=== PATIENT | male | born 1970 | race Caucasian/White ===

== ENCOUNTER → 2017-10-24 | Outpatient (CLI) | payer MEDICARE, OTHER, SELFPAY | PROVIDERS: Visit Provider Nurse Practitioner Family | DX: Z79.899 Other long term (current) drug therapy (principal) | CPT/HCPCS: 80305 ==

== ENCOUNTER 2017-11-16 09:16 | Emergency (ER) | payer MEDICARE, OTHER, SELFPAY ==
[2017-11-16 10:07] VITALS: BP 149/90; PULSE 114; RESP 18; TEMP 36.6; O2SAT 96; BMI 42.0
[2017-11-16 10:43] LABS: UTC Influenza A Antigen Negative (Negative); UTC Influenza B Antigen Positive (Negative)
--- NOTE | 2017-11-16 10:49 | HMH.EDUTC ---
[facility] [place] Impression: Influenza B Disposition: Home, Self-Care Condition on Discharge: Good Instructions: Influenza Additional Instructions: * Too late to start tamiflu. Most effective when started within 48 hours of symptoms onset. Sounds like you are already improving * Continue antibiotic due to right ear * Lots of rest * Increase fluids, water, gatorade, powerade, pedialyte if /toddler/child * Monitor Temp. Tylenol every 4 hours as needed no more then 5 times a day or 4000mg in 24 hours and/or ibuprofen every 6 hours as needed no more then 3200mg in 24 hours (as long as your primary care doctor has told you that it is ok to take both) for fever/aches/pain. ER if fever no less than 101 despite tylenol and Ibuprofen * You (or your child) are contagious until no fever, aches, chills x 24 hours without medication for symptoms. * * Per hospital policy, Your throat swab was sent for culture. Those results are typically sent to your primary care. Be sure to follow up in 2-3 days if no improvement so they can review those results and treat if necessary. If you don't have primary care, I recommend you get one but in the mean time, you will have to return to a walk in clinic. Referrals: Leatha Brownlee APRN [Primary Care Provider] - (IMMEDIATELY for new or worsening symptoms, improvement followed by suddenly feeling worse OR no noticeable improvement over the next 48-72 hours. 911 for difficulty breathing ) Time of Disposition: 11:03 Medical Decision Making Vital Signs: 11/16/17 10:07 Temperature 97.8 F Temperature Source Temporal Artery Scan Pulse Rate [Right] 114 H Respiratory Rate 18 Blood Pressure [Right Arm] 149/90 Blood Pressure Mean [Right Arm] 109 Blood Pressure Source [Right Arm] Automatic Cuff Blood Pressure Position [Right Arm] Sitting 02 Sat by Pulse Oximetry 96 Oxygen Delivery Method Room Air - Lab Data Lab Results 11/16/17 10:42: Influenza Type A Ag Negative, Influenza Type B Ag Positive A Orders (Tests/Meds): Flu A neg Flu B positive - Dante Inquiry Pt receiving controlled substance: No [facility] [place] - General Stated complaint: cough runny nose congested Time Seen by Provider: 11/16/17 10:30 Mode of Arrival: Ambulatory Source of Information: Patient Limitations: No Limitations Description of Symptoms (Recalled from Triage Doc. by RN): RECENT ZPACK, COUGH, CONGESTION HEENT Symptoms (Recalled from RN notes): Yes Resp Symptoms (Recalled from RN notes): No Skin Symptoms (Recalled from RN notes): No MS Symptoms (Recalled from RN notes): No Functional Status (Recalled from RN notes): N - History of Present Illness Provider Complaint: c/o continued nonprod cough. Started 3-4 days ago. Saw [facility]. Flu neg. Started on zpack. Fever, aches, chills improved but cough and runny nose lingering. Mom w/ same symptoms. Dx flu B. Girlfriend w/ same symptoms several days longer. Denies SOA, wheezing. Has not had flu vaccine due to PMHx he reports. - Related Data Home Medications Medication Instructions Recorded Confirmed albuterol sulfate HFA 90 2 puff INHALATION Q6H 11/13/17 mcg/actuation aerosol inhaler atorvastatin 10 mg tablet 10 mg PO QDAY 11/13/17 budesonide-formoterol HFA 160 2 puff INHALATION Q12H 11/13/17 mcg-4.5 mcg/actuation aerosol inhaler diazepam 10 mg tablet 10 mg PO TID 11/13/17 diltiazem CD 240 mg 240 mg PO QDAY 11/13/17 capsule,extended release 24 hr epinephrine 0.3 mg/0.3 mL 0.3 mg IM ONCE 11/13/17 injection, auto-injector escitalopram 20 mg tablet 20 mg PO QDAY 11/13/17 esomeprazole magnesium 20 mg 20 mg PO QDAY cap 11/13/17 capsule,delayed release metoclopramide 10 mg tablet 10 mg PO TID 11/13/17 olopatadine 0.1 % eye drops 1 drp OPHTHALMIC BID 11/13/17 quetiapine 50 mg tablet 50 mg PO QHS tab 11/13/17 selenium sulfide 2.25 % shampoo 5 ml TOPICAL QDAY 11/13/17 sumatriptan 100 mg tablet 100 mg PO ONCE 11/13/17 Prev
--- NOTE | 2017-11-16 10:52 | ED_ITS ---
[facility] Disposition Clinical Impression: Influenza B Disposition: Home, Self-Care Condition on Discharge: Good Instructions: Influenza Additional Instructions: * Too late to start tamiflu. Most effective when started within 48 hours of symptoms onset. Sounds like you are already improving * Continue antibiotic due to right ear * Lots of rest * Increase fluids, water, gatorade, powerade, pedialyte if /toddler/child * Monitor Temp. Tylenol every 4 hours as needed no more then 5 times a day or 4000mg in 24 hours and/or ibuprofen every 6 hours as needed no more then 3200mg in 24 hours (as long as your primary care doctor has told you that it is ok to take both) for fever/aches/pain. ER if fever no less than 101 despite tylenol and Ibuprofen * You (or your child) are contagious until no fever, aches, chills x 24 hours without medication for symptoms. * * Per hospital policy, Your throat swab was sent for culture. Those results are typically sent to your primary care. Be sure to follow up in 2-3 days if no improvement so they can review those results and treat if necessary. If you don' t have primary care, I recommend you get one but in the mean time, you will have to return to a walk in clinic. Referrals: Leatha Brownlee APRN [Primary Care Provider] - (IMMEDIATELY for new or worsening symptoms, improvement followed by suddenly feeling worse OR no noticeable improvement over the next 48-72 hours. 911 for difficulty breathing * ) Time of Disposition: 11:03 Medical Decision Making Vital Signs: 11/16/17 10:07 Temperature 97.8 F Temperature Source Temporal Artery Scan Pulse Rate [Right] 114 H Respiratory Rate 18 Blood Pressure [Right Arm] 149/90 Blood Pressure Mean [Right Arm] 109 Blood Pressure Source [Right Arm] Automatic Cuff Blood Pressure Position [Right Arm] Sitting 02 Sat by Pulse Oximetry 96 Oxygen Delivery Method Room Air - Lab Data Lab Results 11/16/17 10:42: Influenza Type A Ag Negative, Influenza Type B Ag Positive A Orders (Tests/Meds): Flu A neg Flu B positive - Dante Inquiry Pt receiving controlled substance: No [facility] HPI - General Stated complaint: cough runny nose congested Time Seen by Provider: 11/16/17 10:30 Mode of Arrival: Ambulatory Source of Information: Patient Limitations: No Limitations Description of Symptoms (Recalled from Triage Doc. by RN): RECENT ZPACK, COUGH, CONGESTION HEENT Symptoms (Recalled from RN notes): Yes Resp Symptoms (Recalled from RN notes): No Skin Symptoms (Recalled from RN notes): No MS Symptoms (Recalled from RN notes): No Functional Status (Recalled from RN notes): N - History of Present Illness Provider Complaint: c/o continued nonprod cough. Started 3-4 days ago. Saw [facility]. Flu neg. Started on zpack. Fever, aches, chills improved but cough and runny nose lingering. Mom w/ same symptoms. Dx flu B. Girlfriend w/ same symptoms several days longer. Denies SOA, wheezing. Has not had flu vaccine due to PMHx he reports. - Related Data Home Medications Medication Instructions Recorded Confirmed albuterol sulfate HFA 90 2 puff INHALATION Q6H 11/13/17 mcg/actuation aerosol inhaler atorvastatin 10 mg tablet 10 mg PO QDAY 11/13/17 budesonide-formoterol HFA 160 2 puff INHALATION Q12H 11/13/17 mcg-4.5 mcg/actuation aerosol inhaler diazepam 10 mg tablet 10 mg PO TID 11/13/17 diltiazem CD 240 mg 240 mg PO QDAY
== END 2017-11-16 11:13 | disposition home or self-care (01) ==
PROVIDERS: Emergency Provider Nurse Practitioner Family; PCP Nurse Practitioner Family
DX: J10.1 Influenza due to other identified influenza virus with other respiratory manifestations (principal); I10 Essential (primary) hypertension; Z85.6 Personal history of leukemia; Z79.51 Long term (current) use of inhaled steroids; Z79.899 Other long term (current) drug therapy
CPT/HCPCS: 87804; 99202

== ENCOUNTER → 2017-12-21 15:20 | Outpatient (CLI) | payer MEDICARE, OTHER, SELFPAY ==
[2017-12-21 19:27] LABS: Amphetamine/Metha Screen,Urine Negative ng/mL (<1000); Barbiturates Screen,Urine Negative ng/mL (<200); Benzodiazepines Screen,Urine Positive ng/mL (200); Cannabinoid Screen,Urine Negative ng/mL (<50); Cocaine Screen,Urine Negative ng/g (<300); Methadone Screen,Urine Negative ng/mL (<300); Opiate Screen,Urine Negative ng/mL (<300); Phencyclidine Screen,Urine Negative ng/mL (<25)
== END ==
PROVIDERS: Visit Provider Nurse Practitioner Family
DX: Z79.899 Other long term (current) drug therapy (principal)
CPT/HCPCS: 80305

== ENCOUNTER → 2017-12-24 09:37 | Outpatient (POV) | payer MEDICARE, OTHER, SELFPAY | PROVIDERS: PCP Nurse Practitioner Family; Visit Provider Physician Assistant | DX: Z00.00 Encounter for general adult medical examination without abnormal findings (principal) ==

== ENCOUNTER → 2018-01-17 11:02 | Outpatient (CLI) | payer MEDICARE, OTHER, SELFPAY | PROVIDERS: Visit Provider Nurse Practitioner Family | DX: E03.9 Hypothyroidism, unspecified (principal); J10.1 Influenza due to other identified influenza virus with other respiratory manifestations ==

== ENCOUNTER → 2018-01-29 10:19 | Outpatient (CLI) | payer MEDICARE, OTHER, SELFPAY ==
[2018-01-29 10:38] LABS: Basophils % 0.4 % (0.1-2.0); Eosinophils # 0.3 K/mm3 (0.0-0.4); Eosinophils % 3.4 % (0.1-12.0); Hematocrit 45.5 % (42.0-52.0); Hemoglobin 15.7 g/dL (14.1-18.0); Lymphocytes # 3.2 K/mm3 (0.7-4.5); Mean Corpuscular HGB Conc 34.4 g/dL (31.8-35.4); Mean Corpuscular Hemoglobin 29.9 pg (27.0-31.2); Mean Platelet Volume 8.2 fl (7.4-10.4); Monocytes # 0.5 K/mm3 (0.1-1.0); Monocytes % 5.7 % (1.7-9.3); Neutrophils # 4.2 K/mm3 (1.8-7.8); Neutrophils % 51.5 % (37.0-80.0); Platelet Count 203 K/mm3 (142-424); Red Blood Count 5.24 M/mm3 (4.60-6.20); Red Cell Distribution Width 13.5 % (11.5-17.5); White Blood Count 8.2 K/mm3 (4.8-10.8)
[2018-01-29 11:40] LABS: Alanine Aminotransferase 42 U/L (12-78); Albumin Level 3.4 gm/dL (3.4-5.0); Albumin/Globulin Ratio 1.2 (1.1-1.8); Alkaline Phosphatase 137 U/L (46-116); Anion Gap 11.8 mEq/L (5-15); Aspartate Amino Transferase 24 U/L (15-37); Bilirubin,Total 0.5 mg/dL (0.2-1.0); Blood Urea Nitrogen 7 mg/dL (7-18); Calcium 8.5 mg/dL (8.5-10.1); Carbon Dioxide 27 mmol/L (21.0-32.0); Chloride 104 mmol/L (98-107); Creatinine,Serum 0.94 mg/dL (0.70-1.30); Estimated Glomerular Filt Rate 87 ml/min (>60); GFR (African American) 105 ML/MIN (>60); Globulin 2.9 gm/dl (1.3-3.2); Glucose 113 mg/dL (74-106); Potassium 3.8 mmoL/L (3.5-5.1); Sodium 139 mmol/L (136-145); Total Protein,Serum 6.3 gm/dL (6.4-8.2)
[2018-01-29 11:40] LABS: Thyroid Stimulating Hormone 3.88 uIU/ml (0.358-3.740)
[2018-01-30 15:48] LABS: Vitamin D 25 Hydroxy 11.3 ng/mL (30.0-100.0)
== END ==
PROVIDERS: Nurse Practitioner Family; Visit Provider Nurse Practitioner
DX: E78.5 Hyperlipidemia, unspecified (principal); R53.83 Other fatigue
CPT/HCPCS: 36415; 80053; 82652; 84443; 85025

== ENCOUNTER → 2018-01-31 08:42 | Outpatient (CLI) | payer MEDICARE, OTHER, SELFPAY ==
--- NOTE | 2018-01-31 08:51 | XR_ITS ---
XR DEXA axial skeleton HISTORY: ITS.REASON: S/P CHEMOTHERAPY,RASIATION,PREDNISONE ORDERING PHYSICIAN: Elías Mccray MD PATIENT AGE: 47 years COMPARISON: None FINDINGS: The BMD measured at the AP Spine L1-L4 is 1.077 g/cm squared with a T score of -1.2. This is considered Osteopenic according to the World Health Organization criteria. Fracture risk is Moderate. Treatment is advised.. The mean density of the hips is 0.994 with a T score of -0.7 IMPRESSION: Osteopenia with moderate fracture risk. Treatment recommended. Recommend follow exam January 2020
== END ==
PROVIDERS: PCP Nurse Practitioner Family; Visit Provider Internal Medicine
DX: Z79.52 Long term (current) use of systemic steroids (principal); R53.83 Other fatigue
CPT/HCPCS: 77080

== ENCOUNTER → 2018-02-15 15:42 | Outpatient (CLI) | payer MEDICARE, OTHER, SELFPAY ==
[2018-02-15 18:44] LABS: Amphetamine/Metha Screen,Urine Negative ng/mL (<1000); Barbiturates Screen,Urine Negative ng/mL (<200); Benzodiazepines Screen,Urine Positive ng/mL (200); Cannabinoid Screen,Urine Negative ng/mL (<50); Cocaine Screen,Urine Negative ng/g (<300); Methadone Screen,Urine Negative ng/mL (<300); Opiate Screen,Urine Negative ng/mL (<300); Phencyclidine Screen,Urine Negative ng/mL (<25)
== END ==
PROVIDERS: Visit Provider Nurse Practitioner Family
DX: Z79.899 Other long term (current) drug therapy (principal)
CPT/HCPCS: 80305

== ENCOUNTER → 2018-03-15 16:23 | Outpatient (CLI) | payer MEDICARE, OTHER, SELFPAY ==
--- NOTE | 2018-03-15 16:25 | XR_ITS ---
XR shoulder LT min 2V HISTORY: ITS.REASON: pain ORDERING PHYSICIAN: Leatha Brownlee PATIENT AGE: 48 years COMPARISON: FINDINGS: No fracture or dislocation. No lytic or blastic change. There is normal mineralization. There is subacromial stenosis which may result in impingement symptomatology. Please correlate with clinical findings. No other significant anomalies evident. IMPRESSION: Subacromial stenosis otherwise negative
== END ==
PROVIDERS: PCP Nurse Practitioner Family; Visit Provider Nurse Practitioner Family
DX: M25.512 Pain in left shoulder (principal)
CPT/HCPCS: 73030

== ENCOUNTER → 2018-03-25 14:21 | Outpatient (CLI) | payer MEDICARE, OTHER, SELFPAY ==
--- NOTE | 2018-03-25 14:24 | US_ITS ---
US thyroid HISTORY: Difficulty swallowing with fatigue ITS.REASON: FATIGUE, MILD DYSPHAGIA, S/P WHOLE BODY RADIATION, HYPOTHYRO ORDERING PHYSICIAN: Jennifer Chirinos PATIENT AGE: 48 years Comparison: None FINDINGS: Right lobe: 4.4 x 1.5 x 2 cm. Homogeneous echogenicity. 5 mm cyst upper pole Left lobe: 4.5 x 1.4 x 1.9 cm. 4 mm cyst upper pole. Ill-defined area of decreased echogenicity posteriorly at 9 mm may be due to small nodule versus heterogeneous echogenicity. Isthmus: Unremarkable IMPRESSION: Mildly enlarged thyroid gland with small bilateral cysts and possible 1 cm nodule in the posterior aspect of the left lobe. Consider 6 month follow-up to confirm stability
== END ==
PROVIDERS: PCP Nurse Practitioner Family; Visit Provider Nurse Practitioner
DX: R13.10 Dysphagia, unspecified (principal); E03.9 Hypothyroidism, unspecified; R53.83 Other fatigue
CPT/HCPCS: 76536

== ENCOUNTER → 2018-04-12 15:17 | Outpatient (CLI) | payer MEDICARE, OTHER, SELFPAY ==
[2018-04-12 19:43] LABS: Amphetamine/Metha Screen,Urine Negative ng/mL (<1000); Barbiturates Screen,Urine Negative ng/mL (<200); Benzodiazepines Screen,Urine Positive ng/mL (200); Cannabinoid Screen,Urine Negative ng/mL (<50); Cocaine Screen,Urine Negative ng/g (<300); Methadone Screen,Urine Negative ng/mL (<300); Opiate Screen,Urine Negative ng/mL (<300); Phencyclidine Screen,Urine Negative ng/mL (<25)
== END ==
PROVIDERS: Visit Provider Nurse Practitioner Family
DX: Z79.899 Other long term (current) drug therapy (principal)
CPT/HCPCS: 80305

== ENCOUNTER 2018-04-30 21:27 | Emergency (ER) | payer MEDICARE, OTHER, SELFPAY ==
[2018-04-30 21:38] VITALS: BP 122/96; PULSE 111; RESP 20; TEMP 36.9; O2SAT 97; BMI 41.1
--- NOTE | 2018-04-30 21:42 | CT_ITS ---
CT abdomen pelvis wo con CLINICAL INDICATION: Epigastric pain with vomiting and diarrhea ITS.REASON: abd pain ORDERING PHYSICIAN: Rasta Cadet MD PATIENT AGE: 48 years COMPARISON: 03/17/2017 TECHNIQUE: Axial images obtained with sagittal and coronal reformats. All CT scans at the facility use one or more dose reduction, viz: automated exposure control; ma/kV adjustment per patient size (including targeted exams where dose is matched to indication; i.e. head); or iterative reconstruction technique. PROCEDURE: Oral Contrast: None IV Contrast: None . FINDINGS: Minimal atelectatic or fibrotic changes are present in the right lung base. Diffuse fatty liver infiltration with some sparing around the gallbladder fossa. There are 2 small hyperdensities along the neck of the gallbladder and could be related to small stones seen on image #35. Ultrasound may be of further value. The spleen, adrenal glands, pancreas, and kidneys have an unremarkable unenhanced CT appearance. No renal or ureteral calculi or hyper versus. Unremarkable appendix. No evidence of diverticulitis. There are a few air-fluid levels within the colon which is nondistended. Small soft tissue density is present deep to the umbilicus and could be related to an area of scarring. No pelvic mass or abnormal fluid collection or focal inflammatory change of the pelvis. No acute bony anomalies. Scattered small lymph nodes are present in the mesentery's IMPRESSION: 1. Scattered air-fluid levels within nondistended large bowel nonspecific and may be seen with diarrhea disease or interval colitis. 2. Possible cholelithiasis. 3. Fatty liver.
[2018-04-30 21:47] LABS: Microscopic, Urine URINE MICROSCOPIC (MICROSCOPIC)
[2018-04-30 21:51] LABS: Appearance,Urine CLEAR (Clear); Bilirubin,Urine Negative (Negative); Blood, Urine Negative (Negative); Color,Urine YELLOW (Yellow); Glucose,Urine (UA) Negative (Negative); Ketones,Urine Negative (Negative); Leukocyte Esterase,Urine Negative (Negative); Nitrate,Urine Negative (Negative); PH,Urine 5.5 (5.0-8.5); Protein,Urine Negative (Negative); Specific Gravity, Urine >= 1.030 (1.005-1.030); Urobilinogen,Urine 0.2 EU/dl (0.2)
[2018-04-30 21:57] LABS: Bacteria,Urine Trace /lpf; Hyaline Casts,Urine Occasional #/lpf (0); Mucus,Urine 4+ /lpf; Squamous Epithelial Cell,Urine Occasional #/hpf (0-5)
[2018-04-30 21:57] LABS: Basophils # 0.1 K/mm3 (0-0.2); Basophils % 0.3 % (0.1-2.0); Eosinophils # 0.2 K/mm3 (0.0-0.4); Eosinophils % 1.2 % (0.1-12.0); Hematocrit 51.6 % (42.0-52.0); Hemoglobin 17.3 g/dL (14.1-18.0); Lymphocytes # 3.4 K/mm3 (0.7-4.5); Lymphocytes % 20.9 K/mm3 (10-50); Mean Corpuscular HGB Conc 33.5 g/dL (31.8-35.4); Mean Corpuscular Hemoglobin 29.1 pg (27.0-31.2); Mean Corpuscular Volume 86.9 fl (80-94); Mean Platelet Volume 7.9 fl (7.4-10.4); Monocytes # 0.7 K/mm3 (0.1-1.0); Monocytes % 4.3 % (1.7-9.3); Neutrophils # 11.9 K/mm3 (1.8-7.8); Neutrophils % 73.2 % (37.0-80.0); Platelet Count 253 K/mm3 (142-424); Red Blood Count 5.94 M/mm3 (4.60-6.20); Red Cell Distribution Width 13.2 % (11.5-17.5); White Blood Count 16.3 K/mm3 (4.8-10.8)
[2018-04-30 22:01] LABS: MANUAL DIFFERENTIAL MANUAL DIFFERENTIAL (MANUAL DIFF)
[2018-04-30 22:10] LABS: Alanine Aminotransferase 52 U/L (12-78); Albumin Level 4.1 gm/dL (3.4-5.0); Albumin/Globulin Ratio 1.1 (1.1-1.8); Alkaline Phosphatase 161 U/L (46-116); Amylase 44 U/L (25-125); Anion Gap 11.2 mEq/L (5-15); Aspartate Amino Transferase 29 U/L (15-37); Bilirubin,Total 0.7 mg/dL (0.2-1.0); Blood Urea Nitrogen 17 mg/dL (7-18); Calcium 8.7 mg/dL (8.5-10.1); Carbon Dioxide 29 mmol/L (21.0-32.0); Chloride 101 mmol/L (98-107); Creatinine Clearance Estimated 78 mL/min (0-300); Creatinine,Serum 1.11 mg/dL (0.70-1.30); Estimated Glomerular Filt Rate 71 ml/min (>60); GFR (African American) 86 ML/MIN (>60); Globulin 3.8 gm/dl (1.3-3.2); Glucose 122 mg/dL (74-106); Lipase 122 u/L (73-393); Potassium 4.2 mmoL/L (3.5-5.1); Sodium 137 mmol/L (136-145); Total Protein,Serum 7.9 gm/dL (6.4-8.2)
--- NOTE | 2018-04-30 23:04 | HMH.EDNVD ---
ED Disposition Clinical Impression: Gastroenteritis Disposition: Home, Self-Care Condition on Discharge: Good Instructions: DI for Vomiting -- Adult Additional Instructions: fluids and see pcp for follow up Referrals: Leatha Brownlee APRN [Primary Care Provider] - - Critical Care Critical Care Time: No Attestation: On 04/30/18, the high probability of a clinically significant, sudden or life threatening deterioration of the following system(s) required my full and direct attention, intervention and personal management. The time I documented below is in addition to time spent performing reported procedures but includes the following listed in this critical care notation. Medical Decision Making - Medical Records Medical records reviewed: Yes: I reviewed the patient's medical records. - Dante Inquiry Pt receiving controlled substance: No Vital Signs: 04/30/18 21:38 Temperature 98.4 F Temperature Source Oral Pulse Rate [Right Radial] 111 H Respiratory Rate 20 Blood Pressure [Right Arm] 122/96 Blood Pressure Mean [Right Arm] 104 02 Sat by Pulse Oximetry 97 - Lab Data Lab results reviewed: Yes: I reviewed the patient's lab results. Lab Results 04/30/18 20:45: Urine Color Yellow, Urine Appearance Clear, Urine pH 5.5, Ur Specific [place] >= 1.030, Urine Protein Negative, Urine Glucose (UA) Negative, Urine Ketones Negative, Urine Blood Negative, Urine Nitrate Negative, Urine Bilirubin Negative, Urine Urobilinogen 0.2, Ur Leukocyte Esterase Negative, Urine RBC None, Urine WBC None, Ur Squamous Epith Cells Occasional, Urine Bacteria Trace, Hyaline Casts Occasional, Urine Mucus 4+ 04/30/18 21:50: WBC 16.3 H, RBC 5.94, Hgb 17.3, Hct 51.6, MCV 86.9, MCH 29.1, MCHC 33.5, RDW 13.2, Plt Count 253, MPV 7.9, Neut % (Auto) 73.2, Lymph % (Auto) 20.9, Rush % (Auto) 4.3, Eos % (Auto) 1.2, Baso % (Auto) 0.3, Neut # (Auto) 11.9 H, Lymph # (Auto) 3.4, Rush # (Auto) 0.7, Eos # (Auto) 0.2, Baso # (Auto) 0.1 04/30/18 21:50: Sodium 137, Potassium 4.2, Chloride 101, Carbon Dioxide 29, Anion Gap 11.2, BUN 17, Creatinine 1.11, Estimated Creat Clear 78, Estimated GFR 71, Est GFR ( Amer) 86, Glucose 122 H, Calcium 8.7, Total Bilirubin 0.7, AST 29, ALT 52, Alkaline Phosphatase 161 H, Total Protein 7.9, Albumin 4.1, Globulin 3.8 H, Albumin/Globulin Ratio 1.1, Amylase 44, Lipase 122 Result diagrams: 04/30/18 21:50 04/30/18 21:50 Orders (Tests/Meds): ED MEDICATIONS Discontinued Medications Generic Name Dose Route Start Last Admin Trade Name Freq PRN Reason Stop Dose Admin Sodium Chloride 1,000 mls @ 999 mls/hr 04/30/18 21:45 04/30/18 22:01 Sod Chlor 0.9% 1000ml Bag IV 04/30/18 22:45 999 mls/hr .Q1H1M JOCELYN Administration Ketorolac Tromethamine 30 mg 04/30/18 21:42 04/30/18 22:01 Toradol 30mg/Ml Vial IV 04/30/18 21:43 30 mg ONCE ONE Administration Ondansetron HCl 4 mg 04/30/18 21:42 04/30/18 22:01 Zofran 4mg/2ml Vial IV 04/30/18 21:43 4 mg ONCE ONE Administration ORDERS Category Date Time Status CT abdomen pelvis wo con Stat Cat Scan 04/30/18 21:42 Taken CBC w/Auto Diff [Complete Blood Count Auto Diff] Stat Lab 04/30/18 21:50 Results - CT Data CT Scan: Abdomen, Pelvis Time Received: 23:[address] Reviewed: Yes: I have viewed the radiologist's interpretation Preliminary Findings: Abnormal (entercolitis) Nausea/Vomiting/Diarrhea HPI - General Chief complaint: Abdominal Pain Stated complaint: Sick at stomach Time Seen by Provider: 04/30/18 21:50 Mode of Arrival: Family Vehicle Source of Information: Patient, Spouse, Medical Record Limitations: No Limitations Description of Symptoms (Recalled from ER Triage Doc. by RN): pt states he ate [employer] last pm and this morning he had abd pain, nausea, and diarrhea x 4-5 times. - History of Present Illness HPI Narrative: crampy abd pain
--- NOTE | 2018-04-30 23:10 | ED_ITS ---
ED Disposition Clinical Impression: Gastroenteritis Disposition: Home, Self-Care Condition on Discharge: Good Instructions: DI for Vomiting -- Adult Additional Instructions: fluids and see pcp for follow up Referrals: Leatha Brownlee APRN [Primary Care Provider] - - Critical Care Critical Care Time: No Attestation: On 04/30/18, the high probability of a clinically significant, sudden or life threatening deterioration of the following system(s) required my full and direct attention, intervention and personal management. The time I documented below is in addition to time spent performing reported procedures but includes the following listed in this critical care notation. Medical Decision Making - Medical Records Medical records reviewed: Yes: I reviewed the patient's medical records. - Dante Inquiry Pt receiving controlled substance: No Vital Signs: 04/30/18 21:38 Temperature 98.4 F Temperature Source Oral Pulse Rate [Right Radial] 111 H Respiratory Rate 20 Blood Pressure [Right Arm] 122/96 Blood Pressure Mean [Right Arm] 104 02 Sat by Pulse Oximetry 97 - Lab Data Lab results reviewed: Yes: I reviewed the patient's lab results. Lab Results 04/30/18 20:45: Urine Color Yellow, Urine Appearance Clear, Urine pH 5.5, Ur Specific [place] >= 1.030, Urine Protein Negative, Urine Glucose (UA) Negative, Urine Ketones Negative, Urine Blood Negative, Urine Nitrate Negative, Urine Bilirubin Negative, Urine Urobilinogen 0.2, Ur Leukocyte Esterase Negative, Urine RBC None, Urine WBC None, Ur Squamous Epith Cells Occasional, Urine Bacteria Trace, Hyaline Casts Occasional, Urine Mucus 4+ 04/30/18 21:50: WBC 16.3 H, RBC 5.94, Hgb 17.3, Hct 51.6, MCV 86.9, MCH 29.1, MCHC 33.5, RDW 13.2, Plt Count 253, MPV 7.9, Neut % (Auto) 73.2, Lymph % (Auto) 20.9, [place] % (Auto) 4.3, Eos % (Auto) 1.2, Baso % (Auto) 0.3, Neut # (Auto) 11.9 H, Lymph # (Auto) 3.4, Frio # (Auto) 0.7, Eos # (Auto) 0.2, Baso # (Auto) 0.1 04/30/18 21:50: Sodium 137, Potassium 4.2, Chloride 101, Carbon Dioxide 29, Anion Gap 11.2, BUN 17, Creatinine 1.11, Estimated Creat Clear 78, Estimated GFR 71, Est GFR ( Amer) 86, Glucose 122 H, Calcium 8.7, Total Bilirubin 0.7, AST 29, ALT 52, Alkaline Phosphatase 161 H, Total Protein 7.9, Albumin 4.1 , Globulin 3.8 H, Albumin/Globulin Ratio 1.1, Amylase 44, Lipase 122 Result diagrams: 04/30/18 21:50 04/30/18 21:50 Orders (Tests/Meds): ED MEDICATIONS Discontinued Medications Generic Name Dose Route Start Last Admin Trade Name Freq PRN Reason Stop Dose Admin Sodium Chloride 1,000 mls @ 999 mls/hr 04/30/18 21:45 04/30/18 22:01 Sod Chlor 0.9% 1000ml Bag IV 04/30/18 22:45 999 mls/hr .Q1H1M JOCELYN Administration Ketorolac Tromethamine 30 mg 04/30/18 21:42 04/30/18 22:01 Toradol 30mg/Ml Vial IV 04/30/18 21:43 30 mg ONCE ONE Administration Ondansetron HCl 4 mg 04/30/18 21:42 04/30/18 22:01 Zofran 4mg/2ml Vial IV 04/30/18 21:43 4 mg ONCE ONE Administration ORDERS Category Date Time Status CT abdomen pelvis wo con Stat Cat Scan 04/30/18 21:42 Taken CBC w/Auto Diff [Complete Blood Count Auto Diff] Stat Lab 06
[2018-04-30 23:12] LABS: Lymphocytes % 19 % (10-50); Monocytes % 1 % (2-9); Neutrophils % 80 % (42-76); Platelet Estimate Normal; Total Cells Counted 100
[2018-04-30 23:14] LABS: Stomatocytes 1+
[2018-04-30 23:15] VITALS: BP 133/74; PULSE 84; RESP 18; TEMP 36.6; O2SAT 96
== END 2018-04-30 23:16 | disposition home or self-care (01) ==
PROVIDERS: Emergency Provider Emergency Medicine; PCP Nurse Practitioner Family
DX: K52.9 Noninfective gastroenteritis and colitis, unspecified (principal); K21.9 Gastro-esophageal reflux disease without esophagitis; E78.5 Hyperlipidemia, unspecified; I10 Essential (primary) hypertension; F41.8 Other specified anxiety disorders; Z95.0 Presence of cardiac pacemaker; E03.9 Hypothyroidism, unspecified; Z88.2 Allergy status to sulfonamides; Z88.6 Allergy status to analgesic agent
CPT/HCPCS: 74176; 80053; 81001; 82150; 83690; 85007; 85025; 96365; 96375; 99283; J2405

== ENCOUNTER → 2018-05-27 15:26 | Outpatient (CLI) | payer MEDICARE, OTHER, SELFPAY ==
[2018-05-27 17:49] LABS: Anion Gap 12.8 mEq/L (5-15); Blood Urea Nitrogen 14 mg/dL (7-18); Calcium 9.3 mg/dL (8.5-10.1); Carbon Dioxide 32 mmol/L (21.0-32.0); Chloride 103 mmol/L (98-107); Creatinine,Serum 1.25 mg/dL (0.70-1.30); Estimated Glomerular Filt Rate 62 ml/min (>60); GFR (African American) 75 ML/MIN (>60); Glucose 105 mg/dL (74-106); Potassium 4.8 mmoL/L (3.5-5.1); Sodium 143 mmol/L (136-145)
== END ==
PROVIDERS: PCP Nurse Practitioner Family; Visit Provider Internal Medicine
DX: I51.9 Heart disease, unspecified (principal); R06.00 Dyspnea, unspecified; I10 Essential (primary) hypertension
CPT/HCPCS: 36415; 80048

== ENCOUNTER → 2018-06-06 14:02 | Outpatient (REF) | payer MEDICARE, OTHER, SELFPAY ==
[2018-06-06 19:27] LABS: Amphetamine/Metha Screen,Urine Negative ng/mL (<1000); Barbiturates Screen,Urine Negative ng/mL (<200); Benzodiazepines Screen,Urine Positive ng/mL (<200); Cannabinoid Screen,Urine Negative ng/mL (<50); Cocaine Screen,Urine Negative ng/mL (<300); Methadone Screen,Urine Negative ng/mL (<300); Opiate Screen,Urine Negative ng/mL (<300); Phencyclidine Screen,Urine Negative ng/mL (<25)
== END ==
LOC: LAB 14:02
PROVIDERS: Visit Provider Nurse Practitioner Family
DX: Z79.899 Other long term (current) drug therapy (principal)
CPT/HCPCS: 80305

== ENCOUNTER 2018-06-27 13:00 | Outpatient (RCR) | payer MEDICARE, OTHER, SELFPAY | END 2018-06-27 13:01 | disposition home or self-care (01) | LOC: PT 13:00 | PROVIDERS: PCP Nurse Practitioner Family; Visit Provider Orthopaedic Surgery | DX: M25.562 Pain in left knee (principal) | CPT/HCPCS: 97010; 97014; 97033; 97035; 97110; 97140; 97163; G0283 ==

== ENCOUNTER → 2018-07-11 14:12 | Outpatient (CLI) | payer MEDICARE, OTHER, SELFPAY ==
--- NOTE | 2018-07-11 14:15 | CT_ITS ---
CT sinus wo con CLINICAL INDICATION: ITS.REASON: sinus congestion ORDERING PHYSICIAN: Bert Garcia MD PATIENT AGE: 48 years COMPARISON: None TECHNIQUE:Axial images obtained with sagittal and coronal reformats. All CT scans at the facility use one or more dose reduction, viz: automated exposure control, ma/kV adjustment per patient size (including targeted exams where dose is matched to indication, i.e. head), or iterative reconstruction technique. FINDINGS: No sinus air-fluid levels. No sinus or nasopharyngeal mass. Mild mucosal thickening involving the floor the left maxillary sinus have a somewhat lobular appearance measuring up to 4 mm in width. Sphenoid, ethmoid, and frontal sinuses are unremarkable. There is mild rightward nasal septal deviation superiorly. There is mild narrowing of the left nasal canal from a small septal spur on the left and mild edema of the left inferior nasal turbinate. No mastoid effusion. The orbits have an unremarkable appearance. The middle ears are well aerated. IMPRESSION: 1. Minimal inflammatory changes of the left maxillary sinus 2. Mild rightward nasal septal deviation superiorly with mild narrowing of the nasal canal and the left from small septal spur and turbinate edema
== END ==
PROVIDERS: PCP Nurse Practitioner Family; Visit Provider Otolaryngology
DX: J32.0 Chronic maxillary sinusitis (principal); J32.9 Chronic sinusitis, unspecified; J34.2 Deviated nasal septum
CPT/HCPCS: 70486

== ENCOUNTER → 2018-08-01 13:49 | Outpatient (CLI) | payer MEDICARE, OTHER, SELFPAY ==
[2018-08-01 14:17] LABS: Amphetamine/Metha Screen,Urine Negative ng/mL (<1000); Barbiturates Screen,Urine Negative ng/mL (<200); Benzodiazepines Screen,Urine Positive ng/mL (<200); Cannabinoid Screen,Urine Negative ng/mL (<50); Cocaine Screen,Urine Negative ng/mL (<300); Methadone Screen,Urine Negative ng/mL (<300); Opiate Screen,Urine Negative ng/mL (<300); Phencyclidine Screen,Urine Negative ng/mL (<25)
[2018-08-01 14:18] LABS: Basophils # 0.1 K/mm3 (0-0.2); Basophils % 0.5 % (0.1-2.0); Eosinophils # 0.3 K/mm3 (0.0-0.4); Eosinophils % 2.7 % (0.1-12.0); Hematocrit 47.5 % (42.0-52.0); Hemoglobin 16.4 g/dL (14.1-18.0); Lymphocytes # 2.9 K/mm3 (0.7-4.5); Mean Corpuscular HGB Conc 34.6 g/dL (31.8-35.4); Mean Corpuscular Hemoglobin 31.7 pg (27.0-31.2); Mean Corpuscular Volume 91.7 fl (80-94); Mean Platelet Volume 8.3 fl (7.4-10.4); Monocytes # 0.6 K/mm3 (0.1-1.0); Monocytes % 5.1 % (1.7-9.3); Neutrophils # 7.3 K/mm3 (1.8-7.8); Neutrophils % 65.7 % (37.0-80.0); Platelet Count 239 K/mm3 (142-424); Red Blood Count 5.18 M/mm3 (4.60-6.20); Red Cell Distribution Width 14.5 % (11.5-17.5)
[2018-08-01 15:17] LABS: Alanine Aminotransferase 43 U/L (12-78); Albumin Level 3.9 gm/dL (3.4-5.0); Albumin/Globulin Ratio 1.1 (1.1-1.8); Alkaline Phosphatase 148 U/L (46-116); Anion Gap 12.6 mEq/L (5-15); Aspartate Amino Transferase 24 U/L (15-37); Bilirubin,Total 0.5 mg/dL (0.2-1.0); Blood Urea Nitrogen 13 mg/dL (7-18); Calcium 9.2 mg/dL (8.5-10.1); Carbon Dioxide 31 mmol/L (21.0-32.0); Chloride 100 mmol/L (98-107); Creatinine,Serum 1.03 mg/dL (0.70-1.30); Estimated Glomerular Filt Rate 78 ml/min (>60); GFR (African American) 94 ML/MIN (>60); Globulin 3.5 gm/dl (1.3-3.2); Glucose 105 mg/dL (74-106); Potassium 4.6 mmoL/L (3.5-5.1); Sodium 139 mmol/L (136-145); Total Protein,Serum 7.4 gm/dL (6.4-8.2)
== END ==
PROVIDERS: PCP Nurse Practitioner Family; Visit Provider Otolaryngology
DX: Z01.818 Encounter for other preprocedural examination (principal); J32.0 Chronic maxillary sinusitis; J34.2 Deviated nasal septum; H90.5 Unspecified sensorineural hearing loss; Z79.899 Other long term (current) drug therapy
CPT/HCPCS: 36415; 80053; 80305; 85025

== ENCOUNTER → 2018-08-29 13:13 | Outpatient (REF) | payer MEDICARE, OTHER, SELFPAY ==
[2018-08-29 15:33] LABS: Amphetamine/Metha Screen,Urine Negative ng/mL (<1000); Barbiturates Screen,Urine Negative ng/mL (<200); Benzodiazepines Screen,Urine Positive ng/mL (<200); Cannabinoid Screen,Urine Negative ng/mL (<50); Cocaine Screen,Urine Negative ng/mL (<300); Methadone Screen,Urine Negative ng/mL (<300); Opiate Screen,Urine Negative ng/mL (<300); Phencyclidine Screen,Urine Negative ng/mL (<25)
== END ==
LOC: LAB 13:13
PROVIDERS: PCP Nurse Practitioner Family; Visit Provider Nurse Practitioner Family
DX: Z79.899 Other long term (current) drug therapy (principal)
CPT/HCPCS: 80305

== ENCOUNTER → 2018-09-17 12:17 | Outpatient (CLI) | payer MEDICARE, OTHER, SELFPAY ==
--- NOTE | 2018-09-17 12:20 | US_ITS ---
US thyroid HISTORY: ITS.REASON: thyroid nodule ORDERING PHYSICIAN: Bert Garcia MD PATIENT AGE: 48 years Comparison: 03/25/2018 FINDINGS: The right lobe is 4.8 x 1.4 x 2.2 cm. 5 mm cyst upper pole unchanged The left lobe is 4.5 x 1.4 x 1.5 cm 4 mm cyst upper pole unchanged. Ill-defined isoechoic area lower pole posteriorly at 10 mm unchanged. This is not well defined and [place] due to area of heterogeneous echogenicity as opposed to the nodule. No new nodules evident. IMPRESSION: Enlarged thyroid gland with small bilateral cyst and persistent hypoechoic area posterior left lobe inferiorly unchanged
== END ==
PROVIDERS: PCP Emergency Medicine; Visit Provider Otolaryngology
DX: E04.1 Nontoxic single thyroid nodule (principal); E04.9 Nontoxic goiter, unspecified
CPT/HCPCS: 76536

== ENCOUNTER → 2018-09-19 15:16 | Outpatient (CLI) | payer MEDICARE, OTHER, SELFPAY ==
[2018-09-19 18:16] LABS: Amphetamine/Metha Screen,Urine Negative ng/mL (<1000); Barbiturates Screen,Urine Negative ng/mL (<200); Benzodiazepines Screen,Urine Positive ng/mL (<200); Cannabinoid Screen,Urine Negative ng/mL (<50); Cocaine Screen,Urine Negative ng/mL (<300); Methadone Screen,Urine Negative ng/mL (<300); Opiate Screen,Urine Negative ng/mL (<300); Phencyclidine Screen,Urine Negative ng/mL (<25)
== END ==
PROVIDERS: Visit Provider Nurse Practitioner Family
DX: Z79.899 Other long term (current) drug therapy (principal)
CPT/HCPCS: 80305

== ENCOUNTER → 2018-09-23 13:12 | Outpatient (CLI) | payer MEDICARE, OTHER, SELFPAY ==
[2018-09-23 14:05] LABS: Free T4 (Free Thyroxine) 0.97 ng/dl (0.76-1.46); Thyroid Stimulating Hormone 1.16 uIU/ml (0.358-3.740)
== END ==
PROVIDERS: Visit Provider Otolaryngology
DX: E03.9 Hypothyroidism, unspecified (principal)
CPT/HCPCS: 36415; 84439; 84443

== ENCOUNTER → 2018-10-02 09:37 | Outpatient (CLI) | payer MEDICARE, OTHER, SELFPAY ==
[2018-10-02 10:05] LABS: Basophils % 0.3 % (0.1-2.0); Eosinophils # 0.4 K/mm3 (0.0-0.4); Eosinophils % 4.1 % (0.1-12.0); Hematocrit 46.3 % (42.0-52.0); Hemoglobin 15.5 g/dL (14.1-18.0); Lymphocytes % 32.4 % (10-50); Mean Corpuscular HGB Conc 33.6 g/dL (31.8-35.4); Mean Corpuscular Hemoglobin 31.5 pg (27.0-31.2); Mean Corpuscular Volume 93.8 fl (80-94); Mean Platelet Volume 7.8 fl (7.4-10.4); Monocytes # 0.5 K/mm3 (0.1-1.0); Monocytes % 5.6 % (1.7-9.3); Neutrophils # 5.4 K/mm3 (1.8-7.8); Neutrophils % 57.6 % (37.0-80.0); Platelet Count 252 K/mm3 (142-424); Red Blood Count 4.93 M/mm3 (4.60-6.20); Red Cell Distribution Width 13.8 % (11.5-17.5); White Blood Count 9.3 K/mm3 (4.8-10.8)
[2018-10-02 10:38] LABS: Alanine Aminotransferase 41 U/L (12-78); Albumin Level 3.8 gm/dL (3.4-5.0); Albumin/Globulin Ratio 1.1 (1.1-1.8); Alkaline Phosphatase 151 U/L (46-116); Anion Gap 14.1 mEq/L (5-15); Aspartate Amino Transferase 19 U/L (15-37); Bilirubin,Total 0.4 mg/dL (0.2-1.0); Blood Urea Nitrogen 14 mg/dL (7-18); Calcium 9.1 mg/dL (8.5-10.1); Carbon Dioxide 28 mmol/L (21.0-32.0); Chloride 100 mmol/L (98-107); Estimated Glomerular Filt Rate 72 ml/min (>60); GFR (African American) 87 ML/MIN (>60); Globulin 3.4 gm/dl (1.3-3.2); Glucose 109 mg/dL (74-106); Potassium 4.1 mmoL/L (3.5-5.1); Sodium 138 mmol/L (136-145); Total Protein,Serum 7.2 gm/dL (6.4-8.2)
[2018-10-02 10:47] LABS: Free T4 (Free Thyroxine) 1.15 ng/dl (0.76-1.46); Thyroid Stimulating Hormone 1.98 uIU/ml (0.358-3.740)
== END ==
PROVIDERS: Otolaryngology; Visit Provider Nurse Practitioner
DX: Z85.6 Personal history of leukemia (principal); E01.0 Iodine-deficiency related diffuse (endemic) goiter; E03.9 Hypothyroidism, unspecified
CPT/HCPCS: 36415; 80053; 84439; 84443; 85025

== ENCOUNTER 2018-10-03 13:53 | Outpatient (RCR) | payer MEDICARE, OTHER, SELFPAY ==
--- NOTE | 2018-10-03 14:50 | HMH.OTOPEV ---
OT Inpatient Evaluation Rehab OT Outpatient Eval Start: 10/03/18 14:28 Freq: Status: Active Protocol: Document 10/03/18 14:29 TFRY (Rec: 10/03/18 14:50 TFRY [id number]) Electronically Signed By Liseth Arredondo OT 10/03/18 14:29 Outpatient Therapy Subjective History Subjective History This is a 48 year old right handed male referred to occupational therapy for left arm shoulder/elbow contusion. Patient states that he slipped and fell on 09/28 on mud when going to his car. He was then seen in ER and went to see the ortho. and sent him to therapy. Chief Complaint Pain Stiff Symptom Type Ache Symptoms Relieved By Rest/Positioning Symptoms Aggravated By Physical Activity Prior Functional Limitations None Current Functional Limitations Reaching Lifting Driving Symptom Description Activity Dependent Level of pain today (0-10) 0 Pain scale - at its best (0-10) 0 Pain scale - at its worst (0-10) 3 Shoulder/Elbow Eval Shoulder Objective Measurements Shoulder ROM Left Shoulder ROM Limitations Pain Shoulder Abduction Active Range of 100 Motion (degrees) Shoulder Abduction Passive Range of 115 Motion (degrees) Shoulder Flexion Active Range of Motion 130 (degrees) Query Text: Shoulder Flexion Passive Range of Motion 135 (degrees) Shoulder External Rotation Active Range 40 of Motion (degrees) Shoulder External Rotation Passive Range 45 of Motion (degrees) Shoulder Internal Rotation Active Range 25 of Motion (degrees) Shoulder Internal Rotation Passive Range 40 of Motion (degrees) Shoulder Extension Active Range of 35 Motion (degrees) pain with active ROM shoulder exam left standard pain with passive ROM shoulder exam left standard decreased ROM shoulder exam standard left Shoulder MMT Shoulder Abduction Strength Grade 4- Good- Shoulder Extension Strength Grade 4- Good- Shoulder Flexion Strength Grade 3+ Fair+ Shoulder Horizontal Abduction Strength 3+ Fair+ Grade Shoulder Horizontal Adduction Strength 3+ Fair+ Grade Shoulder External Rotation Strength 3+ Fair+ Grade Shoulder Internal Rotation Strength 3+ Fair+
== END 2018-10-03 14:00 | disposition home or self-care (01) ==
LOC: OT 13:53
PROVIDERS: Visit Provider Orthopaedic Surgery
DX: M79.622 Pain in left upper arm (principal); M25.512 Pain in left shoulder; S50.02XD Contusion of left elbow, subsequent encounter
CPT/HCPCS: 97014; 97110; 97165; G0283

== ENCOUNTER → 2018-10-16 13:37 | Outpatient (CLI) | payer MEDICARE, OTHER, SELFPAY ==
[2018-10-16 17:22] LABS: Amphetamine/Metha Screen,Urine Negative ng/mL (<1000); Barbiturates Screen,Urine Negative ng/mL (<200); Benzodiazepines Screen,Urine Positive ng/mL (<200); Cannabinoid Screen,Urine Negative ng/mL (<50); Cocaine Screen,Urine Negative ng/mL (<300); Methadone Screen,Urine Negative ng/mL (<300); Opiate Screen,Urine Negative ng/mL (<300); Phencyclidine Screen,Urine Negative ng/mL (<25)
== END ==
PROVIDERS: Visit Provider Nurse Practitioner Family
DX: Z79.899 Other long term (current) drug therapy (principal)
CPT/HCPCS: 80305

== ENCOUNTER → 2018-12-12 15:01 | Outpatient (CLI) | payer MEDICARE, OTHER, SELFPAY ==
[2018-12-12 19:26] LABS: Amphetamine/Metha Screen,Urine Negative ng/mL (<1000); Barbiturates Screen,Urine Negative ng/mL (<200); Benzodiazepines Screen,Urine Positive ng/mL (<200); Cannabinoid Screen,Urine Negative ng/mL (<50); Cocaine Screen,Urine Negative ng/mL (<300); Methadone Screen,Urine Negative ng/mL (<300); Opiate Screen,Urine Negative ng/mL (<300); Phencyclidine Screen,Urine Negative ng/mL (<25)
== END ==
PROVIDERS: Visit Provider Nurse Practitioner Family
DX: Z79.899 Other long term (current) drug therapy (principal)
CPT/HCPCS: 80305

== ENCOUNTER → 2019-01-07 15:23 | Outpatient (CLI) | payer MEDICARE, OTHER, SELFPAY ==
[2019-01-07 15:40] LABS: Basophils # 0.1 K/mm3 (0-0.2); Basophils % 0.5 % (0.1-2.0); Eosinophils # 0.3 K/mm3 (0.0-0.4); Eosinophils % 2.5 % (0.1-12.0); Hemoglobin 15.7 g/dL (14.1-18.0); Lymphocytes # 4.9 K/mm3 (0.7-4.5); Lymphocytes % 40.5 % (10-50); Mean Corpuscular HGB Conc 35.6 g/dL (31.8-35.4); Mean Corpuscular Hemoglobin 31.9 pg (27.0-31.2); Mean Corpuscular Volume 89.6 fl (80-94); Monocytes # 0.7 K/mm3 (0.1-1.0); Monocytes % 5.5 % (1.7-9.3); Neutrophils # 6.1 K/mm3 (1.8-7.8); Neutrophils % 50.9 % (37.0-80.0); Platelet Count 252 K/mm3 (142-424); Red Blood Count 4.92 M/mm3 (4.60-6.20)
[2019-01-07 17:13] LABS: Alanine Aminotransferase 32 U/L (12-78); Albumin Level 3.7 gm/dL (3.4-5.0); Albumin/Globulin Ratio 1.1 (1.1-1.8); Alkaline Phosphatase 159 U/L (46-116); Anion Gap 12.1 mEq/L (5-15); Aspartate Amino Transferase 16 U/L (15-37); Bilirubin,Total 0.5 mg/dL (0.2-1.0); Blood Urea Nitrogen 18 mg/dL (7-18); Calcium 9.3 mg/dL (8.5-10.1); Carbon Dioxide 33 mmol/L (21.0-32.0); Chloride 102 mmol/L (98-107); Creatinine,Serum 1.16 mg/dL (0.70-1.30); Estimated Glomerular Filt Rate 68 ml/min (>60); GFR (African American) 82 ML/MIN (>60); Globulin 3.5 gm/dl (1.3-3.2); Glucose 99 mg/dL (74-106); Potassium 4.1 mmoL/L (3.5-5.1); Sodium 143 mmol/L (136-145); Thyroid Stimulating Hormone 1.94 uIU/ml (0.358-3.740); Total Protein,Serum 7.2 gm/dL (6.4-8.2)
[2019-01-11 10:06] LABS: Vitamin D 25 Hydroxy 18.8 ng/mL (30.0-100.0)
== END ==
PROVIDERS: Visit Provider Nurse Practitioner
DX: Z85.6 Personal history of leukemia (principal); E03.9 Hypothyroidism, unspecified
CPT/HCPCS: 36415; 80053; 82652; 84443; 85025

== ENCOUNTER → 2019-02-06 13:44 | Outpatient (CLI) | payer MEDICARE, OTHER, SELFPAY ==
[2019-02-06 18:02] LABS: Amphetamine/Metha Screen,Urine Negative ng/mL (<1000); Barbiturates Screen,Urine Negative ng/mL (<200); Benzodiazepines Screen,Urine Positive ng/mL (<200); Cannabinoid Screen,Urine Negative ng/mL (<50); Cocaine Screen,Urine Negative ng/mL (<300); Methadone Screen,Urine Negative ng/mL (<300); Opiate Screen,Urine Negative ng/mL (<300); Phencyclidine Screen,Urine Negative ng/mL (<25)
== END ==
PROVIDERS: Visit Provider Nurse Practitioner Family
DX: Z79.899 Other long term (current) drug therapy (principal)
CPT/HCPCS: 80305

== ENCOUNTER → 2019-03-13 13:50 | Outpatient (CLI) | payer MEDICARE, OTHER, SELFPAY ==
[2019-03-13 17:37] LABS: Amphetamine/Metha Screen,Urine Negative ng/mL (<1000); Barbiturates Screen,Urine Negative ng/mL (<200); Benzodiazepines Screen,Urine Positive ng/mL (<200); Cannabinoid Screen,Urine Negative ng/mL (<50); Cocaine Screen,Urine Negative ng/mL (<300); Methadone Screen,Urine Negative ng/mL (<300); Opiate Screen,Urine Negative ng/mL (<300); Phencyclidine Screen,Urine Negative ng/mL (<25)
== END ==
PROVIDERS: Visit Provider Nurse Practitioner Family
DX: Z79.899 Other long term (current) drug therapy (principal)
CPT/HCPCS: 80305

== ENCOUNTER → 2019-03-18 08:09 | Outpatient (CLI) | payer MEDICARE, OTHER, SELFPAY ==
--- NOTE | 2019-03-18 08:12 | FL_ITS ---
EXAM: Barium swallow/esophagram. INDICATION: ITS.REASON: difficulty swallowing/choking ORDERING PHYSICIAN: Bert Garcia MD PATIENT AGE: 49 years COMPARISON: None TECHNIQUE: In the upright position the patient was observed to swallow barium in both the AP and lateral view. The cervical esophagus was examined under fluoroscopy with images obtained. The patient was then placed prone in the right anterior oblique position and was observed to swallow barium with Valsalva technique . FLUOROSCOPY TIME: 45 seconds FINDINGS: There was no evidence of aspiration. There was normal peristalsis. No filling defects or mucosal abnormalities. No masses or strictures. No hiatal hernia.. The esophagus is midline without evidence of deviation or external compression IMPRESSION: Negative barium swallow.
== END ==
PROVIDERS: PCP Nurse Practitioner Family; Visit Provider Otolaryngology
DX: R13.10 Dysphagia, unspecified (principal)
CPT/HCPCS: 74220

== ENCOUNTER → 2019-03-26 15:21 | Outpatient (CLI) | payer MEDICARE, OTHER, SELFPAY ==
[2019-03-26 15:48] LABS: Basophils # 0.1 K/mm3 (0-0.2); Basophils % 0.7 % (0.1-2.0); Eosinophils # 0.2 K/mm3 (0.0-0.4); Eosinophils % 2.3 % (0.1-12.0); Hematocrit 45.9 % (42.0-52.0); Lymphocytes # 3.9 K/mm3 (0.7-4.5); Lymphocytes % 36.9 % (10-50); Mean Corpuscular HGB Conc 34.9 g/dL (31.8-35.4); Mean Corpuscular Hemoglobin 31.4 pg (27.0-31.2); Mean Corpuscular Volume 89.9 fl (80-94); Monocytes # 0.6 K/mm3 (0.1-1.0); Monocytes % 6.1 % (1.7-9.3); Neutrophils # 5.7 K/mm3 (1.8-7.8); Neutrophils % 54.1 % (37.0-80.0); Platelet Count 256 K/mm3 (142-424); Red Cell Distribution Width 13.8 % (11.5-17.5); White Blood Count 10.6 K/mm3 (4.8-10.8)
[2019-03-26 17:03] LABS: Alanine Aminotransferase 39 U/L (12-78); Albumin Level 3.6 gm/dL (3.4-5.0); Albumin/Globulin Ratio 1.1 (1.1-1.8); Alkaline Phosphatase 155 U/L (46-116); Anion Gap 13.3 mEq/L (5-15); Aspartate Amino Transferase 20 U/L (15-37); Bilirubin,Total 0.5 mg/dL (0.2-1.0); Blood Urea Nitrogen 10 mg/dL (7-18); Calcium 8.8 mg/dL (8.5-10.1); Carbon Dioxide 29 mmol/L (21.0-32.0); Chloride 100 mmol/L (98-107); Estimated Glomerular Filt Rate 72 ml/min (>60); GFR (African American) 87 ML/MIN (>60); Globulin 3.2 gm/dl (1.3-3.2); Glucose 117 mg/dL (74-106); Potassium 4.3 mmoL/L (3.5-5.1); Sodium 138 mmol/L (136-145); Total Protein,Serum 6.8 gm/dL (6.4-8.2)
== END ==
PROVIDERS: Visit Provider Nurse Practitioner
DX: Z85.6 Personal history of leukemia (principal)
CPT/HCPCS: 36415; 80053; 85025

== ENCOUNTER → 2019-04-01 10:08 | Outpatient (POV) | payer MEDICARE, OTHER, SELFPAY ==
[2019-04-01 14:50] LABS: Prostate Specific Ag Screen 0.6 ng/mL (0.0-4.0)
== END ==
PROVIDERS: Urology; Visit Provider Dermatology
DX: N40.0 Benign prostatic hyperplasia without lower urinary tract symptoms; Z12.5 Encounter for screening for malignant neoplasm of prostate
CPT/HCPCS: 36415; G0103

== ENCOUNTER 2019-04-06 12:17 | Emergency (ER) | payer MEDICARE, OTHER, SELFPAY ==
[2019-04-06 12:23] VITALS: BP 135/88; PULSE 97; RESP 18; TEMP 36.4; O2SAT 95; BMI 42.0
[2019-04-06 12:46] VITALS: BP 135/88; PULSE 97; RESP 18; TEMP 36.4; O2SAT 95; BMI 42.0
--- NOTE | 2019-04-06 12:57 | HMH.EDUTC ---
[facility] [place] Impression: Nausea Diarrhea Qualifiers: Diarrhea type: unspecified type Qualified Code(s): R19.7 - Diarrhea, unspecified Disposition: Home, Self-Care Condition on Discharge: Good Instructions: Diarrhea (Alternative Therapy), Diarrhea (Alternative Therapy), Diarrhea, DI for Vomiting -- Adult, Nausea and Vomiting-Adult Additional Instructions: ? Drink extra fluids with and between meals. If you have difficulty drinking, try very small amounts of water or suck on ice chips. ? Avoid fruit juices, as these do not replace minerals and can actually increase diarrhea. ? Children and adults can use sports drinks to replenish electrolytes. Younger children and infants should use products formulated for children, like oral rehydration solutions. ? Eat food in small amounts and let your stomach recover. ? Get lots of rest. You may feel tired or weak. ? No greasy or fried foods for the next 24-48 hours BRAT diet Bananas Rice Apples and [place] ? Make sure to drink plenty of liquids ? Return if needed ? Straight to ER if any life threatening symptoms ? Zofran as prescribed Either call back to the [facility] later this evening or follow up with family doctor or call [facility] in the morning for test results and further treatment if needed Straight to ER if any life threatening symptoms or signs of dehydration Follow up with family doctor if no improvement or any worsening of symptoms Prescriptions: Ondansetron [Zofran 4mg ODT] 4 mg PO Q8HP PRN #12 tab.rapdis PRN Reason: Nausea Referrals: Leatha Brownlee APRN [Primary Care Provider] - As needed Time of Disposition: 13:03 Medical Decision Making - Dante Inquiry Pt receiving controlled substance: No Dante was queried for this patient: No Vital Signs: 04/06/19 12:23 04/06/19 12:46 Temperature 97.6 F 97.6 F Temperature Source Oral Oral Pulse Rate [Right Apical] 97 H 97 H Respiratory Rate 18 18 Blood Pressure [Right Arm] 135/88 135/88 Blood Pressure Mean [Right Arm] 103 103 Blood Pressure Source [Right Arm] Automatic Cuff Blood Pressure Position [Right Arm] Sitting 02 Sat by Pulse Oximetry 95 95 Oxygen Delivery Method Room Air Room Air Orders (Tests/Meds): ED MEDICATIONS Discontinued Medications Generic Name Dose Route Start Last Admin Trade Name Freq PRN Reason Stop Dose Admin Ondansetron HCl 4 mg 04/06/19 12:57 Zofran 4mg Odt SL 04/06/19 12:58 ONCE ONE ORDERS Category Date Time Status Diarrhea 23 Panel, PCR Stat Lab 04/06/19 13:01 [place] [facility] [place] - General Stated complaint: v/d Time Seen by Provider: 04/06/19 12:57 Mode of Arrival: Family Vehicle Source of Information: Patient Limitations: No Limitations Description of Symptoms (Recalled from Triage Doc. by RN): PT c/o nausea and diarrhea HEENT Symptoms (Recalled from RN notes): No Resp Symptoms (Recalled from RN notes): No Skin Symptoms (Recalled from RN notes): No MS Symptoms (Recalled from RN notes): No Functional Status (Recalled from RN notes): N/A - History of Present Illness Provider Complaint: Patient states that last night around 1am he started having diarrhea and nausea State that he hasn't had any vomiting yet but feels sick at his stomach State that he thought it would get better but today it has continued so he came in to get checked - Related Data Home Medications Medication Instructions Recorded Confirmed epinephrine 0.3 mg/0.3 mL 0.3 mg IM ONCE 11/13/17 04/03/19 injection, auto-injector cholecalciferol (vitamin D3) 2,000 2,000 unit PO DAILY 02/15/18 04/03/19 unit capsule Ergocalciferol (Vitamin D2) 50,000 unit PO QWEEK 04/30/18 04/03/19 [Vitamin D2] Olopatadine HCl [Patanol] 1 drp OPHTHALMIC (EYE) BID 04/30/18 04/03/19 hydrocortisone 2.5 % rectal cream 1 % TOPICAL DAILY PRN 07/15/18 04/03/19 with applicator Polyethylene Glycol 3350 17 g PO DAILY 11/22/18 04/03/19 [Smoothlax] sumatriptan 100 mg tablet 100 mg PO DAILY PRN ta
--- NOTE | 2019-04-06 13:00 | ED_ITS ---
[facility] [place]ression: Nausea Diarrhea Qualifiers: Diarrhea type: unspecified type Qualified Code(s): R19.7 - Diarrhea, unspecified Disposition: Home, Self-Care Condition on Discharge: Good Instructions: Diarrhea (Alternative Therapy), Diarrhea (Alternative Therapy), Diarrhea, DI for Vomiting -- Adult, Nausea and Vomiting-Adult Additional Instructions: ? Drink extra fluids with and between meals. If you have difficulty drinking, try very small amounts of water or suck on ice chips. ? Avoid fruit juices, as these do not replace minerals and can actually increase diarrhea. ? Children and adults can use sports drinks to replenish electrolytes. Younger children and infants should use products formulated for children, like oral rehydration solutions. ? Eat food in small amounts and let your stomach recover. ? Get lots of rest. You may feel tired or weak. ? No greasy or fried foods for the next 24-48 hours BRAT diet Bananas Rice Apples and [place] ? Make sure to drink plenty of liquids ? Return if needed ? Straight to ER if any life threatening symptoms ? Zofran as prescribed Either call back to the [facility] later this evening or follow up with family doctor or call [facility] in the morning for test results and further treatment if needed Straight to ER if any life threatening symptoms or signs of dehydration Follow up with family doctor if no improvement or any worsening of symptoms Prescriptions: Ondansetron [Zofran 4mg ODT] 4 mg PO Q8HP PRN #12 tab.rapdis PRN Reason: Nausea Referrals: Leatha Brownlee APRN [Primary Care Provider] - As needed Time of Disposition: 13:03 Medical Decision Making - Dante Inquiry Pt receiving controlled substance: No Dante was queried for this patient: No Vital Signs: 04/06/19 12:23 04/06/19 12:46 Temperature 97.6 F 97.6 F Temperature Source Oral Oral Pulse Rate [Right Apical] 97 H 97 H Respiratory Rate 18 18 Blood Pressure [Right Arm] 135/88 135/88 Blood Pressure Mean [Right Arm] 103 103 Blood Pressure Source [Right Arm] Automatic Cuff Blood Pressure Position [Right Arm] Sitting 02 Sat by Pulse Oximetry 95 95 Oxygen Delivery Method Room Air Room Air Orders (Tests/Meds): ED MEDICATIONS Discontinued Medications Generic Name Dose Route Start Last Admin Trade Name Freq PRN Reason Stop Dose Admin Ondansetron HCl 4 mg 04/06/19 12:57 Zofran 4mg Odt SL 04/06/19 12:58 ONCE ONE ORDERS Category Date Time Status Diarrhea 23 Panel, PCR Stat Lab 04/06/19 13:01 [place] [facility] [place] - General Stated complaint: v/d Time Seen by Provider: 04/06/19 12:57 Mode of Arrival: Family Vehicle Source of Information: Patient Limitations: No Limitations Description of Symptoms (Recalled from Triage Doc. by RN): PT c/o nausea and diarrhea HEENT Symptoms (Recalled from RN notes): No Resp Symptoms (Recalled from RN notes): No Skin Symptoms (Recalled from RN notes): No MS Symptoms (Recalled from RN notes): No Functional Status (Recalled from RN notes): N/A - History of Present Illness Provider Complaint: Patient states that last night around 1am he started having diarrhea and nausea State that he hasn't had any vomiting yet but feels sick at his stomach State that he thought it wo
[2019-04-06 13:04] VITALS: BP 135/88; PULSE 97; RESP 18; TEMP 36.4; O2SAT 95
[2019-04-06 13:04] LABS: Adenovirus F 40/41, stool Not Detected (NotDetected); Astrovirus Not Detected (NotDetected); Campylobacter Not Detected (NotDetected); Clostridium Difficile A/B, PCR Not Detected (NotDetected); Cryptosporidium Not Detected (NotDetected); Cyclospora Cayetanesis Not Detected (NotDetected); Entamoeba histolytica Not Detected (NotDetected); Enteroaggregative E coli Not Detected (NotDetected); Enteropathogenic E coli Not Detected (NotDetected); Enterotoxigenic E coli Not Detected (NotDetected); Giardia lamblia Not Detected (NotDetected); Norovirus Not Detected (NotDetected); Plesimonas Shigalloides, PCR Not Detected (NotDetected); Rotavirus A Not Detected (NotDetected); Salmonella, PCR Not Detected (NotDetected); Sapovirus Not Detected (NotDetected); Shiga-like toxin E coli Not Detected (NotDetected); Shigella Enterovasive E coli Not Detected (NotDetected); Vibrio Cholerae Not Detected (NotDetected); Vibrio, PCR Not Detected (NotDetected); Yersinia Entercolitica, PCR Not Detected (NotDetected)
== END 2019-04-06 13:06 | disposition home or self-care (01) ==
PROVIDERS: Emergency Provider Nurse Practitioner; PCP Nurse Practitioner Family
DX: R11.0 Nausea (principal); R19.7 Diarrhea, unspecified; E03.9 Hypothyroidism, unspecified; E78.5 Hyperlipidemia, unspecified; I10 Essential (primary) hypertension; F41.9 Anxiety disorder, unspecified; K21.9 Gastro-esophageal reflux disease without esophagitis; Z88.2 Allergy status to sulfonamides; Z88.1 Allergy status to other antibiotic agents; Z88.5 Allergy status to narcotic agent
CPT/HCPCS: G0463; 87507; 99201

== ENCOUNTER 2019-04-07 20:43 | Emergency (ER) | payer MEDICARE, OTHER, SELFPAY ==
[2019-04-07 20:47] VITALS: BP 129/83; PULSE 98; RESP 17; TEMP 36.4; O2SAT 95; BMI 37.5; BMI 44.6
--- NOTE | 2019-04-07 20:50 | CT_ITS ---
CT abdomen pelvis wo con CLINICAL INDICATION: Epigastric pain with nausea ITS.REASON: abd pain ORDERING PHYSICIAN: Rasta Cadet MD PATIENT AGE: 49 years COMPARISON: None TECHNIQUE: Axial images obtained with sagittal and coronal reformats. All CT scans at the facility use one or more dose reduction, viz: automated exposure control, ma/kV adjustment per patient size (including targeted exams where dose is matched to indication, i.e. head), or iterative reconstruction technique. PROCEDURE: Oral Contrast: None IV Contrast: None . FINDINGS: Lower thorax: No acute finding . Bilateral gynecomastia Diffuse fatty liver with some sparing around the gallbladder fossa. The spleen, gallbladder, adrenal glands, pancreas, and kidneys have an unremarkable appearance. No evidence of appendicitis, intestinal obstruction, free air, or diverticulitis. There is mild distention of the stomach with ingested material. Status post umbilical hernia repair with soft tissue density deep to the umbilicus unchanged in the previous exam and may be due to postsurgical change/scarring. No acute bony findings. IMPRESSION: 1. No acute finding. 2. Mild distention of the stomach with ingested material nonspecific somewhat similar on 04/30/2018. 3. Prior umbilical hernia repair
[2019-04-07 21:02] LABS: Basophils % 0.2 % (0.1-2.0); Eosinophils # 0.2 K/mm3 (0.0-0.4); Eosinophils % 1.4 % (0.1-12.0); Hemoglobin 16.1 g/dL (14.1-18.0); Lymphocytes % 28.5 % (10-50); Mean Corpuscular HGB Conc 35.7 g/dL (31.8-35.4); Mean Corpuscular Hemoglobin 31.2 pg (27.0-31.2); Mean Corpuscular Volume 87.3 fl (80-94); Mean Platelet Volume 7.8 fl (7.4-10.4); Monocytes # 0.8 K/mm3 (0.1-1.0); Monocytes % 5.6 % (1.7-9.3); Neutrophils % 64.2 % (37.0-80.0); Platelet Count 260 K/mm3 (142-424); Red Blood Count 5.15 M/mm3 (4.60-6.20); Red Cell Distribution Width 13.5 % (11.5-17.5)
[2019-04-07 21:05] LABS: Microscopic, Urine URINE MICROSCOPIC (MICROSCOPIC)
[2019-04-07 21:06] LABS: Appearance,Urine CLEAR (Clear); Bilirubin,Urine Negative (Negative); Blood, Urine Negative (Negative); Color,Urine YELLOW (Yellow); Glucose,Urine (UA) Negative (Negative); Ketones,Urine TRACE (Negative); Leukocyte Esterase,Urine Negative (Negative); Nitrate,Urine Negative (Negative); Protein,Urine Negative (Negative); Specific Gravity, Urine >= 1.030 (1.005-1.030)
[2019-04-07 21:09] LABS: Lipase 86 u/L (73-393)
[2019-04-07 21:15] LABS: Alanine Aminotransferase 36 U/L (12-78); Albumin Level 3.6 gm/dL (3.4-5.0); Alkaline Phosphatase 163 U/L (46-116); Amylase 34 U/L (25-115); Aspartate Amino Transferase 25 U/L (15-37); Bilirubin,Total 0.5 mg/dL (0.2-1.0); Blood Urea Nitrogen 15 mg/dL (7-18); Calcium 8.4 mg/dL (8.5-10.1); Carbon Dioxide 27 mmol/L (21.0-32.0); Chloride 102 mmol/L (98-107); Creatinine Clearance Estimated 68 mL/min (50-200); Creatinine,Serum 1.25 mg/dL (0.70-1.30); Estimated Glomerular Filt Rate 62 ml/min (>60); GFR (African American) 75 ML/MIN (>60); Globulin 3.7 gm/dl (1.3-3.2); Glucose 129 mg/dL (74-106); Sodium 138 mmol/L (136-145); Total Protein,Serum 7.3 gm/dL (6.4-8.2)
--- NOTE | 2019-04-07 21:21 | HMH.EDNVD ---
ED Disposition Clinical Impression: Abdominal pain in male Disposition: Home, Self-Care Condition on Discharge: Good Instructions: DI for Acute Abdomen Additional Instructions: see pcp for follow up Referrals: Leatha Brownlee APRN [Primary Care Provider] - - Critical Care Critical Care Time: No Attestation: On 04/07/19, the high probability of a clinically significant, sudden or life threatening deterioration of the following system(s) required my full and direct attention, intervention and personal management. The time I documented below is in addition to time spent performing reported procedures but includes the following listed in this critical care notation. Medical Decision Making - Medical Records Medical records reviewed: Yes: I reviewed the patient's medical records. - Dante Inquiry Pt receiving controlled substance: No Vital Signs: 04/07/19 20:47 Temperature 97.6 F Temperature Source Oral Pulse Rate [Right Brachial] 98 H Respiratory Rate 17 Blood Pressure [Right Arm] 129/83 Blood Pressure Mean [Right Arm] 98 Blood Pressure Source [Right Arm] Automatic Cuff Blood Pressure Position [Right Arm] Sitting 02 Sat by Pulse Oximetry 95 Oxygen Delivery Method Room Air - Lab Data Lab results reviewed: Yes: I reviewed the patient's lab results. Lab Results 04/07/19 20:48: Urine Color Yellow, Urine Appearance Clear, Urine pH 6.0, Ur Specific [place] >= 1.030, Urine Protein Negative, Urine Glucose (UA) Negative, Urine Ketones Trace, Urine Blood Negative, Urine Nitrate Negative, Urine Bilirubin Negative, Urine Urobilinogen 1.0, Ur Leukocyte Esterase Negative, Urine WBC Occasional, Ur Squamous Epith Cells Occasional, Urine Bacteria Trace, Urine Mucus Trace 04/07/19 20:50: WBC 14.0 H, RBC 5.15, Hgb 16.1, Hct 45.0, MCV 87.3, MCH 31.2, MCHC 35.7 H, RDW 13.5, Plt Count 260, MPV 7.8, Neut % (Auto) 64.2, Lymph % (Auto) 28.5, [place] % (Auto) 5.6, Eos % (Auto) 1.4, Baso % (Auto) 0.2, Neut # (Auto) 9.0 H, Lymph # (Auto) 4.0, [place] # (Auto) 0.8, Eos # (Auto) 0.2, Baso # (Auto) 0.0 04/07/19 20:50: Sodium 138, Potassium 4.0, Chloride 102, Carbon Dioxide 27, Anion Gap 13.0, BUN 15, Creatinine 1.25, Estimated Creat Clear 68, Estimated GFR 62, Est GFR ( Amer) 75, Glucose 129 H, Calcium 8.4 L, Total Bilirubin 0.5, AST 25, ALT 36, Alkaline Phosphatase 163 H, Total Protein 7.3, Albumin 3.6, Globulin 3.7 H, Albumin/Globulin Ratio 1.0 L, Amylase 34 04/07/19 20:50: Lipase 86 Result diagrams: 04/07/19 20:50 04/07/19 20:50 Orders (Tests/Meds): ED MEDICATIONS Generic Name Dose Route Start Last Admin Trade Name Freq PRN Reason Stop Dose Admin Sodium Chloride 1,000 mls @ 999 mls/hr 04/07/19 21:00 04/07/19 20:56 Sod Chlor 0.9% 1000ml Bag IV 04/07/19 22:00 999 mls/hr .Q1H1M JOCELYN Administration Discontinued Medications Generic Name Dose Route Start Last Admin Trade Name Freq PRN Reason Stop Dose Admin Famotidine 20 mg 04/07/19 20:50 04/07/19 20:55 Pepcid 20mg/2ml Vial IV 04/07/19 20:51 20 mg ONCE ONE Administration Ketorolac Tromethamine 30 mg 04/07/19 20:50 04/07/19 20:55 Toradol 30mg/Ml Vial IV 04/07/19 20:51 30 mg ONCE ONE Administration Metoclopramide HCl 10 mg 04/07/19 20:50 04/07/19 20:56 Reglan 10mg/2ml Vial IVP 04/07/19 20:51 10 mg ONCE ONE Administration Ondansetron HCl 4 mg 04/07/19 21:02 04/07/19 21:03 Zofran 4mg/2ml Vial IV 04/07/19 21:03 4 mg ONCE ONE Administration ORDERS Category Date Time Status CT abdomen pelvis wo con Stat Cat Scan 04/07/19 20:50 Taken - CT Data CT Scan: Abdomen, Pelvis Time Received: 22:[address] Reviewed: Yes: I have viewed the radiologist's interpretation Preliminary Findings: Normal/NAD Nausea/Vomiting/Diarrhea HPI - General Chief complaint: Abdominal Pain Stated complaint: V/D Time Seen by Provider: 04/07/19 21:00 Mode of Arrival: Ambulatory Limitations: No Limitations Description of Symptoms (Rec
[2019-04-07 21:23] LABS: Bacteria,Urine Trace /lpf; Mucus,Urine Trace /lpf; Squamous Epithelial Cell,Urine Occasional #/hpf (0-5); WBC,Urine Occasional #/hpf (0-3)
[2019-04-07 22:00] VITALS: BP 122/83; PULSE 94; RESP 18; O2SAT 95
[2019-04-07 22:13] VITALS: BP 118/72; PULSE 91; RESP 18; TEMP 36.8; O2SAT 95
== END 2019-04-07 22:16 | disposition home or self-care (01) ==
PROVIDERS: Emergency Provider Emergency Medicine; PCP Nurse Practitioner Family
DX: R10.84 Generalized abdominal pain (principal); E03.9 Hypothyroidism, unspecified; K21.9 Gastro-esophageal reflux disease without esophagitis; E78.5 Hyperlipidemia, unspecified; I10 Essential (primary) hypertension; F41.9 Anxiety disorder, unspecified; Z88.1 Allergy status to other antibiotic agents; Z88.2 Allergy status to sulfonamides; Z88.5 Allergy status to narcotic agent
CPT/HCPCS: 74176; 80053; 81001; 82150; 83690; 85025; 96365; 96374; 96375; 99284; J2405

== ENCOUNTER → 2019-04-09 13:00 | Outpatient (CLI) | payer MEDICARE, OTHER, SELFPAY ==
--- NOTE | 2019-04-09 13:02 | US_ITS ---
US thyroid HISTORY: Follow-up thyroid nodule ITS.REASON: thyroid nodule ORDERING PHYSICIAN: eBrt Garcia MD PATIENT AGE: 49 years Comparison: 09/17/2018 FINDINGS: Right lobe: 4.2 x 1.3 x 1.4 cm. 4 mm cyst is present in the mid polar region unchanged Left lobe: 4 x 1.3 x 1.5 cm. 3 mm hypoechoic nodule is present in the mid aspect. A 7 mm isoechoic nodule is present in the lower pole. These are unchanged. Isthmus: Unremarkable IMPRESSION: Stable small bilateral thyroid nodules with low level of suspicion for malignancy.
== END ==
PROVIDERS: PCP Nurse Practitioner Family; Visit Provider Otolaryngology
DX: E01.0 Iodine-deficiency related diffuse (endemic) goiter (principal)
CPT/HCPCS: 76536

== ENCOUNTER → 2019-05-07 17:09 | Outpatient (CLI) | payer MEDICARE, OTHER, SELFPAY ==
[2019-05-07 18:21] LABS: Amphetamine/Metha Screen,Urine Negative ng/mL (<1000); Barbiturates Screen,Urine Negative ng/mL (<200); Benzodiazepines Screen,Urine Positive ng/mL (<200); Cannabinoid Screen,Urine Negative ng/mL (<50); Cocaine Screen,Urine Negative ng/mL (<300); Methadone Screen,Urine Negative ng/mL (<300); Opiate Screen,Urine Negative ng/mL (<300); Phencyclidine Screen,Urine Negative ng/mL (<25)
== END ==
PROVIDERS: Visit Provider Nurse Practitioner Family
DX: Z79.899 Other long term (current) drug therapy (principal)
CPT/HCPCS: 80305

== ENCOUNTER → 2019-06-05 14:33 | Outpatient (CLI) | payer MEDICARE, OTHER, SELFPAY ==
[2019-06-05 15:04] LABS: Amphetamine/Metha Screen,Urine Negative ng/mL (<1000); Barbiturates Screen,Urine Negative ng/mL (<200); Benzodiazepines Screen,Urine Positive ng/mL (<200); Cannabinoid Screen,Urine Negative ng/mL (<50); Cocaine Screen,Urine Negative ng/mL (<300); Methadone Screen,Urine Negative ng/mL (<300); Opiate Screen,Urine Negative ng/mL (<300); Phencyclidine Screen,Urine Negative ng/mL (<25)
== END ==
PROVIDERS: Visit Provider Nurse Practitioner Family
DX: Z79.899 Other long term (current) drug therapy (principal)
CPT/HCPCS: 80305

== ENCOUNTER → 2019-08-25 14:43 | Outpatient (CLI) | payer MEDICARE, OTHER, SELFPAY ==
[2019-08-25 15:55] LABS: Anion Gap 10.4 mEq/L (5-15); Blood Urea Nitrogen 10 mg/dL (7-18); Calcium 8.8 mg/dL (8.5-10.1); Carbon Dioxide 31 mmol/L (21.0-32.0); Chloride 103 mmol/L (98-107); Creatinine,Serum 1.06 mg/dL (0.70-1.30); Estimated Glomerular Filt Rate 75 ml/min (>60); GFR (African American) 91 ML/MIN (>60); Glucose 99 mg/dL (74-106); Potassium 4.4 mmoL/L (3.5-5.1); Sodium 140 mmol/L (136-145)
== END ==
PROVIDERS: Visit Provider Nurse Practitioner Family
DX: R06.00 Dyspnea, unspecified; E78.5 Hyperlipidemia, unspecified; I10 Essential (primary) hypertension; E66.9 Obesity, unspecified
CPT/HCPCS: 36415; 80048; 83880

== ENCOUNTER → 2019-08-29 12:32 | Outpatient (CLI) | payer MEDICARE, OTHER, SELFPAY ==
--- NOTE | 2019-08-29 12:34 | CA_ITS ---
[facility] RADIOLOGICAL CONSULTATION Patient Name : Romeo Gonzalez X-RAY # : [id number] Physician: RADHA WYMAN AGE: 49Y : 1970 00:00:00 ( M ) Exam : CA ECHO DOPPLER COMPLETE ACC # : [id number] Study Date : 08/29/2019 12:40:42 Patient Class : O FINAL REPORT CLINICAL DATA: FINDINGS: TRANSCRIBED REPORT EXAM: Comprehensive 2D, Doppler, and color-flow Echocardiogram Customer Experience Consultant: Kinjal Cardona RVT Ht: 5 ft 6 in Wt: 274lbs BSA: 2.29 BP: 128/76 mmHg Indications: Shortness of Breath, Obesity, Hyperlipidemia, Hypertension,GERD, Asthma 2D Dimensions LVOT 1.78 cm (M/F) 1.5-2.5 M-Mode Dimensions RVDd 2.02 cm (0.9-2.6) LVDd 4.38 cm (3.5-5.7) LVDs 2.97 cm (3.5-5.7) IVSd 0.91 cm (0.6-1.1) PWd 0.95 cm (0.6-1.1) EF (Teich) 60.60% FS 32.20% EDV (Teich) 86.80 mL ESV (Teich) 34.20 mL LV Diastology E/A Ratio 0.81 Mitral Valve MV A Velocity 68.00 (40-130 cm/s) Electronically signed by : IMPRESSION: Dictated by at Transcribed by at
== END ==
PROVIDERS: PCP Nurse Practitioner Family; Visit Provider Physician Assistant
DX: R06.00 Dyspnea, unspecified; R07.89 Other chest pain; E66.9 Obesity, unspecified; E78.5 Hyperlipidemia, unspecified; I10 Essential (primary) hypertension
CPT/HCPCS: 93306; 94060; 94640; 94727; 94729

== ENCOUNTER → 2019-09-26 14:54 | Outpatient (CLI) | payer MEDICARE, OTHER, SELFPAY ==
--- NOTE | 2019-09-26 14:59 | XR_ITS ---
PROCEDURE: XR FOOT LT MIN 3V CLINICAL INDICATION: foot pain Lateral COMPARISON: FTL3 FOOT-LT-3 VIEWS from 10/27/2013 FTL3 FOOT-LT-3 VIEWS from 06/16/2015 FINDINGS: No fracture or dislocation. No lytic or blastic change. There is normal mineralization. The joint spaces are well-preserved. No significant degenerative/arthritic changes. No erosive changes evident. Other findings:None. IMPRESSION: No acute findings. Dictated by: Corey Lombardi MD 09/26/2019 15:10 Electronically signed by Corey Lombardi MD in [place] 09/26/2019 15:10
[2019-09-26 18:24] LABS: Amphetamine/Metha Screen,Urine Negative ng/mL (<1000); Barbiturates Screen,Urine Negative ng/mL (<200); Benzodiazepines Screen,Urine Positive ng/mL (<200); Cannabinoid Screen,Urine Negative ng/mL (<50); Cocaine Screen,Urine Negative ng/mL (<300); Methadone Screen,Urine Negative ng/mL (<300); Opiate Screen,Urine Negative ng/mL (<300); Phencyclidine Screen,Urine Negative ng/mL (<25)
== END ==
PROVIDERS: PCP Nurse Practitioner Family; Visit Provider Nurse Practitioner Family
DX: M79.672 Pain in left foot (principal); Z79.899 Other long term (current) drug therapy
CPT/HCPCS: 73630; 80305

== ENCOUNTER → 2019-10-07 14:45 | Outpatient (CLI) | payer MEDICARE, OTHER, SELFPAY ==
[2019-10-07 19:40] LABS: Amphetamine/Metha Screen,Urine Negative ng/mL (<1000); Barbiturates Screen,Urine Negative ng/mL (<200); Benzodiazepines Screen,Urine Positive ng/mL (<200); Cannabinoid Screen,Urine Negative ng/mL (<50); Cocaine Screen,Urine Negative ng/mL (<300); Methadone Screen,Urine Negative ng/mL (<300); Opiate Screen,Urine Negative ng/mL (<300); Phencyclidine Screen,Urine Negative ng/mL (<25)
== END ==
PROVIDERS: Visit Provider Nurse Practitioner Family
DX: Z79.899 Other long term (current) drug therapy (principal)
CPT/HCPCS: 80305

== ENCOUNTER → 2019-10-10 13:24 | Outpatient (CLI) | payer MEDICARE, OTHER, SELFPAY ==
[2019-10-10 13:36] LABS: Basophils % 0.4 % (0.1-2.0); Eosinophils # 0.5 K/mm3 (0.0-0.4); Eosinophils % 5.7 % (0.1-12.0); Hematocrit 49.2 % (42.0-52.0); Hemoglobin 16.1 g/dL (14.1-18.0); Lymphocytes # 2.9 K/mm3 (0.7-4.5); Lymphocytes % 33.5 % (10-50); Mean Corpuscular HGB Conc 32.7 g/dL (31.8-35.4); Mean Corpuscular Volume 94.8 fl (80-94); Mean Platelet Volume 10.7 fl (7.4-10.4); Monocytes # 0.6 K/mm3 (0.1-1.0); Monocytes % 7.1 % (1.7-9.3); Neutrophils # 4.6 K/mm3 (1.8-7.8); Neutrophils % 53.4 % (37.0-80.0); Platelet Count 308 K/mm3 (142-424); Red Blood Count 5.19 M/mm3 (4.60-6.20); Red Cell Distribution Width 13.7 % (11.5-17.5); White Blood Count 8.6 K/mm3 (4.8-10.8)
== END ==
PROVIDERS: Visit Provider Nurse Practitioner Family
DX: K52.9 Noninfective gastroenteritis and colitis, unspecified (principal)
CPT/HCPCS: 85025

== ENCOUNTER → 2019-10-13 12:39 | Outpatient (CLI) | payer MEDICARE, OTHER, SELFPAY ==
--- NOTE | 2019-10-13 12:40 | US_ITS ---
PROCEDURE: US THYROID CLINICAL INDICATION: goiter Follow-up thyroid nodules COMPARISON: THY US thyroid from 04/09/2019 FINDINGS: Right lobe: 4.2 x 1.5 x 1.5 cm. No change in the small cystic nodule in the upper pole at 3 mm. Left lobe: 4.4 x 1.4 x 1.5 cm. 8 x 4 mm hypoechoic nodule lower pole on the left unchanged. Small cystic nodule superior to this region at 4 mm. No new nodules evident Isthmus: Unremarkable Additional findings: IMPRESSION: No change small bilateral thyroid nodules. Dictated by: Corey Lombardi MD 10/14/2019 10:51 Electronically signed by Corey Lombardi MD in [place] 10/14/2019 10:51
[2019-10-13 22:07] LABS: Free T4 (Free Thyroxine) 1.11 ng/dl (0.76-1.46); Thyroid Stimulating Hormone 2.52 uIU/ml (0.358-3.740)
== END ==
PROVIDERS: PCP Nurse Practitioner Family; Visit Provider Otolaryngology
DX: E01.0 Iodine-deficiency related diffuse (endemic) goiter (principal)
CPT/HCPCS: 36415; 76536; 84439; 84443

== ENCOUNTER → 2019-11-19 17:47 | Outpatient (CLI) | payer MEDICARE, OTHER, SELFPAY ==
[2019-11-19 19:07] LABS: Amphetamine/Metha Screen,Urine Negative ng/mL (<1000); Barbiturates Screen,Urine Negative ng/mL (<200); Benzodiazepines Screen,Urine Positive ng/mL (<200); Cannabinoid Screen,Urine Negative ng/mL (<50); Cocaine Screen,Urine Negative ng/mL (<300); Methadone Screen,Urine Negative ng/mL (<300); Opiate Screen,Urine Negative ng/mL (<300); Phencyclidine Screen,Urine Negative ng/mL (<25)
== END ==
PROVIDERS: Visit Provider Nurse Practitioner Family
DX: Z79.899 Other long term (current) drug therapy (principal)
CPT/HCPCS: 80305

== ENCOUNTER → 2020-01-07 12:43 | Outpatient (CLI) | payer MEDICARE, OTHER, SELFPAY ==
[2020-01-07 12:47] LABS: Adenovirus F 40/41, stool Not Detected (NotDetected); Astrovirus Not Detected (NotDetected); Campylobacter Not Detected (NotDetected); Clostridium Difficile A/B, PCR Not Detected (NotDetected); Cryptosporidium Not Detected (NotDetected); Cyclospora Cayetanesis Not Detected (NotDetected); Entamoeba histolytica Not Detected (NotDetected); Enteroaggregative E coli Not Detected (NotDetected); Enteropathogenic E coli Not Detected (NotDetected); Enterotoxigenic E coli Not Detected (NotDetected); Giardia lamblia Not Detected (NotDetected); Norovirus Not Detected (NotDetected); Plesimonas Shigalloides, PCR Not Detected (NotDetected); Rotavirus A Not Detected (NotDetected); Salmonella, PCR Not Detected (NotDetected); Sapovirus Not Detected (NotDetected); Shiga-like toxin E coli Not Detected (NotDetected); Shigella Enterovasive E coli Not Detected (NotDetected); Vibrio Cholerae Not Detected (NotDetected); Vibrio, PCR Not Detected (NotDetected); Yersinia Entercolitica, PCR Not Detected (NotDetected)
== END ==
PROVIDERS: Visit Provider Nurse Practitioner Family
DX: R19.7 Diarrhea, unspecified (principal)
CPT/HCPCS: 87506

== ENCOUNTER → 2020-03-12 13:29 | Outpatient (CLI) | payer MEDICARE, OTHER, SELFPAY ==
[2020-03-12 14:53] LABS: Basophils # 0.1 K/mm3 (0-0.2); Basophils % 1.1 % (0.1-2.0); Eosinophils # 0.2 K/mm3 (0.0-0.4); Eosinophils % 2.4 % (0.1-12.0); Hematocrit 46.5 % (42.0-52.0); Hemoglobin 15.6 g/dL (14.1-18.0); Lymphocytes # 2.9 K/mm3 (0.7-4.5); Lymphocytes % 32.2 % (10-50); Mean Corpuscular HGB Conc 33.6 g/dL (31.8-35.4); Mean Corpuscular Hemoglobin 31.5 pg (27.0-31.2); Mean Corpuscular Volume 93.9 fl (80-94); Mean Platelet Volume 9.5 fl (7.4-10.4); Monocytes # 0.6 K/mm3 (0.1-1.0); Monocytes % 6.8 % (1.7-9.3); Neutrophils # 5.3 K/mm3 (1.8-7.8); Neutrophils % 57.5 % (37.0-80.0); Platelet Count 262 K/mm3 (142-424); Red Blood Count 4.96 M/mm3 (4.60-6.20); Red Cell Distribution Width 15.3 % (11.5-17.5); White Blood Count 9.1 K/mm3 (4.8-10.8)
[2020-03-12 15:02] LABS: Anion Gap 9.1 mEq/L (5-15); Bilirubin,Total 0.8 mg/dl (0.2-1.3); Blood Urea Nitrogen 20 mg/dl (9-20); Calcium 9.1 mg/dl (8.4-10.2); Carbon Dioxide 30 mmol/L (22.0-30.0); Chloride 100 mmol/L (98-107); Estimated Glomerular Filt Rate 90 ml/min (>60); GFR (African American) 109 ML/MIN (>60); Glucose 93 mg/dl (74-100); Potassium 4.1 mmoL/L (3.5-5.1); Sodium 135 mmol/L (136-145)
[2020-03-12 15:03] LABS: Alanine Aminotransferase 32 U/L (12-78); Albumin Level 4.5 g/dl (3.5-5.0); Albumin/Globulin Ratio 1.6 (1.1-1.8); Alkaline Phosphatase 159 U/L (38-126); Aspartate Amino Transferase 38 U/L (17-59); Chol/HDL Ratio 3.7 (1-3.5); Cholesterol 146 mg/dl (140-200); Globulin 2.8 g/dL (1.3-3.2); HDL Cholesterol 39 mg/dl (40-60); Total Protein,Serum 7.3 g/dl (6.3-8.2); Triglycerides 144 mg/dl (30-150); VLDL Cholesterol 29 mg/dL (0-40)
[2020-03-12 15:13] LABS: Direct LDL Cholesterol 99.76 mg/dL (100-129)
[2020-03-12 15:19] LABS: T4 (Thyroxine) 11.8 ug/dl (5.53-11.0)
[2020-03-12 15:33] LABS: Thyroid Stimulating Hormone 2.93 uIU/mL (0.465-4.68)
[2020-03-13 08:15] LABS: Vitamin D 25 Hydroxy 20.6 ng/mL (30.0-100.0)
== END ==
PROVIDERS: Visit Provider Nurse Practitioner Family
DX: E11.9 Type 2 diabetes mellitus without complications (principal); K52.9 Noninfective gastroenteritis and colitis, unspecified; F41.9 Anxiety disorder, unspecified; R07.89 Other chest pain; E55.9 Vitamin D deficiency, unspecified
CPT/HCPCS: 80053; 80061; 82652; 84436; 84443; 85025

== ENCOUNTER → 2020-06-21 10:32 | Outpatient (CLI) | payer MEDICARE, OTHER, SELFPAY ==
[2020-06-21 13:46] LABS: Coronavirus 19 IgG Antibody Positive (Negative); Coronavirus 19 IgM Antibody Negative (Negative)
== END ==
PROVIDERS: Visit Provider Surgery
DX: Z20.828 Contact with and (suspected) exposure to other viral communicable diseases (principal); U07.1 COVID-19
CPT/HCPCS: 36415; 86328

== ENCOUNTER 2020-06-22 08:57 | Day surgery (SDC) | payer MEDICARE, OTHER, SELFPAY ==
[2020-06-18 16:08] VITALS: BMI 42.4
[2020-06-22] VITALS (7 sets, daily range): BP systolic 94–122; BP diastolic 65–83; PULSE 59–82; RESP 18; TEMP 36.7–37.1; O2SAT 93–98
--- NOTE | 2020-06-22 10:03 | P.PN_ITS ---
[facility] [place] Anesthesia Checklist - Patient Identification Patient Identification: Arm Band - Structural Data Admitted From: Home Planned Operative Procedure/s: colonoscopy Consent for Planned Operative Procedure(s) Verified: Yes Verified Documents: Surgical Consent, History and Physical - NPO Status Verified Time NPO: 00:00 - Additional verifications Anesthesia Reactions: No Hx Blood Transfusions: No Blood Transfusion Reaction: Yes - Airway Assessment C-Spine Mobility Assessed: Yes (mp2) TMJ Mobility Assessed: Yes Dentition: Edentulous - Neurological Assessment Level of Consciousness: Awake, Alert - Anesthesia Plan Anesthesia Risk discussed: Yes Anesthesia Plan: Verified ASA Class: III Anesthesia Type: MAC [facility] History I have reviewed the patient's past medical history: Yes Medical History: Reports:: Anxiety, Asthma, Cancer (leukemia (ALL)), Gastroesophageal Reflux Disease(GERD), Hyperlipidemia, Hypertension, Migraine Denies:: Diabetes Mellitus Type 1, Diabetes Mellitus Type 2, Internal Pacemaker, MRSA, Seizures *Have you ever received a pneumonia vaccine?: No *Have you received a flu vaccine this season?: No Other Medical History: Reports: Blood Transfusion Reaction, Hypothyroidism Anesthesia experience/problems:: nac Laterality Cases: Bilateral: Other Other Surgeries: Yes: Cardiac Catheterization, Colonoscopy, Hernia Repair, Other. No: Pacemaker Amputation: No Fractures: No - *Social History Last grade of school completed: High school graduate Smoking Status: Never smoker Alcohol Intake: never Alcohol Intake Frequency:: other Substance Use Type: denies use *Occupational Status:: unemployed Housing: house Household Members: family *Travel in the last 8 weeks: None - Psychiatric History Pschychiatric History:: Reports:: Anxiety Family Hx:: Unable to obtain
--- NOTE | 2020-06-22 11:04 | HMH.SCOPE ---
- Procedure: Date: 06/22/20 Procedure Performed:: Colonoscopy to terminal ileum with multiple polypectomy Indications:: He is a 50-year-old white male whom I have seen for a plethora of reasons over the years. He has had problems with recurrent hematochezia secondary to hemorrhoids and anal fissure. He has had numerous frequent colonoscopies by a variety of physicians over the years. He had colonoscopy by Dr. Feldman in 2002 for rectal bleeding which was reportedly normal; colonoscopy in May [address] Alba for rectal bleeding which was normal, colonoscopy in June [address] Alba for rectal bleeding which revealed a descending colon polyp, colonoscopy in December [address] Alba which revealed 3 polyps, I had performed colonoscopy February 2016 at which time he was found to have internal hemorrhoids and polyps (hyperplastic and single descending colon tubular adenoma). He underwent flexible sigmoidoscopy and anoscopy by me in May 2017 for rectal bleeding at which time he had some minor internal hemorrhoids. He had presented with rectal bleeding and was found to have an anal fissure which did improve initially with nonoperative management. However he had recurrence and had been referred to [facility] colorectal surgery where he was seen by Dr. Betito Kamara. He did undergo sphincterotomy. He had been seen back in their office and had some complaints of hematochezia. Given his prior history of adenomatous polyps it was felt that colonoscopy was indicated. Patient requested this being done at this institution due to transportation issues. He presents to the office stating I have been bleeding in my bowels again . This sounds like he had a single episode of some hematochezia with some blood in the toilet and on the toilet tissue. He does have a family history of colon cancer. Performing Provider:: Kd Briones MD Referring Provider:: None Sedation:: MAC sedation Procedure:: Patient was taken to endoscopy procedure room. He was positioned in lateral decubitus position. Adequate intravenous sedation was achieved with anesthesia titration of propofol. Variable stiffness Olympus colonoscope was inserted via the anus and advanced to the cecum. Ileocecal valve and appendiceal orifice were identified. Colonoscope was advanced a short distance into the terminal ileum which appeared grossly normal. Colonoscope was withdrawn through the colon with careful surveillance. There were several small diminutive polyps encountered which were removed mostly with biopsy forceps. These appeared hyperplastic. Please see findings for details. Retroflexion was performed within the rectum which revealed no evidence of any pathologic internal hemorrhoids. Colonoscope was withdrawn. Findings:: Small diminutive periappendiceal polyp removed with cold biopsy forceps Diminutive distal transverse polyp removed with cold biopsy forceps Diminutive sigmoid polyp x5 removed with cold biopsy forceps Small diminutive distal sigmoid polyp removed with cold cutting snare. Multiple hyperplastic appearing polyps, 5, removed with biopsy forceps Recommendations:: Likely repeat colonoscopy 5 years pending pathology Complications:: None immediately apparent Estimated blood obtained (mL): 2
== END 2020-06-22 11:50 | disposition home or self-care (01) ==
LOC: OUTP 08:58
PROVIDERS: PCP Nurse Practitioner Family; Visit Provider Surgery
PROC: 0DJD8ZZ Inspection of Lower Intestinal Tract, Via Natural or Artificial Opening Endoscopic (ICD-10-PCS; CPT 45380; principal; 2020-06-22 10:30)
DX: Z86.010 Personal history of colon polyps (principal); K63.5 Polyp of colon; Z87.19 Personal history of other diseases of the digestive system; Z80.0 Family history of malignant neoplasm of digestive organs; E78.5 Hyperlipidemia, unspecified; I10 Essential (primary) hypertension; J45.909 Unspecified asthma, uncomplicated; G43.909 Migraine, unspecified, not intractable, without status migrainosus; F41.9 Anxiety disorder, unspecified; Z85.6 Personal history of leukemia; K21.9 Gastro-esophageal reflux disease without esophagitis; Z88.6 Allergy status to analgesic agent
CPT/HCPCS: 45380; 88305

== ENCOUNTER → 2020-08-13 13:57 | Outpatient (CLI) | payer MEDICARE, OTHER, SELFPAY ==
--- NOTE | 2020-08-13 14:08 | XR_ITS ---
PROCEDURE: XR SHOULDER RT MIN 2V CLINICAL INDICATION: SHoulder pain COMPARISON: DX SHOULDCMLT XR shoulder LT min 2V from 03/15/2018 CR SHOULDCMLT XR shoulder LT min 2V from 09/28/2018 FINDINGS: No fracture or dislocation. No lytic or blastic change. There is normal mineralization. There are mild osteoarthritic changes at the acromioclavicular joint with mild subacromial stenosis. Other findings:Mild osteoarthritis AC joint with mild subacromial stenosis otherwise negative IMPRESSION: No acute findings. Dictated by: Corey Lombardi MD 08/13/2020 16:59 Corey Lombardi MD in [place] 08/13/2020 16:59
== END ==
PROVIDERS: PCP Nurse Practitioner Family; Visit Provider Orthopaedic Surgery
DX: M25.511 Pain in right shoulder (principal)
CPT/HCPCS: 73030

== ENCOUNTER → 2020-09-08 17:50 | Outpatient (CLI) | payer MEDICARE, OTHER, SELFPAY ==
[2020-09-08 18:00] LABS: Basophils # 0.1 K/mm3 (0-0.2); Basophils % 0.6 % (0.1-2.0); Eosinophils # 0.2 K/mm3 (0.0-0.4); Eosinophils % 2.6 % (0.1-12.0); Hematocrit 48.2 % (42.0-52.0); Hemoglobin 15.9 g/dL (14.1-18.0); Lymphocytes # 3.2 K/mm3 (0.7-4.5); Mean Corpuscular HGB Conc 32.9 g/dL (31.8-35.4); Mean Corpuscular Hemoglobin 31.4 pg (27.0-31.2); Mean Corpuscular Volume 95.3 fl (80-94); Mean Platelet Volume 9.8 fl (7.4-10.4); Monocytes # 0.5 K/mm3 (0.1-1.0); Monocytes % 5.8 % (1.7-9.3); Neutrophils # 5.2 K/mm3 (1.8-7.8); Platelet Count 264 K/mm3 (142-424); Red Blood Count 5.06 M/mm3 (4.60-6.20); Red Cell Distribution Width 13.9 % (11.5-17.5); White Blood Count 9.3 K/mm3 (4.8-10.8)
[2020-09-08 18:01] LABS: Chloride 101 mmol/L (98-107)
[2020-09-08 18:02] LABS: Potassium 4.1 mmoL/L (3.5-5.1); Sodium 140 mmol/L (136-145)
[2020-09-08 18:04] LABS: Alanine Aminotransferase 30 U/L (12-78); Albumin Level 4.1 g/dl (3.5-5.0); Albumin/Globulin Ratio 1.4 (1.1-1.8); Alkaline Phosphatase 139 U/L (38-126); Aspartate Amino Transferase 35 U/L (17-59); Bilirubin,Total 0.6 mg/dl (0.2-1.3); Blood Urea Nitrogen 15 mg/dl (9-20); Estimated Glomerular Filt Rate 90 ml/min (>60); GFR (African American) 109 ML/MIN (>60); Total Protein,Serum 7.1 g/dl (6.3-8.2)
[2020-09-08 18:05] LABS: Anion Gap 13.1 mEq/L (5-15); Calcium 9.4 mg/dl (8.4-10.2); Carbon Dioxide 30 mmol/L (22.0-30.0); Chol/HDL Ratio 4.7 (1-3.5); Cholesterol 154 mg/dl (140-200); Glucose 115 mg/dl (74-100); HDL Cholesterol 33 mg/dl (40-60); Triglycerides 174 mg/dl (30-150); VLDL Cholesterol 35 mg/dL (0-40)
[2020-09-08 18:16] LABS: Direct LDL Cholesterol 90.16 mg/dL (100-129)
[2020-09-08 18:36] LABS: Thyroid Stimulating Hormone 2.13 uIU/mL (0.465-4.68)
== END ==
PROVIDERS: Visit Provider Nurse Practitioner Family
DX: E55.9 Vitamin D deficiency, unspecified (principal); E66.9 Obesity, unspecified; E78.5 Hyperlipidemia, unspecified; F41.9 Anxiety disorder, unspecified; I10 Essential (primary) hypertension; K52.9 Noninfective gastroenteritis and colitis, unspecified; Z79.899 Other long term (current) drug therapy
CPT/HCPCS: 80053; 80061; 84436; 84443; 85025

== ENCOUNTER 2020-09-09 22:20 | Emergency (ER) | payer MEDICARE, OTHER, SELFPAY ==
[2020-09-09 22:21] VITALS: BP 118/88; PULSE 96; RESP 16; TEMP 36.7; O2SAT 94; BMI 39.1
[2020-09-09 23:00] VITALS: BP 122/89; PULSE 89; RESP 17; O2SAT 99
[2020-09-09 23:02] LABS: Basophils # 0.1 K/mm3 (0-0.2); Basophils % 0.5 % (0.1-2.0); Eosinophils # 0.3 K/mm3 (0.0-0.4); Eosinophils % 2.6 % (0.1-12.0); Hematocrit 48.1 % (42.0-52.0); Hemoglobin 16.7 g/dL (14.1-18.0); Lymphocytes # 4.2 K/mm3 (0.7-4.5); Lymphocytes % 34.3 % (10-50); Mean Corpuscular HGB Conc 34.8 g/dL (31.8-35.4); Mean Corpuscular Hemoglobin 32.5 pg (27.0-31.2); Mean Corpuscular Volume 93.4 fl (80-94); Monocytes # 0.8 K/mm3 (0.1-1.0); Monocytes % 6.4 % (1.7-9.3); Neutrophils # 6.8 K/mm3 (1.8-7.8); Neutrophils % 56.3 % (37.0-80.0); Platelet Count 264 K/mm3 (142-424); Red Blood Count 5.15 M/mm3 (4.60-6.20); Red Cell Distribution Width 14.1 % (11.5-17.5); White Blood Count 12.1 K/mm3 (4.8-10.8)
[2020-09-09 23:04] LABS: Chloride 99 mmol/L (98-107); Potassium 3.7 mmoL/L (3.5-5.1); Sodium 138 mmol/L (136-145)
[2020-09-09 23:07] LABS: Alanine Aminotransferase 34 U/L (12-78); Albumin Level 4.5 g/dl (3.5-5.0); Albumin/Globulin Ratio 1.4 (1.1-1.8); Alkaline Phosphatase 142 U/L (38-126); Amylase 46 U/L (30-110); Anion Gap 11.7 mEq/L (5-15); Aspartate Amino Transferase 39 U/L (17-59); Bilirubin,Total 0.7 mg/dl (0.2-1.3); Blood Urea Nitrogen 17 mg/dl (9-20); Calcium 9.4 mg/dl (8.4-10.2); Carbon Dioxide 31 mmol/L (22.0-30.0); Creatinine Clearance Estimated 132 mL/min (50-200); Estimated Glomerular Filt Rate 71 ml/min (>60); GFR (African American) 86 ML/MIN (>60); Globulin 3.3 g/dL (1.3-3.2); Glucose 118 mg/dl (74-100); Total Protein,Serum 7.8 g/dl (6.3-8.2)
[2020-09-09 23:08] LABS: Lipase 47 U/L (23-300)
[2020-09-09 23:13] LABS: C-Reactive Protein 4.5 mg/L (0-4)
--- NOTE | 2020-09-09 23:26 | HMH.EDGIBL ---
ED Disposition Clinical Impression: Hematochezia Disposition: Home, Self-Care Condition on Discharge: Good Instructions: DI for Gastrointestinal Bleeding Additional Instructions: call pcp for follow up Referrals: Leatha Brownlee APRN [Primary Care Provider] - Forms: Work/School Release - Critical Care Critical Care Time: No Attestation: On 09/09/20, the high probability of a clinically significant, sudden or life threatening deterioration of the following system(s) required my full and direct attention, intervention and personal management. The time I documented below is in addition to time spent performing reported procedures but includes the following listed in this critical care notation. Medical Decision Making - Medical Records Medical records reviewed: Yes: I reviewed the patient's medical records. - Dante Inquiry Pt receiving controlled substance: No Vital Signs: 09/09/20 22:21 09/09/20 23:00 Temperature 98.1 F Temperature Source Oral Pulse Rate [Left Radial] 96 H 89 Respiratory Rate 16 17 Blood Pressure [Right Arm] 118/88 122/89 Blood Pressure Mean [Right Arm] 98 100 Blood Pressure Source [Right Arm] Automatic Cuff Automatic Cuff Blood Pressure Position [Right Arm] Sitting Supine 02 Sat by Pulse Oximetry 94 L 99 Oxygen Delivery Method Room Air Room Air - Lab Data Lab results reviewed: Yes: I reviewed the patient's lab results. Lab Results 09/09/20 22:50: WBC 12.1 H D, RBC 5.15, Hgb 16.7, Hct 48.1, MCV 93.4, MCH 32.5 H, MCHC 34.8, RDW 14.1, Plt Count 264, MPV 8.0, Neut % (Auto) 56.3, Lymph % (Auto) 34.3, [place] % (Auto) 6.4, Eos % (Auto) 2.6, Baso % (Auto) 0.5, Neut # (Auto) 6.8, Lymph # (Auto) 4.2, [place] # (Auto) 0.8, Eos # (Auto) 0.3, Baso # (Auto) 0.1 09/09/20 22:50: Sodium 138, Potassium 3.7, Chloride 99, Carbon Dioxide 31 H, Anion Gap 11.7, BUN 17, Creatinine 1.10 D, Estimated Creat Clear 132, Estimated GFR 71, Est GFR ( Amer) 86 D, Glucose 118 H, Calcium 9.4, Total Bilirubin 0.7, AST 39, ALT 34, Alkaline Phosphatase 142 H, C-Reactive Protein 4.5 H, Total Protein 7.8, Albumin 4.5, Globulin 3.3 H, Albumin/Globulin Ratio 1.4, Amylase 46 09/09/20 22:50: ESR 19 H 09/09/20 22:50: Lipase 47 09/09/20 23:01: Stool Occult Blood Positive A Result diagrams: 09/09/20 22:50 09/09/20 22:50 Orders (Tests/Meds): ED MEDICATIONS Generic Name Dose Route Start Last Admin Trade Name Freq PRN Reason Stop Dose Admin Sodium Chloride 1,000 mls @ 999 mls/hr 09/09/20 23:00 09/09/20 23:10 Sod Chlor 0.9% 1000ml Bag IV 09/10/20 00:00 999 mls/hr .Q1H1M JOCELYN Administration ORDERS Category Date Time Status CT abdomen pelvis w con Stat Cat Scan 09/09/20 22:49 Ordered Urinalysis and Microscopic Stat Lab 09/09/20 23:06 Ordered - CT Data CT Scan: Abdomen, Pelvis Time Received: 01:[address] Reviewed: Yes: I have viewed the radiologist's interpretation Preliminary Findings: Normal/NAD GI Bleed HPI - General Chief complaint: GI Bleed Stated complaint: Bleeding from rectum with bowel movement Time Seen by Provider: 09/09/20 23:05 Mode of Arrival: Ambulatory Source of Information: Patient, Medical Record Limitations: No Limitations Description of Symptoms (Recalled from ER Triage Doc. by RN): pt stated when he had a bowel movement tonight he saw blood in the toilet. pt reports a history of bleeding with bowel movements and saw a doctor at [facility] in [place] for a rectal tear. pt denies any abdominal pain and any blood in his underwear. - History of Present Illness HPI Narrative: episode of brrb MD complaint: blood on toilet paper Onset (ago): hour(s) Consistency: now resolved Severity: moderate Associated symptoms: denies other symptoms Treatments Prior to Arrival: none - Related Data Home Medications Medication Instructions Recorded Confirmed epinephrine 0.3 mg/0.3 mL 0.3 mg IM ONCE 11/13/17 09/08/20 injection, auto-injector cholecalciferol (vitamin D3) 50
[2020-09-09 23:33] LABS: Occult Blood,Stool Positive (Negative)
[2020-09-09 23:58] LABS: Erythrocyte Sedimentation Rate 19 mm/hr (0-15)
[2020-09-10 01:11] VITALS: BP 142/79; PULSE 73; RESP 16; TEMP 36.8; O2SAT 98
== END 2020-09-10 01:16 | disposition home or self-care (01) ==
PROVIDERS: Emergency Provider Emergency Medicine; PCP Nurse Practitioner Family
DX: K92.2 Gastrointestinal hemorrhage, unspecified (principal); I10 Essential (primary) hypertension; E78.5 Hyperlipidemia, unspecified; K21.9 Gastro-esophageal reflux disease without esophagitis; E03.9 Hypothyroidism, unspecified; Z79.899 Other long term (current) drug therapy; Z88.8 Allergy status to other drugs, medicaments and biological substances
CPT/HCPCS: 80053; 82150; 82272; 83690; 85025; 85651; 86140; 96365; 99283; G0328

== ENCOUNTER → 2020-09-13 18:59 | Outpatient (CLI) | payer MEDICARE, OTHER, SELFPAY ==
[2020-09-13 20:05] LABS: Hemoglobin A1C 5.3 % (4.0-6.0)
== END ==
PROVIDERS: Visit Provider Nurse Practitioner Family
DX: R73.09 Other abnormal glucose (principal)
CPT/HCPCS: 83036

== ENCOUNTER → 2020-10-07 08:46 | Outpatient (CLI) | payer MEDICARE, OTHER, SELFPAY ==
[2020-10-07 12:14] LABS: Free T4 (Free Thyroxine) 1.13 ng/dl (0.78-2.19)
[2020-10-07 12:29] LABS: Thyroid Stimulating Hormone 3.37 uIU/mL (0.465-4.68)
--- NOTE | 2020-10-07 13:10 | US_ITS ---
PROCEDURE: US THYROID CLINICAL INDICATION: nodules Follow-up thyroid nodules COMPARISON: US THY US thyroid from 04/09/2019 US US THYROID from 10/13/2019 FINDINGS: Right lobe: 4.1 x 1.3 x 1.8 cm. 5 mm cyst in the mid polar region benign-appearing Left lobe: 3.7 x 1.3 x 1.9 cm. 5 mm hypoechoic nodule in the mid polar region well-circumscribed benign-appearing. Ill-defined hypoechoic area in the lower pole 1.4 x 0.7 cm. This is ill-defined and may only represent an area of heterogeneous echogenicity probably not significantly changed when compared to the previous exam Isthmus: Unremarkable Additional findings: IMPRESSION: Overall no significant change benign-appearing nodules bilaterally with ill-defined hypoechoic area in the lower pole on the left which may only be due to heterogeneous echogenicity versus a nodule. Continued follow-up suggested Dictated by: Corey Lombardi MD 10/07/2020 18:10 Corey Lombardi MD in [place] 10/07/2020 18:10
== END ==
PROVIDERS: PCP Nurse Practitioner Family; Visit Provider Otolaryngology
DX: E03.9 Hypothyroidism, unspecified (principal); E04.1 Nontoxic single thyroid nodule
CPT/HCPCS: 36415; 76536; 84439; 84443

== ENCOUNTER → 2020-10-11 09:34 | Outpatient (CLI) | payer MEDICARE, OTHER, SELFPAY ==
[2020-10-12 12:59] LABS: Covid-19 Nasal PCR Sendout Lex Not Detected
== END ==
PROVIDERS: PCP Nurse Practitioner Family; Visit Provider Nurse Practitioner Family
DX: Z03.818 Encounter for observation for suspected exposure to other biological agents ruled out (principal)
CPT/HCPCS: U0004

== ENCOUNTER → 2020-11-11 13:47 | Outpatient (CLI) | payer MEDICARE, OTHER, SELFPAY ==
[2020-11-11 15:51] LABS: Thyroid Stimulating Hormone 1.64 uIU/mL (0.465-4.68)
[2020-11-11 15:52] LABS: Prostate Specific Ag Screen 0.4 ng/ml (0.0-4.0)
== END ==
PROVIDERS: Otolaryngology; Visit Provider Urology
DX: E03.9 Hypothyroidism, unspecified (principal); Z12.5 Encounter for screening for malignant neoplasm of prostate; N40.1 Benign prostatic hyperplasia with lower urinary tract symptoms; Z80.42 Family history of malignant neoplasm of prostate
CPT/HCPCS: 36415; 84439; 84443; G0103

== ENCOUNTER 2021-02-09 12:08 | Emergency (ER) | payer OTHER, SELFPAY ==
[2021-02-09 12:09] VITALS: BP 126/81; PULSE 88; RESP 18; TEMP 36.8; O2SAT 96; BMI 36.0
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
--- NOTE | 2021-02-09 12:23 | PC.NURSE ---
notified rad of CT orders
--- NOTE | 2021-02-09 12:34 | PC.NURSE ---
pt to CT via stretcher
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
--- NOTE | 2021-02-09 12:52 | PC.NURSE ---
pt return from CT
[2021-02-09 13:17] VITALS: BP 114/76; PULSE 81; RESP 16; O2SAT 91
[2021-02-09 13:33] VITALS: BP 93/65; PULSE 86; RESP 19; TEMP 37; O2SAT 98
== END 2021-02-09 13:34 | disposition home or self-care (01) ==
PROVIDERS: Emergency Provider Emergency Medicine; PCP Nurse Practitioner Family
DX: M54.2 Cervicalgia (principal); M54.5 Low back pain; V43.52XA Car driver injured in collision with other type car in traffic accident, initial encounter; Y92.481 Parking lot as the place of occurrence of the external cause
CPT/HCPCS: 72125; 72128; 99282

== ENCOUNTER → 2021-03-10 14:03 | Outpatient (CLI) | payer MEDICARE, OTHER, SELFPAY ==
[2021-03-10 16:02] LABS: Benzodiazepines Screen,Urine Positive ng/ml (<200)
[2021-03-10 16:03] LABS: Amphetamine/Metha Screen,Urine Negative ng/ml (<1000); Barbiturates Screen,Urine Negative ng/ml (<200)
[2021-03-10 16:04] LABS: Cannabinoid Screen,Urine Negative ng/ml (<50); Cocaine Screen,Urine Negative ng/ml (<300)
[2021-03-10 16:05] LABS: Methadone Screen,Urine Negative ng/ml (<300)
[2021-03-10 16:06] LABS: Opiate Screen,Urine Negative ng/ml (<300); Phencyclidine Screen,Urine Negative ng/ml (<25)
== END ==
PROVIDERS: Visit Provider Nurse Practitioner Family
DX: F41.9 Anxiety disorder, unspecified (principal); M54.2 Cervicalgia; Z79.899 Other long term (current) drug therapy
CPT/HCPCS: 80305

== ENCOUNTER → 2021-03-28 10:48 | Outpatient (CLI) | payer MEDICARE, OTHER, SELFPAY ==
[2021-03-28 12:18] LABS: Anion Gap 12.2 mEq/L (5-15); Blood Urea Nitrogen 10 mg/dl (9-20); Calcium 9.3 mg/dl (8.4-10.2); Carbon Dioxide 30 mmol/L (22.0-30.0); Chloride 101 mmol/L (98-107); Estimated Glomerular Filt Rate 90 ml/min (>60); GFR (African American) 109 ML/MIN (>60); Glucose 101 mg/dl (74-100); Magnesium 1.9 mg/dl (1.6-2.3); Potassium 4.2 mmoL/L (3.5-5.1); Sodium 139 mmol/L (136-145)
== END ==
PROVIDERS: Visit Provider Physician Assistant
DX: R06.00 Dyspnea, unspecified (principal)
CPT/HCPCS: 36415; 80048; 83735

== ENCOUNTER → 2021-04-04 11:33 | Outpatient (CLI) | payer MEDICARE, OTHER, SELFPAY ==
[2021-04-04 12:17] LABS: Basophils # 0.1 K/mm3 (0-0.2); Basophils % 0.5 % (0.1-2.0); Eosinophils # 0.2 K/mm3 (0.0-0.4); Hematocrit 45.1 % (42.0-52.0); Hemoglobin 15.6 g/dL (14.1-18.0); Lymphocytes # 3.4 K/mm3 (0.7-4.5); Lymphocytes % 32.8 % (10-50); Mean Corpuscular HGB Conc 34.5 g/dL (31.8-35.4); Mean Corpuscular Hemoglobin 31.3 pg (27.0-31.2); Mean Corpuscular Volume 90.6 fl (80-94); Mean Platelet Volume 8.1 fl (7.4-10.4); Monocytes # 0.5 K/mm3 (0.1-1.0); Monocytes % 4.5 % (1.7-9.3); Neutrophils # 6.3 K/mm3 (1.8-7.8); Neutrophils % 60.3 % (37.0-80.0); Platelet Count 257 K/mm3 (142-424); Red Blood Count 4.98 M/mm3 (4.60-6.20); Red Cell Distribution Width 14.7 % (11.5-17.5); White Blood Count 10.4 K/mm3 (4.8-10.8)
[2021-04-04 13:07] LABS: Alanine Aminotransferase 27 U/L (12-78); Albumin Level 4.1 g/dl (3.5-5.0); Albumin/Globulin Ratio 1.5 (1.1-1.8); Alkaline Phosphatase 136 U/L (38-126); Anion Gap 9.8 mEq/L (5-15); Aspartate Amino Transferase 32 U/L (17-59); Bilirubin,Total 0.8 mg/dl (0.2-1.3); Blood Urea Nitrogen 14 mg/dl (9-20); Calcium 9.1 mg/dl (8.4-10.2); Carbon Dioxide 33 mmol/L (22.0-30.0); Chloride 99 mmol/L (98-107); Chol/HDL Ratio 4.6 (1-3.5); Cholesterol 167 mg/dl (140-200); Estimated Glomerular Filt Rate 90 ml/min (>60); GFR (African American) 109 ML/MIN (>60); Globulin 2.7 g/dL (1.3-3.2); Glucose 148 mg/dl (74-100); HDL Cholesterol 36 mg/dl (40-60); Potassium 3.8 mmoL/L (3.5-5.1); Sodium 138 mmol/L (136-145); Total Protein,Serum 6.8 g/dl (6.3-8.2); Triglycerides 155 mg/dl (30-150); VLDL Cholesterol 31 mg/dL (0-40)
[2021-04-04 13:18] LABS: Direct LDL Cholesterol 103.27 mg/dL (100-129)
[2021-04-04 13:24] LABS: 25-OH Vitamin D, Total 29.9 ng/mL (30-100)
[2021-04-04 13:26] LABS: T4 (Thyroxine) 10.1 ug/dl (5.53-11.0)
[2021-04-04 13:39] LABS: Thyroid Stimulating Hormone 1.88 uIU/mL (0.465-4.68)
[2021-04-04 13:44] LABS: Hemoglobin A1C 5.2 % (4.0-6.0)
== END ==
PROVIDERS: Visit Provider Nurse Practitioner Family
DX: E55.9 Vitamin D deficiency, unspecified (principal); E66.9 Obesity, unspecified; E78.5 Hyperlipidemia, unspecified; I10 Essential (primary) hypertension; K52.9 Noninfective gastroenteritis and colitis, unspecified; R73.09 Other abnormal glucose; F41.9 Anxiety disorder, unspecified; R07.89 Other chest pain; Z68.41 Body mass index [BMI] 40.0-44.9, adult
CPT/HCPCS: 36415; 80053; 80061; 82306; 83036; 84436; 84443; 85025

== ENCOUNTER → 2021-04-11 12:50 | Outpatient (CLI) | payer MEDICARE, OTHER, SELFPAY | PROVIDERS: PCP Nurse Practitioner Family; Visit Provider Physician Assistant | DX: R06.00 Dyspnea, unspecified (principal) | CPT/HCPCS: 93306 ==

== ENCOUNTER 2021-04-20 21:30 | Emergency (ER) | payer MEDICARE, OTHER, SELFPAY ==
[2021-04-20 22:05] VITALS: BP 113/80; PULSE 89; RESP 18; TEMP 36.9; O2SAT 95; BMI 39.2
--- NOTE | 2021-04-20 23:18 | HMH.EDSKAF ---
ED Disposition Clinical Impression: Contact dermatitis Qualifiers: Contact dermatitis type: unspecified Contact dermatitis trigger: unspecified trigger Qualified Code(s): L25.9 - Unspecified contact dermatitis, unspecified cause Disposition: Home, Self-Care Condition on Discharge: Good Instructions: DI for Itching Additional Instructions: call pcp for follow up Prescriptions: predniSONE [Prednisone 20mg Tab] 20 mg PO BID #10 tab Transmission Status: Pending to [facility] Referrals: Leatha Brownlee APRN [Primary Care Provider] - - Critical Care Critical Care Time: No Attestation: On 04/20/21, the high probability of a clinically significant, sudden or life threatening deterioration of the following system(s) required my full and direct attention, intervention and personal management. The time I documented below is in addition to time spent performing reported procedures but includes the following listed in this critical care notation. Medical Decision Making - Medical Records Medical records reviewed: Yes: I reviewed the patient's medical records. - Dante Inquiry Pt receiving controlled substance: No Vital Signs: 04/20/21 22:05 Temperature 98.5 F Temperature Source Oral Pulse Rate [Right] 89 Respiratory Rate 18 Blood Pressure [Right Arm] 113/80 Blood Pressure Mean [Right Arm] 91 Blood Pressure Source [Right Arm] Manual Cuff/ Auscultation Blood Pressure Position [Right Arm] Sitting 02 Sat by Pulse Oximetry 95 Oxygen Delivery Method Room Air - Lab Data Lab results reviewed: Yes: I reviewed the patient's lab results. Orders (Tests/Meds): ED MEDICATIONS Discontinued Medications Generic Name Dose Route Start Last Admin Trade Name Joseq PRN Reason Stop Dose Admin Diphenhydramine HCl 50 mg 04/20/21 22:16 04/20/21 22:19 Diphenhydramine 50mg/Ml Vial IM 04/20/21 22:17 50 mg ONCE ONE Administration Methylprednisolone Sodium Succinate 125 mg 04/20/21 22:16 04/20/21 22:18 Methylprednisolone Sod Succ 125mg Vial IM 04/20/21 22:17 125 mg ONCE ONE Administration Medical Decision Narrative: reactive rash - will treat and ask pt to see pcp for follow up Skin/Abscess/FB HPI - General Chief complaint: Skin/Abscess/Foreign Body Stated complaint: poison mar all over Time Seen by Provider: 04/20/21 23:18 Mode of Arrival: Ambulatory Source of Information: Patient, Spouse, Medical Record Limitations: No Limitations Description of Symptoms (Recalled from ER Triage Doc. by RN): c/o poision amr to arms, back, belly and feet. red rash present. c/o burning and itching - History of Present Illness HPI narrative: possible poison mar rash to trunk with itching - no resp distress MD complaint: rash Onset (ago): day(s) Tetanus up to date: unsure Location: generalized Severity: moderate Quality: pruritic Associated symptoms: denies other symptoms Treatments prior to arrival: OTC topical medication, Benadryl - Related Data Home Medications Medication Instructions Recorded Confirmed epinephrine 0.3 mg/0.3 mL 0.3 mg IM ONCE 11/13/17 04/13/21 injection, auto-injector cholecalciferol (vitamin D3) 50 2,000 unit PO DAILY 02/15/18 04/13/21 mcg (2,000 unit) capsule tamsulosin 0.4 mg capsule 0.4 mg PO DAILY 04/03/19 04/13/21 Fexofenadine HCl [Aller-Ease] 180 mg PO DAILY 06/18/20 04/13/21 azelastine 137 mcg (0.1 %) nasal INTRANASAL 06/30/20 04/13/21 spray aerosol Previous Rx's Medication Instructions Recorded Ondansetron [Zofran 4mg ODT] 4 mg PO Q8HP PRN #20 tab.rapdis 01/04/20 budesonide-formoterol HFA 160 2 puff INHALATION Q12H #6 g 06/28/20 mcg-4.5 mcg/actuation aerosol inhaler cetirizine 10 mg tablet 10 mg PO DAILY #90 tab 07/01/20 fluticasone propionate 50 1 spray INTRANASAL QDAY #47.4 ml 07/01/20 mcg/actuation nasal spray,suspension montelukast 10 mg tablet 10 mg PO DAILY #90 tab 07/01/20 ergocalciferol (vitamin D2) 1,250 1,2
[2021-04-20 23:32] VITALS: BP 124/71; PULSE 89; RESP 18; TEMP 36.9; O2SAT 96
== END 2021-04-20 23:34 | disposition home or self-care (01) ==
PROVIDERS: Emergency Provider Emergency Medicine; PCP Nurse Practitioner Family
DX: L25.9 Unspecified contact dermatitis, unspecified cause (principal); K21.9 Gastro-esophageal reflux disease without esophagitis; E78.5 Hyperlipidemia, unspecified; I10 Essential (primary) hypertension; F41.9 Anxiety disorder, unspecified; Z79.899 Other long term (current) drug therapy
CPT/HCPCS: 96372; 99281

== ENCOUNTER → 2021-04-25 13:46 | Outpatient (CLI) | payer MEDICARE, OTHER, SELFPAY ==
--- NOTE | 2021-04-25 13:51 | US_ITS ---
PROCEDURE: US THYROID CLINICAL INDICATION: hx hypothyroid Follow-up thyroid nodules COMPARISON: US US THYROID from 10/13/2019 US US THYROID from 10/07/2020 FINDINGS: Right lobe: 4.5 x 1.4 x 2.3 cm. 5 mm cyst is present in the upper pole. This is not significantly changed. A 5 x 3 mm area of mixed echogenicity is present in the lower pole anteriorly probably not significantly changed compared to an older study of 10/13/2019. This has central increased echogenicity and peripheral slight decreased echogenicity. Left lobe: 4.1 x 1.5 x 1.6 cm. Stable 5 mm hypoechoic nodules present in the upper pole. Ill-defined area of slight decreased echogenicity is present posteriorly not significantly changed. Isthmus: Unremarkable Additional findings: IMPRESSION: Stable appearance of the thyroid gland with bilateral nodules as described above. Dictated by: Corey Lombardi MD 04/25/2021 15:55 Corey Lombardi MD in [place] 04/25/2021 15:55
== END ==
PROVIDERS: PCP Nurse Practitioner Family; Visit Provider Otolaryngology
DX: E03.9 Hypothyroidism, unspecified (principal)
CPT/HCPCS: 76536

== ENCOUNTER → 2021-05-03 14:14 | Outpatient (CLI) | payer MEDICARE, OTHER, SELFPAY ==
[2021-05-03 15:15] LABS: Anion Gap 10.5 mEq/L (5-15); Blood Urea Nitrogen 14 mg/dl (9-20); Calcium 8.6 mg/dl (8.4-10.2); Carbon Dioxide 29 mmol/L (22.0-30.0); Chloride 101 mmol/L (98-107); Estimated Glomerular Filt Rate 90 ml/min (>60); GFR (African American) 109 ML/MIN (>60); Glucose 128 mg/dl (74-100); Potassium 4.5 mmoL/L (3.5-5.1); Sodium 136 mmol/L (136-145)
[2021-05-03 15:24] LABS: NT Pro Brain Natriuretic Pep. 127 pg/mL (0-125)
== END ==
PROVIDERS: Visit Provider Physician Assistant
DX: R06.00 Dyspnea, unspecified (principal); Z51.81 Encounter for therapeutic drug level monitoring; Z79.899 Other long term (current) drug therapy
CPT/HCPCS: 80048; 83880

== ENCOUNTER → 2021-06-24 16:52 | Outpatient (CLI) | payer MEDICARE, OTHER, SELFPAY ==
[2021-06-24 18:39] LABS: Amphetamine/Metha Screen,Urine Negative ng/ml (<1000); Barbiturates Screen,Urine Negative ng/ml (<200)
[2021-06-24 18:40] LABS: Benzodiazepines Screen,Urine Positive ng/ml (<200)
[2021-06-24 18:41] LABS: Cannabinoid Screen,Urine Negative ng/ml (<50); Cocaine Screen,Urine Negative ng/ml (<300)
[2021-06-24 18:42] LABS: Methadone Screen,Urine Negative ng/ml (<300)
[2021-06-24 18:43] LABS: Opiate Screen,Urine Negative ng/ml (<300); Phencyclidine Screen,Urine Negative ng/ml (<25)
== END ==
PROVIDERS: Visit Provider Nurse Practitioner Family
DX: F41.9 Anxiety disorder, unspecified (principal); M54.2 Cervicalgia
CPT/HCPCS: 80305

== ENCOUNTER → 2021-07-06 11:31 | Outpatient (CLI) | payer MEDICARE, OTHER, SELFPAY | PROVIDERS: Visit Provider Nurse Practitioner Family | DX: Z20.822 Contact with and (suspected) exposure to COVID-19 (principal) | CPT/HCPCS: U0003 ==

== ENCOUNTER → 2021-07-22 17:53 | Outpatient (CLI) | payer MEDICARE, OTHER, SELFPAY ==
[2021-07-22 18:55] LABS: Amphetamine/Metha Screen,Urine Negative ng/ml (<1000)
[2021-07-22 18:56] LABS: Barbiturates Screen,Urine Negative ng/ml (<200)
[2021-07-22 18:57] LABS: Benzodiazepines Screen,Urine Positive ng/ml (<200); Cannabinoid Screen,Urine Negative ng/ml (<50)
[2021-07-22 18:58] LABS: Cocaine Screen,Urine Negative ng/ml (<300)
[2021-07-22 18:59] LABS: Methadone Screen,Urine Negative ng/ml (<300); Opiate Screen,Urine Negative ng/ml (<300)
[2021-07-22 19:01] LABS: Phencyclidine Screen,Urine Negative ng/ml (<25)
== END ==
PROVIDERS: Visit Provider Nurse Practitioner Family
DX: M54.2 Cervicalgia (principal); Z79.899 Other long term (current) drug therapy
CPT/HCPCS: 80305

== ENCOUNTER → 2021-08-10 08:44 | Outpatient (CLI) | payer MEDICARE, OTHER, SELFPAY ==
--- NOTE | 2021-08-10 08:45 | CT_ITS ---
PROCEDURE INFORMATION: Exam: CT Abdomen And Pelvis With Contrast Exam date and time: 08/10/2021 8:45 AM Age: 51 years old Clinical indication: Abdominal pain; Generalized; Prior surgery; Surgery date: 6+ months; Surgery type: Hernia repair; Additional info: Possible hernia TECHNIQUE: Imaging protocol: Computed tomography of the abdomen and pelvis with contrast. Radiation optimization: All CT scans at this facility use at least one of these dose optimization techniques: automated exposure control; mA and/or kV adjustment per patient size (includes targeted exams where dose is matched to clinical indication); or iterative reconstruction. Contrast material: ISOVUE; Contrast volume: 75 ml; Contrast route: IV; COMPARISON: CT ABDOMEN PELVIS W CON 09/09/2020 11:27 PM FINDINGS: Lungs: Chronic mild ground-glass opacity in the posterior right lower lobe is unchanged, likely atelectasis or scarring. No focal consolidation. Liver: No hepatomegaly. Calcified granuloma. No mass. Likely underlying patchy fatty change. Gallbladder and bile ducts: The gallbladder is unremarkable. No calcified stones or biliary dilatation. Pancreas: Fatty infiltrative changes of the pancreas. No mass or ductal dilatation. Spleen: Multiple calcified splenic granulomas. No splenomegaly. Adrenal glands: The adrenal glands are normal. Kidneys and ureters: The kidneys are normal. The ureters are normal. Stomach and bowel: There is no evidence of intestinal perforation or obstruction. The stomach is normal. Appendix: No findings of appendicitis. Intraperitoneal space: There is no free intraperitoneal air. There is no significant free intraperitoneal fluid. Vasculature: There is no aortic aneurysm. No portal venous gas. 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 Lymph nodes: No significantly enlarged lymph nodes by short axis criteria. Urinary bladder: The bladder is normal. Reproductive: Small prostate. Prostate calcifications. Seminal vesicles are unremarkable. Some vas deferens calcifications. Bones/joints: Mild spinal degenerative changes. No acute fracture or high-grade listhesis, as visualized. Soft tissues: 2.8 x 1.6 x 2.3 cm soft tissue density or chronic pocket of fluid deep to the umbilicus, presumed postop scarring from a prior hernia repair, sagittal series 602, image 61 and axial series 3, image 85, unchanged compared with the previous CT from 09/09/2020. Immediately superior to this is a chronic tiny supraumbilical fatty hernia of approximately 2.4 cm, with a narrow neck of approximately 6 mm, sagittal images 59-61. No herniated bowel loops. IMPRESSION: 1. No acute findings or significant change compared with 09/09/2020. 2. Presumed chronic postsurgical scarring or residual postop pocket of fluid deep to the umbilicus, with a tiny fatty supraumbilical hernia, unchanged. No herniated bowel loops. 3. Additional nonemergency and chronic findings as above.
== END ==
PROVIDERS: PCP Nurse Practitioner Family; Visit Provider Surgery
DX: R10.9 Unspecified abdominal pain (principal)
CPT/HCPCS: 74177; Q9967

== ENCOUNTER → 2021-08-24 18:12 | Outpatient (CLI) | payer MEDICARE, OTHER, SELFPAY | PROVIDERS: Visit Provider Nurse Practitioner Family | DX: Z20.822 Contact with and (suspected) exposure to COVID-19 (principal) | CPT/HCPCS: C9803; U0003; U0005 ==

== ENCOUNTER → 2021-09-27 19:16 | Outpatient (CLI) | payer MEDICARE, OTHER, SELFPAY | PROVIDERS: Visit Provider Nurse Practitioner Family | DX: Z20.822 Contact with and (suspected) exposure to COVID-19 (principal) | CPT/HCPCS: C9803; U0003; U0005 ==

== ENCOUNTER → 2021-11-04 12:51 | Outpatient (CLI) | payer MEDICARE, OTHER, SELFPAY ==
[2021-11-04 13:20] VITALS: PULSE 82; PULSE 83
== END ==
PROVIDERS: PCP Nurse Practitioner Family; Visit Provider Nurse Practitioner Family
DX: R06.2 Wheezing (principal)
CPT/HCPCS: 94060; 94640; 94727; 94729

== ENCOUNTER → 2021-11-18 16:10 | Outpatient (CLI) | payer MEDICARE, OTHER, SELFPAY ==
[2021-11-18 17:19] LABS: Barbiturates Screen,Urine Negative ng/ml (<200)
[2021-11-18 17:20] LABS: Benzodiazepines Screen,Urine Positive ng/ml (<200)
[2021-11-18 17:21] LABS: Amphetamine/Metha Screen,Urine Negative ng/ml (<1000)
[2021-11-18 17:22] LABS: Opiate Screen,Urine Negative ng/ml (<300); Phencyclidine Screen,Urine Negative ng/ml (<25)
[2021-11-18 17:24] LABS: Cannabinoid Screen,Urine Negative ng/ml (<50); Cocaine Screen,Urine Negative ng/ml (<300)
[2021-11-18 17:25] LABS: Methadone Screen,Urine Negative ng/ml (<300)
== END ==
PROVIDERS: Visit Provider Nurse Practitioner Family
DX: Z79.899 Other long term (current) drug therapy (principal)
CPT/HCPCS: 80305

== ENCOUNTER → 2021-12-12 11:00 | Outpatient (CLI) | payer MEDICARE, OTHER, SELFPAY ==
[2021-12-12 12:56] LABS: Anion Gap 10.8 mEq/L (5-15); Blood Urea Nitrogen 18 mg/dl (9-20); Calcium 9.5 mg/dl (8.4-10.2); Carbon Dioxide 32 mmol/L (22.0-30.0); Chloride 97 mmol/L (98-107); Estimated Glomerular Filt Rate 79 ml/min (>60); GFR (African American) 96 ML/MIN (>60); Glucose 123 mg/dl (74-100); Potassium 4.8 mmoL/L (3.5-5.1); Sodium 135 mmol/L (136-145)
== END ==
PROVIDERS: PCP Nurse Practitioner Family; Visit Provider Nurse Practitioner Family
DX: E66.01 Morbid (severe) obesity due to excess calories (principal); E78.2 Mixed hyperlipidemia; I10 Essential (primary) hypertension; R06.02 Shortness of breath; R07.9 Chest pain, unspecified; R60.9 Edema, unspecified; R94.31 Abnormal electrocardiogram [ECG] [EKG]; Z68.41 Body mass index [BMI] 40.0-44.9, adult
CPT/HCPCS: 36415; 80048

== ENCOUNTER → 2021-12-16 16:00 | Outpatient (CLI) | payer MEDICARE, OTHER, SELFPAY ==
[2021-12-16 19:11] LABS: Amphetamine/Metha Screen,Urine Negative ng/ml (<1000)
[2021-12-16 19:12] LABS: Barbiturates Screen,Urine Negative ng/ml (<200); Benzodiazepines Screen,Urine Positive ng/ml (<200)
[2021-12-16 19:13] LABS: Cannabinoid Screen,Urine Negative ng/ml (<50)
[2021-12-16 19:14] LABS: Cocaine Screen,Urine Negative ng/ml (<300); Methadone Screen,Urine Negative ng/ml (<300)
[2021-12-16 19:15] LABS: Opiate Screen,Urine Negative ng/ml (<300)
[2021-12-16 19:16] LABS: Phencyclidine Screen,Urine Negative ng/ml (<25)
== END ==
PROVIDERS: Visit Provider Nurse Practitioner Family
DX: F41.9 Anxiety disorder, unspecified (principal); M54.2 Cervicalgia
CPT/HCPCS: 80305

== ENCOUNTER → 2021-12-19 10:26 | Outpatient (CLI) | payer MEDICARE, OTHER, SELFPAY ==
[2021-12-19 11:02] LABS: Basophils # 0.1 K/mm3 (0-0.2); Basophils % 1.4 % (0.1-2.0); Eosinophils # 0.2 K/mm3 (0.0-0.4); Eosinophils % 1.5 % (0.1-12.0); Hematocrit 47.2 % (42.0-52.0); Hemoglobin 15.9 g/dL (14.1-18.0); Lymphocytes # 2.3 K/mm3 (0.7-4.5); Lymphocytes % 23.9 % (10-50); Mean Corpuscular HGB Conc 33.7 g/dL (31.8-35.4); Mean Corpuscular Hemoglobin 32.4 pg (27.0-31.2); Mean Corpuscular Volume 96.3 fl (80-94); Monocytes # 0.6 K/mm3 (0.1-1.0); Monocytes % 6.2 % (1.7-9.3); Neutrophils # 6.5 K/mm3 (1.8-7.8); Neutrophils % 66.9 % (37.0-80.0); Platelet Count 270 K/mm3 (142-424); Red Cell Distribution Width 14.3 % (11.5-17.5); White Blood Count 9.7 K/mm3 (4.8-10.8)
[2021-12-19 12:25] LABS: Chloride 96 mmol/L (98-107); Potassium 4.5 mmoL/L (3.5-5.1); Sodium 133 mmol/L (136-145)
[2021-12-19 12:28] LABS: Anion Gap 8.5 mEq/L (5-15); Blood Urea Nitrogen 15 mg/dl (9-20); Calcium 8.3 mg/dl (8.4-10.2); Carbon Dioxide 33 mmol/L (22.0-30.0); Estimated Glomerular Filt Rate 79 ml/min (>60); GFR (African American) 96 ML/MIN (>60); Glucose 114 mg/dl (74-100)
[2021-12-19 12:29] LABS: Magnesium 2.1 mg/dl (1.6-2.3)
[2021-12-23 23:07] LABS: D001-IgE D pteronyssinus 2.78 kU/L (Class III); D002-IgE D farinae 5.05 kU/L (Class IV); E005-IgE Dog Dander 0.31 kU/L (Class 0/I); E072-IgE Mouse Urine <0.10 kU/L (Class 0); G002-IgE Bermuda Grass 0.14 kU/L (Class 0/I); G006-IgE Timothy Grass 1.47 kU/L (Class III); Immunoglobulin E, Total 813 IU/mL (6-495); M001-IgE Penicillium chrysogen <0.10 kU/L (Class 0); M002-IgE Cladosporium herbarum <0.10 kU/L (Class 0); M003-IgE Aspergillus fumigatus <0.10 kU/L (Class 0); M006-IgE Alternaria alternata <0.10 kU/L (Class 0); T001-IgE Maple/Box Elder <0.10 kU/L (Class 0); T003-IgE Common Silver Birch <0.10 kU/L (Class 0); T006-IgE Cedar, Mountain 0.12 kU/L (Class 0/I); T007-IgE Oak, White 0.14 kU/L (Class 0/I); T008-IgE Elm, American 0.17 kU/L (Class 0/I); T010-IgE Walnut <0.10 kU/L (Class 0); T011-IgE Maple Leaf Sycamore 0.14 kU/L (Class 0/I); T014-IgE Cottonwood <0.10 kU/L (Class 0); T015-IgE Ash, White <0.10 kU/L (Class 0); T022-IgE Pecan, Hickory 0.15 kU/L (Class 0/I); T070-IgE White Mulberry <0.10 kU/L (Class 0); W001-IgE Ragweed, Short 1.89 kU/L (Class III); W011-IgE Thistle, Russian 0.14 kU/L (Class 0/I); W014-IgE Pigweed, Common 0.26 kU/L (Class 0/I); W018-IgE Sheep Sorrel 0.14 kU/L (Class 0/I)
== END ==
PROVIDERS: Internal Medicine Pulmonary Disease; PCP Nurse Practitioner Family; Visit Provider Physician Assistant
DX: F41.9 Anxiety disorder, unspecified (principal); I10 Essential (primary) hypertension; J45.909 Unspecified asthma, uncomplicated
CPT/HCPCS: 36415; 80048; 82785; 83735; 85025; 86003

== ENCOUNTER → 2021-12-21 15:04 | Outpatient (CLI) | payer MEDICARE, OTHER, SELFPAY ==
[2021-12-21 15:55] LABS: Free T4 (Free Thyroxine) 1.38 ng/dl (0.78-2.19)
[2021-12-21 17:45] LABS: Thyroid Stimulating Hormone 2.34 uIU/mL (0.465-4.68)
== END ==
PROVIDERS: PCP Nurse Practitioner Family; Visit Provider Student in an Organized Health Care Education/Training Program
DX: E04.1 Nontoxic single thyroid nodule (principal)
CPT/HCPCS: 84439; 84443

== ENCOUNTER 2022-01-03 15:18 | Emergency (ER) | payer MEDICARE, OTHER, SELFPAY ==
[2022-01-03 15:20] VITALS: BP 129/83; PULSE 99; RESP 16; TEMP 36.8; O2SAT 98; BMI 43.2
--- NOTE | 2022-01-03 16:18 | XR_ITS ---
PROCEDURE INFORMATION: Exam: XR Left Shoulder Exam date and time: 01/03/2022 4:18 PM Age: 51 years old Clinical indication: Injury or trauma; Fall; Blunt trauma (contusions or hematomas); Shoulder; Left; Patient HX: Pain TECHNIQUE: Imaging protocol: XR Left shoulder. Views: 2 or more views. COMPARISON: No relevant prior studies available. FINDINGS: Bones/joints: Osseous anatomic alignment is well preserved. No acutely displaced fracture or dislocation. Joint spaces are well preserved. Soft tissues: There is no significant soft tissue swelling. Visualized chest is unremarkable. IMPRESSION: No acute skeletal pathology.
--- NOTE | 2022-01-03 16:18 | XR_ITS ---
PROCEDURE INFORMATION: Exam: XR Left Ribs with PA Chest Exam date and time: 01/03/2022 4:18 PM Age: 51 years old Clinical indication: Injury or trauma; Fall; Rib area, left side; Blunt trauma; Patient HX: Left anterior rib pain TECHNIQUE: Imaging protocol: XR Left ribs with PA chest. Views: 3 views COMPARISON: CR XR SHOULDER LT MIN 2V 01/03/2022 4:21 PM FINDINGS: Lungs: Unremarkable. No consolidation. Pleural spaces: Unremarkable. No pleural effusion. No pneumothorax. Heart/Mediastinum: Unremarkable. No cardiomegaly. Bones/joints: Unremarkable. IMPRESSION: No acute findings.
--- NOTE | 2022-01-03 16:28 | HMH.EDUTC ---
[facility] – [place] Disposition Clinical Impression: Rib contusion Qualifiers: Encounter type: initial encounter Laterality: left Qualified Code(s): S20.212A - Contusion of left front wall of thorax, initial encounter Shoulder contusion Qualifiers: Encounter type: initial encounter Laterality: left Qualified Code(s): S40.012A - Contusion of left shoulder, initial encounter Disposition: Home, Self-Care Condition on Discharge: Good Instructions: DI for Rib Contusion, DI for Shoulder Pain, Acetaminophen (Alternative Therapy) Additional Instructions: *You can take Tylenol every 4 hours as needed as directed on package *Ice 20 minutes every 2 hours for the first 48 hours after the initial injury followed by moist heat every 20 minutes 3-4 times a day to affected area Soaks in warm water and epson salt may help with pain Over the counter lidocaine pain patches on area if you can use them may help with pain *Keep this area active, no movement leads to more stiffness, However take it easy and avoid heavy lifting pushing or pulling *Follow up with you family doctor if no improvement for further treatment Return if needed Straight to ER if any changes in behavior worse headache of your life or if you have any changes in vision or nausea and vomiting Referrals: Leatha Brownlee APRN [Primary Care Provider] - As needed Time of Disposition: 17:04 Medical Decision Making - Dante Inquiry Pt receiving controlled substance: No Dante was queried for this patient: No Vital Signs: 01/03/22 15:20 Temperature 98.3 F Temperature Source Oral Pulse Rate [Right] 99 H Respiratory Rate 16 Blood Pressure [Right Arm] 129/83 Blood Pressure Mean [Right Arm] 98 Blood Pressure Source [Right Arm] Automatic Cuff Blood Pressure Position [Right Arm] Sitting 02 Sat by Pulse Oximetry 98 Oxygen Delivery Method Room Air Orders (Tests/Meds): ORDERS Category Date Time Status XR ribs LT min 3V w CXR1V Stat Exams 01/03/22 16:18 Taken XR shoulder LT min 2V Stat Exams 01/03/22 16:18 Taken - Radiology Data #1 Image(s): Shoulder Image Reviewed: Yes I have reviewed radiologist's interpretation IMPRESSION: No acute skeletal pathology. #2 Image(s): Chest (with left ribs) Image Reviewed: Yes I have reviewed radiologist's interpretation IMPRESSION: No acute findings. [facility] [place] HPI - General Stated complaint: Fell @ 3 p.m. hit head Time Seen by Provider: 01/03/22 16:29 Mode of Arrival: Ambulatory Source of Information: Patient Limitations: No Limitations Description of Symptoms (Recalled from Triage Doc. by RN): pt fell off of a tree branch and is c/o shoulder and rib pain HEENT Symptoms (Recalled from RN notes): No Resp Symptoms (Recalled from RN notes): No Skin Symptoms (Recalled from RN notes): No MS Symptoms (Recalled from RN notes): Yes (left shoulder and rib pain) Functional Status (Recalled from RN notes): na - History of Present Illness Provider Complaint: Patient states that he was trying to move a tree branch when he slipped and fell and landed on his left shoulder and left side States that since he has been having pain in his left shoulder and ribs so he came in to get checked out Denies LOC States that he thinks he may have hit his head but denies headache or any pain - Related Data Home Medications Medication Instructions Recorded Confirmed tamsulosin 0.4 mg capsule 0.4 mg PO DAILY 04/03/19 12/21/21 Previous Rx's Medication Instructions Recorded budesonide-formoterol HFA 160 2 puff INHALATION Q12H #6 g 06/28/20 mcg-4.5 mcg/actuation aerosol inhaler fluticasone propionate 50 1 spray INTRANASAL QDAY #47.4 ml 07/01/20 mcg/actuation nasal spray,suspension ergocalciferol (vitamin D2) 1,250 1,250 mcg PO QWEEK #14 cap 07/24/20 mcg (50,000 unit) capsule docusate sodium 100 mg capsule 100 mg PO DAILY #90 cap 08/24/20 levothyroxine 25 mcg tablet 25 mcg PO DAILY #90 tab 11/08/20 spironolactone 50 mg tablet 50 mg
[2022-01-03 17:16] VITALS: BP 129/83; PULSE 99; RESP 16; TEMP 36.8; O2SAT 99
== END 2022-01-03 17:16 | disposition home or self-care (01) ==
PROVIDERS: Emergency Provider Nurse Practitioner; PCP Nurse Practitioner Family
DX: S20.212A Contusion of left front wall of thorax, initial encounter (principal); S40.012A Contusion of left shoulder, initial encounter; W17.89XA Other fall from one level to another, initial encounter; Y92.89 Other specified places as the place of occurrence of the external cause; I10 Essential (primary) hypertension; E11.9 Type 2 diabetes mellitus without complications; Z79.899 Other long term (current) drug therapy; Z88.1 Allergy status to other antibiotic agents; Z88.5 Allergy status to narcotic agent
CPT/HCPCS: G0463; 71101; 73030; 99212

== ENCOUNTER 2022-01-10 11:09 | Emergency (ER) | payer MEDICARE, OTHER, SELFPAY ==
[2022-01-10 12:44] VITALS: BP 145/86; PULSE 90; RESP 16; TEMP 36.5; O2SAT 95; BMI 42.4
--- NOTE | 2022-01-10 12:47 | HMH.EDUTC ---
[facility] [place] Clinical Impression: Bronchitis Sinusitis Qualifiers: Sinusitis location: unspecified location Chronicity: acute Recurrence: non-recurrent Qualified Code(s): J01.90 - Acute sinusitis, unspecified Disposition: Home, Self-Care Condition on Discharge: Good Instructions: DI for Sinusitis, DI for Acute Bronchitis Additional Instructions: Drink plenty of fluids. Take tylenol or ibuprofen for pain or fever. Take the medications as directed. Follow up with your regular doctor. GO TO THE ER FOR ANY WORSENING SYMPTOMS Quarantine until you know the results of your covid-19 test. Notify your school or workplace of your results and follow their instructions regarding return to work/school. Prescriptions: Amoxicillin/Potassium Clav [Amox-Clav 875-125 mg Tablet] 1 tab PO BID #20 tab Transmission Status: Received by [facility] Benzonatate [Benzonatate 100mg cap] 100 mg PO TIDP PRN #30 cap PRN Reason: Cough Transmission Status: Received by [facility] methylPREDNISolone [Medrol] 4 mg PO DIRECTED 6 Days #21 packet Transmission Status: Received by [facility] Referrals: Leatha Brownlee APRN [Primary Care Provider] - Time of Disposition: 13:20 Medical Decision Making - Medical Records Medical records reviewed: No: I reviewed the patient's medical records. - Dante Inquiry Pt receiving controlled substance: No Vital Signs: 01/10/22 12:44 01/10/22 13:22 Temperature 97.7 F 97.7 F Temperature Source Oral Pulse Rate 90 Pulse Rate [Left] 90 Respiratory Rate 16 16 Blood Pressure 145/86 H Blood Pressure [Right Arm] 145/86 H Blood Pressure Mean [Right Arm] 105 02 Sat by Pulse Oximetry 95 - Lab Data Lab results reviewed: Yes: I reviewed the patient's lab results. Lab Results 01/10/22 13:01: Chlamy pneumoniae PCR Not detected, Adenovirus (PCR) Not detected, B. pertussis DNA (PCR) Not detected, Coronavirus OC43 (PCR) Not detected, Coronavirus HKU1 (PCR) Not detected, Coronavirus 229E (PCR) Not detected, SARS-CoV-2 (PCR) Not detected, Coronavirus NL63 (PCR) Not detected, Human Metapneumovir PCR Not detected, Influenza A (H1) PCR Not detected, Influ A (H1N1/09) PCR Not detected, Influenza A (H3) PCR Not detected, Influenza Type A (PCR) Not detected, Influenza Type B (PCR) Not detected, M. pneumoniae (PCR) Not detected, Parainfluenza 1 (PCR) Not detected, Parainfluenza 2 (PCR) Not detected, Parainfluenza 3 (PCR) Not detected, Parainfluenza 4 (PCR) Not detected, RSV (PCR) Not detected, Entero/Rhino (PCR) Not detected [facility] [place] - General Stated complaint: congestion, tightness in throat Time Seen by Provider: 01/10/22 12:48 Mode of Arrival: Ambulatory Source of Information: Patient Limitations: No Limitations Description of Symptoms (Recalled from Triage Doc. by RN): pt c/o chest congestion and nasal congestion x3 days. HEENT Symptoms (Recalled from RN notes): Yes Resp Symptoms (Recalled from RN notes): Yes Skin Symptoms (Recalled from RN notes): No MS Symptoms (Recalled from RN notes): No Functional Status (Recalled from RN notes): wnl - History of Present Illness Provider Complaint: He c/o sinus congestion for the past 3 days. - Related Data Home Medications Medication Instructions Recorded Confirmed tamsulosin 0.4 mg capsule 0.4 mg PO DAILY 04/03/19 12/21/21 Previous Rx's Medication Instructions Recorded budesonide-formoterol HFA 160 2 puff INHALATION Q12H #6 g 06/28/20 mcg-4.5 mcg/actuation aerosol inhaler fluticasone propionate 50 1 spray INTRANASAL QDAY #47.4 ml 07/01/20 mcg/actuation nasal spray,suspension ergocalciferol (vitamin D2) 1,250 1,250 mcg PO QWEEK #14 cap 07/24/20 mcg (50,000 unit) capsule docusate sodium 100 mg capsule 100 mg PO DAILY #90 cap 08/24/20 spironolactone 50 mg tablet 50 mg PO BID #180 tab 04/13/21 fexofenadine 180 mg tablet 180 mg PO DAILY #90 tab 07/22/21 epinephrine 0.3 mg/0.3
[2022-01-10 13:06] LABS: Adenovirus,PCR Not Detected (NotDetected); Bordetella Pertussis Not Detected (NotDetected); Chlamydophila Pneumoniae, PCR Not Detected (NotDetected); Coronavirus 19, PCR Not Detected (NotDetected); Coronavirus 229E Not Detected (NotDetected); Coronavirus NL63 Not Detected (NotDetected); Coronavirus OC43 Not Detected (NotDetected); Coronovirus HKU1,PCR Not Detected (NotDetected); Human Metapneumovirus Not Detected (NotDetected); Influenza A, PCR Not Detected (NotDetected); Influenza AH1, 2009 Not Detected (NotDetected); Influenza AH1, PCR Not Detected (NotDetected); Influenza AH3,PCR Not Detected (NotDetected); Influenza B, PCR Not Detected (NotDetected); Mycoplasma Pneumoniae, PCR Not Detected (NotDetected); Parainfluenza 1, PCR Not Detected (NotDetected); Parainfluenza 2, PCR Not Detected (NotDetected); Parainfluenza 3, PCR Not Detected (NotDetected); Parainfluenza 4, PCR Not Detected (NotDetected); Respiratory Syncytial Virus Not Detected (NotDetected); Rhinovirus/Enterovirus Not Detected (NotDetected)
[2022-01-10 13:22] VITALS: BP 145/86; PULSE 90; RESP 16; TEMP 36.5
== END 2022-01-10 13:22 | disposition home or self-care (01) ==
PROVIDERS: Emergency Provider Nurse Practitioner Family; PCP Nurse Practitioner Family
DX: J01.90 Acute sinusitis, unspecified (principal); K21.9 Gastro-esophageal reflux disease without esophagitis; E78.5 Hyperlipidemia, unspecified; I10 Essential (primary) hypertension; F41.9 Anxiety disorder, unspecified; Z79.899 Other long term (current) drug therapy
CPT/HCPCS: G0463; 87581; 87632; 87798; 99212; C9803; U0003; U0005

== ENCOUNTER → 2022-01-13 12:44 | Outpatient (CLI) | payer MEDICARE, OTHER, SELFPAY | PROVIDERS: PCP Nurse Practitioner Family; Visit Provider Internal Medicine Pulmonary Disease | DX: R06.02 Shortness of breath (principal) | CPT/HCPCS: 94762 ==

== ENCOUNTER → 2022-01-16 16:39 | Outpatient (CLI) | payer MEDICARE, OTHER, SELFPAY ==
[2022-01-16 18:41] LABS: Benzodiazepines Screen,Urine Positive ng/ml (<200)
[2022-01-16 18:42] LABS: Amphetamine/Metha Screen,Urine Negative ng/ml (<1000); Barbiturates Screen,Urine Negative ng/ml (<200)
[2022-01-16 18:43] LABS: Cannabinoid Screen,Urine Negative ng/ml (<50)
[2022-01-16 18:44] LABS: Cocaine Screen,Urine Negative ng/ml (<300); Methadone Screen,Urine Negative ng/ml (<300)
[2022-01-16 18:45] LABS: Phencyclidine Screen,Urine Negative ng/ml (<25)
[2022-01-16 20:52] LABS: Opiate Screen,Urine Negative ng/ml (<300)
== END ==
PROVIDERS: Visit Provider Nurse Practitioner Family
DX: Z79.899 Other long term (current) drug therapy (principal)
CPT/HCPCS: 80305

== ENCOUNTER 2022-01-23 11:43 | Emergency (ER) | payer MEDICARE, OTHER, SELFPAY ==
[2022-01-23 14:35] VITALS: BP 150/88; PULSE 101; RESP 16; TEMP 36.8; O2SAT 99; BMI 31.3
--- NOTE | 2022-01-23 14:44 | HMH.EDUTC ---
[facility] [place] Impression: Bronchitis Sinusitis Qualifiers: Sinusitis location: unspecified location Chronicity: acute Recurrence: non-recurrent Qualified Code(s): J01.90 - Acute sinusitis, unspecified Disposition: Home, Self-Care Condition on Discharge: Good Instructions: DI for Sinusitis, DI for Acute Bronchitis Additional Instructions: Drink plenty of fluids. Take tylenol or ibuprofen for pain or fever. Take the medications as directed. Follow up with your regular doctor. GO TO THE ER FOR ANY WORSENING SYMPTOMS Prescriptions: Benzonatate [Benzonatate 100mg cap] 100 mg PO TIDP PRN #30 cap PRN Reason: Cough Transmission Status: Received by [facility] methylPREDNISolone [Medrol] 4 mg PO DIRECTED 6 Days #21 packet Transmission Status: Received by [facility] Azithromycin [Z-Abisai 250mg Tab*] 250 mg PO UD DOSE PK #6 tab Transmission Status: Received by [facility] Referrals: Leatha Brownlee APRN [Primary Care Provider] - Time of Disposition: 14:52 Medical Decision Making - Medical Records Medical records reviewed: No: I reviewed the patient's medical records. - Dante Inquiry Pt receiving controlled substance: No Vital Signs: 01/23/22 14:35 01/23/22 15:07 Temperature 98.2 F 98.2 F Temperature Source Oral Pulse Rate 94 H Pulse Rate [Left Radial] 101 H Respiratory Rate 16 17 Blood Pressure 145/79 H Blood Pressure [Right Arm] 150/88 H Blood Pressure Mean [Right Arm] 108 02 Sat by Pulse Oximetry 99 Oxygen Delivery Method Room Air Room Air - Lab Data Lab results reviewed: Yes: I reviewed the patient's lab results. [facility] [place] - General Stated complaint: congested ,sore throat Time Seen by Provider: 01/23/22 14:40 Mode of Arrival: Ambulatory Source of Information: Patient Limitations: No Limitations Description of Symptoms (Recalled from Triage Doc. by RN): [facility]/o sinus congestion and cough x1 week. HEENT Symptoms (Recalled from RN notes): Yes Resp Symptoms (Recalled from RN notes): Yes Skin Symptoms (Recalled from RN notes): No MS Symptoms (Recalled from RN notes): No Functional Status (Recalled from RN notes): na - History of Present Illness Provider Complaint: He c/o sinus congestion, productive cough and scratchy sore throat for the past 5 days. - Related Data Home Medications Medication Instructions Recorded Confirmed tamsulosin 0.4 mg capsule 0.4 mg PO DAILY 04/03/19 01/16/22 Previous Rx's Medication Instructions Recorded budesonide-formoterol HFA 160 2 puff INHALATION Q12H #6 g 06/28/20 mcg-4.5 mcg/actuation aerosol inhaler fluticasone propionate 50 1 spray INTRANASAL QDAY #47.4 ml 07/01/20 mcg/actuation nasal spray,suspension ergocalciferol (vitamin D2) 1,250 1,250 mcg PO QWEEK #14 cap 07/24/20 mcg (50,000 unit) capsule docusate sodium 100 mg capsule 100 mg PO DAILY #90 cap 08/24/20 spironolactone 50 mg tablet 50 mg PO BID #180 tab 04/13/21 fexofenadine 180 mg tablet 180 mg PO DAILY #90 tab 07/22/21 epinephrine 0.3 mg/0.3 mL See Rx Instructions .ROUTE 08/16/21 injection, auto-injector .COMPLEX #2 each albuterol sulfate 90 mcg/actuation See Rx Instructions .ROUTE 10/21/21 aerosol inhaler .COMPLEX #8.5 g quetiapine 50 mg tablet See Rx Instructions .ROUTE 11/02/21 .COMPLEX #90 tab esomeprazole magnesium 20 mg See Rx Instructions .ROUTE 11/03/21 capsule,delayed release .COMPLEX #90 cap budesonide-formoterol HFA 160 2 puff INHALATION BID 90 Days 11/28/21 mcg-4.5 mcg/actuation aerosol #10.2 g inhaler furosemide 40 mg tablet 40 mg PO DIRECTED #180 tab 12/05/21 atorvastatin 10 mg tablet See Rx Instructions .ROUTE 12/28/21 .COMPLEX #90 tab bisoprolol fumarate 10 mg tablet See Rx Instructions .ROUTE 12/28/21 .COMPLEX #90 tab diltiazem HCl 240 mg See Rx Instructions .ROUTE 12/28/21 capsule,extended release 24 hr .COMPLEX #90 cap montelukast 10 mg tablet See Rx Instructions .ROUT
[2022-01-23 15:07] VITALS: BP 145/79; PULSE 94; RESP 17; TEMP 36.8; O2SAT 99
== END 2022-01-23 15:07 | disposition home or self-care (01) ==
PROVIDERS: Emergency Provider Nurse Practitioner Family; PCP Nurse Practitioner Family
DX: J20.9 Acute bronchitis, unspecified (principal); J01.90 Acute sinusitis, unspecified
CPT/HCPCS: G0463; 99213

== ENCOUNTER → 2022-03-17 13:58 | Outpatient (CLI) | payer MEDICARE, OTHER, SELFPAY ==
--- NOTE | 2022-03-17 14:21 | XR_ITS ---
FINAL REPORT CLINICAL HISTORY: FOOT PAIN COMPARISON: September 26, 2019 FINDINGS: LEFT FOOT Three views of the left foot demonstrate no acute fracture or dislocation. The visualized joint spaces are normally aligned. There is a plantar calcaneal spur. The soft tissues are unremarkable. IMPRESSION: No acute bony abnormality. Reviewed, Interpreted and Dictated by Kd Diana III, MD Transcribed by Cyn Ferrell Authenticated by Kd Diana III, MD on 03/17/2022 03:13:27 PM [facility]
== END ==
PROVIDERS: Visit Provider Nurse Practitioner Family
DX: M79.672 Pain in left foot (principal)
CPT/HCPCS: 73630

== ENCOUNTER → 2022-04-12 14:21 | Outpatient (CLI) | payer MEDICARE, SELFPAY ==
[2022-04-12 14:07] LABS: Amphetamine/Metha Screen,Urine Negative ng/ml (<1000)
[2022-04-12 14:08] LABS: Barbiturates Screen,Urine Negative ng/ml (<200)
[2022-04-12 14:09] LABS: Benzodiazepines Screen,Urine Positive ng/ml (<200); Cannabinoid Screen,Urine Negative ng/ml (<50)
[2022-04-12 14:10] LABS: Cocaine Screen,Urine Negative ng/ml (<300)
[2022-04-12 14:11] LABS: Methadone Screen,Urine Negative ng/ml (<300)
[2022-04-12 14:12] LABS: Opiate Screen,Urine Negative ng/ml (<300)
[2022-04-12 14:13] LABS: Phencyclidine Screen,Urine Negative ng/ml (<25)
== END ==
PROVIDERS: PCP Nurse Practitioner Family; Visit Provider Nurse Practitioner Family
DX: F41.9 Anxiety disorder, unspecified (principal); M54.2 Cervicalgia
CPT/HCPCS: 80305

== ENCOUNTER 2022-05-29 15:12 | Emergency (ER) | payer MEDICARE, OTHER, SELFPAY ==
[2022-05-29 16:00] VITALS: BP 128/87; PULSE 97; RESP 18; TEMP 36.5; O2SAT 95; BMI 41.0
--- NOTE | 2022-05-29 16:19 | HMH.EDUTC ---
[facility] [place] Disposition Clinical Impression: Diarrhea Qualifiers: Diarrhea type: unspecified type Qualified Code(s): R19.7 - Diarrhea, unspecified Disposition: Home, Self-Care Condition on Discharge: Good Instructions: Diarrhea (Alternative Therapy), Diarrhea Additional Instructions: Drink extra fluids with and between meals. If you have difficulty drinking, try very small amounts of water or suck on ice chips. ? Avoid fruit juices, as these do not replace minerals and can actually increase diarrhea. ? Children and adults can use sports drinks to replenish electrolytes. Younger children and infants should use products formulated for children, like oral rehydration solutions. ? Eat food in small amounts and let your stomach recover. ? Get lots of rest. You may feel tired or weak. ? No greasy or fried foods for the next 24-48 hours BRAT diet Bananas Rice Apples and [place] ? Make sure to drink plenty of liquids ? Return if needed ? Straight to ER if any life threatening symptoms ? You was given an outpatient order for diarrhea panel, please collect specimen and bring back to outpatient lab then call back to the [facility] or follow up with family doctor for results ? Follow up with family doctor in the next 48-72 hours if no improvement or any worsening of symptoms Referrals: Leatha Brownlee APRN [Primary Care Provider] - As needed Time of Disposition: 16:40 Medical Decision Making - Dante Inquiry Pt receiving controlled substance: No Dante was queried for this patient: No Vital Signs: 05/29/22 16:00 05/29/22 16:38 Temperature 97.7 F 97.7 F Temperature Source Oral Pulse Rate 97 H Pulse Rate [Left Brachial] 97 H Respiratory Rate 18 18 Blood Pressure 128/87 Blood Pressure [Left Arm] 128/87 Blood Pressure Mean [Left Arm] 100 Blood Pressure Source [Left Arm] Automatic Cuff Blood Pressure Position [Left Arm] Sitting 02 Sat by Pulse Oximetry 95 Oxygen Delivery Method Room Air Orders (Tests/Meds): ORDERS Category Date Time Status Covid-19 Nasal PCR ([facility]) Routine Lab 05/29/22 15:58 Received [facility] [place] HPI - General Stated complaint: diarrhea, stomach ache Time Seen by Provider: 05/29/22 16:19 Mode of Arrival: Ambulatory Source of Information: Patient Limitations: No Limitations Description of Symptoms (Recalled from Triage Doc. by RN): PATIENT C/O NAUSEA AND DIARRHEA SINCE YESTERDAY HEENT Symptoms (Recalled from RN notes): No Resp Symptoms (Recalled from RN notes): No Skin Symptoms (Recalled from RN notes): No MS Symptoms (Recalled from RN notes): No Functional Status (Recalled from RN notes): WNL - History of Present Illness Provider Complaint: Patient states that yesterday he had some diarrhea and nausea States that he hasnt had any vomiting but has had diarrhea several times with the last being this morning States that started after he went to [facility] and not sure if he was exposed to anyone with COVID or not but was worried about it - Related Data Home Medications Medication Instructions Recorded Confirmed tamsulosin 0.4 mg capsule 0.4 mg PO DAILY 04/03/19 04/12/22 Previous Rx's Medication Instructions Recorded fluticasone propionate 50 1 spray INTRANASAL QDAY #47.4 ml 07/01/20 mcg/actuation nasal spray,suspension ergocalciferol (vitamin D2) 1,250 1,250 mcg PO QWEEK #14 cap 07/24/20 mcg (50,000 unit) capsule docusate sodium 100 mg capsule 100 mg PO DAILY #90 cap 08/24/20 fexofenadine 180 mg tablet 180 mg PO DAILY #90 tab 07/22/21 epinephrine 0.3 mg/0.3 mL See Rx Instructions .ROUTE 08/16/21 injection, auto-injector .COMPLEX #2 each albuterol sulfate 90 mcg/actuation See Rx Instructions .ROUTE 10/21/21 aerosol inhaler .COMPLEX #8.5 g furosemide 40 mg tablet 40 mg PO DIRECTED #180 tab 12/05/21 montelukast 10 mg tablet See Rx Instructions .ROUTE 12/28/21 .COMPLEX #30 tab levothyroxine 25 mcg tablet 25 mcg PO DAILY #90 tab 01/10/22 tamsulosin 0.4 mg capsule 0.4 mg PO DAILY #90 cap
[2022-05-29 16:38] VITALS: BP 128/87; PULSE 97; RESP 18; TEMP 36.5; O2SAT 95
== END 2022-05-29 16:47 | disposition home or self-care (01) ==
PROVIDERS: Emergency Provider Nurse Practitioner; PCP Nurse Practitioner Family
DX: R19.7 Diarrhea, unspecified (principal)
CPT/HCPCS: 99212; C9803; G0463; U0003; U0005

== ENCOUNTER → 2022-07-14 10:37 | Outpatient (CLI) | payer MEDICARE, OTHER, SELFPAY ==
--- NOTE | 2022-07-14 10:37 | FL_ITS ---
FINAL REPORT CLINICAL HISTORY: epigasttric pain going down to belly button x few months hx of hernia repair 1.36 time FINDINGS: AIR CONTRAST UPPER GI HISTORY: Epigastric abdominal pain, previous hernia repair. TECHNIQUE: Patient ingested thick and thin barium contrast. Spot and overhead films were performed. A total of 45 images were saved. FINDINGS: The esophagus demonstrates no morphologic abnormalities. No mucosal defects are seen and motility appears normal. The stomach is of normal size, shape and position. No gastric filling defects are seen. The duodenal bulb and sweep appear unremarkable. No episodes of gastroesophageal reflux observed.13 mm barium tablet passes easily through the esophagus and into the stomach. Fluoroscopy time: 1 minute 36 seconds. IMPRESSION: Unremarkable upper GI series. Reviewed, Interpreted and Dictated by Kd Diana III, MD Transcribed by Marilu Escoto PA-C Authenticated and [facility]
== END ==
PROVIDERS: PCP Nurse Practitioner Family; Visit Provider Surgery
DX: R11.0 Nausea (principal); R10.13 Epigastric pain
CPT/HCPCS: 74246

== ENCOUNTER → 2022-07-18 09:25 | Outpatient (CLI) | payer MEDICARE, OTHER, SELFPAY ==
--- NOTE | 2022-07-18 09:25 | US_ITS ---
FINAL REPORT CLINICAL HISTORY: nausea FINDINGS: ULTRASOUND RIGHT UPPER QUADRANT Sonographic imaging of the right upper quadrant was obtained. The pancreas is obscured. The liver has increased echogenicity consistent with fatty infiltration. There is no evidence of gallstones. There is no gallbladder wall thickening. There is no biliary ductal dilatation. The common duct is normal at 2 mm. Limited images of the right kidney are unremarkable. IMPRESSION: Fatty liver. Otherwise unremarkable right upper quadrant ultrasound. Reviewed, Interpreted and Dictated by Kd Diana III, MD Transcribed by Cyn Ferrell Authenticated and [facility]
== END ==
PROVIDERS: PCP Nurse Practitioner Family; Visit Provider Surgery
DX: R11.0 Nausea (principal)
CPT/HCPCS: 76705

== ENCOUNTER → 2022-07-28 09:59 | Outpatient (CLI) | payer MEDICARE, OTHER, SELFPAY ==
--- NOTE | 2022-07-28 09:59 | NM_ITS ---
FINAL REPORT CLINICAL HISTORY: RUQ pain, 10:20am 8.43mci Tc Choletec inj into rt ant pt did not complain of pain after ensure FINDINGS: HEPATOBILIARY SCAN WITH CCK INJECTION Following intravenous administration of approximately 8.43 of technetium Choletec, multiple scintigraphic images were obtained. The hepatic parenchymal phase shows homogeneous distribution of the tracer throughout the liver. Prompt appearance of tracer is noted in the intrahepatic and extrahepatic biliary systems. The gallbladder visualizes normal. Biliary to bowel transit is within normal limits. Following ingestion of Ensure, gallbladder ejection fraction is estimated to be 99 %. IMPRESSION: Normal gallbladder ejection fraction of 99 %. Reviewed, Interpreted and Dictated by Clemente Angeles MD Transcribed by Mason Ross Authenticated and [facility]
== END ==
PROVIDERS: PCP Nurse Practitioner Family; Visit Provider Surgery
DX: R10.13 Epigastric pain (principal)
CPT/HCPCS: 78226; A9537

== ENCOUNTER 2022-08-09 11:52 | Emergency (ER) | payer MEDICARE, OTHER, SELFPAY ==
[2022-08-09 11:53] VITALS: BP 110/81; PULSE 84; RESP 18; TEMP 36.4; O2SAT 100; BMI 41.5
--- NOTE | 2022-08-09 11:59 | HMH.EDSKAF ---
Discharge Plan Disposition Patient Disposition: Home, Self-Care Condition: Good Chief Complaint: Recheck/Abnormal Lab/Rx Prescriptions Prescriptions: No Action fluticasone propion-salmeterol [Advair Diskus] 250-50 mcg/dose blister with device 1 inh IH BID Qty: 60 2RF diazepam 10 mg tablet 10 mg PO DAILY Qty: 45 0RF Rx Instructions: can take 2 x day prn docusate sodium 100 mg capsule 100 mg PO DAILY Qty: 90 0RF albuterol sulfate 90 mcg/actuation HFA aerosol inhaler See Rx Instructions .ROUTE .COMPLEX Qty: 8.5 3RF Dose Instruction: INHALE TWO PUFFS BY MOUTH EVERY 4 TO 6 HOURS NEEDED SHORTNESS OF BREATH --SHAKE WELL BEFORE USE-- Rx Instructions: INHALE TWO PUFFS BY MOUTH EVERY 4 TO 6 HOURS NEEDED SHORTNESS OF BREATH --SHAKE WELL BEFORE USE-- furosemide 40 mg tablet 40 mg PO DIRECTED Qty: 180 3RF Rx Instructions: take 80 mg in AM, take 40 mg in afternoon quetiapine 50 mg tablet 50 mg PO HS Label Comments: TAKE ONE TABLET BY MOUTH EVERY DAY AT BEDTIME FOR ANXIETY cetirizine [All Day Allergy (cetirizine)] 10 mg tablet 10 mg PO DAILY Qty: 90 4RF fluticasone propionate [Flonase Allergy Relief] 50 mcg/actuation spray,suspension 2 spray NS DAILY Qty: 16 3RF Rx Instructions: administer into each nostril fluticasone propionate 50 mcg/actuation spray,suspension 1 spray intranasal QDAY Qty: 47.4 3RF Rx Instructions: administer into each nostril ergocalciferol (vitamin D2) 1,250 mcg (50,000 unit) capsule 1,250 mcg PO QWEEK Qty: 14 3RF epinephrine 0.3 mg/0.3 mL auto-injector See Rx Instructions .ROUTE .COMPLEX Qty: 2 1RF Dose Instruction: INJECT THE CONTENTS OF 1 AUTO-INJECTOR INTRAMUSCULARLY ONCE NEEDED FOR ANAPHYLAXIS REACTION Rx Instructions: INJECT THE CONTENTS OF 1 AUTO-INJECTOR INTRAMUSCULARLY ONCE NEEDED FOR ANAPHYLAXIS REACTION montelukast 10 mg tablet See Rx Instructions .ROUTE .COMPLEX Qty: 30 4RF Dose Instruction: TAKE ONE TABLET BY MOUTH EVERY DAY IN THE EVENING Rx Instructions: TAKE ONE TABLET BY MOUTH EVERY DAY IN THE EVENING levothyroxine 25 mcg tablet 25 mcg PO DAILY Qty: 90 4RF tamsulosin 0.4 mg capsule 0.4 mg PO DAILY Qty: 90 3RF spironolactone 50 mg tablet 50 mg PO BID Qty: 180 3RF bisoprolol fumarate 10 mg tablet See Rx Instructions .ROUTE .COMPLEX Qty: 90 0RF Dose Instruction: TAKE ONE TABLET BY MOUTH EVERY DAY FOR HIGH BLOOD PRESSURE Rx Instructions: TAKE ONE TABLET BY MOUTH EVERY DAY FOR HIGH BLOOD PRESSURE atorvastatin 10 mg tablet See Rx Instructions .ROUTE .COMPLEX Qty: 90 0RF Dose Instruction: TAKE ONE TABLET BY MOUTH EVERY DAY AT BEDTIME Rx Instructions: TAKE ONE TABLET BY MOUTH EVERY DAY AT BEDTIME diltiazem HCl 240 mg capsule,extended release 24hr See Rx Instructions .ROUTE .COMPLEX Qty: 90 0RF Dose Instruction: TAKE ONE CAPSULE BY MOUTH EVERY DAY Rx Instructions: TAKE ONE CAPSULE BY MOUTH EVERY DAY esomeprazole magnesium 20 mg capsule,delayed release(DR/EC) See Rx Instructions .ROUTE .COMPLEX Qty: 90 0RF Dose Instruction: TAKE ONE CAPSULE BY MOUTH EVERY DAY Rx Instructions: TAKE ONE CAPSULE BY MOUTH EVERY DAY Referrals Follow up/Referrals: Leatha Brownlee APRN [Primary Care Provider] - See instructions Activity Restrictions/Add. Instructions Additional Instructions/Restrictions: Your test today did not show any evidence of leukemia. I think that your swollen lymph node is from the influenza and COVID immunizations you got 2 days ago. Please return to the emergency department if you feel worse in any way. Follow-up with your primary care doctor in about 1 week if that lymph node is still swollen by then. Clinical Impressions Clinical Impression: Lymphadenopathy Instructions Patient Instructions: DI for Lymphadenopathy Discharge ED Provider: Dian
[2022-08-09 12:18] LABS: Basophils # 0.1 K/mm3 (0-0.2); Basophils % 1.4 % (0.1-2.0); Eosinophils # 0.3 K/mm3 (0.0-0.4); Eosinophils % 3.4 % (0.1-12.0); Hematocrit 47.1 % (42.0-52.0); Hemoglobin 15.8 g/dL (14.1-18.0); Lymphocytes # 2.9 K/mm3 (0.7-4.5); Lymphocytes % 29.9 % (10-50); Mean Corpuscular HGB Conc 33.5 g/dL (31.8-35.4); Mean Corpuscular Hemoglobin 33.2 pg (27.0-31.2); Mean Corpuscular Volume 98.9 fl (80-94); Mean Platelet Volume 8.9 fl (7.4-10.4); Monocytes # 0.7 K/mm3 (0.1-1.0); Monocytes % 6.7 % (1.7-9.3); Neutrophils # 5.7 K/mm3 (1.8-7.8); Neutrophils % 58.7 % (37.0-80.0); Platelet Count 236 K/mm3 (142-424); Red Blood Count 4.76 M/mm3 (4.60-6.20); Red Cell Distribution Width 14.6 % (11.5-17.5); White Blood Count 9.8 K/mm3 (4.8-10.8)
[2022-08-09 12:36] VITALS: BP 110/75; PULSE 80; RESP 18; TEMP 36.6; O2SAT 97
[2022-08-09 12:37] VITALS: BP 110/75; PULSE 80; RESP 18; TEMP 36.6
== END 2022-08-09 12:40 | disposition home or self-care (01) ==
PROVIDERS: Emergency Provider Emergency Medicine; PCP Nurse Practitioner Family
DX: R59.1 Generalized enlarged lymph nodes (principal); M54.6 Pain in thoracic spine; R60.0 Localized edema; F41.9 Anxiety disorder, unspecified; Z79.51 Long term (current) use of inhaled steroids; Z79.899 Other long term (current) drug therapy; Z88.2 Allergy status to sulfonamides; Z88.5 Allergy status to narcotic agent; Z88.6 Allergy status to analgesic agent; Z88.8 Allergy status to other drugs, medicaments and biological substances; Z85.6 Personal history of leukemia; Z91.030 Bee allergy status; Z91.012 Allergy to eggs; Z91.018 Allergy to other foods; Z91.010 Allergy to peanuts; Z91.013 Allergy to seafood
CPT/HCPCS: 85025; 99283

== ENCOUNTER 2022-08-25 07:36 | Day surgery (SDC) | payer MEDICARE, OTHER, SELFPAY ==
[2022-08-25 07:50] VITALS: BP 131/82; PULSE 95; RESP 20; TEMP 36.1; O2SAT 97; BMI 40.4
--- NOTE | 2022-08-25 07:56 | EXP.ANES.CKL ---
PFSH PFSH Medical History Allergies Anxiety Asthma Bronchitis Depression Edema Hemorrhoid History of acute lymphoblastic leukemia (ALL) History of back pain History of gastroesophageal reflux (GERD) Hypertension Migraine Surgical History History of colonoscopy Hx of cardiac cath Hx of hernia repair Family History Father Family history of heart disease Heart attack Grandmother CHF (congestive heart failure) Mother Heart murmur Social History Smoking Status: Never smoker second hand exposure: Yes alcohol intake: never substance use type: denies use current occupational status: disabled Travel in the last 8 weeks: None household members: family housing: house current occupational exposures/hazards: No caffeine: Yes [facility] Anesthesia Checklist Patient Identification Patient Identification: Arm Band and Verbal (Name & ) Structural Data Admitted From: Home Planned Operative Procedure/s: EGD Consent for Planned Operative Procedure(s) Verified: Yes NPO Status Verified Time NPO: 00:00 Additional verifications Anesthesia Reactions: No Hx Blood Transfusions: No Blood Transfusion Reaction: Yes Airway Assessment C-Spine Mobility Assessed: Yes TMJ Mobility Assessed: Yes Dentition: Edentulous Neurological Assessment Level of Consciousness: Awake Hx Seizures: No Numbness or tingling in extremities: No Anesthesia Plan Anesthesia Risk discussed: Yes Anesthesia Plan: Verified ASA Class: III Anesthesia Type: MAC
[2022-08-25 08:32] VITALS: O2SAT 97
[2022-08-25 08:44] VITALS: BP 105/61; PULSE 82; RESP 17; TEMP 36.3; O2SAT 93
--- NOTE | 2022-08-25 08:44 | P.PCN_ITS ---
Procedure: Date: 08/25/22 Patient Date of :: 1970 Procedure Performed:: Esophagogastroduodenoscopy with biopsy Indications:: Patient is a 52-year-old male who is well-known to me. Patient had previously undergone open repair of umbilical hernia by Dr. Anaya in 2014 with Marlex prefix mesh plug. There was concern for possible hernia recurrence and I had seen him a year ago for this. CT scan at that time revealed findings consistent with postoperative changes unchanged for a couple of years. There was a tiny chronic supraumbilical hernia measuring 6 mm. Patient recently has had some epigastric pain. He had undergone CT scan at [facility] on 06/16/2022 which was done without any contrast whatsoever which revealed fat- containing umbilical hernia with approximately 1.5 cm rectus sheath defect. I felt it highly unlikely that given the patient's clinical findings that his symptoms are secondary to this tiny recurrent hernia. Patient underwent upper GI series which was unremarkable. He had a gallbladder ultrasound which was negative for gallstones but shows steatosis of the liver. He underwent HIDA scan which reveals an ejection fraction of 99%. His pain does not seem to be related to eating. Plan was made for EGD. Performing Provider:: Kd Briones MD Referring Provider:: Oswaldo Brownlee Sedation:: MAC sedation Procedure:: Patient was taken to endoscopy procedure room. He was positioned in lateral decubitus position. Adequate intravenous sedation was achieved with anesthesia titration of propofol. Olympus endoscope was inserted via the oropharynx. Es ophagus was cannulated. Overall esophagus appeared unremarkable. Gastroesophageal junction was encountered at approximately 37 cm from the incisors. Stomach was cannulated and insufflated. There is a large amount of food in the gastric lumen which obscured some visualization. Retroflexion revealed no evidence of any definite hiatal hernia. There were findings of linear antral gastritis. CLOtest was performed for H. pylori testing. Pylorus was traversed. Duodenum appeared unremarkable. Endoscope was withdrawn into the gastric lumen. There was a small nodule in the antrum which was biopsied and sent as biopsy of gastric polyp. Additional gastric biopsy was obtained. There was a fundic gland appearing polyp in the mid body and this was biopsied and sent as gastric polyp #2. Stomach was desufflated and the endoscope was withdrawn. Findings:: Large amount of undigested retained food matter in the gastric lumen Linear antral gastritis Gastric nodule, likely benign, biopsied Gastric fundic gland polyp Gastroesophageal junction approximately 37 cm Recommendations:: Plan to follow-up on histopathology. Highly likely the patient has gastroparesis. Previous imaging reveals findings of hepatic steatosis. Could require gastroenterology referral to outside facility as there is no gastroenterology availability at this facility. If his symptoms persist consideration may be given for potential cholecystectomy with repair of umbilical hernia and potential removal of previously placed mesh for potential biliary hyperkinesia . Complications:: None immediately apparent Estimated blood obtained (mL): 3
[2022-08-25 08:54] VITALS: BP 119/75; PULSE 78; RESP 18; O2SAT 97
[2022-08-25 09:04] VITALS: BP 113/72; PULSE 76; RESP 18; O2SAT 97
[2022-08-25 09:14] VITALS: BP 119/76; PULSE 80; RESP 18; O2SAT 93
== END 2022-08-25 09:16 | disposition home or self-care (01) ==
PROVIDERS: PCP Nurse Practitioner Family; Visit Provider Surgery
PROC: 0DJ08ZZ Inspection of Upper Intestinal Tract, Via Natural or Artificial Opening Endoscopic (ICD-10-PCS; CPT 43235; principal; 2022-08-25 09:00)
DX: R10.13 Epigastric pain (principal); K29.50 Unspecified chronic gastritis without bleeding; Z79.899 Other long term (current) drug therapy
CPT/HCPCS: 43239; 87339; 88305

== ENCOUNTER → 2022-09-18 09:00 | Outpatient (CLI) | payer MEDICARE, OTHER, SELFPAY ==
--- NOTE | 2022-09-18 09:01 | NM_ITS ---
FINAL REPORT TECHNIQUE: 0.52 Millicuries of technetium 99m sulfur colloid was ingested with oatmeal, toast and water. CLINICAL HISTORY: abdominal pain 9:35AM 0.52 MCI TC SULFUR COLLOID INJ INTO OATMEAL, TOAST AND WATER PT IS ALLERGIC TO EGGS FINDINGS: GASTRIC EMPTYING SCAN Static images show normal emptying of the stomach into the small bowel. Based on the time activity curve, the estimated half-emptying time is 27 minutes. IMPRESSION: Normal gastric emptying study. Reviewed, Interpreted and Dictated by Clemente Angeles MD Transcribed by Mason Ross Authenticated and . [facility]
== END ==
PROVIDERS: PCP Nurse Practitioner Family; Visit Provider Surgery
DX: R10.9 Unspecified abdominal pain; K52.89 Other specified noninfective gastroenteritis and colitis
CPT/HCPCS: 78264; A9541

== ENCOUNTER 2022-10-05 10:49 | Emergency (ER) | payer MEDICARE, OTHER, SELFPAY ==
[2022-10-05 11:30] VITALS: BP 139/86; PULSE 90; RESP 16; TEMP 36.6; O2SAT 99; BMI 41.1
--- NOTE | 2022-10-05 12:00 | EXP.UTC ---
Discharge Plan Disposition Patient Disposition: Home, Self-Care Condition: Good Prescriptions Prescriptions: No Action diazepam 10 mg tablet 10 mg PO DAILY Qty: 45 0RF Rx Instructions: can take 2 x day prn docusate sodium 100 mg capsule 100 mg PO DAILY Qty: 90 0RF quetiapine 50 mg tablet 50 mg PO HS Label Comments: TAKE ONE TABLET BY MOUTH EVERY DAY AT BEDTIME FOR ANXIETY cetirizine [All Day Allergy (cetirizine)] 10 mg tablet 10 mg PO DAILY Qty: 90 4RF budesonide-formoterol 160-4.5 mcg/actuation HFA aerosol inhaler inhalation fluticasone propionate 50 mcg/actuation spray,suspension 1 spray intranasal QDAY Qty: 47.4 3RF Rx Instructions: administer into each nostril ergocalciferol (vitamin D2) 1,250 mcg (50,000 unit) capsule 1,250 mcg PO QWEEK Qty: 14 3RF levothyroxine 25 mcg tablet 25 mcg PO DAILY Qty: 90 4RF furosemide 40 mg tablet 40 mg PO DIRECTED Rx Instructions: take 80 mg in AM, take 40 mg in afternoon atorvastatin 10 mg tablet See Rx Instructions .ROUTE .COMPLEX Rx Instructions: TAKE ONE TABLET BY MOUTH EVERY DAY AT BEDTIME bisoprolol fumarate 10 mg tablet See Rx Instructions .ROUTE .COMPLEX Rx Instructions: TAKE ONE TABLET BY MOUTH EVERY DAY FOR HIGH BLOOD PRESSURE tamsulosin 0.4 mg capsule 0.4 mg PO DAILY epinephrine 0.3 mg/0.3 mL auto-injector 0.3 mg IM NEEDED PRN (Reason: allergic shellfish) Rx Instructions: INJECT THE CONTENTS OF 1 AUTO-INJECTOR INTRAMUSCULARLY ONCE NEEDED FOR ANAPHYLAXIS REACTION albuterol sulfate 90 mcg/actuation HFA aerosol inhaler See Rx Instructions .ROUTE .COMPLEX Rx Instructions: INHALE TWO PUFFS BY MOUTH EVERY 4 TO 6 HOURS NEEDED SHORTNESS OF BREATH --SHAKE WELL BEFORE USE-- spironolactone 50 mg tablet 50 mg PO BID esomeprazole magnesium 20 mg capsule,delayed release(DR/EC) 20 mg PO DAILY Rx Instructions: TAKE ONE CAPSULE BY MOUTH EVERY DAY Referrals Follow up/Referrals: Leatha Brownlee APRN [Primary Care Provider] - See instructions Activity Restrictions/Add. Instructions Additional Instructions/Restrictions: Folow up with your Family Doctor if needed Over the counter ear drops called Debrox may help with ear wax impaction Return if needed Straight to ER if any life threatening symptoms Clinical Impressions Clinical Impression: Impacted ear wax Instructions Patient Instructions: DI for Cerumen Impaction Discharge ED Provider: Jennifer Mendoza [facility] [place] HPI General Stated complaint: LT ear pain Mode of Arrival: Ambulatory Source of Information: Patient Limitations: No Limitations Time Seen by Provider: 10/05/22 12:00 Description of Symptoms (Recalled from Triage Doc. by RN): PATIENT STATES IT FEEL LIKE SOMETHING IS IN HIS LEFT EAR X 3 DAYS HEENT Symptoms (Recalled from RN notes): Yes Resp Symptoms (Recalled from RN notes): No Skin Symptoms (Recalled from RN notes): No MS Symptoms (Recalled from RN notes): No Functional Status (Recalled from RN notes): WNL History of Present Illness Provider Complaint: Patient states feels like something is in his left ear States that feels like something is in there and has his ear stopped up so today he was here for another appointment and wanted to come in and get it looked at Related Data Home Medications Medication Instructions Recorded Confirmed quetiapine 50 mg tablet 50 mg PO HS Anxiety 06/27/22 10/05/22 albuterol sulfate 90 mcg/actuation See Rx Instructions .Route 08/25/22 10/05/22 aerosol inhaler .COMPLEX allergies atorvastatin 10 mg tablet See Rx Instructions .Route 08/25/22 10/05/22 .COMPLEX Cholesterol bisoprolol fumarate 10 mg tablet See Rx Instructions .Route 08/25/22 10/05/22 .COMPLEX HTN epinephrine 0.3 mg/0.3 mL 0.3 mg IM NEEDED PRN allergic 08/25/22 10/05/22 injection, auto-injector shellfish esomeprazole magnesium 20 mg 20 mg PO D
[2022-10-05 12:07] VITALS: BP 139/86; PULSE 90; RESP 16; TEMP 36.6; O2SAT 99
== END 2022-10-05 12:10 | disposition home or self-care (01) ==
PROVIDERS: Emergency Provider Nurse Practitioner; PCP Nurse Practitioner Family
DX: H61.20 Impacted cerumen, unspecified ear (principal)
CPT/HCPCS: 99212; G0463

== ENCOUNTER 2023-02-09 17:42 | Emergency (ER) | payer MEDICARE, OTHER, SELFPAY ==
[2023-02-09 18:20] VITALS: BP 104/79; PULSE 80; RESP 20; TEMP 36.7; O2SAT 97; BMI 39.8
[2023-02-09 19:10] VITALS: BP 104/79; PULSE 80; RESP 20; TEMP 36.7; O2SAT 97
--- NOTE | 2023-02-09 19:11 | EXP.UTC ---
Discharge Plan Disposition Patient Disposition: Home, Self-Care Condition: Good Prescriptions Prescriptions: New fluticasone propionate [24 Hour Allergy Relief] 50 mcg/actuation spray,suspension 1 spray intranasal DAILY Qty: 16 0RF Rx Instructions: administer into each nostril No Action diazepam 10 mg tablet 10 mg PO DAILY Qty: 45 0RF Rx Instructions: can take 2 x day prn docusate sodium 100 mg capsule 100 mg PO DAILY Qty: 90 0RF quetiapine 50 mg tablet 50 mg PO HS Label Comments: TAKE ONE TABLET BY MOUTH EVERY DAY AT BEDTIME FOR ANXIETY cetirizine [All Day Allergy (cetirizine)] 10 mg tablet 10 mg PO DAILY Qty: 90 4RF budesonide-formoterol 160-4.5 mcg/actuation HFA aerosol inhaler inhalation fluticasone propionate 50 mcg/actuation spray,suspension 1 spray intranasal QDAY Qty: 47.4 3RF Rx Instructions: administer into each nostril ergocalciferol (vitamin D2) 1,250 mcg (50,000 unit) capsule 1,250 mcg PO QWEEK Qty: 14 3RF levothyroxine 25 mcg tablet 25 mcg PO DAILY Qty: 90 4RF furosemide 40 mg tablet 40 mg PO DIRECTED Rx Instructions: take 80 mg in AM, take 40 mg in afternoon atorvastatin 10 mg tablet See Rx Instructions .ROUTE .COMPLEX Rx Instructions: TAKE ONE TABLET BY MOUTH EVERY DAY AT BEDTIME bisoprolol fumarate 10 mg tablet See Rx Instructions .ROUTE .COMPLEX Rx Instructions: TAKE ONE TABLET BY MOUTH EVERY DAY FOR HIGH BLOOD PRESSURE tamsulosin 0.4 mg capsule 0.4 mg PO DAILY epinephrine 0.3 mg/0.3 mL auto-injector 0.3 mg IM NEEDED PRN (Reason: allergic shellfish) Rx Instructions: INJECT THE CONTENTS OF 1 AUTO-INJECTOR INTRAMUSCULARLY ONCE NEEDED FOR ANAPHYLAXIS REACTION albuterol sulfate 90 mcg/actuation HFA aerosol inhaler See Rx Instructions .ROUTE .COMPLEX Rx Instructions: INHALE TWO PUFFS BY MOUTH EVERY 4 TO 6 HOURS NEEDED SHORTNESS OF BREATH --SHAKE WELL BEFORE USE-- spironolactone 50 mg tablet 50 mg PO BID esomeprazole magnesium 20 mg capsule,delayed release(DR/EC) 20 mg PO DAILY Rx Instructions: TAKE ONE CAPSULE BY MOUTH EVERY DAY Referrals Follow up/Referrals: Leatha Brownlee APRN [Primary Care Provider] - See instructions Clinical Impressions Clinical Impression: Eustachian tube dysfunction Instructions Patient Instructions: DI for Eustachian Tube Dysfunction-Adult Discharge ED Provider: Mahi Arenas [facility] General Stated complaint: lEFT EAR PAIN Mode of Arrival: Ambulatory Source of Information: Patient Limitations: No Limitations Time Seen by Provider: 02/09/23 19:10 Description of Symptoms (Recalled from Triage Doc. by RN): PATIENT C/O LEFT EAR PAIN HEENT Symptoms (Recalled from RN notes): Yes Resp Symptoms (Recalled from RN notes): No Skin Symptoms (Recalled from RN notes): No MS Symptoms (Recalled from RN notes): No Functional Status (Recalled from RN notes): WNL Related Data Home Medications Medication Instructions Recorded Confirmed quetiapine 50 mg tablet 50 mg PO HS Anxiety 06/27/22 10/05/22 albuterol sulfate 90 mcg/actuation See Rx Instructions .Route 08/25/22 10/05/22 aerosol inhaler .COMPLEX allergies atorvastatin 10 mg tablet See Rx Instructions .Route 08/25/22 10/05/22 .COMPLEX Cholesterol bisoprolol fumarate 10 mg tablet See Rx Instructions .Route 08/25/22 10/05/22 .COMPLEX HTN epinephrine 0.3 mg/0.3 mL 0.3 mg IM NEEDED PRN allergic 08/25/22 10/05/22 injection, auto-injector shellfish esomeprazole magnesium 20 mg 20 mg PO DAILY Reflux/Acid reflux 08/25/22 10/05/22 capsule,delayed release furosemide 40 mg tablet 40 mg PO DIRECTED Fluid 08/25/22 10/05/22 spironolactone 50 mg tablet 50 mg PO BID Fluid 08/25/22 10/05/22 tamsulosin 0.4 mg capsule 0.4 mg PO DAILY prostate 08/25/22 10/05/22 budesonide-formoterol HFA 160 g inhalation 09/05/22 10/05/22 mcg-4.5 mcg/ac
== END 2023-02-09 19:12 | disposition home or self-care (01) ==
PROVIDERS: Emergency Provider Nurse Practitioner Family; PCP Nurse Practitioner Family
DX: H69.92 Unspecified Eustachian tube disorder, left ear (principal); I10 Essential (primary) hypertension; J45.909 Unspecified asthma, uncomplicated; E78.5 Hyperlipidemia, unspecified; H92.02 Otalgia, left ear
CPT/HCPCS: 99212; 99214; G0463

== ENCOUNTER 2023-02-14 11:12 | Emergency (ER) | payer MEDICARE, OTHER, SELFPAY ==
[2023-02-14 11:32] VITALS: BP 137/77; PULSE 95; RESP 16; TEMP 36.9; O2SAT 98; BMI 39.1
[2023-02-14 12:00] VITALS: BP 121/83; PULSE 89; O2SAT 96
--- NOTE | 2023-02-14 12:03 | HMH.EDGENADL ---
Discharge Plan Disposition Patient Disposition: Home, Self-Care Condition: Good Chief Complaint: Ear Prescriptions Prescriptions: No Action diazepam 10 mg tablet 10 mg PO DAILY Qty: 45 0RF Rx Instructions: can take 2 x day prn docusate sodium 100 mg capsule 100 mg PO DAILY Qty: 90 0RF quetiapine 50 mg tablet 50 mg PO HS Label Comments: TAKE ONE TABLET BY MOUTH EVERY DAY AT BEDTIME FOR ANXIETY cetirizine [All Day Allergy (cetirizine)] 10 mg tablet 10 mg PO DAILY Qty: 90 4RF budesonide-formoterol 160-4.5 mcg/actuation HFA aerosol inhaler inhalation fluticasone propionate 50 mcg/actuation spray,suspension 1 spray intranasal QDAY Qty: 47.4 3RF Rx Instructions: administer into each nostril ergocalciferol (vitamin D2) 1,250 mcg (50,000 unit) capsule 1,250 mcg PO QWEEK Qty: 14 3RF levothyroxine 25 mcg tablet 25 mcg PO DAILY Qty: 90 4RF furosemide 40 mg tablet 40 mg PO DIRECTED Rx Instructions: take 80 mg in AM, take 40 mg in afternoon atorvastatin 10 mg tablet See Rx Instructions .ROUTE .COMPLEX Rx Instructions: TAKE ONE TABLET BY MOUTH EVERY DAY AT BEDTIME bisoprolol fumarate 10 mg tablet See Rx Instructions .ROUTE .COMPLEX Rx Instructions: TAKE ONE TABLET BY MOUTH EVERY DAY FOR HIGH BLOOD PRESSURE tamsulosin 0.4 mg capsule 0.4 mg PO DAILY epinephrine 0.3 mg/0.3 mL auto-injector 0.3 mg IM NEEDED PRN (Reason: allergic shellfish) Rx Instructions: INJECT THE CONTENTS OF 1 AUTO-INJECTOR INTRAMUSCULARLY ONCE NEEDED FOR ANAPHYLAXIS REACTION albuterol sulfate 90 mcg/actuation HFA aerosol inhaler See Rx Instructions .ROUTE .COMPLEX Rx Instructions: INHALE TWO PUFFS BY MOUTH EVERY 4 TO 6 HOURS NEEDED SHORTNESS OF BREATH --SHAKE WELL BEFORE USE-- spironolactone 50 mg tablet 50 mg PO BID esomeprazole magnesium 20 mg capsule,delayed release(DR/EC) 20 mg PO DAILY Rx Instructions: TAKE ONE CAPSULE BY MOUTH EVERY DAY fluticasone propionate [24 Hour Allergy Relief] 50 mcg/actuation spray,suspension 1 spray intranasal DAILY Qty: 16 0RF Rx Instructions: administer into each nostril Referrals Follow up/Referrals: Leatha Brownlee APRN [Primary Care Provider] - See instructions Activity Restrictions/Add. Instructions Additional Instructions/Restrictions: At this time was felt you are safe to be discharged from the emergency department. Please do not hesitate to return if new or worsening symptoms. Please take Tylenol every 6 hours as you are able for pain. If current symptoms persist beyond 7 days please follow-up with your family doctor. Clinical Impressions Clinical Impression: Pharyngitis, Acute ear pain Discharge ED Provider: Mike Goncalves General Adult HPI General Chief complaint: Ear Stated complaint: Right ear pain and sore throat Time Seen by Provider: 02/14/23 12:00 Mode of Arrival: Ambulatory Source of Information: Patient and Relative Limitations: No Limitations Description of Symptoms (Recalled from ER Triage Doc. by RN): pt comes in with right ear pain that began last night. also reports sore throat on right side that began last night. pt called pcp but she was not in office. pt took a dose of a z pack that he had left at home last night. History of Present Illness HPI narrative: Patient is a 53-year-old male with no pertinent past medical history presents emergency department for evaluation of sore throat and ear pain. Onset was acute, over the last 48 hours. Patient has had sore throat, bilateral ear pain which has been refractory to Q-tip applicators. Denies cough, chest pain, acute rashes or arthralgias. No other acute complaints at this time. Related Data Home Medications Medication Instructions Recorded Confirmed quetiapine 50 mg tablet 50 mg PO HS Anxiety 06/27/22 10/05/22 albuterol sulfate 90 mcg/actuation See Rx I
--- NOTE | 2023-02-14 12:16 | PC.NURSE ---
CALLED PHARMACY FOR MAGIC MOUTHWASH
[2023-02-14 12:23] LABS: Strep Scrn Group A (Rapid) Negative (Negative)
[2023-02-14 12:39] VITALS: BP 118/76; PULSE 86; RESP 16; TEMP 36.6
[2023-02-14 12:42] VITALS: BP 118/76; PULSE 87; O2SAT 96
== END 2023-02-14 12:47 | disposition home or self-care (01) ==
PROVIDERS: Emergency Provider Emergency Medicine; PCP Nurse Practitioner Family
DX: J02.9 Acute pharyngitis, unspecified (principal); H92.01 Otalgia, right ear
CPT/HCPCS: 87430; 99283; 99284

== ENCOUNTER 2023-02-16 11:36 | Emergency (ER) | payer MEDICARE, OTHER, SELFPAY ==
[2023-02-16] VITALS (7 sets, daily range): BP systolic 105–125; BP diastolic 67–87; PULSE 88–104; RESP 17–20; TEMP 36.8–36.9; O2SAT 93–95; BMI 39.1
--- NOTE | 2023-02-16 12:01 | PC.NURSE ---
DR DHALIWAL AT BEDSIDE
--- NOTE | 2023-02-16 12:09 | HMH.EDGENADL ---
Discharge Plan Disposition Patient Disposition: Home, Self-Care Condition: Fair Prescriptions Prescriptions: New nystatin 100,000 unit/mL suspension 5 ml PO QID 7 Days Qty: 140 0RF Rx Instructions: swish and swallow No Action diazepam 10 mg tablet 10 mg PO DAILY Qty: 45 0RF Rx Instructions: can take 2 x day prn docusate sodium 100 mg capsule 100 mg PO DAILY Qty: 90 0RF quetiapine 50 mg tablet 50 mg PO HS Label Comments: TAKE ONE TABLET BY MOUTH EVERY DAY AT BEDTIME FOR ANXIETY cetirizine [All Day Allergy (cetirizine)] 10 mg tablet 10 mg PO DAILY Qty: 90 4RF budesonide-formoterol 160-4.5 mcg/actuation HFA aerosol inhaler inhalation fluticasone propionate 50 mcg/actuation spray,suspension 1 spray intranasal QDAY Qty: 47.4 3RF Rx Instructions: administer into each nostril ergocalciferol (vitamin D2) 1,250 mcg (50,000 unit) capsule 1,250 mcg PO QWEEK Qty: 14 3RF levothyroxine 25 mcg tablet 25 mcg PO DAILY Qty: 90 4RF furosemide 40 mg tablet 40 mg PO DIRECTED Rx Instructions: take 80 mg in AM, take 40 mg in afternoon atorvastatin 10 mg tablet See Rx Instructions .ROUTE .COMPLEX Rx Instructions: TAKE ONE TABLET BY MOUTH EVERY DAY AT BEDTIME bisoprolol fumarate 10 mg tablet See Rx Instructions .ROUTE .COMPLEX Rx Instructions: TAKE ONE TABLET BY MOUTH EVERY DAY FOR HIGH BLOOD PRESSURE tamsulosin 0.4 mg capsule 0.4 mg PO DAILY epinephrine 0.3 mg/0.3 mL auto-injector 0.3 mg IM NEEDED PRN (Reason: allergic shellfish) Rx Instructions: INJECT THE CONTENTS OF 1 AUTO-INJECTOR INTRAMUSCULARLY ONCE NEEDED FOR ANAPHYLAXIS REACTION albuterol sulfate 90 mcg/actuation HFA aerosol inhaler See Rx Instructions .ROUTE .COMPLEX Rx Instructions: INHALE TWO PUFFS BY MOUTH EVERY 4 TO 6 HOURS NEEDED SHORTNESS OF BREATH --SHAKE WELL BEFORE USE-- spironolactone 50 mg tablet 50 mg PO BID esomeprazole magnesium 20 mg capsule,delayed release(DR/EC) 20 mg PO DAILY Rx Instructions: TAKE ONE CAPSULE BY MOUTH EVERY DAY fluticasone propionate [24 Hour Allergy Relief] 50 mcg/actuation spray,suspension 1 spray intranasal DAILY Qty: 16 0RF Rx Instructions: administer into each nostril Referrals Follow up/Referrals: Leatha Brownlee APRN [Primary Care Provider] - See instructions Activity Restrictions/Add. Instructions Additional Instructions/Restrictions: At this time was felt you are safe to be discharged from the emergency department. If new or worsening symptoms please do not hesitate to return for continued evaluation. Clinical Impressions Clinical Impression: Oral thrush Discharge ED Provider: Mike Goncalves General Adult HPI General Chief complaint: Upper Respiratory Infection Stated complaint: Feels like throat is swelling up Time Seen by Provider: 02/16/23 12:09 Mode of Arrival: Ambulatory Limitations: No Limitations Description of Symptoms (Recalled from ER Triage Doc. by RN): PT WITH C/O SORE THROAT THAT FEELS LIKE IT'S CLOSING PT C/O BILATERAL EAR PAIN, SHORT WINDED RECENTLY TREATED WITH MAGIC MOUTH WASH AND Z-PAC History of Present Illness HPI narrative: Patient is a 53-year-old male with past medical history of hypertension, asthma who presents to the emergency department for evaluation of sore throat. Onset was acute, over the last 48 hours. Patient had PCP called him and azithromycin for tightness of the chest . Patient has had decreased p.o. intake since then due to moderate to severe throat pain. He has felt fullness in his ears, intermittent cough, no other acute complaints at this time. Patient denies true shortness of breath however just feels as if it is difficult to move liquids and air due to his throat pain. Related Data Home Medications Medication Instructions Recorded Confirmed quetiapine 50 mg tablet 50 mg PO H
[2023-02-16 12:28] LABS: Basophils # 0.1 K/mm3 (0-0.2); Basophils % 0.4 % (0.1-2.0); Eosinophils # 0.2 K/mm3 (0.0-0.4); Eosinophils % 1.3 % (0.1-12.0); Hematocrit 42.9 % (42.0-52.0); Hemoglobin 14.9 g/dL (14.1-18.0); Lymphocytes # 2.7 K/mm3 (0.7-4.5); Lymphocytes % 15.6 % (10-50); Mean Corpuscular HGB Conc 34.8 g/dL (31.8-35.4); Mean Corpuscular Hemoglobin 31.5 pg (27.0-31.2); Mean Corpuscular Volume 90.6 fl (80-94); Mean Platelet Volume 8.3 fl (7.4-10.4); Monocytes # 0.9 K/mm3 (0.1-1.0); Monocytes % 5.2 % (1.7-9.3); Neutrophils # 13.2 K/mm3 (1.8-7.8); Neutrophils % 77.6 % (37.0-80.0); Platelet Count 216 K/mm3 (142-424); Red Blood Count 4.73 M/mm3 (4.60-6.20); Red Cell Distribution Width 14.3 % (11.5-17.5); White Blood Count 17.1 K/mm3 (4.8-10.8)
[2023-02-16 12:29] LABS: Chloride 97 mmol/L (98-107); Potassium 4.2 mmoL/L (3.5-5.1); Sodium 135 mmol/L (136-145)
[2023-02-16 12:31] LABS: Blood Urea Nitrogen 13 mg/dl (9-20); Creatinine Clearance Estimated 156 mL/min (50-200); Estimated Glomerular Filt Rate 89 ml/min (>60); GFR (African American) 108 ML/MIN (>60)
[2023-02-16 12:32] LABS: Alanine Aminotransferase 25 U/L (12-78); Albumin Level 4.1 g/dl (3.5-5.0); Albumin/Globulin Ratio 1.2 (1.1-1.8); Alkaline Phosphatase 115 U/L (38-126); Anion Gap 12.2 mEq/L (5-15); Aspartate Amino Transferase 31 U/L (17-59); Bilirubin,Total 1.2 mg/dl (0.2-1.3); Calcium 8.3 mg/dl (8.4-10.2); Carbon Dioxide 30 mmol/L (22.0-30.0); Globulin 3.4 g/dL (1.3-3.2); Glucose 118 mg/dl (74-100); Total Protein,Serum 7.5 g/dl (6.3-8.2)
--- NOTE | 2023-02-16 12:33 | XR_ITS ---
FINAL REPORT CLINICAL HISTORY: cough, sore throat, ear ache COMPARISON: 01/03/2022 FINDINGS: SINGLE-VIEW CHEST The heart size is normal. There is an elevated right hemidiaphragm. The lungs are clear. There is no pneumothorax. IMPRESSION: No acute cardiopulmonary process. Reviewed, Interpreted and Dictated by Kd Diana III, MD Transcribed by Mireya Sarabia Authenticated and [facility]
[2023-02-16 12:34] LABS: MANUAL DIFFERENTIAL MANUAL DIFFERENTIAL (MANUAL DIFF)
[2023-02-16 12:42] LABS: Lymphocytes % 20 % (10-50); Monocytes % 12 % (2-9); Neutrophils % 68 % (42-76); Platelet Estimate Normal; RBC Morphology Normal; Total Cells Counted 100
--- NOTE | 2023-02-16 12:42 | PC.NURSE ---
ROUNDED ON PT, TOLERATED PO INTAKE. UPDATED ON POC, NO NEEDS AT THIS TIME
--- NOTE | 2023-02-16 13:23 | PC.NURSE ---
XR AT BEDSIDE
--- NOTE | 2023-02-16 14:01 | PC.NURSE ---
PT ASSISTED TO BR
--- NOTE | 2023-02-16 14:58 | PC.NURSE ---
hussein eagle and susan shelton rounded on pt
== END 2023-02-16 15:05 | disposition home or self-care (01) ==
PROVIDERS: Emergency Provider Emergency Medicine; PCP Nurse Practitioner Family
DX: H92.03 Otalgia, bilateral; B37.0 Candidal stomatitis
CPT/HCPCS: 71045; 80053; 85007; 85025; 99283; 99284

== ENCOUNTER 2023-02-17 20:29 | Emergency (ER) | payer MEDICARE, OTHER, SELFPAY ==
[2023-02-17 20:31] VITALS: BP 140/93; PULSE 111; RESP 20; TEMP 36.7; O2SAT 96; BMI 39.1
--- NOTE | 2023-02-17 20:58 | PC.NURSE ---
Dr. Biggs at bedside
--- NOTE | 2023-02-17 21:03 | HMH.EDURI ---
Discharge Plan Disposition Patient Disposition: Home, Self-Care Chief Complaint: Upper Respiratory Infection Prescriptions Prescriptions: No Action diazepam 10 mg tablet 10 mg PO DAILY Qty: 45 0RF Rx Instructions: can take 2 x day prn docusate sodium 100 mg capsule 100 mg PO DAILY Qty: 90 0RF quetiapine 50 mg tablet 50 mg PO HS Label Comments: TAKE ONE TABLET BY MOUTH EVERY DAY AT BEDTIME FOR ANXIETY cetirizine [All Day Allergy (cetirizine)] 10 mg tablet 10 mg PO DAILY Qty: 90 4RF budesonide-formoterol 160-4.5 mcg/actuation HFA aerosol inhaler inhalation fluticasone propionate 50 mcg/actuation spray,suspension 1 spray intranasal QDAY Qty: 47.4 3RF Rx Instructions: administer into each nostril ergocalciferol (vitamin D2) 1,250 mcg (50,000 unit) capsule 1,250 mcg PO QWEEK Qty: 14 3RF levothyroxine 25 mcg tablet 25 mcg PO DAILY Qty: 90 4RF furosemide 40 mg tablet 40 mg PO DIRECTED Rx Instructions: take 80 mg in AM, take 40 mg in afternoon atorvastatin 10 mg tablet See Rx Instructions .ROUTE .COMPLEX Rx Instructions: TAKE ONE TABLET BY MOUTH EVERY DAY AT BEDTIME bisoprolol fumarate 10 mg tablet See Rx Instructions .ROUTE .COMPLEX Rx Instructions: TAKE ONE TABLET BY MOUTH EVERY DAY FOR HIGH BLOOD PRESSURE tamsulosin 0.4 mg capsule 0.4 mg PO DAILY epinephrine 0.3 mg/0.3 mL auto-injector 0.3 mg IM NEEDED PRN (Reason: allergic shellfish) Rx Instructions: INJECT THE CONTENTS OF 1 AUTO-INJECTOR INTRAMUSCULARLY ONCE NEEDED FOR ANAPHYLAXIS REACTION albuterol sulfate 90 mcg/actuation HFA aerosol inhaler See Rx Instructions .ROUTE .COMPLEX Rx Instructions: INHALE TWO PUFFS BY MOUTH EVERY 4 TO 6 HOURS NEEDED SHORTNESS OF BREATH --SHAKE WELL BEFORE USE-- spironolactone 50 mg tablet 50 mg PO BID esomeprazole magnesium 20 mg capsule,delayed release(DR/EC) 20 mg PO DAILY Rx Instructions: TAKE ONE CAPSULE BY MOUTH EVERY DAY fluticasone propionate [24 Hour Allergy Relief] 50 mcg/actuation spray,suspension 1 spray intranasal DAILY Qty: 16 0RF Rx Instructions: administer into each nostril nystatin 100,000 unit/mL suspension 5 ml PO QID 7 Days Qty: 140 0RF Rx Instructions: swish and swallow Referrals Follow up/Referrals: Leatha Brownlee APRN [Primary Care Provider] - See instructions Activity Restrictions/Add. Instructions Additional Instructions/Restrictions: Please take all medications as prescribed. I believe that you are not feeling better yet because you have not taken the medication for enough days for it to take effect. Please return to the emergency department if you feel worse in any way. Follow-up with your primary care provider in the next 2 days. You may take [id number] Tylenol and/or Motrin for your discomfort. Clinical Impressions Clinical Impression: Candidiasis of mouth Instructions Patient Instructions: Thrush-Adult Discharge ED Provider: Darryl Biggs URI/Sore Throat HPI General Chief Complaint: Upper Respiratory Infection Stated Complaint: Swollen face,earache both ears Time Seen by Provider: 02/17/23 21:01 Mode of Arrival: Ambulatory Source of Information: Patient Limitations: No Limitations Description of Symptoms (Recalled from ER Triage Doc. by RN): pt states was seen 02/16 and diagnosed with thrush. pt c/o bilateral ear pain and sore throat History of Present Illness HPI Narrative: The patient presents to the emergency department complaining of sore throat and ear pain. The ear pain is bilateral. The patient was seen here within the last 48 hours and prescribed nystatin for thrush. He states that he is taking the medication as prescribed. Complaint: sore throat Related Data Home Medications Medication Instructions Recorded Confirmed quetiapine 50 mg tablet 50 mg PO HS Anxiety 06/27/22 12
[2023-02-17 21:07] VITALS: BP 148/90; PULSE 98; RESP 20; TEMP 36.6; O2SAT 96
== END 2023-02-17 21:10 | disposition home or self-care (01) ==
PROVIDERS: Emergency Provider Emergency Medicine; PCP Nurse Practitioner Family
DX: B37.0 Candidal stomatitis (principal); H92.03 Otalgia, bilateral
CPT/HCPCS: 99283; 99284

== ENCOUNTER 2023-06-08 19:45 | Emergency (ER) | payer MEDICARE, OTHER, SELFPAY ==
[2023-06-08 19:46] VITALS: BP 158/96; PULSE 104; RESP 18; TEMP 36.7; O2SAT 95; BMI 42.3
--- NOTE | 2023-06-08 20:09 | PC.NURSE ---
DR HUERTA AT BEDSIDE
--- NOTE | 2023-06-08 20:10 | HMH.EDGENADL ---
Discharge Plan Disposition Patient Disposition: Home, Self-Care Prescriptions Prescriptions: New epinephrine 0.3 mg/0.3 mL auto-injector 0.3 mg IM Q10M PRN (Reason: anaphylaxis) Qty: 2 0RF Rx Instructions: for 2 doses No Action diazepam 10 mg tablet 10 mg PO DAILY Qty: 45 0RF Rx Instructions: can take 2 x day prn docusate sodium 100 mg capsule 100 mg PO DAILY Qty: 90 0RF quetiapine 50 mg tablet 50 mg PO HS Patient Comments: TAKE ONE TABLET BY MOUTH EVERY DAY AT BEDTIME FOR ANXIETY cetirizine [All Day Allergy (cetirizine)] 10 mg tablet 10 mg PO DAILY Qty: 90 4RF budesonide-formoterol 160-4.5 mcg/actuation HFA aerosol inhaler inhalation fluticasone propionate 50 mcg/actuation spray,suspension 1 spray intranasal QDAY Qty: 47.4 3RF Rx Instructions: administer into each nostril ergocalciferol (vitamin D2) 1,250 mcg (50,000 unit) capsule 1,250 mcg PO QWEEK Qty: 14 3RF levothyroxine 25 mcg tablet 25 mcg PO DAILY Qty: 90 4RF furosemide 40 mg tablet 40 mg PO DIRECTED Rx Instructions: take 80 mg in AM, take 40 mg in afternoon atorvastatin 10 mg tablet See Rx Instructions .ROUTE .COMPLEX Rx Instructions: TAKE ONE TABLET BY MOUTH EVERY DAY AT BEDTIME bisoprolol fumarate 10 mg tablet See Rx Instructions .ROUTE .COMPLEX Rx Instructions: TAKE ONE TABLET BY MOUTH EVERY DAY FOR HIGH BLOOD PRESSURE tamsulosin 0.4 mg capsule 0.4 mg PO DAILY epinephrine 0.3 mg/0.3 mL auto-injector 0.3 mg IM NEEDED PRN (Reason: allergic shellfish) Rx Instructions: INJECT THE CONTENTS OF 1 AUTO-INJECTOR INTRAMUSCULARLY ONCE NEEDED FOR ANAPHYLAXIS REACTION albuterol sulfate 90 mcg/actuation HFA aerosol inhaler See Rx Instructions .ROUTE .COMPLEX Rx Instructions: INHALE TWO PUFFS BY MOUTH EVERY 4 TO 6 HOURS NEEDED SHORTNESS OF BREATH --SHAKE WELL BEFORE USE-- spironolactone 50 mg tablet 50 mg PO BID esomeprazole magnesium 20 mg capsule,delayed release(DR/EC) 20 mg PO DAILY Rx Instructions: TAKE ONE CAPSULE BY MOUTH EVERY DAY fluticasone propionate [24 Hour Allergy Relief] 50 mcg/actuation spray,suspension 1 spray intranasal DAILY Qty: 16 0RF Rx Instructions: administer into each nostril nystatin 100,000 unit/mL suspension 5 ml PO QID 7 Days Qty: 140 0RF Rx Instructions: swish and swallow Referrals Follow up/Referrals: Leatha Brownlee APRN [Primary Care Provider] - See instructions Activity Restrictions/Add. Instructions Additional Instructions/Restrictions: If you have any signs or symptoms of anaphylaxis, use EpiPen and come directly to the ER. Call your family doctor to establish care for this visit to the emergency department and schedule follow-up within 48 hours to ensure improvement. If you have any worsening of your condition or any other concerning signs or symptoms, return to the emergency department or your primary care doctor for further evaluation. Clinical Impressions Clinical Impression: Bug bite Instructions Patient Instructions: DI for Skin Abscess Discharge ED Provider: Kota Lutz General Adult HPI General Chief complaint: Skin/Abscess/Foreign Body Stated complaint: sting on LT hand Time Seen by Provider: 06/08/23 19:57 Mode of Arrival: Ambulatory Source of Information: Patient Limitations: No Limitations Description of Symptoms (Recalled from ER Triage Doc. by RN): Patient reports being stung by a bee on his left ring finger. States he is allergic to bees and just being cautious. States he took two Benadryls before arrival to the ER. History of Present Illness HPI narrative: Is a 53-year-old male with a history of allergy to bee venom presenting with concern for bee sting. Patient states that just before arrival, he was outside, got stung in his left ring finger by a bee. Took 2 Benadryl, then came to the ER. Hamzah
[2023-06-08 20:16] VITALS: BP 139/86; PULSE 101; O2SAT 97
[2023-06-08 20:20] VITALS: BP 139/86; PULSE 94; RESP 18; TEMP 36.6; O2SAT 99
== END 2023-06-08 20:20 | disposition home or self-care (01) ==
PROVIDERS: Emergency Provider Emergency Medicine; PCP Nurse Practitioner Family
DX: S60.465A Insect bite (nonvenomous) of left ring finger, initial encounter (principal); W57.XXXA Bitten or stung by nonvenomous insect and other nonvenomous arthropods, initial encounter; Z91.030 Bee allergy status; F41.9 Anxiety disorder, unspecified; J45.909 Unspecified asthma, uncomplicated; F32.A Depression, unspecified; I10 Essential (primary) hypertension; Z85.6 Personal history of leukemia
CPT/HCPCS: 99283

== ENCOUNTER → 2023-06-21 10:47 | Outpatient (CLI) | payer MEDICARE, OTHER, SELFPAY ==
[2023-06-21 11:12] LABS: Basophils % 0.4 % (0.1-2.0); Eosinophils # 0.3 K/mm3 (0.0-0.4); Eosinophils % 3.7 % (0.1-12.0); Hematocrit 47.7 % (42.0-52.0); Hemoglobin 15.4 g/dL (14.1-18.0); Lymphocytes # 2.9 K/mm3 (0.7-4.5); Lymphocytes % 33.6 % (10-50); Mean Corpuscular HGB Conc 32.2 g/dL (31.8-35.4); Mean Corpuscular Hemoglobin 30.4 pg (27.0-31.2); Mean Corpuscular Volume 94.4 fl (80-94); Mean Platelet Volume 8.9 fl (7.4-10.4); Monocytes # 0.4 K/mm3 (0.1-1.0); Neutrophils % 57.1 % (37.0-80.0); Platelet Count 241 K/mm3 (142-424); Red Blood Count 5.05 M/mm3 (4.60-6.20); Red Cell Distribution Width 14.4 % (11.5-17.5); White Blood Count 8.7 K/mm3 (4.8-10.8)
[2023-06-21 11:47] LABS: Chloride 108 mmol/L (98-107); Potassium 4.2 mmoL/L (3.5-5.1); Sodium 141 mmol/L (136-145)
[2023-06-21 11:49] LABS: Alanine Aminotransferase 24 U/L (12-78); Aspartate Amino Transferase 29 U/L (17-59); Bilirubin,Unconjugated 0.1 mg/dL (0.0-1.1); Blood Urea Nitrogen 14 mg/dl (9-20); Estimated Glomerular Filt Rate 102 ml/min (>60); GFR (African American) 123 ML/MIN (>60)
[2023-06-21 11:50] LABS: Albumin Level 3.3 g/dl (3.5-5.0); Alkaline Phosphatase 154 U/L (38-126); Anion Gap 11.2 mEq/L (5-15); Bilirubin,Direct 0.3 mg/dl (0.0-0.4); Bilirubin,Indirect 0.1 mg/dL (0.0-0.9); Bilirubin,Total 0.4 mg/dl (0.2-1.3); Carbon Dioxide 26 mmol/L (22.0-30.0); Chol/HDL Ratio 5.6 (1-3.5); Cholesterol 145 mg/dl (140-200); Glucose 111 mg/dl (74-100); HDL Cholesterol 26 mg/dl (40-60); Total Protein,Serum 5.8 g/dl (6.3-8.2); Triglycerides 215 mg/dl (30-150); VLDL Cholesterol 43 mg/dL (0-40)
[2023-06-21 12:06] LABS: Free T4 (Free Thyroxine) 0.81 ng/dl (0.78-2.19)
[2023-06-21 12:20] LABS: Thyroid Stimulating Hormone 2.16 uIU/mL (0.465-4.68)
== END ==
PROVIDERS: PCP Nurse Practitioner Family; Visit Provider Nurse Practitioner
DX: R06.00 Dyspnea, unspecified; R07.9 Chest pain, unspecified; I10 Essential (primary) hypertension; E78.5 Hyperlipidemia, unspecified
CPT/HCPCS: 36415; 80048; 80061; 80076; 83735; 84439; 84443; 85025

== ENCOUNTER 2023-06-26 14:49 | Emergency (ER) | payer MEDICARE, OTHER, SELFPAY ==
[2023-06-26 14:50] VITALS: BP 118/80; PULSE 98; RESP 18; TEMP 36.9; O2SAT 96; BMI 39.1
--- NOTE | 2023-06-26 15:20 | HMH.EDGENADL ---
Discharge Plan Disposition Patient Disposition: Home, Self-Care Prescriptions Prescriptions: New permethrin 5 % cream 1 applic topical Q14D Qty: 60 0RF Rx Instructions: apply second treatment 14 days after first treatment if live lice remain No Action diazepam 10 mg tablet 10 mg PO DAILY Qty: 45 0RF Rx Instructions: can take 2 x day prn docusate sodium 100 mg capsule 100 mg PO DAILY Qty: 90 0RF quetiapine 50 mg tablet 50 mg PO HS Patient Comments: TAKE ONE TABLET BY MOUTH EVERY DAY AT BEDTIME FOR ANXIETY cetirizine [All Day Allergy (cetirizine)] 10 mg tablet 10 mg PO DAILY Qty: 90 4RF budesonide-formoterol 160-4.5 mcg/actuation HFA aerosol inhaler inhalation diltiazem HCl 240 mg capsule,extended release 24hr 240 mg PO DAILY fluticasone propionate 50 mcg/actuation spray,suspension 1 spray intranasal QDAY Qty: 47.4 3RF Rx Instructions: administer into each nostril ergocalciferol (vitamin D2) 1,250 mcg (50,000 unit) capsule 1,250 mcg PO QWEEK Qty: 14 3RF levothyroxine 25 mcg tablet 25 mcg PO DAILY Qty: 90 4RF furosemide 40 mg tablet 40 mg PO DIRECTED Rx Instructions: take 80 mg in AM, take 40 mg in afternoon atorvastatin 10 mg tablet See Rx Instructions .ROUTE .COMPLEX Rx Instructions: TAKE ONE TABLET BY MOUTH EVERY DAY AT BEDTIME bisoprolol fumarate 10 mg tablet See Rx Instructions .ROUTE .COMPLEX Rx Instructions: TAKE ONE TABLET BY MOUTH EVERY DAY FOR HIGH BLOOD PRESSURE tamsulosin 0.4 mg capsule 0.4 mg PO DAILY epinephrine 0.3 mg/0.3 mL auto-injector 0.3 mg IM NEEDED PRN (Reason: allergic shellfish) Rx Instructions: INJECT THE CONTENTS OF 1 AUTO-INJECTOR INTRAMUSCULARLY ONCE NEEDED FOR ANAPHYLAXIS REACTION albuterol sulfate 90 mcg/actuation HFA aerosol inhaler See Rx Instructions .ROUTE .COMPLEX Rx Instructions: INHALE TWO PUFFS BY MOUTH EVERY 4 TO 6 HOURS NEEDED SHORTNESS OF BREATH --SHAKE WELL BEFORE USE-- spironolactone 50 mg tablet 50 mg PO BID esomeprazole magnesium 20 mg capsule,delayed release(DR/EC) 20 mg PO DAILY Rx Instructions: TAKE ONE CAPSULE BY MOUTH EVERY DAY epinephrine 0.3 mg/0.3 mL auto-injector 0.3 mg IM Q10M PRN (Reason: anaphylaxis) Qty: 2 0RF Rx Instructions: for 2 doses fluticasone propionate [24 Hour Allergy Relief] 50 mcg/actuation spray,suspension 1 spray intranasal DAILY Qty: 16 0RF Rx Instructions: administer into each nostril nystatin 100,000 unit/mL suspension 5 ml PO QID 7 Days Qty: 140 0RF Rx Instructions: swish and swallow Referrals Follow up/Referrals: Leatha Brownlee APRN [Primary Care Provider] - See instructions Activity Restrictions/Add. Instructions Additional Instructions/Restrictions: Call your family doctor to establish care for this visit to the emergency department and schedule follow-up within 48 hours to ensure improvement. If you have any worsening of your condition or any other concerning signs or symptoms, return to the emergency department or your primary care doctor for further evaluation. Clinical Impressions Clinical Impression: Bug bite Qualifiers: Encounter type: initial encounter Qualified Code(s): W57.XXXA - Bitten or stung by nonvenomous insect and other nonvenomous arthropods, initial encounter Instructions Patient Instructions: DI for Skin Abscess Discharge ED Provider: Papito Slater General Adult HPI General Chief complaint: Skin/Abscess/Foreign Body Stated complaint: rash Time Seen by Provider: 06/26/23 15:00 Mode of Arrival: Ambulatory Source of Information: Patient Limitations: No Limitations Description of Symptoms (Recalled from ER Triage Doc. by RN): Patient states he was mowing the yard the other day and now he has a rash on his back, legs and arms. History of Present Illness HPI narrative: This is a 53-y
[2023-06-26 15:34] VITALS: BP 111/80; PULSE 86; RESP 18; TEMP 36.7; O2SAT 96
== END 2023-06-26 15:35 | disposition home or self-care (01) ==
PROVIDERS: Emergency Provider Student in an Organized Health Care Education/Training Program; PCP Nurse Practitioner Family
DX: R21 Rash and other nonspecific skin eruption (principal); S40.861A Insect bite (nonvenomous) of right upper arm, initial encounter; S40.862A Insect bite (nonvenomous) of left upper arm, initial encounter; S80.861A Insect bite (nonvenomous), right lower leg, initial encounter; S80.862A Insect bite (nonvenomous), left lower leg, initial encounter; I10 Essential (primary) hypertension; E78.5 Hyperlipidemia, unspecified; E66.9 Obesity, unspecified; G43.909 Migraine, unspecified, not intractable, without status migrainosus; F41.9 Anxiety disorder, unspecified; J45.909 Unspecified asthma, uncomplicated; F32.A Depression, unspecified; Z85.6 Personal history of leukemia
CPT/HCPCS: 99283

== ENCOUNTER 2023-07-21 04:49 | Emergency (ER) | payer MEDICARE, OTHER, SELFPAY ==
[2023-07-21 04:50] VITALS: BP 119/79; PULSE 91; RESP 18; TEMP 36.4; O2SAT 98; BMI 33.6
--- NOTE | 2023-07-21 04:57 | PC.NURSE ---
in room talking with patient at this time.
[2023-07-21 05:11] VITALS: BP 119/79; PULSE 90; RESP 20; TEMP 36.4; O2SAT 99
--- NOTE | 2023-07-21 05:11 | HMH.EDGENADL ---
Discharge Plan Disposition Patient Disposition: Home, Self-Care Condition: Good Chief Complaint: Skin/Abscess/Foreign Body Prescriptions Prescriptions: New permethrin 5 % cream 1 applic topical Q14D Qty: 60 0RF Rx Instructions: apply second treatment 14 days after first treatment if live lice remain No Action diazepam 10 mg tablet 10 mg PO DAILY Qty: 45 0RF Rx Instructions: can take 2 x day prn docusate sodium 100 mg capsule 100 mg PO DAILY Qty: 90 0RF quetiapine 50 mg tablet 50 mg PO HS Patient Comments: TAKE ONE TABLET BY MOUTH EVERY DAY AT BEDTIME FOR ANXIETY cetirizine [All Day Allergy (cetirizine)] 10 mg tablet 10 mg PO DAILY Qty: 90 4RF budesonide-formoterol 160-4.5 mcg/actuation HFA aerosol inhaler inhalation diltiazem HCl 240 mg capsule,extended release 24hr 240 mg PO DAILY fluticasone propionate 50 mcg/actuation spray,suspension 1 spray intranasal QDAY Qty: 47.4 3RF Rx Instructions: administer into each nostril ergocalciferol (vitamin D2) 1,250 mcg (50,000 unit) capsule 1,250 mcg PO QWEEK Qty: 14 3RF levothyroxine 25 mcg tablet 25 mcg PO DAILY Qty: 90 4RF furosemide 40 mg tablet 40 mg PO DIRECTED Rx Instructions: take 80 mg in AM, take 40 mg in afternoon atorvastatin 10 mg tablet See Rx Instructions .ROUTE .COMPLEX Rx Instructions: TAKE ONE TABLET BY MOUTH EVERY DAY AT BEDTIME bisoprolol fumarate 10 mg tablet See Rx Instructions .ROUTE .COMPLEX Rx Instructions: TAKE ONE TABLET BY MOUTH EVERY DAY FOR HIGH BLOOD PRESSURE tamsulosin 0.4 mg capsule 0.4 mg PO DAILY epinephrine 0.3 mg/0.3 mL auto-injector 0.3 mg IM NEEDED PRN (Reason: allergic shellfish) Rx Instructions: INJECT THE CONTENTS OF 1 AUTO-INJECTOR INTRAMUSCULARLY ONCE NEEDED FOR ANAPHYLAXIS REACTION albuterol sulfate 90 mcg/actuation HFA aerosol inhaler See Rx Instructions .ROUTE .COMPLEX Rx Instructions: INHALE TWO PUFFS BY MOUTH EVERY 4 TO 6 HOURS NEEDED SHORTNESS OF BREATH --SHAKE WELL BEFORE USE-- spironolactone 50 mg tablet 50 mg PO BID esomeprazole magnesium 20 mg capsule,delayed release(DR/EC) 20 mg PO DAILY Rx Instructions: TAKE ONE CAPSULE BY MOUTH EVERY DAY epinephrine 0.3 mg/0.3 mL auto-injector 0.3 mg IM Q10M PRN (Reason: anaphylaxis) Qty: 2 0RF Rx Instructions: for 2 doses fluticasone propionate [24 Hour Allergy Relief] 50 mcg/actuation spray,suspension 1 spray intranasal DAILY Qty: 16 0RF Rx Instructions: administer into each nostril nystatin 100,000 unit/mL suspension 5 ml PO QID 7 Days Qty: 140 0RF Rx Instructions: swish and swallow permethrin 5 % cream 1 applic topical Q14D Qty: 60 0RF Rx Instructions: apply second treatment 14 days after first treatment if live lice remain Referrals Follow up/Referrals: Leatha Brownlee APRN [Primary Care Provider] - See instructions Activity Restrictions/Add. Instructions Additional Instructions/Restrictions: Please apply permethrin cream as prescribed. Please try to eradicate any possible infestation at your home. Please follow-up with your primary care provider. Please return to the emergency department if you develop any new or worsening symptoms or become concerned for your health. Clinical Impressions Clinical Impression: Bed bug bite Qualifiers: Encounter type: initial encounter Qualified Code(s): W57.XXXA - Bitten or stung by nonvenomous insect and other nonvenomous arthropods, initial encounter Instructions Patient Instructions: How to Get Rid of Bed Bugs, DI for Bed Bug Bites Discharge ED Provider: Chepe Rojas Adult HPI General Chief complaint: Skin/Abscess/Foreign Body Stated complaint: Poison over body Time Seen by Provider: 07/21/23 04:50 Mode of Arrival: Ambulatory Source of Information: Patient Limitations: No Silvestre
== END 2023-07-21 05:15 | disposition home or self-care (01) ==
PROVIDERS: Emergency Provider Emergency Medicine; PCP Nurse Practitioner Family
DX: R21 Rash and other nonspecific skin eruption (principal); F41.9 Anxiety disorder, unspecified; J45.909 Unspecified asthma, uncomplicated; F32.A Depression, unspecified; I10 Essential (primary) hypertension; Z85.6 Personal history of leukemia; W57.XXXA Bitten or stung by nonvenomous insect and other nonvenomous arthropods, initial encounter
CPT/HCPCS: 99283

== ENCOUNTER → 2023-07-31 11:37 | Outpatient (CLI) | payer MEDICARE, OTHER, SELFPAY ==
--- NOTE | 2023-07-31 11:38 | NM_ITS ---
APPROVED REPORT Exam: Nuclear Stress Test Indication: CHEST PAIN..SHORT BREATH Patient Location: Outpatient Stress Tech: Carla Pope LISSET Tech:TINA Medina RT(R)(N) Ht: 5 ft 7 in Wt: 245 lbs HR: 80 bpm BP: 121/73 mmHg BSA: 2.20 m2 Rhythm: NSR TID: 1.15 BMI: 38.3 History: CHEST PAIN..SHORT BREATH Procedure: Patient received 0.4 mg of intravenous Lexiscan, resting heart rate 80 bpm, resting blood pressure 121/73 mmHg, with Lexiscan maximum heart rate achieved was 111 bpm which is 85 % of the maximum predicted heart rate and blood pressure was 125/75 mmHg. With Lexiscan, patient denied any complaint of chest pain. Cardiac Stress and Resting SPECT Images: Cardiac Stress and Resting SPECT images were obtained using technetium 99m Myoview 31.9 mCi stress and 10.98 mCi at rest. Resting and stress imaging in both supine and prone positions demonstrate a small sized, moderate, reversible perfusion defect in the basal inferior and inferoseptal LV wall. Gated imaging demonstrates normal global and regional LV systolic function. LVEF is calculated at 59%. Conclusion: Small sized, moderate, reversible perfusion defect in the basal inferior and inferoseptal LV wall. Findings are suggestive of reversible ischemia. Gated imaging demonstrates normal global and regional LV systolic function. LVEF is calculated at 59%. Electronically signed by : Missy Santos MD 08/04/2023 23:20:14
--- NOTE | 2023-07-31 14:51 | CA_ITS ---
APPROVED REPORT Exam: Pharmacologic Technologist: Carla Pope Ht: 5 ft 7 in Wt: 249 lbs BSA: 2.22 m2 HR: 80 bpm BP: 121/73 mmHg Rhythm: NSR Indications: Chest pain, Shortness of Air Medical History Medications: Levothyroxine,,,,, Diazepam,,,,, Atorvastatin,,,,, TAMSULOSIN,,,,, BisOPROLOL,,,,, Esomeprazole,,,,, FluTICASONE,,,,, Vitamin D2,,,,, DilTiazem,,,,, SpirOnolactone,,,,, Quetiapine,,,,, DOcusate,,,,, Stress Test Details Test: LEXISCAN HR Resting HR: 80 bpm Max Heart Rate (APMHR): 169 bpm Max HR Achieved: 112 bpm Target HR (85% APMHR): 144 bpm % of APMHR: 66 Recovery HR: 83 bpm BP Resting BP: 121.0/73.0 mmHg Max BP: 140.0/74.0 mmHg Recovery BP: 124.0/71.0 mmHg ECG Resting ECG: Sinus Rhythm Stress ECG: No significant ST changes Arrhythmia: None Clinical Exercise duration: 04:03 min Highest Stage Achieved: Stress ECG Conclusion Symptoms: Chest heaviness, headache Arrhythmias/Ectopy: None ST-T Changes: No significant ST changes Conclusion: Unremarkable Lexiscan stress test. Myoview images are reported separately. Test Summary REST . . . . . . . Resting REST 02:24 . . 80 . 121/ 73 . . Stage 1 . . . . . . . Myoview Injected Stage 1 01:00 . . 111 . . . . Stage 2 . . . . . . . chest pressure Stage 2 01:00 . . 90 . . . . Stage 3 01:00 . . 92 . 125/ 75 . . Stage 4 01:00 . . 86 . . . . Stage 4 01:03 . . 87 . . . Stop exercise at 04:03 RECOVERY 01:00 . . 87 . 120/ 71 . . RECOVERY 02:00 . . 90 . 118/ 78 . . RECOVERY 03:00 . . 82 . 118/ 78 . . RECOVERY 03:47 . . 84 . 124/ 71 . . Electronically signed by : Missy Santos MD 08/04/2023 23:12:00
== END ==
PROVIDERS: PCP Nurse Practitioner Family; Visit Provider Nurse Practitioner
DX: E78.5 Hyperlipidemia, unspecified (principal); I10 Essential (primary) hypertension; I51.9 Heart disease, unspecified; R06.00 Dyspnea, unspecified; R07.9 Chest pain, unspecified
CPT/HCPCS: 78452; 93017; A9502; J2785

== ENCOUNTER 2023-08-22 09:08 | Outpatient (CLI) | payer MEDICARE, OTHER, SELFPAY ==
[2023-08-22] VITALS (11 sets, daily range): BP systolic 91–130; BP diastolic 64–79; PULSE 69–88; RESP 16–18; TEMP 36.1; O2SAT 94–97; BMI 39.7
--- NOTE | 2023-08-22 09:09 | CT_ITS ---
APPROVED REPORT Welfare Specialist: CLINICAL INDICATION Chest Pain TECHNIQUE Image Acquisition: A 128 slice MDCT scanner (BoostUpa View) was used for data acquisition. A noncontrast coronary calcium scan was performed. A CT attenuation threshold of 130 Hounsfield units (HU) was used for the detection of calcium in contiguous voxels of 1 sq mm in area to be counted as individual lesions. Bolus tracking in the ascending aorta with a threshold of 180 HU was performed. Immediately afterwards, ECG synchronized cardiac CT was then performed from the cardiac base to apex using retrospective gating with ECG tube current modulation. A total of 85 mL of Isovue 370 mg/mL contrast medium was administered at 5 mL/sec followed by a saline flush using a biphasic injection protocol. A tube voltage of 120 KVp was used. The patient received the following medications prior to the cardiac CT. 100 mg of oral metoprolol 15 mg of intravenous metoprolol. 0.4 mg of sublingual nitroglycerin. The average heart rate at the time of acquisition was 67 bpm and regular. Image Reconstruction Transaxial images were reconstructed at 0.67 mm slide thickness. Data was reviewed interactively on an advanced workstation capable of 2 and 3-dimensional displays in all conventional reconstruction formats, including multiplanar reformations, maximum intensity projections, curved multiplanar reformations, and volume rendered reconstructions. When applicable, selected routine images describing the relevant coronary anatomy and pathology were saved and sent to PACS. Complications None Technical Quality Overall image quality was good. Coronary artery opacification was adequate. Total DLP (Dose-Length Product) is 2038.3 mGy-cm. The reported value represents the total of one or more individual components during the CT acquisition of this date and at this time, and as such, the same value may appear in more than one CT report depending on the interpreting/reporting physicians. COMPARISON None FINDINGS CT Coronary Calcium Scoring LMA (Left Main Artery) = 0 LAD (Left Anterior Descending) = 0 LCX (Left Coronary Circumflex) = 0 RCA (Right Coronary Artery) = 0 Total Calcium Score = 0 using the AJ-130 method. The interpretation of the calcium heart score is based on the following continuum*: 0 = no calcified plaque detected (risk of coronary artery disease is very low ??? less than 5%) 1-10 = calcium detected in extremely minimal levels (risk of coronary diseases is still low ??? less than 10%) 11-100 = mild levels of plaque detected with certainty (mild or minimal narrowing of heart arteries is likely) 101-400 = definite,at least moderate levels of plaque detected (relatively high risk of a heart attack within 3-5 years) >401-999 = extensive levels of plaque detected (high risk of heart attack, high levels of vascular disease are present, high likelihood of at least one significant coronary narrowing) *The calcium heart score quantifies the burden of coronary calcification/plaque in the coronary arteries. The calcium heart score is not able to evaluate the presence or burden of non-calcified (i.e. soft) plaque. There is no identifiable calcification in the aortic valve, mitral annulus or mitral valve, pericardium, or myocardium. Coronary CT Angiography Coronaries have normal origin and proximal course. The coronary arterial system is right dominant. Note: Stenosis is reported as maximum percentage diameter stenosis. Stenosis grading is reported using the following scheme: Quantitative Stenosis Grading: Left Main (LM): The left main originates normally from the left sinus of Valsalva. The LM bifurcates into the left anterior descending artery and left circumflex artery.
[2023-08-22 10:00] LABS: Chloride 99 mmol/L (98-107); Sodium 137 mmol/L (136-145)
[2023-08-22 10:01] LABS: Potassium 3.6 mmoL/L (3.5-5.1)
[2023-08-22 10:03] LABS: Blood Urea Nitrogen 14 mg/dl (9-20); Creatinine Clearance Estimated 142 mL/min (50-200); Estimated Glomerular Filt Rate 79 ml/min (>60); GFR (African American) 95 ML/MIN (>60)
[2023-08-22 10:04] LABS: Anion Gap 9.6 mEq/L (5-15); Calcium 8.1 mg/dl (8.4-10.2); Carbon Dioxide 32 mmol/L (22.0-30.0); Glucose 141 mg/dl (74-100)
== END 2023-08-22 13:15 | disposition home or self-care (01) ==
PROVIDERS: PCP Nurse Practitioner Family; Visit Provider Nurse Practitioner Family
DX: R06.00 Dyspnea, unspecified (principal); R07.9 Chest pain, unspecified; R94.30 Abnormal result of cardiovascular function study, unspecified
CPT/HCPCS: 75574; 80048; Q9967

== ENCOUNTER → 2023-10-18 06:33 | Outpatient (CLI) | payer MEDICARE, OTHER, SELFPAY ==
--- NOTE | 2023-10-18 06:36 | CT_ITS ---
FINAL REPORT CLINICAL HISTORY: chronic Sinusitis FINDINGS: There is lobular mucoperiosteal thickening in the left maxillary sinus. The ostiomeatal units are patent. There is no fracture. There are no air-fluid levels. IMPRESSION: Left maxillary sinusitis. Reviewed, Interpreted and Dictated by Clemente Angeles MD Transcribed by Mireya Sarabia Authenticated and [facility]
== END ==
PROVIDERS: PCP Nurse Practitioner Family; Visit Provider Nurse Practitioner
DX: J32.9 Chronic sinusitis, unspecified (principal)
CPT/HCPCS: 70486

== ENCOUNTER 2024-06-03 14:07 | Emergency (ER) | payer MEDICARE, OTHER, SELFPAY ==
[2024-06-03 14:20] VITALS: BP 130/71; PULSE 90; RESP 18; TEMP 36.7; O2SAT 95; BMI 39.7
--- NOTE | 2024-06-03 14:54 | EXP.UTC ---
Discharge Plan Disposition Patient Disposition: Home, Self-Care Condition: Good Prescriptions Prescriptions: No Action furosemide 40 mg tablet 40 mg PO DAILY atorvastatin 10 mg tablet 10 mg PO DAILY Patient Comments: TAKE ONE TABLET BY MOUTH EVERY DAY levothyroxine 25 mcg tablet 25 mcg PO DAILY Patient Comments: TAKE ONE TABLET BY MOUTH EVERY DAY bisoprolol fumarate 10 mg tablet 10 mg PO DAILY Patient Comments: TAKE ONE TABLET BY MOUTH EVERY DAY tamsulosin 0.4 mg capsule 0.4 mg PO DAILY Patient Comments: TAKE ONE CAPSULE BY MOUTH EVERY DAY ergocalciferol (vitamin D2) 1,250 mcg (50,000 unit) capsule 1,250 mcg PO WEEKLY diazepam 10 mg tablet 10 mg PO DAILY Patient Comments: TAKE ONE TABLET BY MOUTH TWICE DAILY FOR ANXIETY spironolactone 50 mg tablet 50 mg PO DAILY Patient Comments: TAKE ONE TABLET BY MOUTH TWICE DAILY quetiapine 50 mg tablet 50 mg PO DAILY Patient Comments: TAKE ONE TABLET BY MOUTH AT BEDTIME FOR ANXIETY Linzess 72 mcg capsule 72 mcg PO DAILY Patient Comments: TAKE ONE CAPSULE BY MOUTH EVERY DAY Dupixent Pen 300 mg/2 mL pen injector 300 mg SQ WEEKLY Referrals Follow up/Referrals: Leatha Brownlee APRN [Primary Care Provider] - See instructions Activity Restrictions/Add. Instructions Additional Instructions/Restrictions: *Monitor Temp, Over the counter Motrin or Tylenol as directed/as needed Tylenol every 4 hours and Motrin every 6 hours (as long as your family doctor has told you that you can take it) for fever or pain. and straight to ER if unable to lower temp less than 101.0 after medication given *Warm salt water gargles may help to soothe the throat *Throat Lozenges? *Warm fluids like tea with honey may help to soothe the throat? *Sleep elevated *Humidifier/Vaporizer Follow up IMMEDIATELY for new or worsening symptoms or no Noticeable improvement over the next 48-72 hours. 911 for difficulty breathing or swallowing Clinical Impressions Clinical Impression: Sinusitis Instructions Patient Instructions: DI for Sinusitis, Sinusitis Print Language Print Language: Dominican Discharge ED Provider: Jennifer Mendoza [facility] [place] HPI General Stated complaint: congestion Mode of Arrival: Ambulatory Source of Information: Patient Limitations: No Limitations Time Seen by Provider: 06/03/24 14:54 Description of Symptoms (Recalled from Triage Doc. by RN): PATIENT C/O CONGESTION AND HEADACHE HEENT Symptoms (Recalled from RN notes): Yes Resp Symptoms (Recalled from RN notes): No Skin Symptoms (Recalled from RN notes): No MS Symptoms (Recalled from RN notes): No Functional Status (Recalled from RN notes): WNL History of Present Illness Provider Complaint: Patient states that he has been having sinus pain and pressure for about a week worse today and feeling pressure behind his eyes States kept him up all night last night and draining into his throat so he came in to get checked thinking he may have a sinus infection Related Data Home Medications ?Medication ?Instructions ?Recorded ?Confirmed atorvastatin 10 mg tablet 10 mg PO DAILY 06/03/24 06/03/24 bisoprolol fumarate 10 mg tablet 10 mg PO DAILY 06/03/24 06/03/24 diazepam 10 mg tablet 10 mg PO DAILY 06/03/24 06/03/24 dupilumab 300 mg/2 mL subcutaneous 300 mg SQ WEEKLY 06/03/24 06/03/24 pen injector ([employer]) ergocalciferol (vitamin D2) 1,250 1,250 mcg PO WEEKLY 06/03/24 06/03/24 mcg (50,000 unit) capsule furosemide 40 mg tablet 40 mg PO DAILY 06/03/24 06/03/24 levothyroxine 25 mcg tablet 25 mcg PO DAILY 06/03/24 06/03/24 linaclotide 72 mcg capsule 72 mcg PO DAILY 06/03/24 06/03/24 (Linzess) quetiapine 50 mg tablet 50 mg PO DAILY 06/03/24 06/03/24 spironolactone 50 mg tablet 50 mg PO DAILY 06/03/24 06/03/24 tamsulosin 0.4 mg capsule 0.4 mg PO DAILY 06/03/24 06/03/24 Allergies Allergy/AdvReac Type Severity Reaction Status Date / Time peanut oil [PEANUT OIL] Allergy Severe S-SWELLS-OR Verified 05/01/24 15:47 AL/THROAT egg Allergy Intermediate Hives Verified 05/01/24 15:47 tetracycline [TETRACYCLINE] Allergy Intermediate I-RASH Verified 05/01/24 15:47 aspirin [ASPIRIN] Allergy Mild stomach Verified 05/01/24 15:47 pain cephalexin [From KEFLEX] Allergy Mild NA-NAUSEA/V Verified 05/01/24 15:47 OMITING codeine [CODEINE] Allergy Mild NA-NAUSEA/V Verified 05/01/24 15:47 OMITING polymyxin B [POLYMYXIN B] Allergy Mild fever Verified 05/01/24 15:47 sulfamethoxazole Allergy Mild NA-NAUSEA/V Verified 05/01/24 15:47 [From BACTRIM] OMITING trimethoprim [From BACTRIM] Allergy Mild NA-NAUSEA/V Verified 05/01/24 15:47 OMITING bee venom protein (honey bee) Allergy Verified 06/03/24 14:27 morphine Allergy Unknown Verified 05/01/24 15:47 allergy reaction nut - unspecified Allergy Verified 06/03/24 14:27 oxytetracycline Allergy Verified 05/01/24 15:47 [From Terramycin] shellfish derived Allergy Verified 06/03/24 14:27 Worker's Comp Is this a Worker's Comp case?: No [facility] Disclaimer: The information contained in this section may have been updated after the patient was seen, as this information can be updated by other users. Medical History Dysphagia History of esophageal stricture Chronic maxillary sinusitis Sinusitis Dysfunction of both eustachian tubes Depression Hypothyroid Depression Bronchitis Asthma Migraine History of back pain History of gastroesophageal reflux (GERD) Hemorrhoid Allergies Hypertension Edema History of acute lymphoblastic leukemia (ALL) Dyspnea Anxiety Surgical History History of esophagogastroduodenoscopy (EGD) Hx of cardiac cath Hx of hernia repair History of colonoscopy Family History Father Family history of heart disease Heart attack Grandmother CHF (congestive heart failure) Mother Heart murmur Family/Other Cancer Leukemia, patient himself; in remission now. Unknown Cancer colon ca Social History Smoking Status: Never smoker second hand exposure: Yes alcohol intake: never substance use type: denies use current occupational status: disabled Travel in the last 8 weeks: None household members: family housing: house current occupational exposures/hazards: No caffeine: Yes ROS Obtained: Yes All systems reviewed & no additional complaints except as documented and Yes Systems reviewed as appropriate & no additional complaints except as documented Constitutional Constitutional: Reports system reviewed and no additional complaints, except as documented and Reports as per HPI ENT Ears, Nose, Mouth, and Throat: Reports system reviewed and no additional complaints, except as documented, Reports as per HPI, Reports sinus pain and Reports sinus pressure Cardiovascular Cardiovascular: Reports system reviewed and no additional complaints, except as documented and Reports as per HPI Respiratory Respiratory: Reports system reviewed and no additional complaints, except as documented and Reports as per HPI Gastrointestinal Gastrointestingal: Reports system reviewed and no additional complaints, except as documented and as per HPI Musculoskeletal Musculoskeletal: Reports system reviewed and no additional complaints, except as documented and Reports as per HPI Integumentary/Breasts Skin/Breast: Reports system reviewed and no additional complaints, except as documented and Reports as per HPI Neurologic Neurologic: Reports system reviewed and no additional complaints, except as documented and Reports as per HPI Physical Exam General General appearance: alert and in no apparent distress ENT ENT exam: Present mucous membranes moist Expanded ENT Exam Nose exam: Present sinus tenderness (reports yellow/brown drainage) Throat exam: Present other (PND noted) Respiratory Respiratory exam: Present normal lung sounds bilaterally; Absent respiratory distress or wheezes Cardiovascular Cardiovascular exam: Present regular rate, normal rhythm and normal heart sounds Neurological Exam Neurological exam: Present alert, oriented X3 and normal gait Medical Decision Making Dante Inquiry Pt receiving controlled substance: No Dante was queried for this patient: No Vital Signs: 06/03/24 14:20 Temperature 98.0 F Temperature Source Oral Pulse Rate [Left Brachial] 90 Respiratory Rate 18 Blood Pressure [Left Arm] 130/71 Blood Pressure Mean [Left Arm] 90 Blood Pressure Source [Left Arm] Automatic Cuff Blood Pressure Position [Left Arm] Sitting 02 Sat by Pulse Oximetry 95 Oxygen Delivery Method Room Air Medical Decision Narrative: Patient states he has taken azithromycin with his current medication without complications or reactions medication discussed with pharmacy
[2024-06-03 15:14] VITALS: BP 130/71; PULSE 90; RESP 18; TEMP 36.7; O2SAT 95
== END 2024-06-03 15:17 | disposition home or self-care (01) ==
PROVIDERS: Emergency Provider Nurse Practitioner; PCP Nurse Practitioner Family
DX: J01.90 Acute sinusitis, unspecified (principal); R09.82 Postnasal drip
CPT/HCPCS: 99212; 99214; G0463

== ENCOUNTER 2024-06-07 17:56 | Emergency (ER) | payer MEDICARE, OTHER, SELFPAY ==
[2024-06-07 18:07] VITALS: BP 134/91; PULSE 96; O2SAT 96
[2024-06-07 18:13] VITALS: BP 135/55; PULSE 81; RESP 20; TEMP 36.9; O2SAT 97; BMI 30.6
[2024-06-07 18:30] VITALS: BP 116/78; PULSE 86; O2SAT 94
--- NOTE | 2024-06-07 19:02 | HMH.EDGENADL ---
Discharge Plan Disposition Patient Disposition: Home, Self-Care Prescriptions Prescriptions: New epinephrine 0.3 mg/0.3 mL auto-injector 0.3 mg IM Q10M PRN (Reason: anaphylaxis) Qty: 2 0RF Rx Instructions: for 2 doses No Action furosemide 40 mg tablet 40 mg PO DAILY atorvastatin 10 mg tablet 10 mg PO DAILY Patient Comments: TAKE ONE TABLET BY MOUTH EVERY DAY levothyroxine 25 mcg tablet 25 mcg PO DAILY Patient Comments: TAKE ONE TABLET BY MOUTH EVERY DAY bisoprolol fumarate 10 mg tablet 10 mg PO DAILY Patient Comments: TAKE ONE TABLET BY MOUTH EVERY DAY tamsulosin 0.4 mg capsule 0.4 mg PO DAILY Patient Comments: TAKE ONE CAPSULE BY MOUTH EVERY DAY ergocalciferol (vitamin D2) 1,250 mcg (50,000 unit) capsule 1,250 mcg PO WEEKLY diazepam 10 mg tablet 10 mg PO DAILY Patient Comments: TAKE ONE TABLET BY MOUTH TWICE DAILY FOR ANXIETY spironolactone 50 mg tablet 50 mg PO DAILY Patient Comments: TAKE ONE TABLET BY MOUTH TWICE DAILY quetiapine 50 mg tablet 50 mg PO DAILY Patient Comments: TAKE ONE TABLET BY MOUTH AT BEDTIME FOR ANXIETY Linzess 72 mcg capsule 72 mcg PO DAILY Patient Comments: TAKE ONE CAPSULE BY MOUTH EVERY DAY Dupixent Pen 300 mg/2 mL pen injector 300 mg SQ WEEKLY azithromycin [Zithromax Z-Abisai] 250 mg tablet See Rx Instructions .ROUTE .COMPLEX 5 Days Qty: 6 0RF Rx Instructions: For 250 mg dose pack: take 500 mg today (day 1), then 250 mg for 4 days (days 2-5) Referrals Follow up/Referrals: Leatha Brownlee APRN [Primary Care Provider] - See instructions Activity Restrictions/Add. Instructions Additional Instructions/Restrictions: At this time it was felt you are safe to be discharged home. If new or worsening symptoms please do not hesitate to return the emergency department. If significant itching occurs over the next day or so you can take Benadryl every 6 hours as needed. Otherwise these bee sting should spontaneously go down over the next week. If signs of anaphylaxis if you are to get stung by bee again such as closing of your throat or severe shortness of breath please use your EpiPen as directed. Clinical Impressions Clinical Impression: Bee sting Print Language Print Language: Hebrew Discharge ED Provider: Mike Goncalves General Adult HPI General Chief complaint: Allergic Reaction Stated complaint: ? bee sting is allergic but no symptoms at present Time Seen by Provider: 06/07/24 18:10 Mode of Arrival: Ambulatory Source of Information: Patient Limitations: No Limitations Description of Symptoms (Recalled from ER Triage Doc. by RN): pt to ed c/o wasp sting to the left index finger and back of the neck. pt denies SOA. History of Present Illness HPI narrative: Patient is a 54-year-old male with no pertinent past medical history presents emergency department for evaluation of bee sting. Patient was stung 3 times prior to arrival causing him to present here. The stings are located on his left hand, posterior neck, posterior right shoulder. No shortness of breath, no vomiting, no rash other than the lesions at the site of the sting. No chest pain reported. No other acute complaints at this time. Related Data Home Medications ?Medication ?Instructions ?Recorded ?Confirmed atorvastatin 10 mg tablet 10 mg PO DAILY 06/03/24 06/03/24 bisoprolol fumarate 10 mg tablet 10 mg PO DAILY 06/03/24 06/03/24 diazepam 10 mg tablet 10 mg PO DAILY 06/03/24 06/03/24 dupilumab 300 mg/2 mL subcutaneous 300 mg SQ WEEKLY 06/03/24 06/03/24 pen injector (Dupixent) ergocalciferol (vitamin D2) 1,250 1,250 mcg PO WEEKLY 06/03/24 06/03/24 mcg (50,000 unit) capsule furosemide 40 mg tablet 40 mg PO DAILY 06/03/24 06/03/24 levothyroxine 25 mcg tablet 25 mcg PO DAILY 06/03/24 06/03/24 linaclotide 72 mcg capsule 72 mcg PO DAILY 06/03/24 06/03/24 (Linzess) quetiapine 50 mg tablet 50 mg PO DAILY 06/03/24 06/03/24 spironolactone 50 mg tablet 50 mg PO DAILY 06/03/24 06/03/24 tamsulosin 0.4 mg capsule 0.4 mg PO DAILY 06/03/24 06/03/24 Previous Rx's ?Medication ?Instructions ?Recorded azithromycin 250 mg tablet See Rx Instructions PO .COMPLEX 5 06/03/24 (Zithromax Z-Abisai) days #6 tabs epinephrine 0.3 mg/0.3 mL 0.3 mg (0.3 mL) IM Q10M PRN 06/07/24 injection, auto-injector anaphylaxis #2 ea Allergies Allergy/AdvReac Type Severity Reaction Status Date / Time peanut oil [PEANUT OIL] Allergy Severe S-SWELLS-OR Verified 05/01/24 15:47 AL/THROAT egg Allergy Intermediate Hives Verified 05/01/24 15:47 tetracycline [TETRACYCLINE] Allergy Intermediate I-RASH Verified 05/01/24 15:47 aspirin [ASPIRIN] Allergy Mild stomach Verified 05/01/24 15:47 pain cephalexin [From KEFLEX] Allergy Mild NA-NAUSEA/V Verified 05/01/24 15:47 OMITING codeine [CODEINE] Allergy Mild NA-NAUSEA/V Verified 05/01/24 15:47 OMITING polymyxin B [POLYMYXIN B] Allergy Mild fever Verified 05/01/24 15:47 sulfamethoxazole Allergy Mild NA-NAUSEA/V Verified 05/01/24 15:47 [From BACTRIM] OMITING trimethoprim [From BACTRIM] Allergy Mild NA-NAUSEA/V Verified 05/01/24 15:47 OMITING bee venom protein (honey bee) Allergy Verified 06/03/24 14:27 morphine Allergy Unknown Verified 05/01/24 15:47 allergy reaction nut - unspecified Allergy Verified 06/03/24 14:27 oxytetracycline Allergy Verified 05/01/24 15:47 [From Terramycin] shellfish derived Allergy Verified 06/03/24 14:27 [facility] Disclaimer: The information contained in this section may have been updated after the patient was seen, as this information can be updated by other users. Medical History Dysphagia History of esophageal stricture Chronic maxillary sinusitis Sinusitis Dysfunction of both eustachian tubes Depression Hypothyroid Depression Bronchitis Asthma Migraine History of back pain History of gastroesophageal reflux (GERD) Hemorrhoid Allergies Hypertension Edema History of acute lymphoblastic leukemia (ALL) Dyspnea Anxiety Surgical History History of esophagogastroduodenoscopy (EGD) Hx of cardiac cath Hx of hernia repair History of colonoscopy Family History Father Family history of heart disease Heart attack Grandmother CHF (congestive heart failure) Mother Heart murmur Family/Other Cancer Leukemia, patient himself; in remission now. Unknown Cancer colon ca Social History Smoking Status: Never smoker second hand exposure: Yes alcohol intake: never substance use type: denies use current occupational status: disabled Travel in the last 8 weeks: None household members: family housing: house current occupational exposures/hazards: No caffeine: Yes ROS Obtained: Yes Systems reviewed as appropriate & no additional complaints except as documented Physical Exam General General appearance: alert and in no apparent distress Head Head exam: atraumatic and normocephalic Eye Eye exam: Present PERRL ENT ENT exam: Present mucous membranes moist Neck Neck exam: Present normal inspection Chest Chest inspection: Present normal inspection and symmetric chest wall rise Respiratory Respiratory exam: Present normal lung sounds bilaterally; Absent respiratory distress Cardiovascular Cardiovascular exam: Present regular rate and normal rhythm Abdominal Exam Abdominal exam: Present soft; Absent tenderness Extremities Exam Extremities exam: Present normal inspection Neurological Exam Neurological exam: Present alert Psychiatric Psychiatric exam: Present normal affect Skin Skin exam: Present warm, dry and other (Papule over the left dorsal hand, posterior neck, right posterior shoulder, no bruising. No diffuse urticaria) Medical Decision Making Dante Inquiry Pt receiving controlled substance: No Vital Signs: 06/07/24 18:07 06/07/24 18:13 06/07/24 18:30 Temperature 98.5 F Temperature Source Oral Pulse Rate 96 H 86 Pulse Rate [Left Radial] 81 Respiratory Rate 20 Blood Pressure 134/91 H 116/78 Blood Pressure [Right Arm] 135/55 L Blood Pressure Mean [Right Arm] 81 02 Sat by Pulse Oximetry 96 97 94 L Oxygen Delivery Method Room Air Room Air Room Air Medical Decision Narrative: In summary patient is a 54-year-old male with past medical history described above who presents emergency department for evaluation of bee sting. Patient is hemodynamically stable nontoxic-appearing upon arrival, afebrile. Upon initial assessment patient does not meet criteria for anaphylaxis and will undergo a brief period of observation. The patient was placed in observation status at 6:30 PM. Medical necessity for observational status is medical observation for progression of bee sting. The patient was provided serial reevaluations and cardiac monitoring while awaiting results. Results of observation remarkable for no progressive allergic reaction. Because of this I feel like patient can be discharged with return precautions and will be sent home with an EpiPen. Total time in observation 30 minutes. Critical Care Critical Care Time Critical Care Time: No
[2024-06-07 19:33] VITALS: BP 110/78; PULSE 82; RESP 18; TEMP 36.6; O2SAT 97
== END 2024-06-07 19:33 | disposition home or self-care (01) ==
PROVIDERS: Emergency Provider Emergency Medicine; PCP Nurse Practitioner Family
DX: T63.441A Toxic effect of venom of bees, accidental (unintentional), initial encounter (principal)
CPT/HCPCS: 99283

== ENCOUNTER 2024-06-29 11:09 | Emergency (ER) | payer MEDICARE, OTHER, SELFPAY ==
[2024-06-29 11:20] VITALS: BP 110/64; PULSE 77; RESP 18; TEMP 37; O2SAT 95; BMI 38.8
--- NOTE | 2024-06-29 11:33 | EXP.UTC ---
Discharge Plan Disposition Patient Disposition: Home, Self-Care Condition: Good Prescriptions Prescriptions: New azithromycin [Zithromax] 250 mg tablet 250 mg PO UD DOSE PK Qty: 6 0RF Rx Instructions: Take two (2) tablets today, then one (1) tablet days #2 thru #5 benzonatate 100 mg capsule 100 mg PO TIDP PRN (Reason: Cough) Qty: 30 0RF No Action furosemide 40 mg tablet 40 mg PO DAILY atorvastatin 10 mg tablet 10 mg PO DAILY Patient Comments: TAKE ONE TABLET BY MOUTH EVERY DAY levothyroxine 25 mcg tablet 25 mcg PO DAILY Patient Comments: TAKE ONE TABLET BY MOUTH EVERY DAY bisoprolol fumarate 10 mg tablet 10 mg PO DAILY Patient Comments: TAKE ONE TABLET BY MOUTH EVERY DAY tamsulosin 0.4 mg capsule 0.4 mg PO DAILY Patient Comments: TAKE ONE CAPSULE BY MOUTH EVERY DAY ergocalciferol (vitamin D2) 1,250 mcg (50,000 unit) capsule 1,250 mcg PO WEEKLY diazepam 10 mg tablet 10 mg PO DAILY Patient Comments: TAKE ONE TABLET BY MOUTH TWICE DAILY FOR ANXIETY spironolactone 50 mg tablet 50 mg PO DAILY Patient Comments: TAKE ONE TABLET BY MOUTH TWICE DAILY quetiapine 50 mg tablet 50 mg PO DAILY Patient Comments: TAKE ONE TABLET BY MOUTH AT BEDTIME FOR ANXIETY Linzess 72 mcg capsule 72 mcg PO DAILY Patient Comments: TAKE ONE CAPSULE BY MOUTH EVERY DAY Dupixent Pen 300 mg/2 mL pen injector 300 mg SQ WEEKLY azithromycin [Zithromax Z-Abisai] 250 mg tablet See Rx Instructions .ROUTE .COMPLEX 5 Days Qty: 6 0RF Rx Instructions: For 250 mg dose pack: take 500 mg today (day 1), then 250 mg for 4 days (days 2-5) epinephrine 0.3 mg/0.3 mL auto-injector 0.3 mg IM Q10M PRN (Reason: anaphylaxis) Qty: 2 0RF Rx Instructions: for 2 doses Referrals Follow up/Referrals: Leatha Brownlee APRN [Primary Care Provider] - See instructions Activity Restrictions/Add. Instructions Additional Instructions/Restrictions: Drink plenty of fluids. Take tylenol or ibuprofen for pain or fever. Take the medications as directed. Follow up with your regular doctor. GO TO THE ER FOR ANY WORSENING SYMPTOMS Clinical Impressions Clinical Impression: Sinusitis, Acute viral syndrome Instructions Patient Instructions: Sinusitis, DI for Sinusitis Print Language Print Language: Citizen Of [place] Discharge ED Provider: Min Sullivan [facility] [place] HPI General Stated complaint: headache, runny nose Time Seen by Provider: 06/29/24 11:33 Related Data Home Medications ?Medication ?Instructions ?Recorded ?Confirmed atorvastatin 10 mg tablet 10 mg PO DAILY 06/03/24 06/03/24 bisoprolol fumarate 10 mg tablet 10 mg PO DAILY 06/03/24 06/03/24 diazepam 10 mg tablet 10 mg PO DAILY 06/03/24 06/03/24 dupilumab 300 mg/2 mL subcutaneous 300 mg SQ WEEKLY 06/03/24 06/03/24 pen injector (Dupixent) ergocalciferol (vitamin D2) 1,250 1,250 mcg PO WEEKLY 06/03/24 06/03/24 mcg (50,000 unit) capsule furosemide 40 mg tablet 40 mg PO DAILY 06/03/24 06/03/24 levothyroxine 25 mcg tablet 25 mcg PO DAILY 06/03/24 06/03/24 linaclotide 72 mcg capsule 72 mcg PO DAILY 06/03/24 06/03/24 (Linzess) quetiapine 50 mg tablet 50 mg PO DAILY 06/03/24 06/03/24 spironolactone 50 mg tablet 50 mg PO DAILY 06/03/24 06/03/24 tamsulosin 0.4 mg capsule 0.4 mg PO DAILY 06/03/24 06/03/24 Previous Rx's ?Medication ?Instructions ?Recorded azithromycin 250 mg tablet See Rx Instructions PO .COMPLEX 5 06/03/24 (Zithromax Z-Abisai) days #6 tabs epinephrine 0.3 mg/0.3 mL 0.3 mg (0.3 mL) IM Q10M PRN 06/07/24 injection, auto-injector anaphylaxis #2 ea azithromycin 250 mg tablet 250 mg PO UD DOSE PK #6 tabs 06/29/24 (Zithromax) benzonatate 100 mg capsule 100 mg PO TIDP PRN Cough #30 caps 06/29/24 Allergies Allergy/AdvReac Type Severity Reaction Status Date / Time peanut oil [PEANUT OIL] Allergy Severe S-SWELLS-OR Verified 05/01/24 15:47
[2024-06-29 12:20] VITALS: BP 110/64; PULSE 77; RESP 18; TEMP 37; O2SAT 95
== END 2024-06-29 12:21 | disposition home or self-care (01) ==
PROVIDERS: Emergency Provider Nurse Practitioner Family; PCP Nurse Practitioner Family
DX: U07.1 COVID-19 (principal); J01.90 Acute sinusitis, unspecified; R51.9 Headache, unspecified
CPT/HCPCS: 87635; 96372; 99212; 99214; G0463

== ENCOUNTER 2024-08-13 13:19 | Outpatient (CLI) | payer MEDICARE, OTHER, SELFPAY ==
--- NOTE | 2024-08-13 13:23 | XR_ITS ---
FINAL REPORT CLINICAL HISTORY: knee pain 1-2 years ago causing pt problems fx knee from fall before surgery COMPARISON: None FINDINGS: Three views of the left knee reveal no evidence of fracture or dislocation. The bony alignment is normal. Mild degenerative change is present. There is no evidence of joint effusion. No localized soft tissue abnormality is seen. IMPRESSION: Mild degenerative change without acute bony abnormality. Reviewed, Interpreted and Dictated by Kd Diana III, MD Transcribed by Natalia Braga Authenticated and [facility]
== END 2024-08-13 23:59 | disposition home or self-care (01) ==
LOC: RAD 13:21
PROVIDERS: PCP Nurse Practitioner Family; Visit Provider Orthopaedic Surgery
DX: M25.562 Pain in left knee (principal)
CPT/HCPCS: 73562

== ENCOUNTER 2024-10-13 13:48 | Outpatient (CLI) | payer MEDICARE, OTHER, SELFPAY ==
[2024-10-13 14:46] LABS: Basophils # 0.1 K/mm3 (0-0.2); Basophils % 0.7 % (0.1-2.0); Eosinophils # 0.6 K/mm3 (0.0-0.4); Eosinophils % 6.6 % (0.1-12.0); Hematocrit 46.4 % (42.0-52.0); Hemoglobin 16.1 g/dL (14.1-18.0); Lymphocytes # 2.9 K/mm3 (0.7-4.5); Lymphocytes % 33.5 % (10-50); Mean Corpuscular HGB Conc 34.6 g/dL (31.8-35.4); Mean Corpuscular Hemoglobin 31.3 pg (27.0-31.2); Mean Corpuscular Volume 90.4 fl (80-94); Mean Platelet Volume 8.2 fl (7.4-10.4); Monocytes # 0.5 K/mm3 (0.1-1.0); Monocytes % 5.6 % (1.7-9.3); Neutrophils # 4.6 K/mm3 (1.8-7.8); Neutrophils % 53.6 % (37.0-80.0); Platelet Count 216 K/mm3 (142-424); Red Blood Count 5.14 M/mm3 (4.60-6.20); Red Cell Distribution Width 14.5 % (11.5-17.5); White Blood Count 8.6 K/mm3 (4.8-10.8)
[2024-10-13 15:27] LABS: Alanine Aminotransferase 29 U/L (12-78); Albumin Level 4.3 g/dl (3.5-5.0); Alkaline Phosphatase 108 U/L (38-126); Anion Gap 11.4 mEq/L (5-15); Aspartate Amino Transferase 42 U/L (17-59); Bilirubin,Direct 0.3 mg/dl (0.0-0.4); Bilirubin,Indirect 0.5 mg/dL (0.0-0.9); Bilirubin,Total 0.8 mg/dl (0.2-1.3); Bilirubin,Unconjugated 0.5 mg/dL (0.0-1.1); Blood Urea Nitrogen 10 mg/dl (9-20); Calcium 9.4 mg/dl (8.4-10.2); Carbon Dioxide 34 mmol/L (22.0-30.0); Chloride 102 mmol/L (98-107); Chol/HDL Ratio 4.7 (1-3.5); Cholesterol 161 mg/dl (140-200); Estimated Glomerular Filt Rate 78 ml/min (>60); GFR (African American) 95 ML/MIN (>60); Glucose 112 mg/dl (74-100); HDL Cholesterol 34 mg/dl (40-60); Potassium 4.4 mmoL/L (3.5-5.1); Sodium 143 mmol/L (136-145); Total Protein,Serum 6.9 g/dl (6.3-8.2); Triglycerides 135 mg/dl (30-150); VLDL Cholesterol 27 mg/dL (0-40)
[2024-10-13 15:43] LABS: Free T4 (Free Thyroxine) 0.93 ng/dl (0.78-2.19)
[2024-10-13 15:56] LABS: Thyroid Stimulating Hormone 3.21 uIU/mL (0.465-4.68)
== END 2024-10-13 23:59 | disposition home or self-care (01) ==
LOC: LAB 13:49
PROVIDERS: PCP Nurse Practitioner Family; Visit Provider Physician Assistant
DX: E78.2 Mixed hyperlipidemia (principal); I10 Essential (primary) hypertension; R94.31 Abnormal electrocardiogram [ECG] [EKG]; I51.9 Heart disease, unspecified; R07.89 Other chest pain; R06.02 Shortness of breath; R06.00 Dyspnea, unspecified; R06.01 Orthopnea; R60.9 Edema, unspecified
CPT/HCPCS: 36415; 80048; 80061; 80076; 83735; 84439; 84443; 85025

== ENCOUNTER 2024-10-15 12:35 | Outpatient (CLI) | payer MEDICARE, OTHER, SELFPAY ==
--- NOTE | 2024-10-15 12:39 | CA_ITS ---
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: MANOLO Vang, RVS Ht: 5 ft 7 in Wt: 250lbs BSA: 2.22 BP: 108/71 mmHg Indications: SOA, Hypothyroidism,CP, Obesity Echo Enhancing Agent Comments: Technically limited due to poor acoustics and large body habitus, No IV access 2D Dimensions Aortic Root 2.80 cm M: 3.1 - 3.7 LA Volume 55.90 mL Left Atrium 3.88 cm M: 3.0 - 4.0 LA Volume Index 25.07 mL/m2 (M/F) 16-34 LVOT 1.95 cm (M/F) 1.5-2.5 EF AP4 49.70 % GL Strain -15.3 % M-Mode Dimensions RVDd 2.15 cm (0.9-2.6) LVDd 4.18 cm (3.5-5.7) Ao Diam 2.87 cm (2.0-3.7) LVDs 2.61 cm (3.5-5.7) IVSd 0.86 cm (0.6-1.1) PWd 0.86 cm (0.6-1.1) EF (Teich) 68.10% EPSs 0.75 cm FS 37.60% EDV (Teich) 77.70 mL TAPSE 1.49 (<1.7) ESV (Teich) 24.80 mL LV Diastology E Decel Time 183 (160-240 msec) E/A Ratio 1.2 MED E' 5.5 (>= 7 cm/sec) MED A' 9.20 cm/s E'/MED E' Ratio 11.20 (<= 14) LAT E' 9.7 (>= 10 cm/sec) LAT A' 8.30 cm/s E/LAT E' Ratio 6.35 (<= 14) Aortic Valve LVOT Max 108.0 (70-110 cm/s) TOO Index 1.32 cm2/m2 LVOT VTI 22.08 cm AoV Peak Eloy. 116.0 (50-130 cm/s) AO Mean GR. 2.70 (<5 mmHg) AO VTI 22.6 (18-25 cm) TOO (VTI) 2.92 (2.5-4.5 cm2) Mitral Valve MV E Max Eloy. 62.0 (40-130 cm/s) MV A Velocity 51.0 (40-130 cm/s) E/A Ratio 1.20 MV Decel. Time 183 (160-240 ms) Tricuspid Valve TR P. Velocity 221.00 cm/s RAP Estimate 10.00 mmHg RVSP 29.50 mmHg Left Ventricle The left ventricle is normal size. The left ventricular systolic function is normal. The left ventricular ejection fraction is within the normal range. There is increased LV wall thickness. There is normal LV segmental wall motion. Transmitral Doppler flow pattern suggests impaired LV relaxation. LVEF is 55%. Right Ventricle Right ventricle is mildly dilated. The right ventricular systolic function is normal. Atria The left atrium size is normal. The right atrium size is normal. There is no Doppler evidence of interatrial shunt. Aortic Valve The aortic valve is mildly thickened. There is no aortic valvular stenosis. No aortic regurgitation is present. Mitral Valve The mitral valve is normal in structure. No evidence of mitral valve stenosis. Trace mitral regurgitation. Tricuspid Valve Tricuspid valve is grossly normal in structure and function. Mild tricuspid regurgitation. RVSP is normal. Pulmonic Valve The pulmonary valve is normal in structure. Trace pulmonic regurgitation. Great Vessels The aortic root is normal in size. The ascending aorta is not well-visualized. IVC is normal in size and collapses >50% with inspiration. Pericardium There is no pericardial effusion. Other Information Study Quality: Fair Conclusion Normal biventricular systolic function. Mild RV dilation. Mild TR. Electronically signed by : Missy Santos MD 10/22/2024 10:36:04
== END 2024-10-15 23:59 | disposition home or self-care (01) ==
LOC: RT 12:36
PROVIDERS: PCP Nurse Practitioner Family; Visit Provider Physician Assistant
DX: I51.7 Cardiomegaly (principal); I36.1 Nonrheumatic tricuspid (valve) insufficiency; R94.31 Abnormal electrocardiogram [ECG] [EKG]; I51.9 Heart disease, unspecified; R07.89 Other chest pain; R06.02 Shortness of breath; R06.01 Orthopnea; R60.9 Edema, unspecified
CPT/HCPCS: 93306

== ENCOUNTER 2024-11-02 12:25 | Emergency (ER) | payer MEDICARE, OTHER, SELFPAY ==
[2024-11-02 14:25] VITALS: BP 124/77; PULSE 69; RESP 18; TEMP 36.9; O2SAT 99; BMI 38.2
--- NOTE | 2024-11-02 14:31 | EXP.UTC ---
Discharge Plan Disposition Patient Disposition: Home, Self-Care Condition: Good Prescriptions Prescriptions: New azithromycin [Zithromax] 250 mg tablet 250 mg PO UD DOSE PK Qty: 6 0RF Rx Instructions: Take two (2) tablets today, then one (1) tablet days #2 thru #5 methylprednisolone 4 mg Tablets,Dose Pack 4 mg PO DIRECTED 6 Days Qty: 21 0RF Rx Instructions: Take 1 pack as directed for 6 days No Action Eohilia 2 mg/10 mL suspension in packet 1 packet PO BID Qty: 600 5RF Rx Instructions: administer in the morning and evening furosemide 40 mg tablet 40 mg PO DAILY atorvastatin 10 mg tablet 10 mg PO DAILY Patient Comments: TAKE ONE TABLET BY MOUTH EVERY DAY levothyroxine 25 mcg tablet 25 mcg PO DAILY Patient Comments: TAKE ONE TABLET BY MOUTH EVERY DAY bisoprolol fumarate 10 mg tablet 10 mg PO DAILY Patient Comments: TAKE ONE TABLET BY MOUTH EVERY DAY tamsulosin 0.4 mg capsule 0.4 mg PO DAILY Patient Comments: TAKE ONE CAPSULE BY MOUTH EVERY DAY ergocalciferol (vitamin D2) 1,250 mcg (50,000 unit) capsule 1,250 mcg PO WEEKLY diazepam 10 mg tablet 10 mg PO DAILY Patient Comments: TAKE ONE TABLET BY MOUTH TWICE DAILY FOR ANXIETY spironolactone 50 mg tablet 50 mg PO DAILY Patient Comments: TAKE ONE TABLET BY MOUTH TWICE DAILY quetiapine 50 mg tablet 50 mg PO DAILY Patient Comments: TAKE ONE TABLET BY MOUTH AT BEDTIME FOR ANXIETY Linzess 72 mcg capsule 72 mcg PO DAILY Patient Comments: TAKE ONE CAPSULE BY MOUTH EVERY DAY Dupixent Pen 300 mg/2 mL pen injector 300 mg SQ WEEKLY azithromycin [Zithromax Z-Abisai] 250 mg tablet See Rx Instructions .ROUTE .COMPLEX 5 Days Qty: 6 0RF Rx Instructions: For 250 mg dose pack: take 500 mg today (day 1), then 250 mg for 4 days (days 2-5) epinephrine 0.3 mg/0.3 mL auto-injector 0.3 mg IM Q10M PRN (Reason: anaphylaxis) Qty: 2 0RF Rx Instructions: for 2 doses azithromycin [Zithromax] 250 mg tablet 250 mg PO UD DOSE PK Qty: 6 0RF Rx Instructions: Take two (2) tablets today, then one (1) tablet days #2 thru #5 benzonatate 100 mg capsule 100 mg PO TIDP PRN (Reason: Cough) Qty: 30 0RF Referrals Follow up/Referrals: Leatha Brownlee APRN [Primary Care Provider] - See instructions Activity Restrictions/Add. Instructions Additional Instructions/Restrictions: Drink plenty of fluids. Take tylenol for pain or fever. Take the medications as directed. Follow up with your regular doctor. GO TO THE ER FOR ANY WORSENING SYMPTOMS Clinical Impressions Clinical Impression: Sinusitis, Exposure to influenza, Exposure to 2019 novel coronavirus Instructions Patient Instructions: Sinusitis, DI for Sinusitis Print Language Print Language: Nepali Discharge ED Provider: Min Sullivan [facility] [place] General Stated complaint: runny nose flu exposure Mode of Arrival: Ambulatory Source of Information: Patient Time Seen by Provider: 11/02/24 14:31 Description of Symptoms (Recalled from Triage Doc. by RN): RUNNY NOSE, WATERY EYES, PEOPLE AT [facility] HAVE COVID AND FLU HEENT Symptoms (Recalled from RN notes): No Resp Symptoms (Recalled from RN notes): Yes Skin Symptoms (Recalled from RN notes): No MS Symptoms (Recalled from RN notes): No Functional Status (Recalled from RN notes): WNL Related Data Home Medications ?Medication ?Instructions ?Recorded ?Confirmed atorvastatin 10 mg tablet 10 mg PO DAILY 06/03/24 09/30/24 bisoprolol fumarate 10 mg tablet 10 mg PO DAILY 06/03/24 09/30/24 diazepam 10 mg tablet 10 mg PO DAILY 06/03/24 09/30/24 dupilumab 300 mg/2 mL subcutaneous 300 mg SQ WEEKLY 06/03/24 09/30/24 pen injector (Dupixent) ergocalciferol (vitamin D2) 1,250 1,250 mcg PO WEEKLY 06/03/24 09/30/24 mcg (50,000 unit) capsule furosemide 40 mg tablet 40 mg PO DAILY 06/03/24 09/30/24 levothyroxine 25 mcg tablet 25 mcg PO DAILY 06/03/24 09/30/24 linaclotide 72 mcg capsule 72 mcg PO DAILY 06/03/24 09/30/24 (Linzess) quetiapine 50 mg tablet 50 mg PO DAILY 06/03/24 09/30/24 spironolactone 50 mg tablet 50 mg PO DAILY 06/03/24 09/30/24 tamsulosin 0.4 mg capsule 0.4 mg PO DAILY 06/03/24 09/30/24 Previous Rx's ?Medication ?Instructions ?Recorded azithromycin 250 mg tablet See Rx Instructions PO .COMPLEX 5 06/03/24 (Zithromax Z-Abisai) days #6 tabs epinephrine 0.3 mg/0.3 mL 0.3 mg (0.3 mL) IM Q10M PRN 06/07/24 injection, auto-injector anaphylaxis #2 ea azithromycin 250 mg tablet 250 mg PO UD DOSE PK #6 tabs 06/29/24 (Zithromax) benzonatate 100 mg capsule 100 mg PO TIDP PRN Cough #30 caps 06/29/24 budesonide 2 mg/10 mL oral 1 packet PO BID #600 mL 09/04/24 suspension in packet (Eohilia) azithromycin 250 mg tablet 250 mg PO UD DOSE PK #6 tabs 11/02/24 (Zithromax) methylprednisolone 4 mg tablets in 4 mg PO DIRECTED 6 days #21 tabs 11/02/24 a dose pack Allergies Allergy/AdvReac Type Severity Reaction Status Date / Time peanut oil (PEANUT OIL) Allergy Severe S-SWELLS-OR Verified 09/30/24 14:09 AL/THROAT egg Allergy Intermediate Hives Verified 09/30/24 14:09 tetracycline (TETRACYCLINE) Allergy Intermediate I-RASH Verified 09/30/24 14:09 aspirin (ASPIRIN) Allergy Mild stomach Verified 09/30/24 14:09 pain cephalexin (From KEFLEX) Allergy Mild NA-NAUSEA/V Verified 09/30/24 14:09 OMITING codeine (CODEINE) Allergy Mild NA-NAUSEA/V Verified 09/30/24 14:09 OMITING polymyxin B (POLYMYXIN B) Allergy Mild fever Verified 09/30/24 14:09 sulfamethoxazole (From Allergy Mild NA-NAUSEA/V Verified 09/30/24 14:09 BACTRIM) OMITING trimethoprim (From BACTRIM) Allergy Mild NA-NAUSEA/V Verified 09/30/24 14:09 OMITING bee venom protein (honey bee) Allergy Verified 09/30/24 14:09 morphine Allergy Unknown Verified 09/30/24 14:09 allergy reaction nut - unspecified Allergy Verified 09/30/24 14:09 oxytetracycline (From Allergy Verified 09/30/24 14:09 Terramycin) shellfish derived Allergy Verified 09/30/24 14:09 Worker's Comp Is this a Worker's Comp case?: No [facility] Disclaimer: The information contained in this section may have been updated after the patient was seen, as this information can be updated by other users. Medical History Dysphagia History of esophageal stricture Chronic maxillary sinusitis Sinusitis Dysfunction of both eustachian tubes Depression Hypothyroid Depression Bronchitis Asthma Migraine History of back pain History of gastroesophageal reflux (GERD) Hemorrhoid Allergies Hypertension Edema History of acute lymphoblastic leukemia (ALL) Dyspnea Anxiety Surgical History History of esophagogastroduodenoscopy (EGD) Hx of cardiac cath Hx of hernia repair History of colonoscopy Family History Father Family history of heart disease Heart attack Grandmother CHF (congestive heart failure) Mother Heart murmur Family/Other Cancer Leukemia, patient himself; in remission now. Unknown Cancer colon ca Social History Smoking Status: Never smoker second hand exposure: Yes alcohol intake: never substance use type: denies use current occupational status: disabled Travel in the last 8 weeks: None household members: family housing: house current occupational exposures/hazards: No caffeine: Yes Have you lived/traveled outside [place] in past 30 days?: No Contact w/someone who lives/traveled outside [place] past 30 days?: No Exposure to someone with infectious disease in past 14 days?: Yes Do you have a fever (greater than 100.4 F or 38 C)?: No Have you tested positive for COVID-19: No Exposed to someone with COVID-19 in past 14 days?: No Do you have a sore throat?: No Do you have a cough?: No Do you have any weakness?: No Do you have any diarrhea?: No Are you experiencing any unusual bleeding?: No Do you have any muscle aches/pain?: No Do you have any abdominal pain?: No Are you experiencing loss of taste or smell?: No ROS Obtained: Yes All systems reviewed & no additional complaints except as documented Constitutional Constitutional: Reports poor appetite Eyes Eyes: Reports system reviewed and no additional complaints, except as documented ENT Ears, Nose, Mouth, and Throat: Reports as per HPI Cardiovascular Cardiovascular: Reports system reviewed and no additional complaints, except as documented and Denies chest pain Respiratory Respiratory: Denies shortness of breath, Denies chest congestion, Reports cough, Denies stridor and Denies wheezing Gastrointestinal Gastrointestingal: Reports system reviewed and no additional complaints, except as documented; Denies abdominal pain, diarrhea or vomiting Musculoskeletal Musculoskeletal: Reports system reviewed and no additional complaints, except as documented and Denies arthralgias Integumentary/Breasts Skin/Breast: Reports system reviewed and no additional complaints, except as documented and Denies rash Neurologic Neurologic: Denies paresthesias Allergic/Immunologic Allergic/Immunologic: Denies wheezing Physical Exam General General appearance: alert and in no apparent distress Eye Eye exam: Present normal appearance, PERRL and EOMI ENT ENT exam: Present mucous membranes moist and normal external ear exam Expanded ENT Exam External ear exam: Present normal external inspection TM/Canal exam: Bilateral TM: erythema and bulging Nose exam: Absent sinus tenderness Nasal speculum exam: Bilateral: normal Mouth exam: Present normal external inspection; Absent drooling Teeth exam: Present normal inspection Throat exam: Present tonsillar erythema and tonsillomegaly Neck Neck exam: Present normal inspection, full ROM and trachea midline; Absent tenderness, lymphadenopathy or thyromegaly Chest Chest inspection: Present normal inspection and symmetric chest wall rise; Absent tenderness or rash Respiratory Respiratory exam: Present normal lung sounds bilaterally; Absent respiratory distress, wheezes, stridor or accessory muscle use Cardiovascular Cardiovascular exam: Present regular rate, normal rhythm and normal heart sounds Abdominal Exam Abdominal exam: Present soft; Absent distention, tenderness, guarding, rebound or rigidity Extremities Exam Extremities exam: Present normal inspection, full ROM and normal capillary refill; Absent tenderness or calf tenderness Back Exam Back exam: Present normal inspection and full ROM; Absent tenderness Neurological Exam Neurological exam: Present alert and oriented X3 Psychiatric Psychiatric exam: Present normal affect and normal mood Skin Skin exam: Present warm, dry, intact and normal color Lymphatic Lymphatic Findings: no adenopathy Medical Decision Making Medical Records Medical records reviewed: No I reviewed the patient's medical records. Screening: Per USPSTF and CDC recommendations, given the prevalence of disease in our region, it is our hospital?s policy to screen for HIV and viral Hepatitis for all patients aged 18 and over and those with ongoing risk factors. Dante Inquiry Pt receiving controlled substance: No Vital Signs: 11/02/24 14:25 Temperature 98.4 F Temperature Source Oral Pulse Rate [Left Brachial] 69 Respiratory Rate 18 Blood Pressure [Left Arm] 124/77 Blood Pressure Mean [Left Arm] 92 02 Sat by Pulse Oximetry 99
[2024-11-02 15:09] VITALS: BP 124/77; PULSE 69; RESP 18; TEMP 36.9
[2024-11-02 15:10] LABS: Coronavirus 19, PCR Not Detected (NotDetected); Influenza A, PCR Not Detected (NotDetected); Influenza B, PCR Not Detected (NotDetected)
== END 2024-11-02 15:09 | disposition home or self-care (01) ==
PROVIDERS: Emergency Provider Nurse Practitioner Family; PCP Nurse Practitioner Family
DX: J32.9 Chronic sinusitis, unspecified (principal); R05.9 Cough, unspecified; R63.8 Other symptoms and signs concerning food and fluid intake; R09.89 Other specified symptoms and signs involving the circulatory and respiratory systems; Z20.822 Contact with and (suspected) exposure to COVID-19; Z20.828 Contact with and (suspected) exposure to other viral communicable diseases
CPT/HCPCS: 87636; 99212; G0381

== ENCOUNTER 2024-12-23 13:43 | Emergency (ER) | payer MEDICARE, OTHER, SELFPAY ==
[2024-12-23 13:47] VITALS: BP 116/84; PULSE 82; RESP 18; TEMP 36.4; O2SAT 100; BMI 31.3
--- NOTE | 2024-12-23 13:55 | PC.NURSE ---
Pt noted to have scattered bites to legs/arms
--- NOTE | 2024-12-23 14:07 | ED_ITS ---
Discharge Plan Disposition Patient Disposition: Home, Self-Care Condition: Good Chief Complaint: Skin/Abscess/Foreign Body Prescriptions Prescriptions: New triamcinolone acetonide 0.1 % cream 1 applic topical BID PRN (Reason: itching) Qty: 30 0RF No Action Eohilia 2 mg/10 mL suspension in packet 1 packet PO BID Qty: 600 5RF Rx Instructions: administer in the morning and evening furosemide 40 mg tablet 40 mg PO DAILY atorvastatin 10 mg tablet 10 mg PO DAILY Patient Comments: TAKE ONE TABLET BY MOUTH EVERY DAY levothyroxine 25 mcg tablet 25 mcg PO DAILY Patient Comments: TAKE ONE TABLET BY MOUTH EVERY DAY bisoprolol fumarate 10 mg tablet 10 mg PO DAILY Patient Comments: TAKE ONE TABLET BY MOUTH EVERY DAY tamsulosin 0.4 mg capsule 0.4 mg PO DAILY Patient Comments: TAKE ONE CAPSULE BY MOUTH EVERY DAY ergocalciferol (vitamin D2) 1,250 mcg (50,000 unit) capsule 1,250 mcg PO WEEKLY diazepam 10 mg tablet 10 mg PO DAILY Patient Comments: TAKE ONE TABLET BY MOUTH TWICE DAILY FOR ANXIETY spironolactone 50 mg tablet 50 mg PO DAILY Patient Comments: TAKE ONE TABLET BY MOUTH TWICE DAILY quetiapine 50 mg tablet 50 mg PO DAILY Patient Comments: TAKE ONE TABLET BY MOUTH AT BEDTIME FOR ANXIETY Linzess 72 mcg capsule 72 mcg PO DAILY Patient Comments: TAKE ONE CAPSULE BY MOUTH EVERY DAY Dupixent Pen 300 mg/2 mL pen injector 300 mg SQ WEEKLY methylprednisolone 4 mg Tablets,Dose Pack 4 mg PO DIRECTED 6 Days Qty: 21 0RF Rx Instructions: Take 1 pack as directed for 6 days epinephrine 0.3 mg/0.3 mL auto-injector 0.3 mg IM Q10M PRN (Reason: anaphylaxis) Qty: 2 0RF Rx Instructions: for 2 doses benzonatate 100 mg capsule 100 mg PO TIDP PRN (Reason: Cough) Qty: 30 0RF Referrals Follow up/Referrals: Leatha Brownlee APRN [Primary Care Provider] - See instructions Activity Restrictions/Add. Instructions Additional Instructions/Restrictions: The best way to get rid of bedbugs is to call a professional pest control company. They use special pesticides and other equipment to kill the bugs and their eggs. If you decide to buy your own pesticide, check the label. Make sure it says that it is for bedbugs. Be sure to follow the directions carefully. You may have to use the pesticide more than once. Do other cleaning steps such as: Vacuum often. Be sure to empty the vacuum after each use. If you use a vacuum bag, seal it and throw it out in an outdoor trash can. If you don't use a vacuum bag, empty the container and clean it with hot, soapy water.Launder things that might hide bugs. Washing and then drying items in a dryer on a hot setting is adequate to kill bedbugs in clothing or linens. Turn the dryer to the hottest setting that the fabric can handle.Use mattress, box spring, and pillow (encasement) sacks to trap bed bugs and help get rid of them. Be sure to follow the directions on the package. After your mattress has been cleared of bedbugs, you can buy a special mattress cover that is made to keep bedbugs out of your mattress. Wash the bites with soap to lower the chance of infection. Try not to scratch.Use calamine lotion or an anti-itch cream to stop the itching. You can also hold an oatmeal-soaked face cloth on the itchy area for 15 minutes. You can buy an oatmeal powder, such as Aveeno Colloidal Oatmeal, in drugstores.Use an ice pack to stop the swelling. Clinical Impressions Clinical Impression: Infestation by bed bug Instructions Patient Instructions: DI for Bed Bug Bites Print Language Print Language: [place] Discharge ED Provider: Chasity Martin General Adult HPI General Chief complaint: Skin/Abscess/Foreign Body Stated complaint: bed bug bite Time Seen by Provider: 12/23/24 14:02 Mode of Arrival: Ambulatory Source of Information: Patient Limitations: No Limitations Description of Symptoms (Recalled from ER Triage Doc. by RN): Pt presents for evaluation due to bed bug bites. Requesting medication to help with the itching. History of Present Illness HPI narrative: This patient is a 54-year-old male presenting to the emergency department for evaluation with concern for bedbug bites. Patient states that he was around somebody with bedbugs and now has rash. Rashes are itchy. He has had history of bedbugs in the past. He request medication for the itching. No fevers, redness, warmth, or other concerns noted. He does have itchy bumps on his arms and his thighs Related Data Home Medications ?Medication ?Instructions ?Recorded ?Confirmed atorvastatin 10 mg tablet 10 mg PO DAILY 06/03/24 12/23/24 bisoprolol fumarate 10 mg tablet 10 mg PO DAILY 06/03/24 12/23/24 diazepam 10 mg tablet 10 mg PO DAILY 06/03/24 12/23/24 dupilumab 300 mg/2 mL subcutaneous 300 mg SQ WEEKLY 06/03/24 12/23/24 pen injector (Dupixent) ergocalciferol (vitamin D2) 1,250 1,250 mcg PO WEEKLY 06/03/24 12/23/24 mcg (50,000 unit) capsule furosemide 40 mg tablet 40 mg PO DAILY 06/03/24 12/23/24 levothyroxine 25 mcg tablet 25 mcg PO DAILY 06/03/24 12/23/24 linaclotide 72 mcg capsule 72 mcg PO DAILY 06/03/24 12/23/24 (Linzess) quetiapine 50 mg tablet 50 mg PO DAILY 06/03/24 12/23/24 spironolactone 50 mg tablet 50 mg PO DAILY 06/03/24 12/23/24 tamsulosin 0.4 mg capsule 0.4 mg PO DAILY 06/03/24 12/23/24 Previous Rx's ?Medication ?Instructions ?Recorded epinephrine 0.3 mg/0.3 mL 0.3 mg (0.3 mL) IM Q10M PRN 06/07/24 injection, auto-injector anaphylaxis #2 ea benzonatate 100 mg capsule 100 mg PO TIDP PRN Cough #30 caps 06/29/24 budesonide 2 mg/10 mL oral 1 packet PO BID #600 mL 09/04/24 suspension in packet (Eohilia) methylprednisolone 4 mg tablets in 4 mg PO DIRECTED 6 days #21 tabs 11/02/24 a dose pack triamcinolone acetonide 0.1 % 1 applic topical BID PRN itching 12/23/24 topical cream #30 grams Allergies Allergy/AdvReac Type Severity Reaction Status Date / Time peanut oil (PEANUT OIL) Allergy Severe S-SWELLS-OR Verified 12/08/24 14:11 AL/THROAT egg Allergy Intermediate Hives Verified 12/08/24 14:11 tetracycline (TETRACYCLINE) Allergy Intermediate I-RASH Verified 12/08/24 14:11 aspirin (ASPIRIN) Allergy Mild stomach Verified 12/08/24 14:11 pain cephalexin (From KEFLEX) Allergy Mild NA-NAUSEA/V Verified 12/08/24 14:11 OMITING codeine (CODEINE) Allergy Mild NA-NAUSEA/V Verified 12/08/24 14:11 OMITING polymyxin B (POLYMYXIN B) Allergy Mild fever Verified 12/08/24 14:11 sulfamethoxazole (From Allergy Mild NA-NAUSEA/V Verified 12/08/24 14:11 BACTRIM) OMITING trimethoprim (From BACTRIM) Allergy Mild NA-NAUSEA/V Verified 12/08/24 14:11 OMITING bee venom protein (honey bee) Allergy Verified 12/08/24 14:11 morphine Allergy Unknown Verified 12/08/24 14:11 allergy reaction nut - unspecified Allergy Verified 12/08/24 14:11 oxytetracycline (From Allergy Verified 12/08/24 14:11 Terramycin) shellfish derived Allergy Verified 12/08/24 14:11 [facility] Disclaimer: The information contained in this section may have been updated after the patient was seen, as this information can be updated by other users. Medical History Dysphagia History of esophageal stricture Chronic maxillary sinusitis Sinusitis Dysfunction of both eustachian tubes Depression Hypothyroid Depression Bronchitis Asthma Migraine History of back pain History of gastroesophageal reflux (GERD) Hemorrhoid Allergies Hypertension Edema History of acute lymphoblastic leukemia (ALL) Dyspnea Anxiety Surgical History History of esophagogastroduodenoscopy (EGD) Hx of cardiac cath Hx of hernia repair History of colonoscopy Family History Father Family history of heart disease Heart attack Grandmother CHF (congestive heart failure) Mother Heart murmur Family/Other Cancer Unknown Cancer Social History Smoking Status: Never smoker second hand exposure: Yes alcohol intake: never substance use type: denies use current occupational status: disabled Travel in the last 8 weeks: None household members: family housing: house current occupational exposures/hazards: No caffeine: Yes Have you lived/traveled outside [place] in past 30 days?: No Contact w/someone who lives/traveled outside [place] past 30 days?: No Exposure to someone with infectious disease in past 14 days?: No Do you have a fever (greater than 100.4 F or 38 C)?: No Have you tested positive for COVID-19: No Exposed to someone with COVID-19 in past 14 days?: No Do you have a sore throat?: No Do you have a cough?: No Do you have any weakness?: No Are you experiencing any nausea/vomitting?: No Do you have any diarrhea?: No Are you experiencing any unusual bleeding?: No Do you have any muscle aches/pain?: No Do you have any abdominal pain?: No Are you experiencing loss of taste or smell?: No Other Medical History Have you received the Flu Vaccine for this season: No Have you received the Pneumonia Vaccine: No ROS Obtained: Yes All systems reviewed & no additional complaints except as documented Physical Exam General General appearance: alert and in no apparent distress Head Head exam: atraumatic and normocephalic Eye Eye exam: Present normal appearance, PERRL and EOMI ENT ENT exam: Present normal exam, normal oropharynx, mucous membranes moist and normal external ear exam Neck Neck exam: Present normal inspection, full ROM and trachea midline; Absent tenderness Chest Chest inspection: Present normal inspection and symmetric chest wall rise; Absent tenderness Respiratory Respiratory exam: Present normal lung sounds bilaterally; Absent respiratory distress, wheezes, stridor or accessory muscle use Cardiovascular Cardiovascular exam: Present regular rate and normal rhythm Abdominal Exam Abdominal exam: Present soft; Absent distention, tenderness or guarding Extremities Exam Extremities exam: Present normal inspection, full ROM and normal capillary refill; Absent tenderness or edema Back Exam Back exam: Present normal inspection and full ROM; Absent tenderness Neurological Exam Neurological exam: Present alert, oriented X3, CN II-XII intact and normal gait; Absent motor sensory deficit Psychiatric Psychiatric exam: Present normal affect and normal mood Skin Skin exam: Present warm, dry and rash (Erythematous lesions consistent with bug bites with excoriations. No concerns for secondary infection based on clinical exam) Medical Decision Making Medical Records Medical records reviewed: Yes I reviewed the patient's medical records. Screening: Per USPSTF and CDC recommendations, given the prevalence of disease in our region, it is our hospital?s policy to screen for HIV and viral Hepatitis for all patients aged 18 and over and those with ongoing risk factors. Dante Inquiry Pt receiving controlled substance: No Vital Signs: 12/23/24 13:47 Temperature 97.6 F Temperature Source Oral Pulse Rate [Right] 82 Respiratory Rate 18 Blood Pressure [Right Arm] 116/84 Blood Pressure Mean [Right Arm] 94 Blood Pressure Source [Right Arm] Automatic Cuff Blood Pressure Position [Right Arm] Sitting 02 Sat by Pulse Oximetry 100 Oxygen Delivery Method Room Air Lab Data Lab results reviewed: Yes I reviewed the patient's lab results. Medical Decision Narrative: In summary, this patient is a 54-year-old male presenting to the Emergency Department for evaluation of bedbug bites. Differential diagnoses considered include but are not limited to bedbug infestation, contact otitis, scabies. Ruling out the most morbid conditions drove assessment. It should be noted patient's history includes migraines, ALL, hypothyroid which they or may not be at goal therapy. This complicates all aspects of care by increasing patient's risk for morbidity. I reviewed patient's past medical records and noted previous issues with bedbugs in the past. On exam, patient has erythematous spots with excoriations that are consistent with bedbug bites. No concerns for secondary infection based on clinical exam. I do not feel labs or imaging are indicated as it would likely not pattern changer and repairer. Patient was given instructions for removal of bedbugs, care, and prescription for triamcinolone to have as needed for itching. He was discharged with strict return precautions. Critical Care Critical Care Time Critical Care Time: No
[2024-12-23 14:10] VITALS: BP 118/78; PULSE 72; RESP 18; TEMP 36.4; O2SAT 98
== END 2024-12-23 14:11 | disposition home or self-care (01) ==
PROVIDERS: Emergency Provider Emergency Medicine; PCP Nurse Practitioner Family
DX: B88.8 Other specified infestations (principal); R21 Rash and other nonspecific skin eruption
CPT/HCPCS: 99283

== ENCOUNTER 2025-02-24 14:30 | Outpatient (CLI) | payer MEDICARE, OTHER, SELFPAY ==
--- NOTE | 2025-02-24 14:34 | XR_ITS ---
FINAL REPORT TECHNIQUE: Chest PA & Lateral CLINICAL HISTORY: injury from fall, left sided rib pain COMPARISON: 02/16/2023 FINDINGS: 2 views of the chest were performed. The heart size is normal. The mediastinum is within normal limits. There is no acute cardiopulmonary process. There are no pleural effusions. There is no pneumothorax. The bony thorax appears intact. IMPRESSION: No acute cardiopulmonary process. Reviewed, Interpreted and Dictated by Clemente Angeles MD Transcribed by Maria C Figueroa Authenticated and [facility]
--- NOTE | 2025-02-24 14:35 | XR_ITS ---
FINAL REPORT CLINICAL HISTORY: INJURY FROM FALL COMPARISON: None FINDINGS: 3 views of the left ribs were obtained. There is no displaced, acute fracture identified. The visualized lungs are clear. No pneumothorax is identified. IMPRESSION: No displaced rib fracture or pneumothorax identified. Reviewed, Interpreted and Dictated by Clemente Angeles MD Transcribed by Maria C Figueroa Authenticated and [facility]
== END 2025-02-24 23:59 | disposition home or self-care (01) ==
LOC: RAD 14:32
PROVIDERS: PCP Nurse Practitioner Family; Visit Provider Nurse Practitioner Family
DX: G89.11 Acute pain due to trauma (principal); R07.89 Other chest pain
CPT/HCPCS: 71046; 71100

== ENCOUNTER 2025-04-09 13:14 | Outpatient (CLI) | payer MEDICARE, OTHER, SELFPAY ==
--- NOTE | 2025-04-09 13:20 | XR_ITS ---
FINAL REPORT CLINICAL HISTORY: DORSALGIA c/o neck, upper and lower back pain FINDINGS: CERVICAL SPINE Three views were obtained. There is no acute fracture. There is reversal of the cervical lordosis. There is very mild degenerative disc disease, most pronounced at C4-5. There is no malalignment. IMPRESSION: No acute process. THORACIC SPINE Three views were obtained. There is no acute fracture. The disc spaces are well-preserved. There is no malalignment. IMPRESSION: No acute process. LUMBAR SPINE Three views were obtained. There is no acute fracture. The disc spaces are well-preserved. There is no malalignment. IMPRESSION: No acute process. Reviewed, Interpreted and Dictated by Savannah Escobar MD Transcribed by Mireya Sarabia Authenticated and [facility]
== END 2025-04-09 23:59 | disposition home or self-care (01) ==
PROVIDERS: PCP Nurse Practitioner Family; Visit Provider Nurse Practitioner Family
DX: M54.9 Dorsalgia, unspecified (principal)
CPT/HCPCS: 72084

== ENCOUNTER 2025-04-18 13:35 | Emergency (ER) | payer MEDICARE, OTHER, SELFPAY ==
[2025-04-18 13:40] VITALS: BP 140/85; PULSE 103; O2SAT 96
[2025-04-18 13:42] VITALS: BP 140/85; PULSE 104; RESP 18; TEMP 36.6; O2SAT 96; BMI 39.6
--- NOTE | 2025-04-18 13:47 | HMH.EDGENADL ---
Discharge Plan Disposition Patient Disposition: Home, Self-Care Condition: Good Prescriptions Prescriptions: No Action Eohilia 2 mg/10 mL suspension in packet 1 packet PO BID Qty: 600 5RF Rx Instructions: administer in the morning and evening furosemide 40 mg tablet 40 mg PO DAILY atorvastatin 10 mg tablet 10 mg PO DAILY Patient Comments: TAKE ONE TABLET BY MOUTH EVERY DAY levothyroxine 25 mcg tablet 25 mcg PO DAILY Patient Comments: TAKE ONE TABLET BY MOUTH EVERY DAY bisoprolol fumarate 10 mg tablet 10 mg PO DAILY Patient Comments: TAKE ONE TABLET BY MOUTH EVERY DAY tamsulosin 0.4 mg capsule 0.4 mg PO DAILY Patient Comments: TAKE ONE CAPSULE BY MOUTH EVERY DAY ergocalciferol (vitamin D2) 1,250 mcg (50,000 unit) capsule 1,250 mcg PO WEEKLY diazepam 10 mg tablet 10 mg PO DAILY Patient Comments: TAKE ONE TABLET BY MOUTH TWICE DAILY FOR ANXIETY spironolactone 50 mg tablet 50 mg PO DAILY Patient Comments: TAKE ONE TABLET BY MOUTH TWICE DAILY quetiapine 50 mg tablet 50 mg PO DAILY Patient Comments: TAKE ONE TABLET BY MOUTH AT BEDTIME FOR ANXIETY Linzess 72 mcg capsule 72 mcg PO DAILY Patient Comments: TAKE ONE CAPSULE BY MOUTH EVERY DAY Dupixent Pen 300 mg/2 mL pen injector 300 mg SQ WEEKLY methylprednisolone 4 mg Tablets,Dose Pack 4 mg PO DIRECTED 6 Days Qty: 21 0RF Rx Instructions: Take 1 pack as directed for 6 days triamcinolone acetonide 0.1 % cream 1 applic topical BID PRN (Reason: itching) Qty: 30 0RF epinephrine 0.3 mg/0.3 mL auto-injector 0.3 mg IM Q10M PRN (Reason: anaphylaxis) Qty: 2 0RF Rx Instructions: for 2 doses benzonatate 100 mg capsule 100 mg PO TIDP PRN (Reason: Cough) Qty: 30 0RF Referrals Follow up/Referrals: Leatha Brownlee APRN [Primary Care Provider, Medical] - See instructions Activity Restrictions/Add. Instructions Additional Instructions/Restrictions: As we discussed you may take 225 mg Benadryl tablets every 4 hours for swelling. If you have persistent new or worsening signs or symptoms return to the emergency department or follow-up with your PCP as needed. Clinical Impressions Clinical Impression: Insect bite Qualifiers: Encounter type: initial encounter Site of insect bite: head Site of insect bite of head: eyelid Laterality: right Qualified Code(s): S00.261A - Insect bite (nonvenomous) of right eyelid and periocular area, initial encounter Print Language Print Language: Lao Discharge ED Provider: Nayeli Constantino General Adult HPI <SHIRLEY Eaton - Last Filed: 04/18/25 14:23> General Chief complaint: Allergic Reaction Stated complaint: Insect sting under R eye Time Seen by Provider: 04/18/25 13:47 History of Present Illness HPI narrative: Patient presents for evaluation of an insect bite. Patient was sitting outside and noticed an insect landed on his face under his glasses. When he took off his glasses he felt a bite or sting at his right lower eyelid. Patient came to the emergency department for evaluation as he is allergic to a bee sting. He unfortunately does not know whether not it was a bee or not. He denies any other symptoms occluding shortness of breath swelling difficulty breathing or swallowing. Related Data Home Medications ?Medication ?Instructions ?Recorded ?Confirmed atorvastatin 10 mg tablet 10 mg PO DAILY 06/03/24 12/23/24 bisoprolol fumarate 10 mg tablet 10 mg PO DAILY 06/03/24 12/23/24 diazepam 10 mg tablet 10 mg PO DAILY 06/03/24 12/23/24 dupilumab 300 mg/2 mL subcutaneous 300 mg SQ WEEKLY 06/03/24 12/23/24 pen injector (Dupixent) ergocalciferol (vitamin D2) 1,250 1,250 mcg PO WEEKLY 06/03/24 12/23/24 mcg (50,000 unit) capsule furosemide 40 mg tablet 40 mg PO DAILY 06/03/24 12/23/24 levothyroxine 25 mcg tablet 25 mcg PO DAILY 06/03/24 12/23/24 linaclotide 72 mcg capsule 72 mcg PO DAILY 06/03/24 12/23/24 (Linzess) quetiapine 50 mg tablet 50 mg PO DAILY 06/03/24 12/23/24 spironolactone 50 mg tablet 50 mg PO DAILY 06/03/24 12/23/24 tamsulosin 0.4 mg capsule 0.4 mg PO DAILY 06/03/24 12/23/24 Previous Rx's ?Medication ?Instructions ?Recorded epinephrine 0.3 mg/0.3 mL 0.3 mg (0.3 mL) IM Q10M PRN 06/07/24 injection, auto-injector anaphylaxis #2 ea benzonatate 100 mg capsule 100 mg PO TIDP PRN Cough #30 caps 06/29/24 budesonide 2 mg/10 mL oral 1 packet PO BID #600 mL 09/04/24 suspension in packet (Eohilia) methylprednisolone 4 mg tablets in 4 mg PO DIRECTED 6 days #21 tabs 11/02/24 a dose pack triamcinolone acetonide 0.1 % 1 applic topical BID PRN itching 12/23/24 topical cream #30 grams Allergies Allergy/AdvReac Type Severity Reaction Status Date / Time peanut oil (PEANUT OIL) Allergy Severe S-SWELLS-OR Verified 12/08/24 14:11 AL/THROAT egg Allergy Intermediate Hives Verified 12/08/24 14:11 tetracycline (TETRACYCLINE) Allergy Intermediate I-RASH Verified 12/08/24 14:11 aspirin (ASPIRIN) Allergy Mild stomach Verified 12/08/24 14:11 pain cephalexin (From KEFLEX) Allergy Mild NA-NAUSEA/V Verified 12/08/24 14:11 OMITING codeine (CODEINE) Allergy Mild NA-NAUSEA/V Verified 12/08/24 14:11 OMITING polymyxin B (POLYMYXIN B) Allergy Mild fever Verified 12/08/24 14:11 sulfamethoxazole (From Allergy Mild NA-NAUSEA/V Verified 12/08/24 14:11 BACTRIM) OMITING trimethoprim (From BACTRIM) Allergy Mild NA-NAUSEA/V Verified 12/08/24 14:11 OMITING bee venom protein (honey bee) Allergy Verified 12/08/24 14:11 morphine Allergy Unknown Verified 12/08/24 14:11 allergy reaction nut - unspecified Allergy Verified 12/08/24 14:11 oxytetracycline (From Allergy Verified 12/08/24 14:11 Terramycin) shellfish derived Allergy Verified 12/08/24 14:11 [facility] <SHIRLEY Eaton - Last Filed: 04/18/25 14:23> [facility] Disclaimer: The information contained in this section may have been updated after the patient was seen, as this information can be updated by other users. Medical History Dysphagia History of esophageal stricture Chronic maxillary sinusitis Sinusitis Dysfunction of both eustachian tubes Depression Hypothyroid Depression Bronchitis Asthma Migraine History of back pain History of gastroesophageal reflux (GERD) Hemorrhoid Allergies Hypertension Edema History of acute lymphoblastic leukemia (ALL) Dyspnea Anxiety Surgical History History of esophagogastroduodenoscopy (EGD) Hx of cardiac cath Hx of hernia repair History of colonoscopy Family History Father Family history of heart disease Heart attack Grandmother CHF (congestive heart failure) Mother Heart murmur Family/Other Cancer Unknown Cancer Social History Smoking Status: Never smoker second hand exposure: Yes alcohol intake: never substance use type: denies use current occupational status: disabled Travel in the last 8 weeks?: None household members: family housing: house current occupational exposures/hazards: No caffeine: Yes Have you lived/traveled outside [place] in past 30 days?: No Contact w/someone who lives/traveled outside US past 30 days?: No Exposure to someone with infectious disease in past 14 days?: No Do you have a fever (greater than 100.4 F or 38 C)?: No Have you tested positive for COVID-19?: No Exposed to someone with COVID-19 in past 14 days?: No Do you have a sore throat?: No Do you have a cough?: No Do you have any weakness?: No Do you have any diarrhea?: No Are you experiencing any unusual bleeding?: No Do you have any muscle aches/pain?: No Do you have any abdominal pain?: No Are you experiencing loss of taste or smell?: No Other Medical History Have you received the Flu Vaccine for this season: No Have you received the Pneumonia Vaccine: No <SHIRLEY Eaton - Last Filed: 04/18/25 14:23> ROS Obtained: Yes Systems reviewed as appropriate & no additional complaints except as documented Physical Exam <SHIRLEY Eaton - Last Filed: 04/18/25 14:23> General General appearance: alert and in no apparent distress Neck Neck exam: Present lymphadenopathy Respiratory Respiratory exam: Present normal lung sounds bilaterally Cardiovascular Cardiovascular exam: Present regular rate Neurological Exam Neurological exam: Present alert and oriented X3 Medical Decision Making <SHIRLEY Eaton - Last Filed: 04/18/25 14:23> Medical Records Medical records reviewed: Yes I reviewed the patient's medical records. Screening: Per USPSTF and CDC recommendations, given the prevalence of disease in our region, it is our hospital?s policy to screen for HIV and viral Hepatitis for all patients aged 18 and over and those with ongoing risk factors. Dante Inquiry Pt receiving controlled substance: No Vital Signs: 04/18/25 13:40 04/18/25 13:42 04/18/25 14:00 Temperature 97.8 F Temperature Source Oral Pulse Rate 103 H 103 H Pulse Rate [Radial] 104 H Respiratory Rate 18 Blood Pressure 140/85 123/84 Blood Pressure [Right Arm] 140/85 Blood Pressure Mean [Right Arm] 103 Blood Pressure Source Blood Pressure Source [Right Arm] Automatic Cuff Blood Pressure Position Blood Pressure Position [Right Arm] Sitting 02 Sat by Pulse Oximetry 96 96 96 Oxygen Delivery Method Room Air Room Air Room Air 04/18/25 14:15 Temperature 98.3 F Temperature Source Oral Pulse Rate 98 H Pulse Rate [Radial] Respiratory Rate 18 Blood Pressure 123/84 Blood Pressure [Right Arm] Blood Pressure Mean [Right Arm] Blood Pressure Source Automatic Cuff Blood Pressure Source [Right Arm] Blood Pressure Position Sitting Blood Pressure Position [Right Arm] 02 Sat by Pulse Oximetry Oxygen Delivery Method Nasal Cannula Orders (Tests/Meds): ED MEDICATIONS Discontinued Medications Generic Name Dose Route Start Last Admin Trade Name Freq PRN Reason Stop Dose Admin Diphenhydramine HCl 50 mg 04/18/25 14:02 04/18/25 14:05 Diphenhydramine 25mg Capsule PO 04/18/25 14:03 50 mg ONCE ONE Administration Medical Decision Narrative: In summary patient is a 55-year-old male who presents to the emergency department for evaluation of bite. Patient is hemodynamically stable upon arrival, afebrile. Physical exam is remarkable for slight right lower lid edema but extraocular movements are intact without pain, there is no induration or facial swelling and no obvious sting or visible bite although there is slight redness at the inferior border of the right lower lid the midline. Patient has clear breath sounds with no mucosal involvement oropharynx is patent breathsounds are clear. Differential diagnosis includes insect bite versus allergic reaction however patient has no red flags to suggest systemic involvement so alternative diagnosis is were not pursued. Initial workup was considered however patient has no red flags for anything other than local involvement so CURRIE deferred. Initial interventions include p.o. Benadryl and ice pack. As patient has only local symptoms and no evidence of systemic involvement or allergic or anaphylactic reaction patient reassured that symptomatic treatment is appropriate with Benadryl and ice packs. Patient advised to take Benadryl every 4 hours as long as he has swelling. He has no itching and no signs of anaphylaxis thus patient is appropriate for discharge with symptomatic and supportive care. <Nayeli Constantino MD - Last Filed: 04/18/25 15:53> Vital Signs: 04/18/25 13:40 04/18/25 13:42 04/18/25 14:00 Temperature 97.8 F Temperature Source Oral Pulse Rate 103 H 103 H Pulse Rate [Radial] 104 H Respiratory Rate 18 Blood Pressure 140/85 123/84 Blood Pressure [Right Arm] 140/85 Blood Pressure Mean [Right Arm] 103 Blood Pressure Source Blood Pressure Source [Right Arm] Automatic Cuff Blood Pressure Position Blood Pressure Position [Right Arm] Sitting 02 Sat by Pulse Oximetry 96 96 96 Oxygen Delivery Method Room Air Room Air Room Air 04/18/25 14:15 Temperature 98.3 F Temperature Source Oral Pulse Rate 98 H Pulse Rate [Radial] Respiratory Rate 18 Blood Pressure 123/84 Blood Pressure [Right Arm] Blood Pressure Mean [Right Arm] Blood Pressure Source Automatic Cuff Blood Pressure Source [Right Arm] Blood Pressure Position Sitting Blood Pressure Position [Right Arm] 02 Sat by Pulse Oximetry Oxygen Delivery Method Nasal Cannula Orders (Tests/Meds): ED MEDICATIONS Discontinued Medications Generic Name Dose Route Start Last Admin Trade Name Freq PRN Reason Stop Dose Admin Diphenhydramine HCl 50 mg 04/18/25 14:02 04/18/25 14:05 Diphenhydramine 25mg Capsule PO 04/18/25 14:03 50 mg ONCE ONE Administration Medical Decision Narrative: In summary patient is a 55-year-old male who presents to the emergency department for evaluation of bite. Patient is hemodynamically stable upon arrival, afebrile. Physical exam is remarkable for slight right lower lid edema but extraocular movements are intact without pain, there is no induration or facial swelling and no obvious sting or visible bite although there is slight redness at the inferior border of the right lower lid the midline. Patient has clear breath sounds with no mucosal involvement oropharynx is patent breathsounds are clear. Differential diagnosis includes insect bite versus allergic reaction however patient has no red flags to suggest systemic involvement so alternative diagnosis is were not pursued. Initial workup was considered however patient has no red flags for anything other than local involvement so CURRIE deferred. Initial interventions include p.o. Benadryl and ice pack. As patient has only local symptoms and no evidence of systemic involvement or allergic or anaphylactic reaction patient reassured that symptomatic treatment is appropriate with Benadryl and ice packs. Patient advised to take Benadryl every 4 hours as long as he has swelling. He has no itching and no signs of anaphylaxis thus patient is appropriate for discharge with symptomatic and supportive care. I was consulted by the FRANCIA, and we discussed the complexity of problems being addressed. I approved the treatment and management plan for this patient's care in the emergency department, thus performing a substantial portion of the medical decision making. Nayeli Constantino MD Critical Care <SHIRLEY Eaton - Last Filed: 04/18/25 14:23> Critical Care Time Critical Care Time: No
--- OUTSIDE RECORDS SUMMARY | 2025-04-18 13:52 | XMS_ITS | Clinical Summary ---
Author Organization [facility] Address [facility] [place] [address] Care Team Providers Care Installer [employer] Name Role Phone Leatha Brownlee APRN Primary Care Provider [phone] Family History Medical History Relation Name Comments Colon cancer Brother Alcohol abuse Father Cardiac disorder Father Conversions - Other Father Hepatiti s C, acute Heart failure Father Conversions - Other Mother Hepatiti s C, acute Hypertension Mother Cardiac disorder Other 1 Cardiac disorder Other 2 Colon cancer Other 3 Diabetes Other 4 Heart failure Other 5 Heart failure Other 6 Hypertension Other 7 Relation Name Status Comments Brother Father Mother Other 1 Other 2 Other 3 Other 4 Other 5 Other 6 Other 7 Social History Tobacco Use Types Packs/Day Years Used Date Smoking Tobacco: Never Alcohol Use Standard Drinks/Week Comments Yes 0 (1 standard drink = 0.6 oz pur e alcohol) Sex and Gender Information Value Date Recorded Sex Assigned at Not on file Legal Sex Male 7:28 PM EDT Gender Identity Not on file Sexual Orientation Not on file Last Filed Vital Signs Vital Sign Reading Time Taken Comments Blood Pressure 119/81 01/04/2021 12:46 PM EST Pulse 77 01/04/2021 12:46 PM EST Temperature 36.1 C (97 F) 01/04/2021 12:46 PM EST Respiratory Rate - - Oxygen Saturation - - Inhaled Oxygen Concentration - - Weight 120 kg (264 lb 8.8 oz) 01/04/2021 12:46 P M EST Height 170.2 cm (5' 7 ) 01/04/2021 12:46 PM EST Body Mass Index 41.43 01/04/2021 12:46 PM EST Plan of Treatment Health Maintenance Due Date Last Done Comments [facility]-Depression Screening 1972 [facility]-/Child/Adol SDOH Screenings 1972 [facility]- SDOH Screenings 02/04/1990 [facility]-Adult SDOH Screenings 02/04/1990 [facility]-Hepatitis B Vaccines (1 of 3 - 19+ 3-dose series) 02/04/1991 CT Colonography 02/04/2017 Colonoscopy 02/04/2017 FIT-DNA 02/04/2017 FIT 02/04/2017 FOBT 02/04/2017 Sigmoidoscopy 02/04/2017 [facility]-Colorectal Cancer Screening 02/04/2017 [facility]-Pneumococcal Vaccine: 50 + Years (1 of 1 - PCV) 02/04/2022 [facility]-Zoster Vaccines (1 of 2) 02/04/2022 [id number] Vaccine (3 - 2023- season) 2024 03/02/2021, 02/02/2021 [facility]-Influenza Vaccine (Seas[place] n Ended) 2025 09/08/2020 [facility]-DTaP,Tdap,and Td Vaccine s (4 - Td or Tdap) 06/10/2028 06/10/2018, 04/14/2013, 06/29/2007 HPV Vaccines Aged Out No longer eligi ble based on patient's age to complete this topic [facility]-HIB Vaccines Aged Out No longer e ligible based on patient's age to complete this topic [facility]-Hepatitis A Vaccines Aged Out No longer eligible based on patient's age to complete this topic [facility]-IPV Vaccines Aged Out No longer e ligible based on patient's age to complete this topic [facility]-Rotavirus Vaccines Aged Out No lo nger eligible based on patient's age to complete this topic Insurance [facility] MEDICARE [facility] MEDICAID Care Teams [employer]er [employer] Relationship Specialty Start Date End Date Leatha Brownlee APRN [address] [place] [id number] PCP - General 03/18/21
[2025-04-18 14:00] VITALS: BP 123/84; PULSE 103; O2SAT 96
[2025-04-18] MEDS: diphenhydrAMINE 25MG CAPSULE 50 MG PO (14:05)
[2025-04-18 14:15] VITALS: BP 123/84; PULSE 98; RESP 18; TEMP 36.8; O2SAT 95
== END 2025-04-18 14:18 | disposition home or self-care (01) ==
PROVIDERS: Emergency Provider Student in an Organized Health Care Education/Training Program; PCP Nurse Practitioner Family
DX: S00.261A Insect bite (nonvenomous) of right eyelid and periocular area, initial encounter (principal); W57.XXXA Bitten or stung by nonvenomous insect and other nonvenomous arthropods, initial encounter
CPT/HCPCS: 99283

== ENCOUNTER 2025-05-05 11:48 | Emergency (ER) | payer MEDICARE, OTHER, SELFPAY ==
[2025-05-05] VITALS (7 sets, daily range): BP systolic 102–130; BP diastolic 61–83; PULSE 58–76; RESP 16–18; TEMP 36.6–36.9; O2SAT 96–100; BMI 39.4
--- OUTSIDE RECORDS SUMMARY | 2025-05-05 11:59 | XMS_ITS | Continuity of Care Document ---
Author Organization YANA Suha Wiggins [facility] Address [address] [place] [address] Care Team Providers Care Poultry Service Technician Name Role Phone BRYAN BROWNLEE Primary Care Provider TIM Soria [address] Justice [phone] Assessment No assessment recorded. Plan of Treatment Reminders Order Date Submit Date Provider Last Modified By Organization Details Last Modified Time Details Appointments Medicare AWE 40mins 2024 11:00A M Bryan Brownlee APRN Not available Not available Not available Follow Up 2024 02:00P M Bryan Brownlee APRN Not available Not available Not available Lab None recorded. Referral orthopedi c surgeon referral 2024 025 ALONZO Aguillon, [address], [address], [place], [address], 04/13/2025 13:40:27 Procedures None recorded. Surgeries None recorded. Imaging XR, lumbar spine 2024 025 [facility] (X-Ray), [address] [place] [address] [address], [place], [id number], 04/22/2025 04:06:50 XR, cervical spine, 2 or 3 view 2024 025 [facility] (X-Ray), [address], [place], [id number], 04/09/2025 15:41:31 XR, thoracic spine, 2 view 2024 025 [facility] (X-Ray), [address], [place], [id number], 04/15/2025 04:05:32 home sleep study 2024 025 [facility] (Scheduling), [address], [place], [id number], 04/08/2025 08:25:10 Medication Orders fluticaso ne propionat e 50 mcg/actua tion nasal spray,ronnie pension 2024 025 [facility], [address] [place] [address] S, [place], [id number], 05/01/2025 16:05:01 tamsulosi n 0.4 mg capsule 2024 025 [facility], [address] [place] [address] S, [place], [id number], 05/01/2025 16:05:07 bisoprolo l fumarate 10 mg tablet 2024 025 [facility], [address] [place] [address] S, [place], [id number], 05/01/2025 16:05:02 diltiazem CD 240 mg capsule,e xtended release 24 hr 2024 025 [facility], [address] [place] [address] 27 S, [place], [id number], 05/01/2025 16:04:58 furosemid e 40 mg tablet 2024 025 [facility], [address] [place] [address] 27 S, [place], [id number], 05/01/2025 16:05:10 spironola ctone 50 mg tablet 2024 025 [facility], [address] [place] [address], [place], [id number], 05/01/2025 16:05:01 esomepraz ole magnesium 20 mg capsule,d elayed release 2024 025 [facility], [address] [place] [address], [place], [id number], 05/01/2025 16:05:06 diazepam 10 mg tablet 2024 025 [facility], [address] [place] [address], [place], [id number], 05/01/2025 16:05:11 quetiapin e 50 mg tablet 2024 025 [facility], [address] [place] [address], [place], [id number], 05/01/2025 16:05:06 atorvasta tin 10 mg tablet 2024 025 [facility], [address] [place] [address], [place], [id number], 05/01/2025 16:05:04 fexofenad ine 180 mg tablet 2024 025 [facility], [address] [place] [address], [place], [id number], 05/01/2025 16:05:10 cetirizin e 10 mg tablet 2024 025 [facility], [address] [place] [address] S, [place], [id number], 05/01/2025 13:09:09 escitalop oscar 5 mg tablet 2024 025 [facility], [address] [place] [address], [place], [id number], 05/01/2025 16:05:08 albuterol sulfate HFA 90 mcg/actua tion aerosol inhaler 2024 025 [facility], [address] [place], [place] [address], [id number], 05/01/2025 16:05:09 budesonid e-formote rol HFA 160 mcg-4.5 mcg/actua tion aerosol inhaler 2024 025 [facility], [address] [place] [address], [place], [id number], 05/01/2025 16:05:08 ergocalci ferol (vitamin D2) 1,250 mcg (50,000 unit) capsule 2024 025 [facility], [address] [place] [address], [place], [id number], 05/01/2025 16:05:05 levothyro xine 25 mcg tablet 2024 025 [facility], [address] [place] [address] [place], [id number], 05/01/2025 16:05:00 Patient TargetsNo targets recorded. Patient InstructionsNo instructions recorded. Reason for Referral Orthopedic Surgeon Referral for Pain of knee region Referring Physician: Bryan Brownlee, Family Medicine, Encounter Date: 04/07/2025 Results Created Date Observation Date Name Description Value Unit Range Abnormal Flag Note LastModifiedBy Organization Detail LastModifiedTime 04/09/2004/09/2025 XR, cervi viki spine , 2 or 3 view No observ ation record ed. [facility] [address], [place], [id number], 04/09/2025 15:41:58 Result Notes None recorded. Problems Name Problem SNOMED Code Status Onset Date Resolution Date Notes Provider Name and Address Organization Details Recorded Time Hypertensive disorder 17755141 Active 2021 Not Available [facility] 4 22:25:26 Anxiety 76924509 Active 2021 Not Available [facility] 4 22:25:26 Hypothyroidis m 29582585 Active 2021 Not Available [facility] 4 22:25:26 Hyperlipidemi a 08844068 Active 2021 Not Available [facility] 4 22:25:26 History of leukemia 117209763 Active 2021 Not Available [facility] 4 22:25:26 Vitamin deficiency 48180462 Active 2021 Not Available [facility] 4 22:25:26 Asthma 554451847 Active 2021 Not Available [facility] 4 22:25:26 Benign prostatic hyperplasia 984758040 Active 2021 Not Available [facility] 4 22:25:26 Obesity 199465330 Active 2022 Not Available [facility] 4 22:25:26 Notes:Some problems listed i n Documents: #[id number], #[id number], #[id number], #[id number] could not be added to this patient's chart. Please review these documents and add these problems to the patient's chart manually as needed. Problem Notes None recorded. Procedures Surgical History Date Name Laterality Status Provider Name and Address Organization Details Recorded Time biopsy completed Nichelle Imanis [place] - [facility] 05/11/2022 14:39:51 Hemorrhoidectomy completed Nichelle Stears [place] - [facility] 05/11/2022 14:40:08 Hernia Repair completed Nichelle Stears [place] - [facility] 05/11/2022 14:40:16 Colonoscopy completed Nichelle Stears [place] - [facility] 05/11/2022 14:40:31 cardiac catheterization completed Nichelle Stears [place] - [facility] 05/11/2022 14:40:38 removal of wart completed Nichelle Ronaldo [place] - [facility] 05/11/2022 14:40:55 Imaging Results None recorded. Procedure Notes None recorded. Medical Equipment None Reported. Allergies Allergen ID Allergen Name Allergen Category Reaction Reaction Severity Criticality Documentation Date Start Date Code Code System Note Provider Name and Address Organization Details Recorded Time 795731 Keflex medicatio n other mild Not available 05/11/202298816 7 RxNorm Not Available [facility] 3 22:48:25 093992 morphine medicatio n other moderate Not available 05/11/2022 7052 RxNorm Not Available [facility] 3 22:48:25 226065 Terramyci n medicatio n nausea moderate Not available 05/11/2022 4 RxNorm Not Available [facility] 3 22:48:25 Medications Name Sig Start Date Stop Date Status Note LastModified by Organization Details LastModified Time furosemide 40 mg tablet Take 2 tablets every day at 8AM and 1 tablet every day at 4pm 2024 active Not Available Not Available Not Avai lable fluticasone 250 mcg-salmete rol 50 mcg/dose blistr powdr for inhalation INHALE 1 PUFF BY MOUTH TWICE DAILY DIRECTED 10/02 completed Not Available Not Available Not Available nystatin 100,000 unit/mL oral suspension SWISH AND spit 1 TEASPOONF UL (5 ML) BY MOUTH FOUR TIMES DAILY FOR 7 DAYS --SHAKE WELL BEFORE USE-- 11/27 completed Not Available Not Available Not Available desoximetas one 0.05 % topical cream APPLY A THIN LAYER TOPICALLY TO THE AFFECTED AREA(S) TWICE DAILY --RUB IN GENTLY AND COMPLETEL Y-- 11/27 completed Not Available Not Available Not Available cetirizine 10 mg tablet TAKE ONE TABLET BY MOUTH EVERY DAY FOR allergies 2024 active Not Available Not Available Not Avai lable atorvastati n 10 mg tablet Take 1 tablet every day by oral route. 2024 active Not Available Not Available Not Avai lable azithromyci n 250 mg tablet TAKE 2 TABLETS (500 MG) BY ORAL ROUTE ONCE DAILY FOR 1 DAY THEN 1 TABLET (250 MG) BY ORAL ROUTE ONCE DAILY FOR 4 DAYS 04/07 completed Not Available Not Available Not Available diltiazem CD 240 mg capsule,ext ended release 24 hr TAKE ONE CAPSULE BY MOUTH EVERY DAY 2024 active Not Available Not Available Not Avai lable prednisone 20 mg tablet TAKE ONE TABLET BY MOUTH TWICE DAILY FOR 5 DAYS --TAKE WITH FOOD-- 09/08 completed Not Available Not Available Not Available spironolact one 100 mg tablet qd 11/27 completed Not Available Not Available Not Available prednisone 5 mg tablet TAKE ACCORDING TO PRINTED OUT INSTRUCTI ON SHEET 11/27 completed Not Available Not Available Not Available permethrin 5 % topical cream APPLY TOPICALLY TO THE AFFECTED AREA(S) every 14 DAYS FOR 2 doses; apply a second treatment 14 DAYS AFTER THE first treatment if live lice remain. 11/27 completed Not Available Not Available Not Available fexofenadin e 180 mg tablet TAKE ONE TABLET BY MOUTH EVERY DAY 2024 active Not Available Not Available Not Avai lable quetiapine 100 mg tablet TAKE 1/2 TABLET BY MOUTH EVERY DAY AT BEDTIME 09/04 completed Not Available Not Available Not Available triamcinolo ne acetonide 0.1 % topical cream APPLY TOPICALLY TO THE AFFECTED AREA(S) (a thin layer) TWICE DAILY active Not Available Not Available No t Available levothyroxi ne 25 mcg tablet Take 1 tablet every day by oral route. 2024 active Not Available Not Available Not Avai lable bisoprolol fumarate 10 mg tablet Take 1 tablet every day by oral route. 2024 active Not Available Not Available Not Avai lable tamsulosin 0.4 mg capsule Take 1 capsule every day by oral route. 2024 active Not Available Not Available Not Avai lable benzonatate 100 mg capsule TAKE ONE CAPSULE BY MOUTH THREE TIMES DAILY NEEDED FOR cough -SWALLOW WHOLE. DO NOT CRUSH OR CHEW- 07/03 completed Not Available Not Available Not Available erythromyci n 5 mg/gram (0.5 %) eye ointment APPLY TO EYELIDS 3 TIMES DAILY FOR 7 DAYS OR DIRECTED THEN BEGIN DAILY MASSAGE 09/04 completed Not Available Not Available Not Available triamcinolo ne acetonide 0.1 % topical ointment APPLY a SMALL AMOUNT TOPICALLY TO THE AFFECTED AREA(S) EVERY TWELVE HOURS -- FOR EXTERNAL USE ONLY-- 09/04 completed Not Available Not Available Not Available montelukast 10 mg tablet Take 1 tablet every day by oral route. 07/06 completed Not Available Not Available Not Available ergocalcife rol (vitamin D2) 1,250 mcg (50,000 unit) capsule TAKE ONE CAPSULE BY MOUTH ONCE A WEEK 2024 active Not Available Not Available Not Avai lable dexamethaso ne sodium phosphate 4 mg/mL injection solution give 1 ml injection IM once 02/19 completed Not Available Not Available Not Available azelastine 137 mcg (0.1 %) nasal spray INSTILL 2 SPRAYS IN EACH NOSTRIL TWICE DAILY active Not Available Not Available No t Available diazepam 10 mg tablet TAKE ONE TABLET BY MOUTH THREE TIMES DAILY FOR ANXIETY MAY CAUSE DROWSINES S active Not Available Not Available No t Available epinephrine 0.3 mg/0.3 mL injection, auto-inject or INJECT THE CONTENTS OF 1 AUTO-INJE CTOR INTRAMUSC ULARLY ONCE NEEDED FOR ANAPHYLAX IS REACTION CALL 911 AFTER USE active Not Available Not Available No t Available prednisone 5 mg tablets in a dose pack Take 1 dose pk by oral route as directed. 11/27 completed Not Available Not Available Not Available methylpredn isolone 4 mg tablets in a dose pack TAKE ACCORDING TO PACKAGE INSTRUCTI ONS --TAKE WITH FOOD-- -- FINISH ALL MEDICINE -- 04/07 completed Not Available Not Available Not Available albuterol sulfate HFA 90 mcg/actuati on aerosol inhaler INHALE TWO PUFFS BY MOUTH EVERY 4-6 HOURS NEEDED FOR SHORTNESS OF BREATH - SHAKE WELL BEFORE USE- 2024 active Not Available Not Available Not Avai lable fluticasone propionate 50 mcg/actuati on nasal spray,suspe nsion [place] 1 spray every day by intranasa l route. 2024 active Not Available Not Available Not Avai lable spironolact one 50 mg tablet Take 1 tablet twice a day by oral route. 2024 active Not Available Not Available Not Avai lable amoxicillin 875 mg-ashtyn m clavulanate 125 mg tablet TAKE ONE TABLET BY MOUTH TWICE DAILY -- FINISH ALL MEDICINE -- 08/07 completed Not Available Not Available Not Available esomeprazol e magnesium 20 mg capsule,del ayed release TAKE ONE CAPSULE BY MOUTH EVERY DAY 2024 active Not Available Not Available Not Avai lable escitalopra m 5 mg tablet TAKE ONE TABLET BY MOUTH AT BEDTIME 2024 active Not Available Not Available Not Avai lable quetiapine 50 mg tablet TAKE ONE TABLET BY MOUTH AT BEDTIME FOR ANXIETY active Not Available Not Available No t Available budesonide- formoterol HFA 160 mcg-4.5 mcg/actuati on aerosol inhaler Inhale 2 puffs twice a day by inhalatio n route. 2024 active Not Available Not Available Not Avai lable levocetiriz ine 5 mg tablet TAKE ONE TABLET BY MOUTH EVERY DAY active Not Available Not Available No t Available Eye Itch Relief 0.025 % (0.035 %) drops INSTILL ONE DROP IN EACH EYE TWICE DAILY active Not Available Not Available No t Available Flovent Diskus 250 mcg/actuati on powder for inhalation INHALE 1 PUFF BY MOUTH TWICE DAILY 09/08 completed Not Available Not Available Not Available Gavilyte-C 240 gram-22.72 gram-6.72 gram-5.84 gram oral solution drink 8 ounces EVERY 15 MINUTES UNTIL EMPTY DIRECTED PER office direction s active Not Available Not Available No t Available esomeprazol e magnesium 20 mg tablet,william yed release Take 1 tablet every day by oral route. 08/07 completed Not Available Not Available Not Available Linzess 72 mcg capsule TAKE ONE CAPSULE BY MOUTH EVERY DAY active Not Available Not Available No t Available Eohilia 2 mg/10 mL oral suspension in packet DISSOLVE 1 PACKET AND administe r TWICE DAILY morning AND evening active Not Available Not Available No t Available Vitals Date Recorded Body height Provider Name an d Address Organization Details Last Updated DateTime 04/07/2025 170.18 cm Katy De La Paz [place] - [facility] 0 04/07/2025 13:58:01 Date Recorded Body mass index (BMI) Body weight Body temperature Respiratory rate Oxygen saturation Oxygen saturation in Arterial blood by Pulse oximetry Heart rate Systolic And Diastolic Provider Name and Address Organization Details Last Updated DateTime 06/03/202 5 40.3 kg/m2 392343. 24 g 98.1 [degF] 18 /min 97 % 97 % 84 /min 124/78 mm[Hg] Nichelle Higgins [place] - [facility] 5 14:11:02 Social History Question Answer Notes LastModified by Organizat ion Details LastModified Time Tobacco Smoking Status Never Smoker Nichelle Higgins null, [place] - [facility] 05/11/2022 14:37:42 Do You Have An Advance Directive? No Information n ot available 05/11/2022 Are You Blind Or Do You Have Difficulty Seeing? No Information n ot available 05/11/2022 What Is Your Level Of Caffeine Consumption? Heavy Information not available 05/11/2022 In The 14 Days Before Symptom Onset, Have You Had Close Contact With A Laboratory-confirm ed COVID-19 While That Case Was Ill? No Information n ot available 08/27/2023 In The 14 Days Before Symptom Onset, Have You Had Close Contact With A Person Who Is Under Investigation For COVID-19 While That Person Was Ill? No Information not available 08/27/2023 Have You Been To An Area Known To Be High Risk For COVID-19? No Information not available 08/27/2023 Are You Deaf Or Do You Have Serious Difficulty Hearing? No Information not available 05/11/2022 What Type Of Diet Are You Following? REGULAR Information n ot available 05/11/2022 Have You Processed Blood Or Body Fluids From An Ebola Virus Disease Patient Without Appropriate PPE? No Information not available 08/27/2023 Do You Reside In Or Have You Traveled To An Area Where Ebola Virus Transmission Is Active? No Information not available 08/27/2023 What Is The Highest Grade Or Level Of School You Have Completed Or The Highest Degree You Have Received? [id number] Information not available 05/11/2022 Have There Been Any Changes To Your Family Or Social Situation? No Information no t available 05/11/2022 What Is The Fluoride Status Of Your Home? Unknown Information not available 05/11/2022 Have You Recently Or Are You Planning To Travel To An Area With Zika Virus? No Information not available 08/27/2023 Do You Have A Medical Power Of Itinerant Teacher Assistant? No Information not available 05/11/2022 What Was The Date Of Your Most Recent Tobacco Screening? 02/19/2025 Information not available 02/19/2025 What Is Your Relationship Status? Single Information not available 05/11/2022 Do You Have Smoke And Carbon Monoxide Detectors In Your Home? Yes Information not available 05/11/2022 Are You Passively Exposed To Smoke? Yes Information no t available 05/11/2022 Has Tobacco Cessation Counseling Been Provided? No Information not available 03/27/2023 Do You Have Difficulty Walking Or Climbing Stairs? No Information not available 05/11/2022 Sex: Male Functional Status Question Answer Note LastModified by Organizat ion Details LastModified Time Do you use any illicit or recreational drugs? No Information not available 05/11/2022 Do you or have you ever used any other forms of tobacco or nicotine? No Information not available 05/11/2022 What is your level of alcohol consumption? None Information not available 05/11/2022 Are you currently employed? No Information not available 05/11/2022 Do you have transportation difficulties? No Information not available 05/11/2022 Are you able to walk? YESWOREST Information not available 05/11/2022 Do you have difficulty doing errands alone? No Information not available 05/11/2022 Are you able to care for yourself? Yes Information not available 05/11/2022 Do you have difficulty dressing or bathing? No Information not available 05/11/2022 What is your exercise level? None Information not available 05/11/2022 Mental Status Question Answer Note LastModified by Organizat ion Details LastModified Time Do you feel stressed (tense, restless, nervous, or anxious, or unable to sleep at night)? [id number] Information not available 05/11/2022 Do you have difficulty concentrating, remembering or making decisions? No Information no t available 05/11/2022 Family History Relationship Description Onset Age of this Age Resolved Age Notes LastModified by Organization Details LastModified Time Father No current problems or disability bstears Not available 05/11 14:50:25 Mother No current problems or disability bstears Not available 05/11 14:50:25 Medical History No medical history recorded. Immunizations Vaccine Type Date Status Note Provider Nam e and Address Organization Details Recorded Time Influenza, split virus, quadrivalent, preservative 2 completed Bryan Brownlee, [employer] [address], [place], [address], [place] - [facility] 08/07/2022 16:55:04 Influenza, split virus, quadrivalent, preservative 3 completed Bryan Brownlee, [employer] [address], [place], [address], [place] - [facility] 08/27/2023 14:11:34 Influenza, split virus, trivalent, preservative 4 completed Katy De La Paz [facility] [place] - [facility] 09/08/2024 16:08:02 COVID-19, mRNA, LNP-S, PF, 100 mcg/0.5mL dose or 50 mcg/0.25mL dose 1 completed Not Available [facility] 12/23/2023 22:25:26 COVID-19, mRNA, LNP-S, PF, 100 mcg/0.5mL dose or 50 mcg/0.25mL dose 1 completed Not Available [facility] 12/23/2023 22:25:26 COVID-19, mRNA, LNP-S, bivalent, PF, 50 mcg/0.5 mL or 25mcg/0.25 mL dose 2 completed Not Available [facility] 12/23/2023 22:25:26 Tdap 7 completed Not Available [facility] 12/23/2023 22:25:27 Tdap 8 completed Not Available [facility] 12/23/2023 22:25:27 Influenza, split virus, quadrivalent, PF 0 completed Not Available [facility] 12/23/2023 22:25:27 COVID-19, mRNA, LNP-S, PF, 100 mcg/0.5mL dose or 50 mcg/0.25mL dose 1 completed Not Available [facility] 12/23/2023 22:25:26 COVID-19, mRNA, LNP-S, PF, 100 mcg/0.5mL dose or 50 mcg/0.25mL dose 1 completed Not Available [facility] 12/23/2023 22:25:26 Tdap 3 completed Not Available [facility] 12/23/2023 22:25:27 COVID-19, mRNA, LNP-S, bivalent, PF, 50 mcg/0.5 mL or 25mcg/0.25 mL dose 2 completed Not Available [facility] 12/23/2023 22:25:27 Past Encounters Encounter ID Performer Location Encounter Start Date Encounter Closed Date Diagnosis/Indication Diagnosis SNOMED-CT Code Diagnosis ICD10 Code Diagnosis Note [id number] Bryan Brownlee APRN [address] [address] 04/07/2025 13:04:28 04/07/2025 15:56:20 Anxiety 30994858 F41.9 Pt compliant with plan of careDante reviewed and appropriat emedicatio n compliance discussedL ast uds: 01/06/25Cont rol substance agreement on fileshort trial of increase-r isk discussed- discussed to take only as needed Hyperlipidemia 24130529 E78.5 Hypothyroidism 87131546 E03.9 Hypertensive disorder 38 586296 I10 Vitamin deficiency 63843 002 E56.9 Asthma 881763102 J45.90 9 Benign pro static hyperplasia 059112988 N40.0 Obesity 846399448 E66.9 Seasonal a llergic rhinitis 781323236 J30.2 Vitamin D deficiency 347 20513 E55.9 Depressed mood 198318713 R45.89 Gastroesop hageal reflux disease 213659231 K21.9 Allergic rhinitis 624777 04 J30.9 Pain of knee region 1003 991641 M25.562 G89.29 Backache 409036146 M54.9 Daytime somnolence 53885 20752 00 G47.19 Snoring 78804803 R06.83 Health Concerns Section Related Observation LastModified by Organization Detai ls LastModified Time None Recorded Concern Status LastModified by Organization Details LastModified Time None Recorded Payers Encounter Date Sequence Insurance Name Policy Number Policy Anderson Covered Member ID Anderson Member ID Guarantor Name 04/07/2025 1 [facility] - DUAL ELIGIBLE (MEDICARE REPLACEMENT/A DVANTAGE - HMO) [id number] Edward L Dampier [id number] Edward Dampier 04/07/2025 2 [employer] [facility] (MEDICAID HMO) Edward L Dampier [id number] Edward Dampier Notes Date Note Type Note Provider Name and Address Organization Details Recorded Time 04/07/2025 text/html 55 yr old male presents for a follow up onhypertension, hypothyroidism, anxiety and other chronic illnesses- needs refills on all medicationshas concerns of pain across back of neck that radiates down both sides into hips-pt states meds help with his anxiety.pt states he also has been very tired during the day, snores loud and wakes up startledwants to see dr aguillon in [place] for left knee pain Bryan Brownlee, [employer] [address], [place], [address], [place] - [facility] 04/07/2025 18:50:44
--- OUTSIDE RECORDS SUMMARY | 2025-05-05 12:00 | XMS_ITS | Clinical Summary ---
Author Organization [facility] Address [facility] [place] [address] Care Team Providers Care Support Associate Name Role Phone Leatha Brownlee SMALL BUSINESS DIRECTOR Primary Care Provider [phone] Family History Medical History Relation Name Comments [...] Date Last Done Comments [facility]-Depression Screening 1972 [facility]-Infant/Child/Adol SDOH Screenings 1972 [facility]- SDOH Screenings 02/04/1990 [facility]-Adult SDOH Screenings 02/04/1990 [facility]-Hepatitis B Vaccines (1 of 3 - 19+ 3-dose series) 02/04/1991 CT Colonography 02/04/2017 Colonoscopy 02/04/2017 FIT-DNA 02/04/2017 FIT 02/04/2017 FOBT 02/04/2017 Sigmoidoscopy 02/04/2017 [facility]-Colorectal Cancer Screening 02/04/2017 [facility]-Pneumococcal Vaccine: 50 + Years (1 of 1 - PCV) 02/04/2022 [facility]-Zoster Vaccines (1 of 2) 02/04/2022 [id number]-70 Vaccine (3 - 2023- season) 2024 03/02/2021, [...] patient's age to complete this topic Insurance [facility] MEDICARE [facility] MEDICAID Care Teams Support Associate Relationship Specialty Start Date End Date Leatha Brownlee APRN [address] [place] [id number] PCP - General 03/18/21
--- OUTSIDE RECORDS SUMMARY | 2025-05-05 12:00 | XMS_ITS | Data Portability ---
Author Organization [facility] [place] Address [address] [place] [id number] Assessment Encounter Date Assessment Date Assessment LastModified by Organization Details LastModified Time 07/19/2023 07/19/2023 53-year-old male with chronic constipation and intermittent periumbilical pain. EGD and colonoscopy performed 01/02/23 showed no source for his symptoms. -Will start lizness 72 mcg once daily to try and improve his bowel habits. He will follow-up to see if this was helpful and to see if it improves his abdominal discomfort. [email or web address] Not available 07/19/2023 17:02:47 05/15/2024 05/15/2024 54-year-old male with chronic constipation and eosinophilic esophagitis. Start Eohilia. Repeat EGD in five months. Not available 05/15/2024 16:47:27 02/26/2025 02/26/2025 Mr. Gonzalez is a 55-year-old male with acid reflux and chronic constipation. Both are controlled. Continued Nexium. Pt will try to get records regarding colon cancer screening. Not available 02/26/2025 15:07:52 Plan of Treatment Reminders Order Date Submit Date Provider Last Modified By Organization Details Last Modified Time Details Appointments Establish ed Visit 15 min 2024 01:00P M Presley Gagnon MD Not available Not available Not available Lab None recorded. Referral None recorded. Procedures None recorded. Surgeries None recorded. Imaging None recorded. Medication Orders Nexium 20 mg capsule,d elayed release [address] [facility], [address] [facility] [address], [place], [id number], 04/22/2025 18:15:09 Linzess [address] capsule [address] [facility], [address] [place] [address] [place], [id number], 07/01/2024 09:10:41 Eohilia 2 mg/10 mL oral suspensio n in packet 2023 024 [facility], [address] [place] [address] [place], [id number], 05/15/2024 16:51:37 Linzess 72 mcg capsule 2022 023 [facility], [address] [place] [address] [place], [id number], 02/04/2024 10:22:01 Patient TargetsNo targets recorded. Patient InstructionsNo instructions recorded. Reason for Referral None Reported. Results Created Date Observation Date Name Description Value Unit Range Abnormal Flag Note LastModifiedBy Organization Detail LastModifiedTime Result Notes None recorded. Problems Name Problem SNOMED Code Status Onset Date Resolution Date Notes Provider Name and Address Organization Details Recorded Time History of leukemia 008594937 Active 2021 Not Available [facility] 2 11:48:38 Hyperlipidemi a 22885047 Active 2021 Not Available [facility] 2 11:48:38 Anxiety 76922237 Active 2021 Not Available [facility] 2 11:48:38 Vitamin deficiency 27548487 Active 2021 Not Available [facility] 2 11:48:38 Hypertensive disorder 25873212 Active 2021 Not Available [facility] 2 11:48:38 Hypothyroidis m 81254969 Active 2021 Not Available [facility] 2 11:48:38 Asthma 246273943 Active 2021 Not Available [facility] 2 11:48:38 Constipation 27326153 Active 2022 Y[facility] Jacques [facility] [place] 3 09:44:50 Nausea 055458347 Active 2022 YANA Jacques [facility] [place] 3 09:44:55 Chronic idiopathic constipation 25400406 Active 2022 Phi Braga PA-C [address], [place], [address] , [facility] NORMANT [facility] [place] 3 15:48:50 Problem Notes None recorded. Procedures Surgical History Date Name Laterality Status Provider Name and Address Organization Details Recorded Time 07/19 Procedure Note completed Phi Braga PA-C [address] , [place], [address] , [facility] NORMANT [facility] [place] 3 16:59:42 esophagogastroduodenoscopy [facility] [place] 4 13:29:05 Imaging Results None recorded. Procedure Notes None recorded. Medical Equipment None Reported. Allergies Allergen ID Allergen Name Allergen Category Reaction Reaction Severity Criticality Documentation Date Start Date Code Code System Note Provider Name and Address Organization Details Recorded Time 6957 morphine medicatio n Not available Not available Not available 07/14/2022 7052 RxNorm Jennie Claudeemma jordan, YANA Simon [facility] [place] 2 14:51:22 6958 Terramyci n medicatio n Not available Not available Not available 07/14/2022 4 RxNorm Jennie Claude null, Y[facility] - [facility] [place] 2 14:51:22 6959 Keflex medicatio n Not available Not available Not available 07/14/202205727 7 RxNorm Jennie Claude null, [facility] - [facility] [place] 2 14:51:22 Medications Name Sig Start Date Stop Date Status Note LastModified by Organization Details LastModified Time furosemide 40 mg tablet TAKE TWO TABLETS BY MOUTH EVERY MORNING AT 800am AND TAKE ONE TABLET EVERY DAY AT 400pm active Not Available Not Available No t Available fluticasone 250 mcg-salmete rol 50 mcg/dose blistr powdr for inhalation INHALE 1 PUFF BY MOUTH TWICE DAILY DIRECTED 11/15 completed Not Available Not Available Not Available nystatin 100,000 unit/mL oral suspension SWISH AND spit 1 TEASPOONF UL (5 ML) BY MOUTH FOUR TIMES DAILY FOR 7 DAYS --SHAKE WELL BEFORE USE-- active Not Available Not Available No t Available desoximetas one 0.05 % topical cream active Not Available Not Available Not Available cetirizine 10 mg tablet TAKE ONE TABLET BY MOUTH EVERY DAY FOR allergies active Not Available Not Available No t Available atorvastati n 10 mg tablet TAKE ONE TABLET BY MOUTH EVERY DAY active Not Available Not Available No t Available azithromyci n 250 mg tablet TAKE 2 TABLETS BY MOUTH ON DAY 1, THEN TAKE 1 TABLET DAILY ON DAYS 2-5 active Not Available Not Available No t Available diltiazem CD 240 mg capsule,ext ended release 24 hr TAKE ONE CAPSULE BY MOUTH EVERY DAY active Not Available Not Available No t Available prednisone 20 mg tablet TAKE ONE TABLET BY MOUTH TWICE DAILY FOR 5 DAYS --TAKE WITH FOOD-- active Not Available Not Available No t Available spironolact one 100 mg tablet TAKE 1/2 TABLET BY MOUTH TWICE DAILY active Not Available Not Available No t Available prednisone 5 mg tablet TAKE ACCORDING TO PRINTED OUT INSTRUCTI ON SHEET active Not Available Not Available No t Available permethrin 5 % topical cream APPLY TOPICALLY TO THE AFFECTED AREA(S) every 14 DAYS FOR 2 doses; apply a second treatment 14 DAYS AFTER THE first treatment if live lice remain. active Not Available Not Available No t Available fexofenadin e 180 mg tablet TAKE ONE TABLET BY MOUTH EVERY DAY active Not Available Not Available No t Available quetiapine 100 mg tablet TAKE 1/2 TABLET BY MOUTH EVERY DAY AT BEDTIME 11/15 completed Not Available Not Available Not Available triamcinolo ne acetonide 0.1 % topical cream APPLY TOPICALLY TO THE AFFECTED AREA(S) (a thin layer) TWICE DAILY active Not Available Not Available No t Available levothyroxi ne 25 mcg tablet TAKE ONE TABLET BY MOUTH EVERY DAY active Not Available Not Available No t Available bisoprolol fumarate 10 mg tablet TAKE ONE TABLET BY MOUTH EVERY DAY active Not Available Not Available No t Available Nexium 20 mg capsule,del ayed release Take 1 capsule every day by oral route for 30 days. 2024 active Not Available Not Available Not Avai lable tamsulosin 0.4 mg capsule TAKE ONE CAPSULE BY MOUTH EVERY DAY active Not Available Not Available No t Available benzonatate 100 mg capsule TAKE ONE CAPSULE BY MOUTH THREE TIMES DAILY NEEDED FOR cough -SWALLOW WHOLE. DO NOT CRUSH OR CHEW- 11/15 completed Not Available Not Available Not Available erythromyci n 5 mg/gram (0.5 %) eye ointment APPLY TO EYELIDS 3 TIMES DAILY FOR 7 DAYS OR DIRECTED THEN BEGIN DAILY MASSAGE active Not Available Not Available No t Available triamcinolo ne acetonide 0.1 % topical ointment APPLY a SMALL AMOUNT TOPICALLY TO THE AFFECTED AREA(S) EVERY TWELVE HOURS -- FOR EXTERNAL USE ONLY-- active Not Available Not Available No t Available montelukast 10 mg tablet Take 1 tablet every day by oral route. active Not Available Not Available No t Available fluticasone propionate 220 mcg/actuati on HFA aerosol inhaler Inhale by inhalatio n route for 30 days. active Not Available Not Available No t Available ergocalcife rol (vitamin D2) 1,250 mcg (50,000 unit) capsule TAKE ONE CAPSULE BY MOUTH ONCE A WEEK active Not Available Not Available No t Available azelastine 137 mcg (0.1 %) nasal spray instill 2 SPRAYS into each nostril TWICE DAILY active Not Available Not Available [...] Not Available Not Available No t Available methylpredn isolone 4 mg tablets in a dose pack TAKE ACCORDING TO PACKAGE INSTRUCTI ONS --TAKE WITH FOOD-- -- FINISH ALL MEDICINE -- active Not Available Not Available No t Available albuterol sulfate HFA 90 mcg/actuati on aerosol inhaler INHALE TWO PUFFS BY MOUTH EVERY 4 HOURS NEEDED DIRECTED FOR cough OR wheeze active Not Available Not Available No t Available fluticasone propionate 50 mcg/actuati on nasal spray,suspe nsion INSTILL 2 SPRAYS IN EACH NOSTRIL ONCE daily DIRECTED active Not Available Not Available No t Available spironolact one 50 mg tablet TAKE ONE TABLET BY MOUTH TWICE DAILY active Not Available Not Available No t Available amoxicillin 875 mg-potassiu m clavulanate 125 mg tablet TAKE ONE TABLET BY MOUTH TWICE DAILY -- FINISH ALL MEDICINE -- 11/15 completed Not Available Not Available Not Available escitalopra m 5 mg tablet TAKE ONE TABLET BY MOUTH AT BEDTIME active Not Available Not Available No t Available quetiapine 50 mg tablet TAKE ONE TABLET BY MOUTH AT BEDTIME FOR ANXIETY active Not Available Not Available No t Available Symbicort 160 mcg-4.5 mcg/actuati on HFA aerosol inhaler INHALE TWO PUFFS BY MOUTH TWICE DAILY DIRECTED. RINSE MOUTH AFTER each USE active Not Available Not Available No t Available levocetiriz ine 5 mg tablet TAKE ONE TABLET BY MOUTH EVERY DAY active Not Available Not Available No t Available Eye Itch Relief 0.025 % (0.035 %) drops INSTILL ONE DROP IN EACH EYE TWICE DAILY active Not Available Not Available No t Available Flovent Diskus 250 mcg/actuati on powder for inhalation INHALE 1 PUFF BY MOUTH TWICE DAILY active Not Available Not Available No t Available Gavilyte-C 240 gram-22.72 gram-6.72 gram-5.84 gram oral solution drink 8 ounces EVERY 15 MINUTES UNTIL EMPTY DIRECTED PER office direction s active Not Available Not Available No t Available esomeprazol e magnesium 20 mg tablet,william yed release Take 1 tablet every day by oral route. 11/15 completed Not Available Not Available Not Available Linzess 72 mcg capsule TAKE ONE CAPSULE BY MOUTH EVERY DAY active Not Available Not Available No t Available Dupixent 300 mg/2 mL subcutaneou s pen injector active Not Available Not Available Not Available Eohilia 2 mg/10 mL oral suspension in packet DISSOLVE 1 PACKET AND administe r TWICE DAILY morning AND evening active Not Available Not Available No t Available Vitals Date Recorded Systolic blood pressure Diastolic blood pressure Provider Name and Address Organization Details Last Updated DateTime 11/15/2022 114 mm[Hg] 72 mm[Hg] Dafne Strong [place] - [facility] [place] [facility] [place] 11/15/2022 14:15:07 Date Recorded Body height Body mass index (BMI) Body weight Body temperature Oxygen saturation Oxygen saturation in Arterial blood by Pulse oximetry Heart rate Heart rate Systolic blood pressure Diastolic blood pressure Provider Name and Address Organization Details Last Updated DateTime 5 170.18 cm 38.4 kg/m2 999132. 85 g 97.6 [degF] 98 % 98 % 90 /min 81 /min 110 mm[Hg] 78 mm[Hg] [facility] [place] 5 13:26:56 Date Recorded Body weight Body mass index (BMI) Body height Body temperature Heart rate Heart rate Oxygen saturation Oxygen saturation in Arterial blood by Pulse oximetry Systolic blood pressure Diastolic blood pressure Provider Name and Address Organization Details Last Updated DateTime 4 630386. 89 g 39.2 kg/m2 170.18 cm 97.9 [degF] 93 /min 85 /min 97 % 97 % 137 mm[Hg] 81 mm[Hg] [facility] [place] 4 13:28:19 Social History None recorded. Functional Status None recorded. Mental Status None recorded. Family History Nothing Reported. Medical History No medical history recorded. Immunizations Vaccine Type Date Status Note Provider Nam e and Address Organization Details Recorded Time COVID-19, mRNA, LNP-S, PF, 100 mcg/0.5mL dose or 50 mcg/0.25mL dose 02/23/2021 completed Not Available [facility] 2 11:48:39 COVID-19, mRNA, LNP-S, PF, 100 mcg/0.5mL dose or 50 mcg/0.25mL dose 01/23/2021 completed Not Available [facility] 2 11:48:39 Past Encounters Encounter ID Performer Location Encounter Start Date Encounter Closed Date Diagnosis/Indication Diagnosis SNOMED-CT Code Diagnosis ICD10 Code Diagnosis Note [id number] Cookie Armenta NP [facility] [address] [address] 11/15/2022 14:05:35 11/15/2022 15:10:42 Constipation 87674796 K59.00 - continue Metamucil and Colace- increase daily activity, water and fiber intake- advised to consider trying MiraLax even though he did not like it in the past, reasoning was as he did not feel like it was working- colonoscop y scheduled Nausea 670389070 R11.0 - continue Nexium- EGD scheduled- recent imaging done will request findings and impression as we do not have the capability to read a disc in our office [id number] Phi Braga PA-C [facility] [place] [address] 07/19/2023 15:08:59 07/19/2023 15:54:31 Chronic idiopathic constipation 13632031 K59.04 [id number] Presley Gagnon MD [facility] [place] [address] 05/15/2024 13:06:11 05/15/2024 14:33:34 Chronic idiopathic constipation 72545195 K59.04 Eosinophil ic esophagitis 797082392 K20.0 [id number] Presley Gagnon MD [facility] [place] [address] 02/26/2025 12:39:21 02/26/2025 14:44:02 Chronic idiopathic constipation 65981540 K59.04 Constipation 51530027 K5 9.00 Nausea 952817638 R11.0 Gastroesop hageal reflux disease without esophagitis 787219086 K21.9 Health Concerns Section Related Observation LastModified by Organization Detai ls LastModified Time None Recorded Concern Status LastModified by Organization Details LastModified Time None Recorded Advance Directives Directive None Recorded Payers Insurance Date Sequence Insurance Name Policy Number Policy Anderson Covered Member ID Anderson Member ID Guarantor Name 02/26/2025 2 [employer] [facility] (MEDICAID HMO) Edward L Dampier [id number] Edward Dampier 02/26/2025 2 [employer] Edward Dampier [id number] Edward Dampier 02/26/2025 1 [facility] (MEDICARE REPLACEMENT/A DVANTAGE - HMO) [id number] Edward Dampier [id number] Edward Dampier 02/26/2025 2 [place] Edward Dampier [id number] Edward Dampier Notes Date Note Type Note Provider Name and Address Organization Details Recorded Time 11/15/2022 text/html Patient is a 52-year-old male here today related to generalized abdominal discomfort. Reports history of constipation and hemorrhoidectomy currently takes Metamucil and Colace once daily. Reports he tried MiraLax but does not particularly care for it. denies blood in stool or diarrhea. Reports intermittent nausea and heartburn. Currently takes Nexium. Denies hematemesis. Patient reports he has had abdominal CT scan and gallbladder ultrasound done recently; however, patient only brought a disc with the information which we do not have access to our office. Cookie Armenta NP [address], [place], [address], [facility] [place] 11/15/2022 15:05:10 07/19/2023 text/html Mr. Gonzalez pres ents via telephonic encounter for follow-up regarding constipation and intermittent periumbilical discomfort. He underwent EGD and colonoscopy earlier this year that were normal. Path from the procedure showed mild chronic gastritis. Currently, he reports some continued issues with constipation despite use of stool softeners. He previously did not prefer to use Miralax. He continues to experience periumbilical discomfort from time to time. I spent a total of 12 minutes during this real-time clinical encounter that was initiated by the patient which started at 1502 and ended at 1514. Consent was obtained to engage in telephonic service. Greater than 50% of the time spent was devoted to counseling and coordinating care including review of patient record, patient lab data and studies as well as discussing diagnostic evaluation and workup, planned therapeutic intervention and further disposition of care. Phi Braga PA-C [address], [place], [address], [facility] & [place] 07/19/2023 17:03:00 05/15/2024 text/html PREVIOUS () : Mr. Gonzalez presents via telephonic encounter for follow-up regarding constipation and intermittent periumbilical discomfort. He underwent EGD and colonoscopy earlier this year that were normal. Path from the procedure showed mild chronic gastritis. Currently, he reports some continued issues with constipation despite use of stool softeners. He previously did not prefer to use Miralax. He continues to experience periumbilical discomfort from time to time. CURRENT: Mr. Gonzalez Returns today for follow-up. He has been lost to follow-up for the past year. He underwent EGD here was normal. Repeat EGD by Dr. Winkler at [facility] showed evidence of eosinophilic esophagitis in early April 2024. Recommended to have a six-month follow-up EGD. He was started on Dupixent and takes Nexium twice daily at this point. He has no current symptoms. However, would like to discontinue use of Dupixent as he does not like injections. Presley Gagnon MD [address], [place], [address], [facility] & [place] 05/15/2024 16:52:55 02/26/2025 text/html PREVIOUS (Misael francois): Patient is a 52-year-old male here today related to generalized abdominal discomfort. Reports history of constipation and hemorrhoidectomy currently takes Metamucil and Colace once daily. Reports he tried MiraLax but does not particularly care for it. denies blood in stool or diarrhea. Reports intermittent nausea and heartburn. Currently takes Nexium. Denies hematemesis. Patient reports he has had abdominal CT scan and gallbladder ultrasound done recently; however, patient only brought a disc with the information which we do not have access to our office. CURRENT (02/26/25): Mr. Gonzalez returns today for follow up. He is doing very well. He has no complaints. He has no further abdominal pain. No acid reflux at this time. He States he has previously undergone EGD and colonoscopy at this institution. However, I am unable to locate any records MD [address], [place], [address], [facility] & [place] 02/26/2025 15:09:06
--- OUTSIDE RECORDS SUMMARY | 2025-05-05 12:00 | XMS_ITS | Data Portability ---
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 Plan of Treatment Reminders Order Date Submit Date Provider Last Modified By Organization Details Last Modified Time Details Appointments Medicare AWE 40mins 2024 11:00A M Bryan Fuchs APRN Not available Not available Not available Follow Up 20 2024 02:00P M Bryan Fuchs APRN Not available Not available Not available Lab CMP, serum or plasma 2024 025 [facility], [address], [place], [address], 01/07/2025 12:07:57 PT/PTT, plasma 2024 025 [facility], [address], [place], [address], 01/07/2025 12:07:58 CBC w/ auto diff 2024 025 [facility], [address], [place], [address], 01/07/2025 12:07:56 drug screen, urine [address] [facility], [address] [facility], [place], [address], 01/06/2025 14:33:24 iron + total iron-bind ing capacity (TIBC), serum 2024 025 [place] [facility] [facility], [address], [address], [place], [address], 01/07/2025 12:07:58 vitamin D, 25-hydrox y, total, serum 2024 025 [facility], [address], [address], [place], [address], 01/07/2025 12:07:59 drug screen, urine 2023 024 [facility], [address] [place] [address], [id number], 09/08/2024 15:10:08 rapid SARS CoV + SARS CoV 2 Ag, QL IA, respirato ry specimen 2023 024 [facility], [address] [place] [address], [id number], 06/30/2024 11:54:12 Referral orthopedi c surgeon referral 2024 025 [facility], [address] [facility], [address], [place], [address], 04/13/2025 13:40:27 Procedures None recorded. Surgeries None recorded. Imaging XR, lumbar spine 2024 025 [facility] (X-Ray), [address], [place], [address], 04/22/2025 04:06:50 XR, cervical spine, 2 or 3 view 2024 025 [facility] (X-Ray), [address], [place], [address], 04/09/2025 15:41:31 XR, thoracic spine, 2 view 2024 025 [facility] (X-Ray), [address], [place], [address], 04/15/2025 04:05:32 home sleep study 2024 025 [facility] (Scheduling), [address], [place], [address], 04/08/2025 08:25:10 Medication Orders fluticaso ne propionat e 50 mcg/actua tion nasal spray,ronnie pension 2024 025 [facility], [address] [place] [address] [address], [place], [id number], 05/01/2025 16:05:01 tamsulosi n 0.4 mg capsule 2024 025 [facility], [address] [place] [address] S, [place], [id number], 05/01/2025 16:05:07 bisoprolo l fumarate 10 mg tablet 2024 025 [facility], [address] [place] [address] S, [place], [id number], 05/01/2025 16:05:02 diltiazem CD 240 mg capsule,e xtended release 24 hr 2024 025 [facility], [address] [place] [address] S, [place], [id number], 05/01/2025 16:04:58 furosemid e 40 mg tablet 2024 025 [facility], [address] [place] [address] S, [place], [id number], 05/01/2025 16:05:10 spironola ctone 50 mg tablet 2024 025 [facility], [address] [place] [address] 27 S, [place], [id number], 05/01/2025 16:05:01 esomepraz ole magnesium 20 mg capsule,d elayed release 2024 025 [facility], [address] [place] [address] S, [place], [id number], 05/01/2025 16:05:06 diazepam 10 mg tablet 2024 025 [facility], [address] [place] [address] S, [place], [id number], 05/01/2025 16:05:11 quetiapin e 50 mg tablet 2024 025 [facility], [address] [place] [address] S, [place], [id number], 05/01/2025 16:05:06 atorvasta tin 10 mg tablet 2024 025 [facility], [address] [place] [address] S, AY[place] Castro, [id number], 05/01/2025 16:05:04 fexofenad ine 180 mg tablet 2024 025 [facility], [address] [place] [address] S, Y[place], [id number], 05/01/2025 16:05:10 cetirizin e 10 mg tablet 2024 025 [facility], [address] [place] [address] S, [place], [id number], 05/01/2025 13:09:09 escitalop oscar 5 mg tablet 2024 025 [facility], [address] [place] [address] [place], [id number], 05/01/2025 16:05:08 albuterol sulfate HFA 90 mcg/actua tion aerosol inhaler 2024 025 [facility], [address] [place] [address], [id number], 05/01/2025 16:05:09 budesonid e-formote rol HFA 160 mcg-4.5 mcg/actua tion aerosol inhaler 2024 025 [facility], [address] [place] [address], [id number], 05/01/2025 16:05:08 ergocalci ferol (vitamin D2) 1,250 mcg (50,000 unit) capsule 2024 025 [facility], [address] [place] [address], [id number], 05/01/2025 16:05:05 levothyro xine 25 mcg tablet 2024 025 [facility], [address] [place] [address], [id number], 05/01/2025 16:05:00 Lexapro 5 mg tablet [address] [facility], [address], [id number], 02/20/2025 14:55:13 dexametha sone sodium phosphate 4 mg/mL injection solution 2024 025 [email or web address] Not available 02/19/2025 16:22:24 triamcino lone acetonide 0.1 % topical cream 2024 025 [facility], [address] [place] [address] [place], [id number], 01/07/2025 16:57:57 diazepam 10 mg tablet 2024 025 [facility], [address] [place] [address] [place], [id number], 04/08/2025 14:20:00 diazepam 10 mg tablet 2023 024 [facility], [address] [place] [address] [place], [id number], 12/09/2024 15:27:39 prednison e 20 mg tablet 2023 024 [facility], [address] [place] [address] [place], [id number], 09/08/2024 16:01:19 quetiapin e 50 mg tablet 2023 024 [facility], [address] [place] [address] [place], [id number], 09/30/2024 16:12:38 Patient TargetsNo targets recorded. Patient InstructionsNo instructions recorded. Reason for Referral Orthopedic Surgeon Referral for Pain of knee region Referring Physician: Bryan Fuchs, Family Medicine, Encounter Date: 04/07/2025 Results Created Date Observation Date Name Description Value Unit Range Abnormal Flag Note LastModifiedBy Organization Detail LastModifiedTime 06/09/20 24 06/10/2024 CBC WITH DIFFE RENTI AL/PL ATELE T WBC 12.3 x10e3 /uL 3.4-10 .8 above high normal Not Available [facility] ([facility]) [address] [facility], [place], [address], 06/10/2024 08:12:25 06/09/20 24 06/10/2024 CBC WITH DIFFE RENTI AL/PL ATELE T RBC 5.26 x10e6 /uL 4.14-5 .80 normal Not Available [facility] ([facility]) [address] [place], [address], 06/10/2024 08:12:25 06/09/20 24 06/10/2024 CBC WITH DIFFE RENTI AL/PL ATELE T hemoglobin 16.6 g/dL 13.0-1 7.7 normal Not Available [facility] ([facility]) [address] [place], [address], 06/10/2024 08:12:25 06/09/20 24 06/10/2024 CBC WITH DIFFE RENTI AL/PL ATELE T hematocrit 49.9 % 37.5-5 1.0 normal Not Available [facility] ([facility]) [address] [place], [address], 06/10/2024 08:12:25 06/09/20 24 06/10/2024 CBC WITH DIFFE RENTI AL/PL ATELE T MCV 95 fL 79-97 normal Not Available [facility] ([facility]) [address] [place], [address], 06/10/2024 08:12:25 06/09/20 24 06/10/2024 CBC WITH DIFFE RENTI AL/PL ATELE T MCH 31.6 pg 26.6-3 3.0 normal Not Available [facility] ([facility]) [address] [place], [address], 06/10/2024 08:12:25 06/09/20 24 06/10/2024 CBC WITH DIFFE RENTI AL/PL ATELE T MCHC 33.3 g/dL 31.5-3 5.7 normal Not Available [facility] ([facility]) [address] [place], [address], 06/10/2024 08:12:25 06/09/20 24 06/10/2024 CBC WITH DIFFE RENTI AL/PL ATELE T RDW 13.1 % 11.6-1 5.4 Not Available [facility] ([facility]) [address] [facility], [place], [address], 06/10/2024 08:12:25 06/09/20 24 06/10/2024 CBC WITH DIFFE RENTI AL/PL ATELE T platelets 261 x10e3 /uL 150-45 0 normal Not Available [facility] ([facility]) [address] [facility], [place], [address], 06/10/2024 08:12:25 06/09/20 24 06/10/2024 CBC WITH DIFFE RENTI AL/PL ATELE T neutrophils 61 % not estab. normal Not Available [facility] ([facility]) [address] [facility], [place], [address], 06/10/2024 08:12:25 06/09/20 24 06/10/2024 CBC WITH DIFFE RENTI AL/PL ATELE T lymphs 28 % not estab. normal Not Available [facility] ([facility]) [address] [facility], [place], [address], 06/10/2024 08:12:25 06/09/20 24 06/10/2024 CBC WITH DIFFE RENTI AL/PL ATELE T monocytes 6 % not estab. normal Not Available [facility] ([facility]) [address] [facility], [place], [address], 06/10/2024 08:12:25 06/09/20 24 06/10/2024 CBC WITH DIFFE RENTI AL/PL ATELE T eos 4 % not estab. normal Not Available [facility] ([facility]) [address] [facility], [place], [address], 06/10/2024 08:12:25 06/09/20 24 06/10/2024 CBC WITH DIFFE RENTI AL/PL ATELE T basos 0 % not estab. normal Not Available [facility] ([facility]) [address] [place], [address], 06/10/2024 08:12:25 06/09/20 24 06/10/2024 CBC WITH DIFFE RENTI AL/PL ATELE T immature cells DATA REPORTING ANALYST Not Available [facility] ([facility]) [address] [place], [address], 06/10/2024 08:12:25 06/09/20 24 06/10/2024 CBC WITH DIFFE RENTI AL/PL ATELE T neutrophils (absolute) 7.6 x10e3 /uL 1.4-7. 0 above high normal Not Available [facility] ([facility]) [address] [facility], [place], [address], 06/10/2024 08:12:25 06/09/20 24 06/10/2024 CBC WITH DIFFE RENTI AL/PL ATELE T lymphs (absolute) 3.4 x10e3 /uL 0.7-3. 1 above high normal Not Available [facility] ([facility]) [address] [place], [address], 06/10/2024 08:12:25 06/09/20 24 06/10/2024 CBC WITH DIFFE RENTI AL/PL ATELE T monocytes(ab solute) 0.8 x10e3 /uL 0.1-0. 9 normal Not Available [facility] ([facility]) [address] [place], [address], 06/10/2024 08:12:25 06/09/20 24 06/10/2024 CBC WITH DIFFE RENTI AL/PL ATELE T eos (absolute) 0.4 x10e3 /uL 0.0-0. 4 normal Not Available [facility] ([facility]) [address] [place], [address], 06/10/2024 08:12:25 08/05/20 24 06/10/2024 CBC WITH DIFFE RENTI AL/PL ATELE T baso (absolute) 0.1 x10e3 /uL 0.0-0. 2 normal Not Available [facility] ([facility]) [address] [facility], [place], [address], 06/10/2024 08:12:25 06/09/20 24 06/10/2024 CBC WITH DIFFE RENTI AL/PL ATELE T immature granulocytes 1 % not estab. Not Available [facility] ([facility]) [address] [facility], [place], [address], 06/10/2024 08:12:25 06/09/20 24 06/10/2024 CBC WITH DIFFE RENTI AL/PL ATELE T immature grans (abs) 0.1 x10e3 /uL 0.0-0. 1 Not Available [facility] ([facility]) [address] [facility], [place], [address], 06/10/2024 08:12:25 06/09/20 24 06/10/2024 CBC WITH DIFFE RENTI AL/PL ATELE T NRBC DATA REPORTING ANALYST Not Available [facility] ([facility]) [address] [facility], [place], [address], 06/10/2024 08:12:25 06/09/20 24 06/10/2024 CBC WITH DIFFE RENTI AL/PL ATELE T hematology comments: DATA REPORTING ANALYST Not Available [facility] ([facility]) [address] [facility], [place], [address], 06/10/2024 08:12:25 06/09/20 24 06/10/2024 COMP. METAB OLIC PANEL (14) glucose 100 mg/dL 70-99 above high normal Not Available [facility] ([facility]) [address] [facility], [place], [address], 06/10/2024 08:12:26 06/09/20 24 06/10/2024 COMP. METAB OLIC PANEL (14) BUN 11 mg/dL 6-24 normal Not Available [facility] ([facility]) [address] [facility] [place], [address], 06/10/2024 08:12:26 06/09/20 24 06/10/2024 COMP. METAB OLIC PANEL (14) creatinine 1.21 mg/dL 0.76-1 .27 normal Not Available [facility] ([facility]) [address] [facility] [place], [address], 06/10/2024 08:12:26 06/09/20 24 06/10/2024 COMP. METAB OLIC PANEL (14) eGFR 72 mL/mi n/1.7 3 >59 normal Not Available [facility] ([facility]) [address] [facility], [place], [address], 06/10/2024 08:12:26 06/09/20 24 06/10/2024 COMP. METAB OLIC PANEL (14) BUN/creatini ne ratio 9 9-20 normal Not Available [facility] ([facility]) [address] [facility] [place], [address], 06/10/2024 08:12:26 06/09/20 24 06/10/2024 COMP. METAB OLIC PANEL (14) sodium 141 mmol/ L 134-14 4 normal Not Available [facility] ([facility]) [address] [facility] [place], [address], 06/10/2024 08:12:26 06/09/20 24 06/10/2024 COMP. METAB OLIC PANEL (14) potassium 4.1 mmol/ L 3.5-5. 2 normal Not Available [facility] ([facility]) [address] [facility] [place], [address], 06/10/2024 08:12:26 06/09/20 24 06/10/2024 COMP. METAB OLIC PANEL (14) chloride 96 mmol/ L 96-106 normal Not Available [facility] ([facility]) [address] [place], [address], 06/10/2024 08:12:26 06/09/20 24 06/10/2024 COMP. METAB OLIC PANEL (14) carbon dioxide, total 27 mmol/ L 20-29 normal Not Available [facility] ([facility]) [address] [place], [address], 06/10/2024 08:12:26 06/09/20 24 06/10/2024 COMP. METAB OLIC PANEL (14) calcium 9.6 mg/dL 8.7-10 .2 normal Not Available [facility] ([facility]) [address] [place], [address], 06/10/2024 08:12:26 06/09/20 24 06/10/2024 COMP. METAB OLIC PANEL (14) protein, total 7.3 g/dL 6.0-8. 5 normal Not Available [facility] ([facility]) [address] [place], [address], 06/10/2024 08:12:26 06/09/20 24 06/10/2024 COMP. METAB OLIC PANEL (14) albumin 4.2 g/dL 3.8-4. 9 normal Not Available [facility] ([facility]) [address] [place], [address], 06/10/2024 08:12:26 06/09/20 24 06/10/2024 COMP. METAB OLIC PANEL (14) globulin, total 3.1 g/dL 1.5-4. 5 Not Available [facility] ([facility]) [address] [place], [address], 06/10/2024 08:12:26 06/09/20 24 06/10/2024 COMP. METAB OLIC PANEL (14) bilirubin, total 0.5 mg/dL 0.0-1. 2 normal Not Available [facility] ([facility]) [address] [facility] [place], [address], 06/10/2024 08:12:26 06/09/20 24 06/10/2024 COMP. METAB OLIC PANEL (14) alkaline phosphatase 132 IU/L 44-121 above high normal Not Available [facility] ([facility]) [address] [facility] [place], [address], 06/10/2024 08:12:26 06/09/20 24 06/10/2024 COMP. METAB OLIC PANEL (14) AST (SGOT) 32 IU/L 0-40 normal Not Available [facility] ([facility]) [address] [facility] [place], [address], 06/10/2024 08:12:26 06/09/20 24 06/10/2024 COMP. METAB OLIC PANEL (14) ALT (SGPT) 28 IU/L 0-44 normal Not Available [facility] ([facility]) [address] [place], [address], 06/10/2024 08:12:26 06/09/20 24 06/10/2024 LIPID PANEL cholesterol, total 168 mg/dL 100-19 9 normal Not Available [facility] ([facility]) [address] [facility] [place], [address], 06/10/2024 08:12:26 06/09/20 24 06/10/2024 LIPID PANEL triglyceride s 221 mg/dL 0-149 above high normal Not Available [facility] ([facility]) [address] [facility] [place], [address], 06/10/2024 08:12:26 06/09/20 24 06/10/2024 LIPID PANEL HDL cholesterol 34 mg/dL >39 below low normal Not Available [facility] ([facility]) [address] [facility] [place], [address], 06/10/2024 08:12:26 06/09/20 24 06/10/2024 LIPID PANEL VLDL cholesterol viki 38 mg/dL 5-40 Not Available [facility] ([facility]) [address] [facility], [place], [address], 06/10/2024 08:12:26 06/09/20 24 06/10/2024 LIPID PANEL LDL chol calc ([facility]) 96 mg/dL 0-99 Not Available [facility] ([facility]) [address] [facility], [place], [address], 06/10/2024 08:12:26 06/09/20 24 06/10/2024 LIPID PANEL LDL calc comment: DATA REPORTING ANALYST Not Available [facility] ([facility]) [address] [facility], [place], [address], 06/10/2024 08:12:26 06/09/20 24 06/09/2024 drug scree n, urine THC negati ve Not Available [address], [address], 06/09/2024 14:32:09 06/09/20 24 06/09/2024 drug scree n, urine TCA negati ve Not Available [address], [address], 06/09/2024 14:32:09 06/09/20 24 06/09/2024 drug scree n, urine BAR negati ve Not Available [address], [address], 06/09/2024 14:32:09 06/09/20 24 06/09/2024 drug scree n, urine BZO positi ve Not Available [address], [address], 06/09/2024 14:32:09 06/09/20 24 06/09/2024 drug scree n, urine MTD negati ve Not Available [address], [address], 06/09/2024 14:32:09 06/09/20 24 06/09/2024 drug scree n, urine AMP negati ve Not Available [address], [address], 06/09/2024 14:32:09 06/09/20 24 06/09/2024 drug scree n, urine MOP negati ve Not Available [address], [address], 06/09/2024 14:32:09 06/09/20 24 06/09/2024 drug scree n, urine OXY negati ve Not Available [address], [address], 06/09/2024 14:32:09 06/09/20 24 06/09/2024 drug scree n, urine MDMA negati ve Not Available [address], [address], 06/09/2024 14:32:09 06/09/20 24 06/09/2024 drug scree n, urine ANGELINA negati ve Not Available [address], [address], 06/09/2024 14:32:09 06/09/20 24 06/09/2024 drug scree n, urine PCP negati ve Not Available [address], [address], 06/09/2024 14:32:09 06/09/20 24 06/09/2024 drug scree n, urine MET negati ve Not Available [address], [address], 06/09/2024 14:32:09 06/30/20 24 06/30/2024 rapid SARS CoV + SARS CoV 2 Ag, QL IA, respi rator y speci men SARS CoV antigen Positi ve Not Available [address], [address], 06/30/2024 11:43:35 09/08/20 24 09/08/2024 drug scree n, urine THC negati ve Not Available [address], [address], 09/08/2024 14:02:36 09/08/20 24 09/08/2024 drug scree n, urine TCA negati ve Not Available [address], [address], 09/08/2024 14:02:36 09/08/20 24 09/08/2024 drug scree n, urine BAR negati ve Not Available [address], [address], 09/08/2024 14:02:36 09/08/20 24 09/08/2024 drug scree n, urine BZO positi ve Not Available [address], [address], 09/08/2024 14:02:36 09/08/20 24 09/08/2024 drug scree n, urine MTD negati ve Not Available [address], [address], 09/08/2024 14:02:36 09/08/20 24 09/08/2024 drug scree n, urine AMP negati ve Not Available [address], [address], 09/08/2024 14:02:36 09/08/20 24 09/08/2024 drug scree n, urine MOP negati ve Not Available [address], [address], 09/08/2024 14:02:36 09/08/20 24 09/08/2024 drug scree n, urine OXY negati ve Not Available [address], [address], 09/08/2024 14:02:36 09/08/20 24 09/08/2024 drug scree n, urine MDMA negati ve Not Available [address], [address], 09/08/2024 14:02:36 09/08/20 24 09/08/2024 drug scree n, urine ANGELINA negati ve Not Available [address], [address], 09/08/2024 14:02:36 09/08/20 24 09/08/2024 drug scree n, urine PCP negati ve Not Available [address], [address], 09/08/2024 14:02:36 09/08/20 24 09/08/2024 drug scree n, urine MET negati ve Not Available [address], [address], 09/08/2024 14:02:36 01/07/20 25 01/07/2025 CBC WITH DIFFE RENTI AL/PL ATELE T WBC 9.8 x10e3 /uL 3.4-10 .8 normal Not Available [facility] ([facility]) [address] [facility], [place], [address], 01/07/2025 12:07:56 01/07/20 25 01/07/2025 CBC WITH DIFFE RENTI AL/PL ATELE T RBC 4.74 x10e6 /uL 4.14-5 .80 normal Not Available [facility] ([facility]) [address] [place], [address], 01/07/2025 12:07:56 01/07/20 25 01/07/2025 CBC WITH DIFFE RENTI AL/PL ATELE T hemoglobin 15.1 g/dL 13.0-1 7.7 normal Not Available [facility] ([facility]) [address] [place], [address], 01/07/2025 12:07:56 01/07/20 25 01/07/2025 CBC WITH DIFFE RENTI AL/PL ATELE T hematocrit 45.1 % 37.5-5 1.0 normal Not Available [facility] ([facility]) [address] [place], [address], 01/07/2025 12:07:56 01/07/20 25 01/07/2025 CBC WITH DIFFE RENTI AL/PL ATELE T MCV 95 fL 79-97 normal Not Available [facility] ([facility]) [address] [place], [address], 01/07/2025 12:07:56 01/07/20 25 01/07/2025 CBC WITH DIFFE RENTI AL/PL ATELE T MCH 31.9 pg 26.6-3 3.0 normal Not Available [facility] ([facility]) [address] [place], [address], 01/07/2025 12:07:56 01/07/20 25 01/07/2025 CBC WITH DIFFE RENTI AL/PL ATELE T MCHC 33.5 g/dL 31.5-3 5.7 normal Not Available [facility] ([facility]) [address] [place], [address], 01/07/2025 12:07:56 01/07/20 25 01/07/2025 CBC WITH DIFFE RENTI AL/PL ATELE T RDW 13.3 % 11.6-1 5.4 Not Available [facility] ([facility]) [address] [facility], [place], [address], 01/07/2025 12:07:56 01/07/20 25 01/07/2025 CBC WITH DIFFE RENTI AL/PL ATELE T platelets 195 x10e3 /uL 150-45 0 normal Not Available [facility] ([facility]) [address] [facility], [place], [address], 01/07/2025 12:07:56 01/07/20 25 01/07/2025 CBC WITH DIFFE RENTI AL/PL ATELE T neutrophils 51 % not estab. normal Not Available [facility] ([facility]) [address] [facility], [place], [address], 01/07/2025 12:07:56 01/07/20 25 01/07/2025 CBC WITH DIFFE RENTI AL/PL ATELE T lymphs 35 % not estab. normal Not Available [facility] ([facility]) [address] [facility], [place], [address], 01/07/2025 12:07:56 01/07/20 25 01/07/2025 CBC WITH DIFFE RENTI AL/PL ATELE T monocytes 8 % not estab. normal Not Available [facility] ([facility]) [address] [facility], [place], [address], 01/07/2025 12:07:56 01/07/20 25 01/07/2025 CBC WITH DIFFE RENTI AL/PL ATELE T eos 6 % not estab. normal Not Available [facility] [facility]) [address] [facility], [place], [address], 01/07/2025 12:07:56 01/07/20 25 01/07/2025 CBC WITH DIFFE RENTI AL/PL ATELE T basos 0 % not estab. normal Not Available [facility] ([facility]) [address] [place], [address], 01/07/2025 12:07:56 01/07/20 25 01/07/2025 CBC WITH DIFFE RENTI AL/PL ATELE T immature cells DATA REPORTING ANALYST Not Available [facility] ([facility]) [address] [place], [address], 01/07/2025 12:07:56 01/07/20 25 01/07/2025 CBC WITH DIFFE RENTI AL/PL ATELE T neutrophils (absolute) 4.9 x10e3 /uL 1.4-7. 0 normal Not Available [facility] ([facility]) [address] [place], [address], 01/07/2025 12:07:56 01/07/20 25 01/07/2025 CBC WITH DIFFE RENTI AL/PL ATELE T lymphs (absolute) 3.5 x10e3 /uL 0.7-3. 1 above high normal Not Available [facility] ([facility]) [address] [place], [address], 01/07/2025 12:07:56 01/07/20 25 01/07/2025 CBC WITH DIFFE RENTI AL/PL ATELE T monocytes(ab solute) 0.7 x10e3 /uL 0.1-0. 9 normal Not Available [facility] ([facility]) [address] [place], [address], 01/07/2025 12:07:56 01/07/20 25 01/07/2025 CBC WITH DIFFE RENTI AL/PL ATELE T eos (absolute) 0.6 x10e3 /uL 0.0-0. 4 above high normal Not Available [facility] ([facility]) [address] [place], [address], 01/07/2025 12:07:56 01/07/20 25 01/07/2025 CBC WITH DIFFE RENTI AL/PL ATELE T baso (absolute) 0.0 x10e3 /uL 0.0-0. 2 normal Not Available [facility] ([facility]) [address] [facility], [place], [address], 01/07/2025 12:07:56 01/07/20 25 01/07/2025 CBC WITH DIFFE RENTI AL/PL ATELE T immature granulocytes 0 % not estab. Not Available [facility] ([facility]) [address] [facility], [place], [address], 01/07/2025 12:07:56 01/07/20 25 01/07/2025 CBC WITH DIFFE RENTI AL/PL ATELE T immature grans (abs) 0.0 x10e3 /uL 0.0-0. 1 Not Available [facility] ([facility]) [address] [facility], [place], [address], 01/07/2025 12:07:56 01/07/20 25 01/07/2025 CBC WITH DIFFE RENTI AL/PL ATELE T NRBC DATA REPORTING ANALYST Not Available [facility] ([facility]) [address] [facility], [place], [address], 01/07/2025 12:07:56 01/07/20 25 01/07/2025 CBC WITH DIFFE RENTI AL/PL ATELE T hematology comments: DATA REPORTING ANALYST Not Available [facility] ([facility]) [address] [facility], [place], [address], 01/07/2025 12:07:56 01/07/20 25 01/07/2025 COMP. METAB OLIC PANEL (14) glucose 97 mg/dL 70-99 normal Not Available [facility] ([facility]) [address] [facility], [place], [address], 01/07/2025 12:07:57 01/07/20 25 01/07/2025 COMP. METAB OLIC PANEL (14) BUN 11 mg/dL 6-24 normal Not Available [facility] ([facility]) [address] [facility] [place], [address], 01/07/2025 12:07:57 01/07/20 25 01/07/2025 COMP. METAB OLIC PANEL (14) creatinine 0.81 mg/dL 0.76-1 .27 normal Not Available [facility] ([facility]) [address] [facility], [place], [address], 01/07/2025 12:07:57 01/07/20 25 01/07/2025 COMP. METAB OLIC PANEL (14) eGFR 106 mL/mi n/1.7 3 >59 normal Not Available [facility] ([facility]) [address] [facility] [place], [address], 01/07/2025 12:07:57 01/07/20 25 01/07/2025 COMP. METAB OLIC PANEL (14) BUN/creatini ne ratio 14 9-20 normal Not Available [facility] ([facility]) [address] [facility], [place], [address], 01/07/2025 12:07:57 01/07/20 25 01/07/2025 COMP. METAB OLIC PANEL (14) sodium 141 mmol/ L 134-14 4 normal Not Available [facility] ([facility]) [address] [facility] [place], [address], 01/07/2025 12:07:57 01/07/20 25 01/07/2025 COMP. METAB OLIC PANEL (14) potassium 4.2 mmol/ L 3.5-5. 2 normal Not Available [facility] ([facility]) [address] [facility], [place], [address], 01/07/2025 12:07:57 01/07/20 25 01/07/2025 COMP. METAB OLIC PANEL (14) chloride 102 mmol/ L 96-106 normal Not Available [facility] ([facility]) [address] [place], [address], 01/07/2025 12:07:57 01/07/20 25 01/07/2025 COMP. METAB OLIC PANEL (14) carbon dioxide, total 26 mmol/ L 20-29 normal Not Available [facility] ([facility]) [address] [facility] [place], [address], 01/07/2025 12:07:57 01/07/20 25 01/07/2025 COMP. METAB OLIC PANEL (14) calcium 9.1 mg/dL 8.7-10 .2 normal Not Available [facility] ([facility]) [address] [place], [address], 01/07/2025 12:07:57 01/07/20 25 01/07/2025 COMP. METAB OLIC PANEL (14) protein, total 6.2 g/dL 6.0-8. 5 normal Not Available [facility] ([facility]) [address] [facility] [place], [address], 01/07/2025 12:07:57 01/07/20 25 01/07/2025 COMP. METAB OLIC PANEL (14) albumin 4.0 g/dL 3.8-4. 9 normal Not Available [facility] ([facility]) [address] [facility] [place], [address], 01/07/2025 12:07:57 01/07/20 25 01/07/2025 COMP. METAB OLIC PANEL (14) globulin, total 2.2 g/dL 1.5-4. 5 Not Available [facility] ([facility]) [address] [facility] [place], [address], 01/07/2025 12:07:57 01/07/20 25 01/07/2025 COMP. METAB OLIC PANEL (14) bilirubin, total 0.3 mg/dL 0.0-1. 2 normal Not Available [facility] ([facility]) [address] [facility] [place], [address], 01/07/2025 12:07:57 01/07/20 25 01/07/2025 COMP. METAB OLIC PANEL (14) alkaline phosphatase 125 IU/L 44-121 above high normal Not Available [facility] ([facility]) [address] [place], [address], 01/07/2025 12:07:57 01/07/20 25 01/07/2025 COMP. METAB OLIC PANEL (14) AST (SGOT) 24 IU/L 0-40 normal Not Available [facility] ([facility]) [address] [place], [address], 01/07/2025 12:07:57 01/07/20 25 01/07/2025 COMP. METAB OLIC PANEL (14) ALT (SGPT) 25 IU/L 0-44 normal Not Available [facility] ([facility]) [address] [place], [address], 01/07/2025 12:07:57 01/07/20 25 01/07/2025 IRON AND TIBC iron bind.cap.(TI BC) 260 ug/dL 250-45 0 normal Not Available [facility] ([facility]) [address] [place], [address], 01/07/2025 12:07:57 01/07/20 25 01/07/2025 IRON AND TIBC UIBC 197 ug/dL 111-34 3 normal Not Available [facility] ([facility]) [address] [place], [address], 01/07/2025 12:07:57 01/07/20 25 01/07/2025 IRON AND TIBC iron 63 ug/dL 38-169 normal Not Available [facility] ([facility]) [address] [place], [address], 01/07/2025 12:07:57 01/07/20 25 01/07/2025 IRON AND TIBC iron saturation 24 % 15-55 normal Not Available [facility] ([facility]) [address] [place], [address], 01/07/2025 12:07:57 01/07/20 25 01/07/2025 PT AND PTT INR COMMEN T Test not perfo rmed. Speci men recei vicki under fille d. Refer ence inter holly is for non-a ntico agula monse patie nts. Sugge sted INR thera peuti c range for Vitam in K antag onist thera py: Stand alex Dose (mode rate inten sity thera peuti c range ): 2.0 - 3.0 Highe r inten sity thera peuti c range 2.5 - 3.5 Not Available [facility] ([facility]) [address] [place], [address], 01/07/2025 12:07:58 01/07/20 25 01/07/2025 PT AND PTT prothrombin time TNP Test not perfo rmed Not Available [facility] ([facility]) [address] [place], [address], 01/07/2025 12:07:58 01/07/20 25 01/07/2025 PT AND PTT APTT TNP Test not perfo rmed Not Available [facility] ([facility]) [address] [place], [address], 01/07/2025 12:07:58 01/07/20 25 01/07/2025 VITAM IN D, 25-HY DROXY vitamin D, 25-hydroxy 28.7 NG/mL 30.0-1 00.0 below low normal Vitam in D defic iency has been defin ed by the Insti tute of Medic ine and an Endoc rine Socie ty pract ice guide line as a level of serum 25-OH vitam in D less than 20 ng/mL (1,2) . The Endoc rine Socie ty went on to furth er defin e vitam in D insuf ficie ncy as a level betwe en 21 and 29 ng/mL (2). 1. IOM (Inst itute of Medic ine). 2010. Dieta ry refer ence intak es for calci um and D. Ros eMary pritchard [place]: The [facility] Press . 2. Nancy BENAVIDES, Dru johnson [place], Sherice off-F errar i KENDALL, et al. Evalu ation , treat ment, and preve ntion of vitam in D defic iency : an Endoc rine Socie ty clini viki pract ice guide line. JCEM. 2010; 96(7) :1911 -30. Not Available [facility] ([facility]) [address] [place], [address], 01/07/2025 12:07:59 01/07/20 25 01/07/2025 PLEAS E NOTE please note Commen t The date and/o r time of colle ction was not indic ated on the requi sitio n as requi red by state and [place] law. The date of recei pt of the speci men was used as the colle ction date if not suppl ied. Not Available [facility] ([facility]) [address] [place], [address], 01/07/2025 12:08:00 01/07/20 25 01/07/2025 SPECI MEN STATU S REPOR T specimen status report COMMEN T Test not perfo rmed. Speci men recei vicki under sofiya viera TEST: [id number] 1 PT and PTT Not Available [facility] ([facility]) [address] [place], [address], 01/07/2025 12:08:00 01/07/20 25 01/06/2025 drug scree n, urine THC negati ve Not Available [address], [address], 01/06/2025 14:14:49 01/07/20 25 01/06/2025 drug scree n, urine TCA negati ve Not Available [address], [address], 01/06/2025 14:14:49 01/07/20 25 01/06/2025 drug scree n, urine BAR negati ve Not Available [address], [address], 01/06/2025 14:14:49 01/07/20 25 01/06/2025 drug scree n, urine BZO positi ve Not Available [address], [address], 01/06/2025 14:14:49 01/07/20 25 01/06/2025 drug scree n, urine MTD negati ve Not Available [address], [address], 01/06/2025 14:14:49 01/07/20 25 01/06/2025 drug scree n, urine AMP negati ve Not Available [address], [address], 01/06/2025 14:14:49 01/07/20 25 01/06/2025 drug scree n, urine MOP negati ve Not Available [address], [address], 01/06/2025 14:14:49 01/07/20 25 01/06/2025 drug scree n, urine OXY negati ve Not Available [address], [address], 01/06/2025 14:14:49 01/07/20 25 01/06/2025 drug scree n, urine MDMA negati ve Not Available [address], [address], 01/06/2025 14:14:49 01/07/20 25 01/06/2025 drug scree n, urine ANGELINA negati ve Not Available [address], [address], 01/06/2025 14:14:49 01/07/20 25 01/06/2025 drug scree n, urine PCP negati ve Not Available [address], [address], 01/06/2025 14:14:49 01/07/20 25 01/06/2025 drug scree n, urine MET negati ve Not Available [address], [address], 01/06/2025 14:14:49 08/13/20 24 08/13/2024 XR, knee, 3 view No observ ation [facility] ed[facility] [address], [place], [address], 08/14/2024 08:52:23 10/22/20 24 10/15/2024 stres s echoc ardio gram with doppl er color flow (PROC ) No observ ation record ed. [facility] [address], [place], [address], 10/23/2024 09:37:26 02/25/20 25 02/24/2025 XR, chest , 2 view No observ [facility]ion [facility] ed. [facility] [address], [place], [address], 02/27/2025 10:15:57 02/25/20 25 02/24/2025 XR, ribs, unila teral No observ ation record ed. [facility] [address], [place], [address], 02/27/2025 10:15:57 04/09/20 25 04/09/2025 XR, cervi viki spine , 2 or 3 view No observ ation record ed. [facility] [address], [place], [address], 04/09/2025 15:41:58 Result Notes None recorded. Problems Name Problem SNOMED Code Status Onset Date Resolution Date Notes Provider Name and Address Organization Details Recorded Time Hypertensive disorder 65618791 Active 2021 Not Available [facility] 4 22:25:26 Anxiety 89261773 Active 2021 Not Available [facility] 4 22:25:26 Hypothyroidis m 24742775 Active 2021 Not Available [facility] 4 22:25:26 Hyperlipidemi a 13594627 Active 2021 Not Available [facility] 4 22:25:26 History of leukemia 716082742 Active 2021 Not Available [facility] 4 22:25:26 Vitamin deficiency 40736752 Active 2021 Not Available [facility] 4 22:25:26 Asthma 410916194 Active 2021 Not Available [facility] 4 22:25:26 Benign prostatic hyperplasia 062849659 Active 2021 Not Available [facility] 4 22:25:26 Obesity 839601340 Active 2022 Not Available [facility] 4 22:25:26 Notes:Some problems listed i n Documents: #[id number], #[id number], #[id number], #[id number] could not be added to this patient's chart. Please review these documents and add these problems to the patient's chart manually as needed. Problem Notes None recorded. Procedures Surgical History Date Name Laterality Status Provider Name and Address Organization Details Recorded Time biopsy completed Nichelle Stears [place] - [facility] 05/11/2022 14:39:51 Hemorrhoidectomy completed Nichelle Stears [place] - [facility] 05/11/2022 14:40:08 Hernia Repair completed Nichelle Stears [place] - [facility] 05/11/2022 14:40:16 Colonoscopy completed Nichelle Stears [place] - [facility] 05/11/2022 14:40:31 cardiac catheterization completed Nichelle Stears [place] - [facility] 05/11/2022 14:40:38 removal of wart completed Nichelle Stears [place] - [facility] 05/11/2022 14:40:55 Imaging Results None recorded. Procedure Notes None recorded. Medical Equipment None Reported. Allergies Allergen ID Allergen Name Allergen Category Reaction Reaction Severity Criticality Documentation Date Start Date Code Code System Note Provider Name and Address Organization Details Recorded Time 439798 Keflex medicatio n other mild Not available 05/11/202266758 7 RxNorm Not Available [facility] 3 22:48:25 976066 morphine medicatio n other moderate Not available 05/11/2022 7052 RxNorm Not Available [facility] 3 22:48:25 532046 Terramyci n medicatio n nausea moderate Not available 05/11/202298541 4 RxNorm Not Available [facility] 3 22:48:25 Medications Name Sig Start [...] propionate 50 mcg/actuati on nasal spray,suspe nsion [place] 1 spray every day by intranasa l route. 2024 active Not Available Not Available Not Avai lable spironolact one 50 mg tablet Take 1 tablet twice a day by oral route. 2024 active Not Available Not Available Not Avai lable amoxicillin 875 mg-potassiu m clavulanate 125 mg [...] t Available Vitals Date Recorded Body height Body mass index (BMI) Body weight Body temperature Heart rate Oxygen saturation Oxygen saturation in Arterial blood by Pulse oximetry Respiratory rate Systolic And Diastolic Provider Name and Address Organization Details Last Updated DateTime 5 170.18 cm 38.8 kg/m2 582767. 91 g 98 [degF] 78 /min 96 % 96 % 18 /min 124/72 mm[Hg] Katy De La Paz [place] - [facility] 5 13:58:51 Date Recorded Body height Body mass index (BMI) Body weight Body temperature Heart rate Oxygen saturation Oxygen saturation in Arterial blood by Pulse oximetry Respiratory rate Systolic And Diastolic Provider Name and Address Organization Details Last Updated DateTime 5 170.18 cm 39 kg/m2 666654. 5 g 98 [degF] 88 /min 98 % 98 % 18 /min 118/84 mm[Hg] Katy De La Paz [place] - [facility] 5 16:22:04 Date Recorded Body height Provider Name an d Address Organization Details Last Updated DateTime 04/07/2025 170.18 cm Katy De La Paz [facility] 0 04/07/2025 13:58:01 Date Recorded Body mass index (BMI) Body weight Body temperature Respiratory rate Oxygen saturation Oxygen saturation in Arterial blood by Pulse oximetry Heart rate Systolic And Diastolic Provider Name and Address Organization Details Last Updated DateTime 5 40.3 kg/m2 163825. 24 g 98.1 [degF] 18 /min 97 % 97 % 84 /min 124/78 mm[Hg] Nichelle Higgins [place] - [facility] 5 14:11:02 Date Recorded Body height Body mass index (BMI) Body weight Body temperature Heart rate Oxygen saturation Oxygen saturation in Arterial blood by Pulse oximetry Respiratory rate Systolic And Diastolic Provider Name and Address Organization Details Last Updated DateTime 4 170.18 cm 38.7 kg/m2 642319. 32 g 98 [degF] 80 /min 96 % 96 % 18 /min 112/78 mm[Hg] Katy De La Paz [place] - [facility] 4 11:19:51 Date Recorded Body height Body mass index (BMI) Body weight Body temperature Heart rate Oxygen saturation Oxygen saturation in Arterial blood by Pulse oximetry Respiratory rate Systolic And Diastolic Provider Name and Address Organization Details Last Updated DateTime 4 170.18 cm 38.4 kg/m2 916619. 23 g 97.8 [degF] 86 /min 97 % 97 % 20 /min 112/82 mm[Hg] Katy De La Paz [place] - [facility] 4 13:53:45 Social History Question Answer Notes LastModified by Organizat ion Details LastModified Time Tobacco Smoking Status Never Smoker Nichelle Higgins [place], [place] - [facility] 05/11/2022 14:37:42 Do You [...] Or The Highest Degree You Have Received? [id number] Information not available 05/11/2022 Have There Been Any Changes To Your Family Or Social Situation? No Information no t available 05/11/2022 What Is The Fluoride Status Of Your Home? Unknown Information not available 05/11/2022 Have You Recently Or Are You Planning To Travel To An Area With Zika Virus? No Information not available 08/27/2023 Do You Have A Medical Power Of Manager Of Information? No Information not available 05/11/2022 What Was [...] anxious, or unable to sleep at night)? [id number] Information not available 05/11/2022 Do you have [...] split virus, quadrivalent, preservative 2 completed Bryan Fuchs, WHEELCHAIR [employer] [address], [place], [address], [place] - [facility] 08/07/2022 16:55:04 Influenza, split virus, quadrivalent, preservative 3 completed Bryan Fuchs, WHEELCHAIR DRIVER [address], [place], [address], [place] - [facility] 08/27/2023 14:11:34 Influenza, split virus, trivalent, preservative 4 completed Katy De La Paz [facility], [place] - [facility] 09/08/2024 16:08:02 COVID-19, mRNA, LNP-S, PF, 100 mcg/0.5mL dose or 50 mcg/0.25mL dose 1 completed Not Available [facility] 12/23/2023 22:25:26 COVID-19, mRNA, LNP-S, PF, 100 mcg/0.5mL dose or 50 mcg/0.25mL dose 1 completed Not Available [facility] 12/23/2023 22:25:26 COVID-19, mRNA, LNP-S, bivalent, PF, 50 mcg/0.5 mL or 25mcg/0.25 mL dose 2 completed Not Available [facility] 12/23/2023 22:25:26 Tdap 7 completed Not Available [facility] 12/23/2023 22:25:27 Tdap 8 completed Not Available [facility] 12/23/2023 22:25:27 Influenza, split virus, quadrivalent, PF 0 completed Not Available [facility] 12/23/2023 22:25:27 COVID-19, mRNA, LNP-S, PF, 100 mcg/0.5mL dose or 50 mcg/0.25mL dose 1 completed Not Available [facility] 12/23/2023 22:25:26 COVID-19, mRNA, LNP-S, PF, 100 mcg/0.5mL dose or 50 mcg/0.25mL dose 1 completed Not Available [facility] 12/23/2023 22:25:26 Tdap 3 completed Not Available [facility] 12/23/2023 22:25:27 COVID-19, mRNA, LNP-S, bivalent, PF, 50 mcg/0.5 mL or 25mcg/0.25 mL dose 2 completed Not Available [facility] 12/23/2023 22:25:27 Past Encounters Encounter ID Performer Location Encounter Start Date Encounter Closed Date Diagnosis/Indication Diagnosis SNOMED-CT Code Diagnosis ICD10 Code Diagnosis Note [id number] Bryan Fuchs APRN [address] [address] 05/11/2022 13:56:08 05/11/2022 15:36:00 Generalized anxiety disorder 74919958 F41.1 Pt compliant with plan of careKasper reviewedme dication compliance discussedL ast uds:Control substance agreement on filept is compliant with all medsPatien t identified triggers for anxiety and impact of anxious thinking on functionin g. Discussed strategies to regulate symptoms and need for compliance with treatment. History of leukemia 1614 [address]228 Z85.6 leukemia as a child- followed by oncology labs Body mass index 30+ - obesity 574810760 Z68.41 Hypertensive disorder 38 413835 I10 Hypothyroidism 39150215 E03.9 Hyperlipidemia 73212136 E78.5 Gastroesop hageal reflux disease 012627919 K21.9 Seasonal allergy 6676960 04 J30.2 Abdominal pain 01932079 R10.9 [id number] Bryan Fuchs APRN [address] [address] 06/08/2022 13:45:52 06/08/2022 14:33:36 Anxiety 84501345 F41.9 Patient identified triggers for anxiety and impact of anxious thinking on functionin g. Discussed strategies to regulate symptoms and need for compliance with treatment. csa on fileuds last visit Vitamin deficiency 25675 002 E56.9 Hyperlipidemia 39039446 E78.5 Hypertensive disorder 38 464377 I10 Hypothyroidism 44300172 E03.9 Asthma 952901196 J45.90 9 [id number] Bryan Fuchs [address] [address] 07/06/2022 13:15:24 07/06/2022 14:28:21 Anxiety 10978605 F41.9 Patient identified triggers for anxiety and impact of anxious thinking on functionin g. Discussed strategies to regulate symptoms and need for compliance with treatment. Pt compliant with plan of careKasper reviewedme dication compliance discussedL ast uds:05/11/22 Control substance agreement on file Contact de rmatitis caused by urushiol from [facility] mar 082434262 L25.5 Impaired f asting glycemia 737245163 R73.01 start low carb/gluco se/ diet [id number] Bryan Fuchs[address] [address] 08/07/2022 15:04:36 08/07/2022 16:47:53 Anxiety 37427895 F41.9 Pt compliant with plan of careKasper reviewedme dication compliance discussedL ast uds:05/11/22 Control substance agreement on file Impaired f asting glycemia 409726973 R73.01 start low carb/gluco se/ diet Influenza vaccine needed 9216658880 106 Z28.39 Administra tion of SARS-CoV-2 antigen vaccine 971763551 Z23 [id number] Bryan Fuchs [address] [address] 09/04/2022 14:58:15 09/04/2022 16:13:52 Hyperlipidemia 60396565 E78.5 Hypertensive disorder 38 148129 I10 Vitamin D deficiency 347 50849 E55.9 Hypothyroidism 11023520 E03.9 Anxiety 02497713 F41.9 Pt compliant with plan of careKasper reviewedme dication compliance discussedL ast uds:05/11/22 Control substance agreement on file Asthma 642849821 J45.90 9 History of leukemia 1614 48126 Z85.6 leukemia as a child- followed by oncology labs Vitamin deficiency 13898 002 E56.9 Seasonal a llergic rhinitis 646711549 J30.2 Gastroesop hageal reflux disease 051209445 K21.9 Benign pro static hyperplasia 843633573 N40.0 Allergic reaction 714330 005 T78.40XA [id number] [address] [address] 10/02/2022 14:19:51 10/02/2022 15:29:10 Asthma 220764120 J45.909 Hyperlipidemia 40850470 E78.5 Hypertensive disorder 38 137781 I10 Seasonal a llergic rhinitis 016103347 J30.2 Anxiety 28237939 F41.9 Pt compliant with plan of careKasper reviewedme dication compliance discussedL ast uds:05/11/22 Control substance agreement on file Allergic reaction 424896 005 T78.40XA Vitamin D deficiency 347 30910 E55.9 Gastroesop hageal reflux disease 496147309 K21.9 Hypothyroidism 21678477 E03.9 Benign pro static hyperplasia 999972219 N40.0 [id number] [facility] [address] 10/31/2022 13:47:17 10/31/2022 14:59:25 Asthma 058882911 J45.909 Hyperlipidemia 56760992 E78.5 Hypertensive disorder 38 706638 I10 Seasonal a llergic rhinitis 289421106 J30.2 Allergic reaction 046454 005 T78.40XA Vitamin D deficiency 347 84937 E55.9 Gastroesop hageal reflux disease 274583699 K21.9 Hypothyroidism 69308743 E03.9 Anxiety 00194895 F41.9 Pt compliant with plan of careKasper reviewedme dication compliance discussedL ast uds:Control substance agreement on file Benign pro static hyperplasia 432007732 N40.0 Allergic rhinitis 817713 04 J30.9 Body mass index 30+ - obesity 023262878 Z68.39 Obesity 269995175 E66.3 Long-term drug therapy 446050787 Z79.079 [id number] Bryan Fuchs [address] [address] 01/04/2023 08:58:17 01/04/2023 10:59:36 Hypertensive disorder 64550832 I10 Anxiety 45166894 F41.9 Pt compliant with plan of careKasper reviewed and appropriat emedicatio n compliance discussedL ast uds:01/04/23 Control substance agreement on fileshort trial of increase in med, discuss proper way to take med as needed Hypothyroidism 90515214 E03.9 Hyperlipidemia 20010652 E78.5 Vitamin deficiency 37913 002 E56.9 Long-term current use of benzodiazepine 3213604404 0121831 Z79.899 Asthma 459013113 J45.90 9 Seasonal a llergic rhinitis 145462737 J30.2 Gastroesop hageal reflux disease 543353518 K21.9 Allergic rhinitis 091878 04 J30.9 Benign pro static hyperplasia 701970936 N40.0 [id number] Griffindestiny Fuchs [address] [address] 03/27/2023 11:53:45 03/27/2023 12:39:48 Asthma 966582926 J45.909 History of leukemia 1614 14460 Z85.6 leukemia as a child- followed by oncology labs Hyperlipidemia 54539190 E78.5 Hypertensive disorder 38 117739 I10 Hypothyroidism 13585723 E03.9 Anxiety 97953945 F41.9 Pt compliant with plan of careKasper reviewed and appropriat emedicatio n compliance discussedL ast uds: 3Control substance agreement on file Impaired f asting glycemia 757186311 R73.01 start low carb/gluco se/ diet [id number] Bryan Fuchs [address] [address] 05/25/2023 13:27:12 05/25/2023 14:33:12 Anxiety 25691273 F41.9 Pt compliant with plan of careKasper reviewedme dication compliance discussedL ast uds: 3Control substance agreement on file Body mass index 30+ - obesity 554630968 Z68.38 Obesity 197437625 E66.9 [id number] Bryan Fuchs APRN [address] [address] 07/03/2023 17:24:07 07/03/2023 18:09:53 Benign prostatic hyperplasia 859150716 N40.0 Asthma 793690873 J45.90 9 Vitamin deficiency 22957 002 E56.9 Hyperlipidemia 59790429 E78.5 Hypothyroidism 34357202 E03.9 Anxiety 21355147 F41.9 Pt compliant with plan of careKasper reviewedme dication compliance discussedL ast uds: 3Control substance agreement on file Hypertensive disorder 38 745098 I10 Seasonal a llergic rhinitis 061002864 J30.2 Gastroesop hageal reflux disease 724230633 K21.9 Contact dermatitis 27113 004 L25.9 Candidiasis of mouth 797 59287 B37.0 [id number] Rasta Garza [address] [address] 07/23/2023 15:27:21 07/23/2023 16:49:15 Body mass index 30+ - obesity 541278001 Z68.39 Obesity 989643510 E66.9 -BMI of 39 associated with obesity-he althy diet, exercise, and weight loss discussed- education informatio n regarding healthy weight given Bite of bed bug 50486185 0 W57.XXXD Customary discussion of prescribed medication benefits, side effects, and compliance was done. Patient was instructed on proper skin care. Discussed disease presentati on, treatment options, progressio n, complicati ons, and outcomes with patient during this office visit.foll ow up in 1 week for re-evaluat ion or sooner for worsening of condition [id number] Bryan Fuchs APRN [address] [address] 08/27/2023 13:14:26 08/27/2023 14:19:03 Anxiety 94346087 F41.9 Pt compliant with plan of careKasper reviewed and appropriat emedicatio n compliance discussedL ast uds:Control substance agreement on file Long-term current use of benzodiazepine 4862096347 0760708 Z79.899 Influenza vaccine needed 4976053704 106 Z23 [id number] Bryan Fuchs [address] [address] 11/27/2023 13:49:21 11/27/2023 15:37:49 Hypertensive disorder 64005726 I10 Anxiety 77920800 F41.9 Pt compliant with plan of careKasper reviewed and appropriat emedicatio n compliance discussedL ast uds: 4Control substance agreement on file Hypothyroidism 72561488 E03.9 Hyperlipidemia 15697483 E78.5 Asthma 150407588 J45.90 9 History of leukemia 1614 74321 Z85.6 leukemia as a child- followed by oncology labs [id number] Bryan Fuchs [address] [address] 01/24/2024 13:46:24 01/24/2024 14:20:57 Disorder of scrotum 25965362 N50.9 [id number] Bryan Fuchs [address] [address] 03/06/2024 15:09:54 03/06/2024 15:53:27 Anxiety 30947787 F41.9 Pt compliant with plan of careKasper reviewed and appropriat emedicatio n compliance discussedL ast uds: 4Control substance agreement on file Contact dermatitis 21393 004 L25.9 [id number] Bryan Fuchs [address] [address] 06/09/2024 13:56:03 06/09/2024 15:12:22 Hypertensive disorder 91203071 I10 Hyperlipidemia 14460431 E78.5 Obesity 095970261 E66.9 Asthma 548290536 J45.90 9 Anxiety 76742275 F41.9 Pt compliant with plan of careKasper reviewed and appropriat emedicatio n compliance discussedL ast uds: 06/09/24Cont rol substance agreement on file [id number] Griffindestiny Fuchs [address] [address] 06/30/2024 11:05:07 06/30/2024 11:56:15 COVID-19 921655606 U07.1 no sign of a bacterial infection. likely viral. viruses can take 7-14 days to run their course. nasal saline and bulb syringe to remove nasal drainage to help with congestion . monitor temp. Tylenol or Motrin as needed for pain or fever. encourage fluids, water, Gatorade, power aide, Pedialyte if /tod dler/child warm salt water gargles warm fluids sore throat lozenges sleep elevated humidifier /vaporizer follow up immediatel y for new or worsening symptoms or no noticeable improvemen t over the next 48-72 hours Anxiety 20429978 F41.9 Pt compliant with plan of careKasper reviewed and appropriat emedicatio n compliance discussedL ast uds: 06/09/24Cont rol substance agreement on file [id number] Griffindestiny Fuchs [address] [address] 09/08/2024 13:18:01 09/08/2024 14:44:07 Anxiety 36481700 F41.9 Pt compliant with plan of careKasper reviewed and appropriat emedicatio n compliance discussedL ast uds: 09/08/24Con trol substance agreement on fileshort trial of increase-r isk discussed- discussed to take only as needed Hypertensive disorder 38 828345 I10 Hypothyroidism 60241381 E03.9 Hyperlipidemia 78362876 E78.5 Long-term drug therapy 999882090 Z79.899 Active or passive immunization 003784754 Z23 [id number] Bryan Fuchs [address] [place] [address] 01/06/2025 13:21:10 01/06/2025 14:56:18 Anxiety 75624920 F41.9 Pt compliant with plan of careKasper reviewed and appropriat emedicatio n compliance discussedL ast uds: 01/06/25Cont rol substance agreement on fileshort trial of increase-r isk discussed- discussed to take only as needed History of leukemia 1614 14819 Z85.6 leukemia as a child- followed by oncology labs Hyperlipidemia 08671304 E78.5 Hypertensive disorder 38 461849 I10 Hypothyroidism 22849784 E03.9 Easy bruising 854944576 R58 Long-term current use of benzodiazepine 9622838055 1022492 Z79.899 Anemia 297616184 D64.9 Vitamin D deficiency 347 09184 E55.9 Generalized rash 9697881 06 R21 [id number] [facility] [address] 02/19/2025 15:49:56 02/19/2025 17:07:06 Depressed mood 767867450 R45.[id number] [address] 04/07/2025 13:04:28 04/07/2025 15:56:20 Anxiety 46580063 F41.9 Pt compliant with plan of careKasper reviewed and appropriat emedicatio n compliance discussedL ast uds: 01/06/25Cont rol substance agreement on fileshort trial of increase-r isk discussed- discussed to take only as needed Hyperlipidemia 98640513 E78.5 Hypothyroidism 47947088 E03.9 Hypertensive disorder 38 073367 I10 Vitamin deficiency 69218 002 E56.9 Asthma 802169105 J45.90 9 Benign pro static hyperplasia 815392271 N40.0 Obesity 622641747 E66.9 Seasonal a llergic rhinitis 737333313 J30.2 Vitamin D deficiency 347 05455 E55.9 Depressed mood 204647028 R45.89 Gastroesop hageal reflux disease 557040657 K21.9 Allergic rhinitis 451067 04 J30.9 Pain of knee region 1003 227594 M25.562 G89.29 Backache 789403132 M54.9 Daytime somnolence 87452 35036 00 G47.19 Snoring 63584094 R06.83 Health Concerns Section Related Observation LastModified by Organization Detai ls LastModified Time None Recorded Concern Status LastModified by Organization Details LastModified Time None Recorded Advance Directives Directive N: Payers Insurance Date Sequence Insurance Name Policy Number Policy Anderson Covered Member ID Anderson Member ID Guarantor Name 04/05/2025 [place] [facility] WRAP BILLING (MEDICAID) Edward Dampier [id number] Edward Dampier 04/05/2025 [place] Edward Dampier [id number] Edward Dampier 07/24/2024 1 [employer] - DUAL COMPLETE (MEDICARE REPLACEMENT/A DVANTAGE - HMO) Edward L Dampier [id number] Edward Dampier 06/30/2024 [employer] [place] [facility] (MEDICARE) Edward Dampier [id number] Edward Dampier 07/23/2024 2 [facility] (MEDICARE REPLACEMENT/A DVANTAGE - HMO) [id number] Edward Dampier [id number] Edward Dampier 06/30/2024 1 [place] [employer] Edward Dampier [id number] Edward Dampier 07/23/2024 2 [employer]ET[employer] [facility] (MEDICAID HMO) Edward Dampier [id number] Edward Dampier 06/30/2024 1 [place] Edward Dampier [id number] Edward Dampier 06/30/2024 1 [employer] [facility] (MEDICAID HMO) Edward Dampier [id number] Edward Dampier 04/05/2025 2 [employer] [facility]TER [facility] (MEDICAID HMO) Edward L Dampier [id number] Edward Dampier 04/05/2025 1 [facility] COMMUNITY [facility] - DUAL ELIGIBLE (MEDICARE REPLACEMENT/A DVANTAGE - HMO) [place]DSNP Edward L Dampier [id number] Edward Dampier 07/23/2024 3 [place] Edward Dampier [id number] Romeo Gonzalez 04/14/2025 2 [facility] ([place] - [place] [id number] Romeo Gonzalez [id number] Romeo Gonzalez Notes Date Note Type Note Provider Name and Address Organization Details Recorded Time 06/30/2024 text/html 54 yr old male presents for day 3 of covid. He is feeling better now- he had a positive covid test at the urgent treatment center and a positive home test. also needs seraquil refilled Bryan Fuchs APRN [address], [place], [address], [place] - [facility] 06/30/2024 11:54:54 09/08/2024 text/html 54 yr old male presents for a follow up on chronic conditions and to refill his diazepam. pt states he is having a increase in his anxiety. pt states he is caring for a frail/ elderly grandfather that broke his hip and he feels his anxiety has been worse. pt states he was taking med tid but cut back because he didnt need it as often. Bryan Fuchs APRN [address], [place], [address], [place] - [facility] 09/08/2024 15:11:00 01/06/2025 text/html 54 yr old presen ts for a check up on anxiety and refill diazepam. He also has some unexplained bruising and would like to have lab work, hx of leukemia,pt states hes anxiety is well controlled on medspt states he has a rash on arms and legs from bug bites that nothing otc is helping Bryan Fuchs APRN [address], [place], [address], [place] [facility] 01/06/2025 14:50:25 02/19/2025 text/html 55 yr old male presents for depression related to grandfather's 02/18. Bryan Fcuhs APRN [address], [place], [address], [place] - [facility] 02/19/2025 17:09:36 04/07/2025 text/html 55 yr old male presents for a follow up onhypertension, hypothyroidism, anxiety and other chronic illnesses- needs refills on all medicationshas concerns of pain across back of neck that radiates down both sides into hips-pt states meds help with his anxiety.pt states he also has been very tired during the day, snores loud and wakes up startledwants to see dr whitley in [place] for left knee pain Bryan Fuchs, [employer] [address], [place], [address], [facility] - [facility] 04/07/2025 18:50:44
--- NOTE | 2025-05-05 12:09 | CT_ITS ---
FINAL REPORT TECHNIQUE: After the administration of intravenous contrast, axial images were obtained through the abdomen and pelvis by computed tomography. The study was performed with techniques to keep radiation dose as low as reasonably achievable, (ALARA). Individual dose reduction techniques using automated exposure control or adjustment of mA and/or kV according to the patient's size were employed. CLINICAL HISTORY: periumbilical pain, h/o hernia COMPARISON: 08/10/2021 FINDINGS: Abdomen: Scarring is noted at the right lung base. There is moderate fatty infiltration of the liver. The gallbladder is unremarkable. The spleen, pancreas, adrenal glands, and kidneys are unremarkable. There is a small focus of soft tissue density deep to the umbilicus measuring 2.4 x 1.4 cm, stable and of uncertain significance. Soft tissue stranding is seen deep to the umbilicus, stable. Pelvis: The appendix is not clearly identified. The urinary bladder is unremarkable. There is no free fluid or adenopathy. IMPRESSION: Moderate fatty liver. Stable soft tissue density deep to the umbilicus of uncertain significance. Reviewed, Interpreted and Dictated by Clemente Angeles MD Transcribed by Maria C Figueroa Authenticated and . [facility]
--- NOTE | 2025-05-05 12:12 | HMH.EDGENADL ---
Discharge Plan Disposition Patient Disposition: Home, Self-Care Prescriptions Prescriptions: No Action Eohilia 2 mg/10 mL suspension in packet 1 packet PO BID Qty: 600 5RF Rx Instructions: administer in the morning and evening furosemide 40 mg tablet 40 mg PO DAILY atorvastatin 10 mg tablet 10 mg PO DAILY Patient Comments: TAKE ONE TABLET BY MOUTH EVERY DAY levothyroxine 25 mcg tablet 25 mcg PO DAILY Patient Comments: TAKE ONE TABLET BY MOUTH EVERY DAY bisoprolol fumarate 10 mg tablet 10 mg PO DAILY Patient Comments: TAKE ONE TABLET BY MOUTH EVERY DAY tamsulosin 0.4 mg capsule 0.4 mg PO DAILY Patient Comments: TAKE ONE CAPSULE BY MOUTH EVERY DAY ergocalciferol (vitamin D2) 1,250 mcg (50,000 unit) capsule 1,250 mcg PO WEEKLY diazepam 10 mg tablet 10 mg PO DAILY Patient Comments: TAKE ONE TABLET BY MOUTH TWICE DAILY FOR ANXIETY spironolactone 50 mg tablet 50 mg PO DAILY Patient Comments: TAKE ONE TABLET BY MOUTH TWICE DAILY quetiapine 50 mg tablet 50 mg PO DAILY Patient Comments: TAKE ONE TABLET BY MOUTH AT BEDTIME FOR ANXIETY Linzess 72 mcg capsule 72 mcg PO DAILY Patient Comments: TAKE ONE CAPSULE BY MOUTH EVERY DAY Dupixent Pen 300 mg/2 mL pen injector 300 mg SQ WEEKLY methylprednisolone 4 mg Tablets,Dose Pack 4 mg PO DIRECTED 6 Days Qty: 21 0RF Rx Instructions: Take 1 pack as directed for 6 days triamcinolone acetonide 0.1 % cream 1 applic topical BID PRN (Reason: itching) Qty: 30 0RF epinephrine 0.3 mg/0.3 mL auto-injector 0.3 mg IM Q10M PRN (Reason: anaphylaxis) Qty: 2 0RF Rx Instructions: for 2 doses benzonatate 100 mg capsule 100 mg PO TIDP PRN (Reason: Cough) Qty: 30 0RF Referrals Follow up/Referrals: Leatha Brownlee APRN [Primary Care Provider, Medical] - See instructions Activity Restrictions/Add. Instructions Additional Instructions/Restrictions: No evidence of a periumbilical hernia or any other significant injury. Please follow-up with a general surgeon or your primary care doctor as needed. Clinical Impressions Clinical Impression: Abdominal pain, acute, periumbilical Instructions Patient Instructions: DI for Acute Abdominal Pain Print Language Print Language: Turkmen Discharge ED Provider: Papito Slater General Adult HPI General Chief complaint: Abdominal Pain Stated complaint: Sent by PCP Hernia Issues Time Seen by Provider: 05/05/25 11:53 Mode of Arrival: Ambulatory Source of Information: Patient Description of Symptoms (Recalled from ER Triage Doc. by RN): Pt reports abdominal pain x 2 days. Pt rates pain 5/10 and states it comes and goes. History of Present Illness HPI narrative: Patient is a 55-year-old male presenting today with periumbilical abdominal pain with concerns of a recurrence of a periumbilical hernia. Had a hernia repair in this region with mesh about 20 years ago. States he was helping somebody move a tree stump and suddenly had discomfort in this region. Has been having normal bowel movements and flatus. But complains of significant periumbilical pain. No nausea vomiting or any other symptoms. Related Data Home Medications ?Medication ?Instructions ?Recorded ?Confirmed atorvastatin 10 mg tablet 10 mg PO DAILY 06/03/24 12/23/24 bisoprolol fumarate 10 mg tablet 10 mg PO DAILY 06/03/24 12/23/24 diazepam 10 mg tablet 10 mg PO DAILY 06/03/24 12/23/24 dupilumab 300 mg/2 mL subcutaneous 300 mg SQ WEEKLY 06/03/24 12/23/24 pen injector (Dupixent) ergocalciferol (vitamin D2) 1,250 1,250 mcg PO WEEKLY 06/03/24 12/23/24 mcg (50,000 unit) capsule furosemide 40 mg tablet 40 mg PO DAILY 06/03/24 12/23/24 levothyroxine 25 mcg tablet 25 mcg PO DAILY 06/03/24 12/23/24 linaclotide 72 mcg capsule 72 mcg PO DAILY 06/03/24 12/23/24 (Linzess) quetiapine 50 mg tablet 50 mg PO DAILY 06/03/24 12/23/24 spironolactone 50 mg tablet 50 mg PO DAILY 06/03/24 12/23/24 tamsulosin 0.4 mg capsule 0.4 mg PO DAILY 06/03/24 12/23/24 Previous Rx's ?Medication ?Instructions ?Recorded epinephrine 0.3 mg/0.3 mL 0.3 mg (0.3 mL) IM Q10M PRN 06/07/24 injection, auto-injector anaphylaxis #2 ea benzonatate 100 mg capsule 100 mg PO TIDP PRN Cough #30 caps 06/29/24 budesonide 2 mg/10 mL oral 1 packet PO BID #600 mL 09/04/24 suspension in packet (Eohilia) methylprednisolone 4 mg tablets in 4 mg PO DIRECTED 6 days #21 tabs 11/02/24 a dose pack triamcinolone acetonide 0.1 % 1 applic topical BID PRN itching 12/23/24 topical cream #30 grams Allergies Allergy/AdvReac Type Severity Reaction Status Date / Time peanut oil (PEANUT OIL) Allergy Severe S-SWELLS-OR Verified 12/08/24 14:11 AL/THROAT egg Allergy Intermediate Hives Verified 12/08/24 14:11 tetracycline (TETRACYCLINE) Allergy Intermediate I-RASH Verified 12/08/24 14:11 aspirin (ASPIRIN) Allergy Mild stomach Verified 12/08/24 14:11 pain cephalexin (From KEFLEX) Allergy Mild NA-NAUSEA/V Verified 12/08/24 14:11 OMITING codeine (CODEINE) Allergy Mild NA-NAUSEA/V Verified 12/08/24 14:11 OMITING polymyxin B (POLYMYXIN B) Allergy Mild fever Verified 12/08/24 14:11 sulfamethoxazole (From Allergy Mild NA-NAUSEA/V Verified 12/08/24 14:11 BACTRIM) OMITING trimethoprim (From BACTRIM) Allergy Mild NA-NAUSEA/V Verified 12/08/24 14:11 OMITING bee venom protein (honey bee) Allergy Verified 12/08/24 14:11 morphine Allergy Unknown Verified 12/08/24 14:11 allergy reaction nut - unspecified Allergy Verified 12/08/24 14:11 oxytetracycline (From Allergy Verified 12/08/24 14:11 Terramycin) shellfish derived Allergy Verified 12/08/24 14:11 [facility] Disclaimer: The information contained in this section may have been updated after the patient was seen, as this information can be updated by other users. Medical History Dysphagia History of esophageal stricture Chronic maxillary sinusitis Sinusitis Dysfunction of both eustachian tubes Depression Hypothyroid Depression Bronchitis Asthma Migraine History of back pain History of gastroesophageal reflux (GERD) Hemorrhoid Allergies Hypertension Edema History of acute lymphoblastic leukemia (ALL) Dyspnea Anxiety Surgical History History of esophagogastroduodenoscopy (EGD) Hx of cardiac cath Hx of hernia repair History of colonoscopy Family History Father Family history of heart disease Heart attack Grandmother CHF (congestive heart failure) Mother Heart murmur Family/Other Cancer Unknown Cancer Social History Smoking Status: Never smoker second hand exposure: Yes alcohol intake: never substance use type: denies use current occupational status: disabled Travel in the last 8 weeks?: None household members: family housing: house current occupational exposures/hazards: No caffeine: Yes Have you lived/traveled outside [place] in past 30 days?: No Contact w/someone who lives/traveled outside US past 30 days?: No Exposure to someone with infectious disease in past 14 days?: No Do you have a fever (greater than 100.4 F or 38 C)?: No Have you tested positive for COVID-19?: No Exposed to someone with COVID-19 in past 14 days?: No Do you have a sore throat?: No Do you have a cough?: No Do you have any weakness?: No Do you have any diarrhea?: No Are you experiencing any unusual bleeding?: No Do you have any muscle aches/pain?: No Do you have any abdominal pain?: No Are you experiencing loss of taste or smell?: No Other Medical History Have you received the Flu Vaccine for this season: No Have you received the Pneumonia Vaccine: No ROS Obtained: Yes All systems reviewed & no additional complaints except as documented Physical Exam General General appearance: alert and in no apparent distress Respiratory Respiratory exam: Present normal lung sounds bilaterally Cardiovascular Cardiovascular exam: Present regular rate Abdominal Exam Abdominal exam: Present tenderness (Periumbilical tenderness no definitive masses felt but patient is obese and body habitus limits exam) Neurological Exam Neurological exam: Present alert and oriented X3 Medical Decision Making Medical Records Screening: Per USPSTF and CDC recommendations, given the prevalence of disease in our region, it is our hospital?s policy to screen for HIV and viral Hepatitis for all patients aged 18 and over and those with ongoing risk factors. Dante Inquiry Pt receiving controlled substance: No Vital Signs: 05/05/25 11:56 05/05/25 12:01 05/05/25 12:28 Temperature 97.8 F Temperature Source Oral Pulse Rate 67 64 Pulse Rate [Left] 76 Respiratory Rate 16 Blood Pressure 117/74 130/83 Blood Pressure [left] 123/74 Blood Pressure Mean [left] 90 Blood Pressure Source [left] Automatic Cuff Blood Pressure Position [left] Sitting 02 Sat by Pulse Oximetry 99 98 96 Oxygen Delivery Method Room Air 05/05/25 12:30 05/05/25 13:01 05/05/25 13:31 Temperature Temperature Source Pulse Rate 65 58 L 61 Pulse Rate [Left] Respiratory Rate Blood Pressure 128/82 108/73 L 102/61 L Blood Pressure [left] Blood Pressure Mean [left] Blood Pressure Source [left] Blood Pressure Position [left] 02 Sat by Pulse Oximetry 96 100 97 Oxygen Delivery Method Lab Data Lab results reviewed: Yes I reviewed the patient's lab results. Lab Results 05/05/25 13:08: Lactate 1.4 05/05/25 : WBC 9.2, RBC 5.05, Hgb 15.7, Hct 45.0, MCV 89.1, MCH 31.1, MCHC 34.9, RDW 12.8, Plt Count 196, MPV 9.9, Neut % (Auto) 46.3, Lymph % (Auto) 39.6, [place] % (Auto) 9.4 H, Eos % (Auto) 4.2, Baso % (Auto) 0.3, Neut # (Auto) 4.2, Lymph # (Auto) 3.6, [place] # (Auto) 0.9, Eos # (Auto) 0.4, Baso # (Auto) 0.0, Sodium 139, Potassium 4.1, Chloride 99, Carbon Dioxide 32 H, Anion Gap 12.1, BUN 10, Creatinine 0.80, Estimated Creat Clear 173, Estimated GFR 101, Est GFR ( Amer) 122, Glucose 106 H, Calcium 8.3 L, Total Bilirubin 0.6, AST 40, ALT 33, Alkaline Phosphatase 112, Total Protein 6.9, Albumin 4.1, Globulin 2.8, Albumin/Globulin Ratio 1.5, Lipase 99 05/05/25 Unknown 05/05/25 Unknown Orders (Tests/Meds): ED MEDICATIONS Discontinued Medications Generic Name Dose Route Start Last Admin Trade Name Freq PRN Reason Stop Dose Admin Acetaminophen 1,000 mg 05/05/25 12:11 05/05/25 12:28 Acetaminophen 1,000mg/100ml Vial IV 05/05/25 12:12 1,000 mg ONCE ONE Administration Lactated Ringer's 1,000 mls @ 999 mls/hr 05/05/25 12:15 05/05/25 12:28 Lactated Ringer's 1000 Ml Bag IV 05/05/25 13:15 999 mls/hr .Q1H1M JOCELYN Administration Iopamidol 75 ml 05/05/25 13:16 05/05/25 13:18 Iopamidol-370 (76%);100ml Bottle IV 05/05/25 13:17 75 ml ONCE ONE Administration Ondansetron HCl 4 mg 05/05/25 12:08 05/05/25 12:27 Ondansetron 4mg/2ml Vial IV 05/05/25 12:09 4 mg ONCE ONE Administration Sodium Chloride 10 ml 05/05/25 13:16 05/05/25 13:18 Sodium Chloride 0.9% 10ml Syr (Rad Only) IV 05/05/25 13:17 10 ml ONCE ONE Administration ORDERS Category Date Time Status CT abdomen pelvis w con Stat Cat Scan 05/05/25 12:09 Completed CBC w/Auto Diff [Complete Blood Count Auto Diff] Stat Lab 05/05/25 Completed CMP [Comprehensive Metabolic Panel] Stat Lab 05/05/25 Completed Lactic Acid Stat Lab 05/05/25 13:08 Completed Lipase Stat Lab 05/05/25 Completed Medical Decision Narrative: 55-year-old with above history and physical has significant tenderness in his periumbilical region I do not definitively feel a periumbilical hernia therefore cannot rule this out. His body habitus significant limits exam and amount of tenderness is concerning from historical standpoint this could be the case. Will get a contrasted CT scan for further evaluation and management in addition to blood work also will administer symptomatic medications and reassess. CT scan was performed which I personally interpreted which shows no evidence of periumbilical hernia or surgical abnormality. There is a nonspecific soft tissue lesion around the periumbilical site which is stable from previous scans. This is nonspecific. Serial exams are benign labs are unremarkable patient will follow-up with his primary care doctor but discharged in stable condition. Critical Care Critical Care Time Critical Care Time: No
[2025-05-05] MEDS: ONDANSETRON 4MG/2ML VIAL 4 MG IV (12:27)
[2025-05-05] MEDS: LACTATED RINGERS 1000ML 1,000 ML 999 ML IV (12:28)
[2025-05-05] MEDS: ACETAMINOPHEN 1,000MG/100ML VIAL 1000 MG IV (12:28)
[2025-05-05 12:37] LABS: Hematocrit 45.0 % (42.0-52.0); Hemoglobin 15.7 g/dL (14.1-18.0); Immature Granulocytes % 0.2 %; Mean Corpuscular HGB Conc 34.9 g/dL (31.8-35.4); Mean Corpuscular Hemoglobin 31.1 pg (27.0-31.2); Mean Corpuscular Volume 89.1 fl (80-94); Nucleated Red Blood Cells % 0 %; Platelet Count 196 K/mm3 (142-424); Red Blood Count 5.05 M/mm3 (4.60-6.20); Red Cell Distribution Width-SD 41.7 fL; White Blood Count 9.2 K/mm3 (4.8-10.8)
[2025-05-05 13:04] LABS: Albumin Level 4.1 g/dl (3.5-5.0); Chloride 99 mmol/L (98-107); Potassium 4.1 mmoL/L (3.5-5.1); Sodium 139 mmol/L (136-145)
[2025-05-05 13:06] LABS: Alanine Aminotransferase 33 U/L (12-78); Aspartate Amino Transferase 40 U/L (17-59); Bilirubin,Total 0.6 mg/dl (0.2-1.3); Blood Urea Nitrogen 10 mg/dl (9-20); Creatinine Clearance Estimated 173 mL/min (50-200); Creatinine,Serum 0.80 mg/dl (0.66-1.25); Estimated Glomerular Filt Rate 101 ml/min (>60); GFR (African American) 122 ML/MIN (>60)
[2025-05-05 13:07] LABS: Albumin/Globulin Ratio 1.5 (1.1-1.8); Alkaline Phosphatase 112 U/L (38-126); Anion Gap 12.1 mEq/L (5-15); Calcium 8.3 mg/dl (8.4-10.2); Carbon Dioxide 32 mmol/L (22.0-30.0); Globulin 2.8 g/dL (1.3-3.2); Glucose 106 mg/dl (74-100); Lipase 99 U/L (23-300); Total Protein,Serum 6.9 g/dl (6.3-8.2)
[2025-05-05] MEDS: SODIUM CHLORIDE 0.9% 10ML SYR (RAD ONLY) 10 ML IV (13:18)
[2025-05-05] MEDS: IOPAMIDOL-370 (76%);100ML BOTTLE 75 ML IV (13:18)
== END 2025-05-05 14:53 | disposition home or self-care (01) ==
PROVIDERS: Emergency Provider Student in an Organized Health Care Education/Training Program; PCP Nurse Practitioner Family
DX: R10.33 Periumbilical pain (principal)
CPT/HCPCS: 74177; 80053; 83605; 83690; 85025; 96361; 96374; 96375; 99284; J0131; J2405; J7120; Q9967

== ENCOUNTER → 2025-06-25 06:05 | Outpatient (CLI) | payer MEDICARE, OTHER, SELFPAY ==
--- OUTSIDE RECORDS SUMMARY | 2025-06-26 06:08 | XMS_ITS | Clinical Summary ---
Author Organization [facility] Address [facility] [place] [address] Care Team Providers Care Supervising Chef Name Role Phone Leatha Brownlee APRN Primary Care Provider [phone]- [phone] Family History Medical History Relation Name Comments [...] 02/04/2022 UKY-Zoster Vaccines (1 of 2) 02/04/2022 [id number] Vaccine (3 - 2023- season) 2024 03/02/2021, 02/02/2021 UKY-Influenza Vaccine (#1) 2025 09/08/2020 UKY-DTaP,Tdap,and Td Vaccine s (4 [...] patient's age to complete this topic Insurance [facility] MEDICARE AETNA [facility] MEDICAID Care Teams Supervising Chef Relationship Specialty Start Date End Date Leatha Brownlee APRN [address] [place] [address] PCP - General 03/18/21
== END ==
LOC: SL 06-26 06:06
PROVIDERS: PCP Nurse Practitioner Family; Visit Provider Nurse Practitioner Family
DX: R06.83 Snoring (principal)
CPT/HCPCS: G0399

== ENCOUNTER 2025-08-03 13:32 | Outpatient (CLI) | payer MEDICARE, OTHER, SELFPAY ==
--- NOTE | 2025-08-03 13:30 | CT_ITS ---
FINAL REPORT TECHNIQUE: Multiple axial CT sections were performed through the face without IV contrast. Coronal reconstruction images were performed. This study was performed with techniques to keep radiation doses as low as reasonably achievable (ALARA). Individualized dose reduction techniques using automated exposure control or adjustment of mA and/or kV according to the patient's size were employed. CLINICAL HISTORY: complaints of nasal congestion, trouble breathing COMPARISON: 10/18/2023 FINDINGS: There is lobular mucoperiosteal thickening of both maxillary sinuses. The ostiomeatal units are patent. No air-fluid levels are noted. There is no fracture. IMPRESSION: Bilateral maxillary sinusitis. Reviewed, Interpreted and Dictated by Clemente Angeles MD Transcribed by Maria C Figueroa Authenticated and [facility]
--- OUTSIDE RECORDS SUMMARY | 2025-08-03 13:35 | XMS_ITS | Clinical Summary ---
Author Organization [facility] Address [facility] [place] [address] Care Team Providers Care Retort Furnace Operator Name Role Phone Leatha Brownlee APRN Primary Care Provider +1- [phone] Family History Medical History Relation Name Comments [...] 02/04/2022 UKY-Zoster Vaccines (1 of 2) 02/04/2022 [id number] Vaccine (3 - 2024- season) 2025 03/02/2021, 02/02/2021 UKY-Influenza Vaccine (#1) 2025 09/08/2020 [...] patient's age to complete this topic Insurance [facility] MEDICARE AETNA [facility] MEDICAID Care Teams Retort Furnace Operator Relationship Specialty Start Date End Date Leatha Brownlee APRN [address] [place] [address] PCP - General 03/18/21
== END 2025-08-03 23:59 | disposition home or self-care (01) ==
LOC: RAD 13:32
PROVIDERS: PCP Nurse Practitioner Family; Visit Provider Nurse Practitioner
DX: J32.0 Chronic maxillary sinusitis (principal); J34.2 Deviated nasal septum
CPT/HCPCS: 70486

== ENCOUNTER 2025-10-08 10:01 | Outpatient (CLI) | payer MEDICARE, OTHER, SELFPAY ==
--- OUTSIDE RECORDS SUMMARY | 2025-10-08 10:18 | XMS_ITS | Clinical Summary ---
Author Organization [facility] Address [facility] [place] [address] Care Team Providers Care Marketing Database Consultant Name Role Phone Leatha Brownlee APRN Primary Care Provider +1- [phone] Family History Medical History Relation Name Comments [...] 02/04/2022 UKY-Zoster Vaccines (1 of 2) 02/04/2022 [id number] Vaccine (3 - 2024- season) 2025 03/02/2021, [...] patient's age to complete this topic Insurance [facility] MEDICARE AETNA [facility] MEDICAID Care Teams Marketing Database Consultant Relationship Specialty Start Date End Date Leatha Brownlee APRN [address] [place] [address] PCP - General 03/18/21
== END 2025-10-08 23:59 | disposition home or self-care (01) ==
LOC: RT 10:01
PROVIDERS: PCP Nurse Practitioner Family; Visit Provider Internal Medicine Pulmonary Disease
DX: R06.02 Shortness of breath (principal); R06.09 Other forms of dyspnea